=== PATIENT | male | born 1985 | race Caucasian/White ===

== ENCOUNTER 2019-11-18 16:19 | Emergency (ER) | payer OTHER, SELFPAY ==
--- NOTE | ~2019-11-18 | XR_ITS ---
EXAMINATION: XR chest 2V DATE: 11/18/2019 17:12 INDICATION: Left-sided chest pain TECHNIQUE: PA and lateral views of the chest are obtained. COMPARISON: 09/10/2018 FINDINGS: The lungs are free of acute opacities. There is no pleural effusion or pneumothorax. The ca rdiomediastinal silhouette is normal. The visualized bones and soft tissues are unremarkable. There i s a single lead pacemaker/defibrillator of the left chest wall with its lead ending in the right vent ricle. IMPRESSION: 1. No acute cardiopulmonary abnormality. Reviewed, dictated and finalized at location A.
--- NOTE | 2019-11-18 16:33 | ED.CHESTPAIN ---
HPI - Chest Pain General Chief Complaint: Extremity Injury, Upper Stated Complaint: pain in chest, Time Seen by Provider: 11/18/19 16:33 Source: patient Mode of arrival: ambulatory Limitations: no limitations History of Present Illness HPI narrative: A 34-year-old man with history of idiopathic cardiomyopathy comes in today complaining of left upper chest pain that occurred overnight and is now resolved. He states the pain was sharp but dull and lasted longer than 20 minutes. He had no lightheadedness common but he states he had some nausea, shortness breath. Who has had a mild cough from smoking but denies any fever, cold symptoms, sore throat or vomiting. On October 05 he had a pacemaker replaced. He has had some discomfort in his left upper arm which is exacerbated by movement since he went back to work 2 weeks ago. MD complaint: chest pain Pertinent past history: coronary artery disease Onset (ago): day(s) (12) Timing of current episode: episodic and now resolved Prior episodes: No Onset: during rest (in bed) Pain location: left chest Pain radiation: none Severity: moderate Quality: sharp and dull Context: recent surgery Associated symptoms: nausea, diaphoresis, dyspnea and cough Risk Factors Coronary artery disease risk factors: smoking history and hyperlipidemia Related Data Home Medications Medication Instructions Recorded Confirmed carvedilol 12.5 mg PO BID 11/18/19 11/18/19 fenofibrate 160 mg PO DAILY 11/18/19 11/18/19 lisinopril 10 mg PO DAILY 11/18/19 11/18/19 nitroglycerin 0.4 mg SUBLINGUAL PRN PRN 11/18/19 11/18/19 Allergies Allergy/AdvReac Type Severity Reaction Status Date / Time No Known Drug Allergies Allergy Unknown Unverified 12/25/13 21:45 Review of Systems Constitutional: Constitutional: Denies chills, Denies fatigue, Denies fever(s) and Denies weakness Eyes: Eyes: Denies change in vision and Denies photophobia ENT: Denies dysphagia, Denies nasal congestion and Denies sore throat Cardiovascular: Cardiovascular: Reports as per HPI, Reports chest pain and Reports radiating jaw, neck or arm pain Respiratory: Respiratory: Denies cough, Denies dyspnea and Denies wheezing Gastrointestinal: Gastrointestinal: Denies abdominal pain, Reports nausea and Denies vomiting Genitourinary: Genitourinary: Denies dysuria and Denies urinary frequency Musculoskeletal: Musculoskeletal: Reports as per HPI and Reports arthralgias Integumentary/Breasts: Skin/Breast: Denies pruritus, Denies erythema and Denies rash Neurologic: Denies vertigo, Denies dizziness and Denies syncope Psychiatric: Psychiatric: Denies anxiety and Denies depression Endocrine: Endocrine: Denies polydipsia and Denies polyuria Hematologic/Lymphatic: Hematologic/Lymphatic: Denies easy bleeding and Denies easy bruising Allergic/Immunologic: Allergic/Immunologic: Denies lip swelling and Denies wheezing PMFSH Past Medical History Medical History ADHD Hypertension Idiopathic cardiomyopathy Presence of combination internal cardiac defibrillator (ICD) and pacemaker Surgical History Surgical History Previous back surgery Social History Social History Smoking status: Current every day smoker Alcohol intake: never Substance use: never Living arrangements: with family Exam Const: General: healthy appearing and alert Orientation/consciousness: patient oriented x3 Other: Mild acute distress HENMT: Head: normal to inspection Ears: TM's normal bilaterally and EAC's normal General nose exam: Normal nares present Mouth: Yes Normal oral and palatal mucosa present and Yes moist mucous membranes Throat: posterior oropharynx normal Eyes: Conjunctivae: conjunctivae normal Pupils: Equal, round and reactive pupils present EOM: EOMs intact bilaterally Neck:
--- NOTE | 2019-11-18 16:38 | ECG_ITS ---
Measurements Intervals [place] Rate: 71 P: 4 WI: 169 QRS: -28 QRSD: 173 T: 32 QT: 426 QTc: 465 Interpretive Statements SINUS RHYTHM POSSIBLE LEFT ATRIAL ENLARGEMENT LEFT BUNDLE BRANCH BLOCK BASELINE ARTIFACT- I, II, III, AVR, V1 ABNORMAL ECG Electronically Signed On 11-19-2019 7:56:49 CDT by Maico Gupta D.O.
[2019-11-18 16:40] VITALS: BP 141/84; PULSE 79; RESP 14; TEMP 36.9; O2SAT 98
[2019-11-18 16:55] LABS: Basophils Absolute Auto 0.06 K/mm3 (0.00-0.10); Basophils Percent Auto 0.7 % (0.0-1.0); Eosinophils Percent Auto 2.4 % (1.0-6.0); Hemoglobin 16.8 g/dL (14.0-18.0); Immature Granulocyte Absolute 0.02 K/mm3 (0.00-0.00); Immature Granulocyte Percent A 0.2 % (0.0-0.0); Lymphocytes Absolute Auto 3.12 K/mm3 (1.10-4.50); Lymphocytes Percent Auto 37.9 % (18.0-42.0); Mean Corpuscular HGB Conc 35.7 g/dL (32.0-36.0); Mean Corpuscular Hemoglobin 30.6 pg (27.0-31.0); Mean Corpuscular Volume 85.6 fL (78.0-102.0); Mean Platelet Volume 11.2 fl (8.7-11.0); Monocytes Absolute Auto 0.61 K/mm3 (0.10-0.90); Monocytes Percent Auto 7.4 % (2.0-11.0); Neutrophils Absolute Auto 4.2 K/mm3 (1.7-7.2); Neutrophils Percent Auto 51.4 % (50.0-70.0); Platelet Count Result 204 K/mm3 (150-420); Red Blood Count 5.49 M/mm3 (4.70-6.10); Red Cell Distribution Width 11.7 % (11.6-14.4); White Blood Count 8.2 K/mm3 (4.8-10.8)
[2019-11-18 17:10] LABS: Partial Thromboplastin Time 24.3 SEC (22.3-31.6); Prothrombin Time 10.2 Seconds (9.64-11.0)
[2019-11-18 17:12] LABS: D Dimer 0.19 mg/L (0.19-0.50)
[2019-11-18 17:14] LABS: Alanine Aminotransferase 68 U/L (16-63); Alkaline Phosphatase 72 U/L (46-116); Aspartate Amino Transferase 30 U/L (15-37); Bilirubin,Total 0.4 mg/dL (0.00-1.00); Blood Urea Nitrogen 12 mg/dL (7-18); Calcium 8.6 mg/dL (8.5-10.1); Carbon Dioxide 25 mmol/L (21-32); Chloride 105 mmol/L (98-108); Estimated CRCL calculation 129 ml/min; Estimated Glomerular Filt Rate > 60; Glucose 87 mg/dL (70-99); Osmolality Calculated 290 mOsm/kg (285-295); Sodium 141 mmol/L (136-145); Total Protein 7.1 g/dL (6.4-8.2)
[2019-11-18 17:15] LABS: BNP 20.3 pg/mL (0-100); Troponin I < 0.02 ng/mL (0.00-0.056)
[2019-11-18 17:29] VITALS: BP 134/89; PULSE 79; RESP 14; O2SAT 97
== END 2019-11-18 17:40 | disposition home or self-care (01) ==
PROVIDERS: Emergency Provider Emergency Medicine; PCP Family Medicine
DX: R07.9 Chest pain, unspecified (principal); S43.402A Unspecified sprain of left shoulder joint, initial encounter
CPT/HCPCS: 36415; 71046; 80053; 83880; 84484; 85025; 85380; 85610; 85730; 93005; 99284

== ENCOUNTER 2020-05-07 10:31 | Outpatient (CLI) | payer OTHER, SELFPAY ==
--- NOTE | ~2020-05-07 | XR_ITS ---
XR elbow RT min 3V DATE: 05/07/2020 11:07 INDICATION: Right arm pain for one day. No injury. TECHNIQUE: 4 views COMPARISON: None FINDINGS: No fracture or dislocation or joint effusion. No periosteal reaction or bone destruction. J oint spaces are well preserved. IMPRESSION: Negative Reviewed, dictated and finalized at location A. IMPRESSION: Negative
--- NOTE | ~2020-05-07 | XR_ITS ---
XR shoulder RT min 2V DATE: 05/07/2020 11:08 INDICATION: Right shoulder pain for one day. No known injury. TECHNIQUE: 4 views COMPARISON: None FINDINGS: No fracture or dislocation, periosteal reaction or bone destruction or abnormal soft tissue calcification. Defibrillator device is incidentally noted. IMPRESSION: Negative right shoulder Reviewed, dictated and finalized at location A. IMPRESSION: Negative right shoulder
== END 2020-05-07 10:32 | disposition home or self-care (01) ==
PROVIDERS: PCP Family Medicine; Visit Provider Family Medicine
DX: M79.601 Pain in right arm (principal); M25.511 Pain in right shoulder
CPT/HCPCS: 73030; 73080

== ENCOUNTER 2020-05-31 14:27 | Outpatient (CLI) | payer OTHER, SELFPAY ==
--- NOTE | ~2020-05-31 | XR_ITS ---
XR shoulder LT min 2V DATE: 05/31/2020 14:55 INDICATION: Left shoulder pain, worse with lifting TECHNIQUE: 4 views COMPARISON: None FINDINGS: No fracture or dislocation, periosteal reaction or bone destruction. Normal alignment at th e acromioclavicular and glenohumeral joints. No abnormal soft tissue calcification. Left-sided pacemaker device. IMPRESSION: Negative left shoulder Reviewed, dictated and finalized at location A. IMPRESSION: Negative left shoulder
== END 2020-05-31 14:28 | disposition home or self-care (01) ==
LOC: CHSIMG 14:29
PROVIDERS: PCP Family Medicine; Visit Provider Family Medicine
DX: M25.512 Pain in left shoulder (principal)
CPT/HCPCS: 73030

== ENCOUNTER 2020-06-05 07:53 | Outpatient (RCR) | payer OTHER, SELFPAY ==
--- NOTE | 2020-06-05 08:55 | PTOPEVAL ---
Thank you for referring Daniel Prince to [facility].? The patient is scheduled to be seen for therapy? ____x/week for ___ weeks. Please review, sign, date and return this plan of care GARRETT. I agree with and certify that the following plan of care is medically necessary. Referring Physician Date Admitting Provider: Attending Provider: Jatinder Billingsley MD Referring Provider: *PT Outpatient Evaluation Start: 06/05/20 07:58 Freq: Status: Active Protocol: Document 06/05/20 07:58 [facility] (Rec: 06/05/20 08:54 [facility] [id number]) Therapy Assessment Status Assessment Status Assessment Status Evaluation Outpatient Past Medical History Cardiovascular History Hx Cardiomyopathy Yes Hx Pacemaker Yes: DEFIB Musculoskeletal History Hx Spinal Surgery Yes: DUE TO HERNIATED DISCS Evaluation Information Problem Diagnosis L shoulder pain Onset 06/04/20 Additional Evaluation Detail quick dash = 20% functionally declined Subjective Information patient reports he has been Query Text:As Reported By Patient/ having pain in the L shoulder Family for several months. he reports he has an IDC generator. he reports he had it replaced in october of this year, and since then has been having some abnormal mm pain since then. he reports the muscle feels like it rotates/moves. he report as of late the pain has been increased. he reports trying icy hot and ibuprofen for pain but they have not helped. he reports majority of his pain is in the biceps. he reports negative x-rays. he reports some numbness reported . he reports no other imaging. he reports increased pain with lifting above head and supinating his arm. Prior Level of Function Comments Additional Prior Level of Function prior to october, no issues with Comments the L shoulder/arm. Pain Assessment Timing of Pain Assessment Timing of Pain Assessment Assessment Pain Scale Pain Scale Used Numeric (1 - 10) Self Report Pain Assessment Left Arm(s) Reported Pain Level 2 Pain Frequency Chronic,Continuous Lowest Pain Intensity 2 Greatest Pain Intensity 9 Pain Scor
--- NOTE | 2020-07-02 11:01 | PCPTNOTE ---
patient cancelled appt today due to going to get tested for covid. ALEX
--- NOTE | 2020-07-11 08:05 | PCPTNOTE ---
Patient called and cancelled appt due to having a migraine. ALEX
== END 2020-07-18 14:06 | disposition home or self-care (01) ==
LOC: CHSPT 07:53
PROVIDERS: PCP Family Medicine; Visit Provider Family Medicine
DX: M25.512 Pain in left shoulder (principal)
CPT/HCPCS: 97110; 97161; 97530

== ENCOUNTER 2020-07-02 10:03 | Outpatient (CLI) | payer OTHER, SELFPAY ==
[2020-07-02 11:02] LABS: SARS-CoV-2 Ag Negative (Negative)
== END 2020-07-02 10:04 | disposition home or self-care (01) ==
LOC: CHSLAB 10:07
PROVIDERS: PCP Family Medicine; Visit Provider Family Medicine
DX: Z20.828 Contact with and (suspected) exposure to other viral communicable diseases (principal)
CPT/HCPCS: 87426

== ENCOUNTER 2020-08-20 16:55 | Outpatient (CLI) | payer OTHER, SELFPAY ==
[2020-08-20 17:40] LABS: SARS-CoV-2 Ag Negative (Negative)
[2020-08-22 17:28] LABS: SARS-CoV-2 RNA PCR Negative
== END 2020-08-20 16:56 | disposition home or self-care (01) ==
LOC: CHSLAB 16:58
PROVIDERS: PCP Family Medicine; Visit Provider Family Medicine
DX: J00 Acute nasopharyngitis [common cold] (principal); Z20.822 Contact with and (suspected) exposure to COVID-19
CPT/HCPCS: 87426; C9803; U0003; U0005

== ENCOUNTER 2020-11-22 14:12 | Emergency (ER) | payer OTHER, SELFPAY ==
--- NOTE | ~2020-11-22 | XR_ITS ---
EXAMINATION: XR chest 2V DATE: 11/22/2020 15:20 INDICATION: Midsternal chest pain TECHNIQUE: PA and lateral views of the chest were obtained. COMPARISON: Chest radiograph dated 11/18/19 FINDINGS: The lungs remain clear with no focal airspace opacities, pulmonary edema, pleural effusion or pneumot horax. The cardiomediastinal silhouette is normal. Single lead pacemaker/AICD seen with lead tip proj ecting over the right ventricle.. IMPRESSION: 1. No acute cardiopulmonary disease. Reviewed, dictated and finalized at location A.
--- NOTE | 2020-11-22 14:20 | ECG_ITS ---
Measurements Intervals [place] Rate: 67 P: 12 RI: 178 QRS: 60 QRSD: 179 T: 23 QT: 453 QTc: 479 Interpretive Statements SINUS RHYTHM LEFT BUNDLE BRANCH BLOCK ABNORMAL ECG Electronically Signed On 11-22-2020 15:22:38 CDT by Maico Gupta D.O.
[2020-11-22 14:33] VITALS: BP 122/81; PULSE 68; RESP 20; TEMP 36.4
[2020-11-22 14:41] LABS: Basophils Absolute Auto 0.07 K/mm3 (0.00-0.10); Basophils Percent Auto 0.8 % (0.0-1.0); Eosinophils Absolute Auto 0.27 K/mm3 (0.02-0.50); Eosinophils Percent Auto 3.1 % (1.0-6.0); Hematocrit 46.9 % (40.0-54.0); Hemoglobin 16.4 g/dL (14.0-18.0); Immature Granulocyte Absolute 0.02 K/mm3 (0.00-0.00); Immature Granulocyte Percent A 0.2 % (0.0-0.0); Lymphocytes Absolute Auto 3.24 K/mm3 (1.10-4.50); Lymphocytes Percent Auto 37.6 % (18.0-42.0); Mean Corpuscular Hemoglobin 30.2 pg (27.0-31.0); Mean Corpuscular Volume 86.4 fL (78.0-102.0); Mean Platelet Volume 11.6 fl (8.7-11.0); Monocytes Absolute Auto 0.46 K/mm3 (0.10-0.90); Monocytes Percent Auto 5.3 % (2.0-11.0); Neutrophils Absolute Auto 4.6 K/mm3 (1.7-7.2); Platelet Count Result 202 K/mm3 (150-420); Red Blood Count 5.43 M/mm3 (4.70-6.10); Red Cell Distribution Width 11.5 % (11.6-14.4); White Blood Count 8.6 K/mm3 (4.8-10.8)
[2020-11-22 14:55] LABS: D Dimer 0.19 mg/L (0.19-0.50); Partial Thromboplastin Time 23.9 SEC (23.90-30.70); Prothrombin Time 10.9 Seconds (9.50-12.10)
[2020-11-22 15:04] LABS: Alanine Aminotransferase 41 U/L (16-63); Albumin Level 3.8 g/dL (3.4-5.0); Alkaline Phosphatase 71 U/L (46-116); Anion Gap 8 mmol/L (8-16); Aspartate Amino Transferase 17 U/L (15-37); Bilirubin,Total 0.4 mg/dL (0.00-1.00); Blood Urea Nitrogen 9 mg/dL (7-18); Calcium 9.3 mg/dL (8.5-10.1); Carbon Dioxide 28 mmol/L (21-32); Chloride 102 mmol/L (98-108); Estimated CRCL calculation 111 ml/min; Estimated Glomerular Filt Rate > 60; Glucose 97 mg/dL (70-99); Lipase 376 U/L (73-393); NT Pro B Type Natriuretic Pept 171; Osmolality Calculated 284 mOsm/kg (285-295); Sodium 138 mmol/L (136-145); Total Protein 6.9 g/dL (6.4-8.2); Troponin I 13.7 ng/L (0.00-60.4)
--- NOTE | 2020-11-22 15:38 | ED.CHESTPAIN ---
HPI - Chest Pain General Chief Complaint: Chest Pain Stated Complaint: some type of pains in chest Source: patient Mode of arrival: ambulatory Limitations: no limitations History of Present Illness HPI narrative: this is a 35-year-old male with a history of idiopathic cardiomyopathy presents from his doctor's office after he was complaining of left-sided he left-sided chest pain with no radiation of his pain no diaphoresis no nausea vomiting no shortness of breath. The patient's primary care physician called and informed us that the patient has been having this left-sided chest pain off and on and patient works at [employer] and does some heavy lifting. Currently there is no cough or congestion no fever chills no abdominal pain no diarrhea constipation, there is currently no flank pain. MD complaint: chest pain Pertinent past history: other ( history of idiopathic cardiomyopathy) Onset (ago): week(s) Timing of current episode: episodic Onset: during rest Pain location: parasternal Pain radiation: none Severity: moderate Pain scale (0-10): 6 Quality: aching Exacerbating factors: nothing Related Data Home Medications Medication Instructions Recorded Confirmed carvedilol 12.5 mg PO BID 11/18/19 11/22/20 fenofibrate 160 mg PO DAILY 11/18/19 11/22/20 lisinopril 10 mg PO DAILY 11/18/19 11/22/20 nitroglycerin 0.4 mg SUBLINGUAL PRN PRN 11/18/19 11/22/20 Allergies Allergy/AdvReac Type Severity Reaction Status Date / Time No Known Drug Allergies Allergy Unknown Unknown Unverified 11/22/20 14:41 Review of Systems Review of Systems: All systems reviewed & are unremarkable except as noted in HPI and below PMFSH Past Medical History Medical History ADHD Hypertension Idiopathic cardiomyopathy Presence of combination internal cardiac defibrillator (ICD) and pacemaker Surgical History Surgical History Previous back surgery Social History Social History Smoking status: Current every day smoker Alcohol intake: never Substance use: never Gender identity (if verbalized by the patient): Male Exam Const: General: no acute distress and alert Orientation/consciousness: patient oriented x3 HENMT: Head: normal to inspection Eyes: Conjunctivae: conjunctivae normal Pupils: Equal, round and reactive pupils present Neck: Neck: normal visual inspection, no lymphadenopathy and no meningeal signs Chest: Chest palpation & inspection: normal inspection of the chest Other: Reproducible chest pain with palpation Resp: Effort & Inspection: normal respiratory effort Auscultation: clear to auscultation bilaterally Cardio: Rate: regular rate Rhythm: regular rhythm GI: Auscultation: normal bowel sounds Back/Spine/Pelvis: Back: no CVA tenderness Skin: General skin exam: normal color Rashes: no rashes Neuro: General: patient oriented x3, moves all extremities, no meningeal signs and no focal motor deficits Extrem: General: normal to inspection and no pedal edema Psych: Appearance: grossly normal Mental Status: mental status grossly normal Thought content: Yes Normal thought content present Course Course Emergency Course: patient received Toradol and his pain has improved, reviewed EKG and lab findings and advised that he has costochondritis and will prescribe some pain medication and for the patient to follow-up with his primary care physician. Vital Signs Vital signs: Vital Signs Temperature 36.4 C 11/22/20 14:33 Pulse Rate 68 11/22/20 14:33 Respiratory Rate 20 11/22/20 14:33 Blood Pressure 122/81 11/22/20 14:33 Temperature 36.4 C 11/22/20 14:33 Pulse Rate 68 11/22/20 14:33 Respiratory Rate 20 11/22/20 14:33 Blood Pressure 122/81 11/22/20 14:33 MDM - Chest Pain Lab Data Result diagrams: 11/22/20 14:36
[2020-11-22 15:47] VITALS: BP 125/80; PULSE 88; RESP 20; TEMP 36.7; O2SAT 98
== END 2020-11-22 15:57 | disposition home or self-care (01) ==
PROVIDERS: Emergency Provider Emergency Medicine; PCP Family Medicine
DX: M94.0 Chondrocostal junction syndrome [Tietze] (principal)
CPT/HCPCS: 36415; 71046; 80053; 83690; 83880; 84484; 85025; 85380; 85610; 85730; 93005; 99284

== ENCOUNTER 2021-07-08 11:07 | Outpatient (CLI) | payer OTHER, SELFPAY ==
--- NOTE | ~2021-07-08 | XR_ITS ---
EXAMINATION: XR shoulder LT min 2V INDICATION: Left shoulder pain TECHNIQUE: Four views of the left shoulder are submitted. COMPARISON: 05/31/2020 FINDINGS: Normal alignment. No fracture. Glenohumeral and acromioclavicular joint spaces are normal. Soft tissues are unremarkable. There is a partially imaged single lead pacemaker of the left chest wa ll. IMPRESSION: 1. No acute osseous abnormality. Reviewed, dictated and finalized at location A. RIALS INSPECTOR
--- NOTE | ~2021-07-08 | XR_ITS ---
EXAMINATION: XR toe 1st LT min 2V INDICATION: Left first toe pain TECHNIQUE: Four views of the left first toe are obtained. COMPARISON: None available FINDINGS: Bone alignment is normal. There is no fracture. There is mild osteoarthritis at the first m etatarsophalangeal joint. The soft tissues are unremarkable. IMPRESSION: 1. No acute osseous abnormality. Reviewed, dictated and finalized at location A. KENER OPERATOR
--- NOTE | ~2021-07-08 | XR_ITS ---
EXAMINATION: XR foot LT min 3V DATE: 07/08/2021 12:04 INDICATION: Left foot pain TECHNIQUE: Dorsoplantar, lateral, and 2 oblique views of the left foot were obtained. COMPARISON: None. FINDINGS: Bone alignment is normal. There is no fracture. Mild osteoarthritis is noted at the first m etatarsophalangeal joint. Posterior and plantar calcaneal enthesophytes are noted. IMPRESSION: 1. No acute osseous abnormality. Reviewed, dictated and finalized at location A. OGY TEACHER
== END 2021-07-08 11:08 | disposition home or self-care (01) ==
LOC: CHSIMG 11:10
PROVIDERS: PCP Family Medicine; Visit Provider Family Medicine
DX: M79.675 Pain in left toe(s) (principal); M25.512 Pain in left shoulder
CPT/HCPCS: 73030; 73630; 73660

== ENCOUNTER 2021-09-16 10:17 | Outpatient (CLI) | payer OTHER, SELFPAY ==
[2021-09-16 11:23] LABS: Cholesterol 181 mg/dL (0-200); HDL Direct 33 mg/dL (40-60); LDL Cholesterol Calculated 114 mg/dL (<130); Triglycerides 171 mg/dL (0-150)
== END 2021-09-16 10:18 | disposition home or self-care (01) ==
LOC: CHSLAB 10:25
PROVIDERS: PCP Family Medicine; Visit Provider Specialist
DX: E78.00 Pure hypercholesterolemia, unspecified (principal)
CPT/HCPCS: 36415; 80061

== ENCOUNTER 2022-08-06 08:35 | Emergency (ER) | payer OTHER, SELFPAY ==
--- NOTE | ~2022-08-06 | XR_ITS ---
EXAMINATION: XR chest 2V DATE: 08/06/2022 11:19 INDICATION: Nausea and vomiting. TECHNIQUE: Frontal and lateral views of the chest were obtained. COMPARISON: Chest 2 views 11/22/2020 FINDINGS: There is no pneumonia, pleural effusion, or pneumothorax. There is left ventricular enlarge ment of the heart. There is a left chest pacer/defibrillator with lead in right ventricle. IMPRESSION: 1. Left ventricular enlargement of the heart. Reviewed, dictated and finalized at location A. NIC SECTION TECHNICAL LEAD
--- NOTE | 2022-08-06 08:58 | ED.NAVMDI ---
HPI - Nausea/Vomiting/Diarrhea General Chief complaint: Nausea/Vomiting/Diarrhea Stated complaint: VOMITING Time Seen by Provider: 08/06/22 08:57 Source: patient Mode of arrival: ambulatory Limitations: no limitations History of Present Illness HPI Narrative: 36 year old male presents to the Emergency Department complaining of nausea and vomiting since 2 am. Began having diarrhea this morning. Denies blood in stool. Denies any known exposure. Has had vaccination. MD elicited complaint: nausea, vomiting and diarrhea Onset (ago): hour(s) (7) Associated nausea: Yes Associated abdominal pain: No Quality: cramping Exacerbating factors: none Relieving factors: none Associated symptoms: denies other symptoms Related Data Home Medications Medication Instructions Recorded Confirmed carvedilol 12.5 mg tablet 12.5 mg PO BID 11/18/19 11/22/20 fenofibrate 160 mg tablet 160 mg PO DAILY 11/18/19 11/22/20 lisinopril 10 mg tablet 10 mg PO DAILY 11/18/19 11/22/20 nitroglycerin 0.4 mg sublingual 0.4 mg sublingual PRN PRN Chest 11/18/19 11/22/20 tablet Pain Allergies Allergy/AdvReac Type Severity Reaction Status Date / Time No Known Drug Allergies Allergy Unknown Unknown Unverified 11/22/20 14:41 Review of Systems Review of Systems: All systems reviewed & are unremarkable except as noted in HPI and below Constitutional: Constitutional: Reports as per HPI, Reports no additional constitutional complaints, Denies chills and Denies fever(s) Eyes: Eyes: Reports as per HPI and Reports no additional eye complaints ENT: Reports system reviewed and no additional complaints, except as documented, Reports as per HPI and Denies dysphagia Cardiovascular: Cardiovascular: Reports as per HPI, Reports no additional cardiovascular complaints, Denies chest pain and Denies rapid heart rate Respiratory: Respiratory: Reports as per HPI, Reports no additional respiratory complaints, Denies chest congestion, Denies cough and Denies dyspnea Gastrointestinal: Gastrointestinal: Reports as per HPI, Reports bloating, Reports diarrhea, Reports nausea and Reports vomiting Genitourinary: Genitourinary: Reports no additional male genitourinary complaints, Reports as per HPI, Denies dysuria and Denies urinary frequency Musculoskeletal: Musculoskeletal: Reports no additional musculoskeletal complaints, Reports as per HPI, Denies back pain and Denies joint swelling Neurologic: Reports system reviewed and no additional complaints, except as documented, Reports as per HPI, Denies dizziness, Denies syncope, Denies numbness and Denies weakness Psychiatric: Psychiatric: Reports no additional psychiatric complaints Endocrine: Endocrine: Reports no additional endocrine complaints Hematologic/Lymphatic: Hematologic/Lymphatic: Reports no additional hematologic/lymphatic complaints Allergic/Immunologic: Allergic/Immunologic: Reports no additional allergic/immunologic complaints PMFSH Past Medical History Medical History ADHD Hypertension Idiopathic cardiomyopathy Presence of combination internal cardiac defibrillator (ICD) and pacemaker Surgical History Surgical History Previous back surgery Social History Social History Smoking status: Current every day smoker Alcohol intake: never Substance use: never Gender identity (if verbalized by the patient): Male Exam Const: General: alert Nutritional Appearance: well nourished Orientation/consciousness: patient oriented x3 Limitations: no limitations HENMT: Head: normal to inspection Ears: external ears normal Face/Nose/Sinus: Normal external nose present Face and sinus: normal facial exam Mouth: Yes Normal oral and palatal mucosa present Teeth and gingiva: dentition normal Throat: posterior oropharynx normal Eyes: Conjunctivae: conju
[2022-08-06] MEDS: SODIUM CHLORIDE 0.9% IV 1,000 ML 999 ML IV CONT ×2 (09:14→11:27)
[2022-08-06] MEDS: ONDANSETRON INJ 4 MG/2 ML VIAL IV PUSH (09:15)
[2022-08-06 09:34] LABS: Alanine Aminotransferase 56 U/L (16-63); Albumin Level 4.1 g/dL (3.4-5.0); Alkaline Phosphatase 74 U/L (46-116); Anion Gap 11 mmol/L (8-16); Aspartate Amino Transferase 20 U/L (15-37); Bilirubin,Total 0.7 mg/dL (0.00-1.00); Blood Urea Nitrogen 24 mg/dL (7-18); Calcium 8.9 mg/dL (8.5-10.1); Carbon Dioxide 23 mmol/L (21-32); Chloride 104 mmol/L (98-108); Estimated Glomerular Filt Rate > 60; Glucose 160 mg/dL (70-99); Osmolality Calculated 293 mOsm/kg (285-295); Potassium 3.8 mmol/L (3.5-5.1); Sodium 138 mmol/L (136-145); Total Protein 7.5 g/dL (6.4-8.2)
[2022-08-06 09:36] LABS: Eosinophils Percent Auto 0.6 % (1.0-6.0); Hematocrit 61.7 % (40.0-54.0); Hemoglobin 17.7 g/dL (14.0-18.0); Immature Granulocyte Percent A 0.5 % (0.0-0.0); Mean Corpuscular HGB Conc 34.2 g/dL (32.0-36.0); Mean Corpuscular Hemoglobin 29.6 pg (27.0-31.0); Mean Corpuscular Volume 86.6 fL (78.0-102.0); Mean Platelet Volume 11.7 fl (8.7-11.0); Monocytes Percent Auto 3.9 % (2.0-11.0); Neutrophils Percent Auto 90.6 % (50.0-70.0); Platelet Count Result 204 K/mm3 (150-420); Red Blood Count 5.97 M/mm3 (4.70-6.10); Red Cell Distribution Width 11.7 % (11.6-14.4); White Blood Count 16.1 K/mm3 (4.8-10.8)
[2022-08-06 09:37] LABS: Basophils Absolute Auto 0.06 K/mm3 (0.00-0.10); Basophils Percent Auto 0.4 % (0.0-1.0); Immature Granulocyte Absolute 0.08 K/mm3 (0.00-0.00); Lymphocytes Absolute Auto 0.65 K/mm3 (1.10-4.50); Monocytes Absolute Auto 0.63 K/mm3 (0.10-0.90); Neutrophils Absolute Auto 14.6 K/mm3 (1.7-7.2)
[2022-08-06 09:54] LABS: Influenza A QL RT-PCR Negative (Negative); Influenza B QL RT-PCR Negative (Negative); SARS-CoV-2 RNA PCR Negative (Negative)
[2022-08-06 09:55] LABS: RSV RNA, RT-PCR Negative (Negative)
[2022-08-06 10:08] VITALS: BP 135/92; PULSE 92; RESP 16; O2SAT 99
[2022-08-06 12:03] LABS: Add Urine Microscopic? YES; Appearance Urine Clear (Clear); Bilirubin Urine Negative (Negative); Blood Urine Negative (Negative); Color Urine Light Yellow (Yellow); Glucose Urine UA Trace (Negative); Ketones Urine Negative (Negative); Leukocyte Esterase Ur Negative LEU/UL (Negative); Nitrate Urine Negative (Negative); Protein Urine Negative (Negative); Urobilinogen Urine 0.2 mg/dL (0.2-1.0); pH Urine 6.5 (5.0-8.0)
[2022-08-06 12:08] LABS: Bacteria Urine None seen /hpf; RBC Urine 0-2 /hpf (0-2); Squamous Epithelial Cell Urine Rare /hpf (Few); WBC Urine 0-3 /hpf (0-3)
[2022-08-06 12:26] VITALS: BP 126/78; PULSE 95; RESP 20; TEMP 36.7; O2SAT 97
== END 2022-08-06 12:41 | disposition home or self-care (01) ==
PROVIDERS: Emergency Provider Emergency Medicine; PCP Family Medicine
DX: K52.9 Noninfective gastroenteritis and colitis, unspecified (principal); E86.0 Dehydration; I10 Essential (primary) hypertension; I42.9 Cardiomyopathy, unspecified; Z20.822 Contact with and (suspected) exposure to COVID-19
CPT/HCPCS: 36415; 71046; 80053; 81001; 85025; 87637; 96361; 96374; 99284; J2405; J7030

== ENCOUNTER 2022-12-25 17:01 | Emergency (ER) | payer OTHER, SELFPAY ==
[2022-12-25 17:03] VITALS: BP 149/93; PULSE 80; TEMP 36.4; O2SAT 96
--- NOTE | 2022-12-25 17:05 | ECG_ITS ---
Measurements Intervals [place] Rate: P: NM: QRS: QRSD: T: QT: QTc: Interpretive Statements PROBABLY SINUS RHYTHM (BASELINE ARTIFACT) FREQUENT VENTRICULAR PREMATURE COMPLEXES LEFT BUNDLE BRANCH BLOCK BASELINE ARTIFACT- I, II, III, AVR, AVL, AVF, V1-V6 ABNORMAL ECG NO PRIOR ECG FOR COMPARISON Electronically Signed On 12-26-2022 7:59:34 CDT by Maico Gupta D.O.
[2022-12-25 17:53] LABS: Troponin I 19.9 ng/L (0.00-60.4)
--- NOTE | 2022-12-25 18:08 | ED.CHESTPAIN ---
HPI - Chest Pain General Chief Complaint: Extremity Injury, Upper Stated Complaint: burning shoulder pain Time Seen by Provider: 12/25/22 17:03 Source: patient Mode of arrival: ambulatory Limitations: no limitations History of Present Illness HPI narrative: Patient presents with a burning sensation to his left clavicle and upper chest area with no diaphoresis it is reproducible has a defibrillator implanted there is no redness around that site no drainage currently not having any chest pain or chest discomfort no fever chills no shortness of breath. complaint: chest discomfort Onset (ago): day(s) Timing of current episode: episodic Related Data Home Medications Medication Instructions Recorded Confirmed carvedilol 12.5 mg tablet 12.5 mg PO BID 11/18/19 12/25/22 fenofibrate 160 mg tablet 160 mg PO DAILY 11/18/19 12/25/22 lisinopril 10 mg tablet 10 mg PO DAILY 11/18/19 12/25/22 nitroglycerin 0.4 mg sublingual 0.4 mg sublingual PRN PRN Chest 11/18/19 12/25/22 tablet Pain Allergies Allergy/AdvReac Type Severity Reaction Status Date / Time No Known Drug Allergies Allergy Unknown Unknown Verified 12/25/22 17:08 Review of Systems Review of Systems: All systems reviewed & are unremarkable except as noted in HPI and below PMFSH Past Medical History Medical History ADHD Hypertension Idiopathic cardiomyopathy Presence of combination internal cardiac defibrillator (ICD) and pacemaker Surgical History Surgical History Previous back surgery Social History Social History Smoking status: Current every day smoker Alcohol intake: never Substance use: never Living arrangements: with family Gender identity (if verbalized by the patient): Male Exam Const: General: healthy appearing and no acute distress Limitations: no limitations HENMT: Head: normal to inspection Eyes: Conjunctivae: conjunctivae normal Pupils: Equal, round and reactive pupils present EOM: EOMs intact bilaterally Chest: Chest palpation & inspection: normal inspection of the chest Resp: Effort & Inspection: normal respiratory effort GI: Auscultation: normal bowel sounds : General: Yes bladder normal to palpation Skin: General skin exam: normal color Rashes: no rashes Wounds: no wounds Neuro: General: patient oriented x3 Extrem: General: normal to inspection Psych: Mental Status: mental status grossly normal Affect: normal affect Course Course Emergency Course: Labs reviewed with patient EKG also reviewed and advised patient to follow-up with primary care physician. Vital Signs Vital signs: Vital Signs Temperature 36.4 C L 12/25/22 17:03 Pulse Rate 80 12/25/22 17:03 Blood Pressure 149/93 H 12/25/22 17:03 Pulse Oximetry 96 12/25/22 17:03 Oxygen Delivery Room Air 12/25/22 17:03 Temperature 36.4 C L 12/25/22 17:03 Pulse Rate 80 12/25/22 17:03 Blood Pressure 149/93 H 12/25/22 17:03 Pulse Oximetry 96 12/25/22 17:03 Oxygen Delivery Room Air 12/25/22 17:03 MDM - Chest Pain Lab Data Labs: Lab Results 12/25/22 Range/Units 17:30 Troponin I 19.9 (0.00-60.4) ng/L Critical Care Time Critical Care Time Critical Care Time: No Discharge Plan Discharge Clinical Impression: Atypical chest pain Patient Disposition: Home, Self-Care Condition: Stable Instructions: Antibiotic Form, Chest Pain (ED) Additional Instructions: advised patient follow-up with Primary/ [facility] ka[facility]apa ma[facility] for further evaluation and treatment. Prescriptions: No Action tramadol [Ultram] 50 mg tablet 50 mg PO Q6H PRN (Reason: pain) Qty: 20 0RF ondansetron 4 mg tablet,disintegrating 4 mg PO Q6H PRN (Reason: nausea and vomiting) Qty: 10 1RF carvedilol 12.5 mg tablet 12.5 mg PO BID lisinopri
[2022-12-25 18:17] VITALS: BP 134/71; PULSE 65; RESP 18; TEMP 36.7; O2SAT 99
== END 2022-12-25 18:20 | disposition home or self-care (01) ==
PROVIDERS: Emergency Provider Emergency Medicine; PCP Family Medicine
DX: R07.89 Other chest pain (principal); I10 Essential (primary) hypertension; I42.8 Other cardiomyopathies; Z95.810 Presence of automatic (implantable) cardiac defibrillator; F17.200 Nicotine dependence, unspecified, uncomplicated
CPT/HCPCS: 36415; 84484; 93005; 99284

== ENCOUNTER 2023-02-10 09:48 | Outpatient (CLI) | payer OTHER, SELFPAY ==
--- NOTE | ~2023-02-10 | XR_ITS ---
EXAMINATION:XR_[id number]_CR DATE: 02/10/2023 10:11 INDICATION: Neck pain TECHNIQUE: AP, lateral, lateral swimmers and odontoid views of the cervical spine are provided. COMPARISON: None FINDINGS: There is reversal of the normal cervical lordosis. Bone alignment is normal. The odontoid p rocess is intact. No fracture is identified. Vertebral body heights and disk spaces are normal. Preve rtebral soft tissues are normal. IMPRESSION: 1. No acute osseous abnormality. Reviewed, dictated and finalized at location L.
== END 2023-02-10 09:49 | disposition home or self-care (01) ==
LOC: CHSIMG 09:50
PROVIDERS: PCP Family Medicine; Visit Provider Nurse Practitioner Family
DX: M54.2 Cervicalgia (principal)
CPT/HCPCS: 72040

== ENCOUNTER 2023-06-09 11:29 | Outpatient (CLI) | payer OTHER, SELFPAY ==
--- NOTE | ~2023-06-09 | XR_ITS ---
Left foot Technique: AP, oblique, and lateral views were obtained. Clinical History: Pain Findings: No acute fracture or dislocation is seen. Osseous alignment is anatomic. Joint spaces are p reserved without erosive or degenerative change. Soft tissues are unremarkable. Impression: Unremarkable left foot radiographs. Reviewed, dictated and finalized at location . TECH Impression: Unremarkable left foot radiographs.
--- NOTE | ~2023-06-09 | XR_ITS ---
Right foot Technique: AP, oblique, and lateral views were obtained. Clinical History: Pain Findings: No acute fracture or dislocation is seen. Osseous alignment is anatomic. Joint spaces are p reserved without erosive or degenerative change. Soft tissues are unremarkable. Impression: Unremarkable right foot radiographs. Reviewed, dictated and finalized at location . 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
== END 2023-06-09 11:30 | disposition home or self-care (01) ==
LOC: CHSIMG 11:30
PROVIDERS: PCP Family Medicine; Visit Provider Family Medicine
DX: M79.673 Pain in unspecified foot (principal)
CPT/HCPCS: 73630

== ENCOUNTER 2023-06-15 13:48 | Outpatient (CLI) | payer OTHER, SELFPAY ==
--- NOTE | 2023-06-15 13:52 | ECHO_ITS ---
Patient Info Name: Daniel Prince Age: 37 years : 1985 Gender: Male Ht: 71 in Wt: 216 lbs BSA: 2.24 m2 HR: 70 bpm BP: 143 / 78 mmHg Heart Rhythm: Sinus Rhythm Technical Quality: Good Exam Date: 06/15/2023 3:04 PM Exam Location: Echo Lab Patient Status: Outpatient Admit Date: 06/15/2023 Staff Ordering Physician: Maico Gupta DO Event Specialist Food Demonstrator: Gallito Foster RDCS Attending Provider: Maico Gupta DO Referring Physician: Alonso FRANCIS; Exam Type: CA echo doppler color flow Study Info Indications - OTHER CARDIOMYOPATHIES Complete two-dimensional, color flow and Doppler transthoracic echocardiogram is performed. Summary 1. Complete two-dimensional, color flow and Doppler transthoracic echocardiogram is performed. 2. Left ventricular chamber dimension is severely enlarged. 3. Left ventricular systolic function is severely globally reduced, estimated at 20-25%. 4. The left ventricular diastolic function is grade I diastolic dysfunction. 5. E/e' 9 is minimally elevated. 6. Linear artifact in right ventricle suggestive of catheter(s), pacemaker lead(s), or ICD lead(s). 7. Left atrial chamber dimension is moderately enlarged. 8. Linear artifact in the right atrium suggestive of catheter(s), pacemaker lead(s), or ICD lead(s). 9. There is trace aortic valve regurgitation. 10. There is trace mitral valve regurgitation. 11. No pulmonary hypertension, estimated pulmonary arterial systolic pressure is 21 mmHg. 12. There is trace pulmonic regurgitation. Left Ventricle E/e' 9 is minimally elevated. Left ventricular chamber dimension is severely enlarged. Left ventricular systolic function is severely globally reduced, estimated at 20-25%. The left ventricular diastolic function is grade I diastolic dysfunction. Right Ventricle Linear artifact in right ventricle suggestive of catheter(s), pacemaker lead(s), or ICD lead(s). Right ventricular systolic function is normal and with normal TAPSE 2.8 cm. Right ventricular chamber dimension is normal. Left Atria Left atrial chamber dimension is moderately enlarged. Right Atria Linear artifact in the right atrium suggestive of catheter(s), pacemaker lead(s), or ICD lead(s). Right atrial chamber dimension is normal. Aortic Valve The aortic valve is trileaflet. There is no aortic valve stenosis. There is trace aortic valve regurgitation. Pulmonic Valve There is trace pulmonic regurgitation. Mitral Valve There is no mitral valve stenosis. There is trace mitral valve regurgitation. Tricuspid Valve There is no tricuspid valve regurgitation. No pulmonary hypertension, estimated pulmonary arterial systolic pressure is 21 mmHg. Pericardium/Pleural There is no pericardial effusion. Inferior Vena Cava Normal inferior vena cava with >50% collapse upon inspiration consistent with normal right atrial pressure, 5 mmHg. Aorta The aortic root size at the sinus of Valsalva is normal. Left Ventricular Outflow Tract Name Value Normal LVOT 2D LVOT Diameter 2.2 cm LVOT Doppler LVOT Peak Velocity 123 cm/s LVOT Peak Gradient 6 mmHg LVOT Mean Gradient 3 mmHg LVOT VTI
== END 2023-06-15 13:49 | disposition home or self-care (01) ==
LOC: CHSIMG 13:49
PROVIDERS: PCP Family Medicine; Visit Provider Internal Medicine Cardiovascular Disease
DX: I42.8 Other cardiomyopathies (principal)
CPT/HCPCS: 93306

== ENCOUNTER 2023-09-08 09:12 | Outpatient (RCR) | payer OTHER, SELFPAY ==
--- NOTE | 2023-09-08 10:12 | OPREHPOC ---
Outpatient Therapy Plan of Care This is a Multidisciplinary Plan of Care that may contain components documented by all disciplines (PT, OT, and ST.) PT Problem 1 PT Problem #1 Knowledge Deficit PT Goal 1 Goal 1. independent and compliant with HEP Target Visit 6 PT Problem 2 PT Problem #2 Pain PT Goal 1 Goal 1. decrease pain at worst to 2/10 Target Visit 12 PT Problem 3 PT Problem #3 Impaired Range of Motion PT Goal 1 Goal 1. improve bilateral ankle active DF to 10 degrees or better Target Visit 12 PT Problem 4 PT Problem #4 Impaired Strength PT Goal 1 Goal 1. 5/5 L ankle INV Target Visit 12 PT Problem 5 PT Problem #5 Impaired Functional Mobil PT Goal 1 Goal 1. LEFS to display less than 25% functional decline 2. patient to ambulate with normal gait mechanics on no pain 3. patient to return to working full days without more than 2/10 pain 4. mild or less tightness of the bilateral gastrocs Target Visit 12
--- NOTE | 2023-09-08 10:12 | PTOPEVAL1 ---
Assessment and note entered by JT File, PT Evaluation Information Assessment Status Evaluation Diagnosis L foot pain, plantar fasciitis Onset 09/07/23 Subjective Information patient reports his symptoms come and go. he reports he wakes up in the morning with no pain, but during the middle of his work shift he will have increased pain. he reports he works on his feet all day at [employer]. he reports the pain is on the bottom of the L foot in the heel. he reports he has tried some self massage, ice, and a mechanical foot massager. he reports he will at times also flex his foot wrong in the shower and get a pain. he reports the pain is never in the achilles tendon. he reports the pain is mostly on the bottom of the foot in the heel, but also at time some of the back of the foot. he reports he would like to return to pain free standing, walking, and activities. he is unsure of the length of symptoms. Reported Pain Level Pain Score 0: Self Report Additional Pain Score Comments plantar heel pain Assessment PT Clinical Summary mr. muñoz is a 38 yo man who presents to skilled PT services for evaluation and treatment of L foot pain. he presents with signs and symptoms consistent with L plantar fasciitis. he presents with gastroc and plantar fascia tightness , decreased ankle active DF, weakness of the L ankle, and pain. he would benefit from continued skilled PT to improve his objective/functional deficits and progress towards a return to pain free daily activities to improve his quality of life. Plan of Care Interventions Gait Training,Hot Pack/Cold Pack,Manual Therapy, Neuro Re-education,Patient/Caregiver Educati, Therapeutic Activities,Therapeutic Exercise, Ultrasound,Other Other Interventions dry needling PT Services Indicated Yes Treatment Frequency and 3x weekly for 9 visits Duration These treatments will address the objective and functional deficits as defined above. The patient will be advanced safely and appropriately in order for the patient to progress towards his/her prior level of function. Additional exercises will be introduced and as well as a comprehensive home exercise program upon discharge, if needed, ?to ensure carryover of functional gains achieved in the clinic. This treatment plan has been reviewed and agreement upon by the patient.
--- NOTE | 2023-09-16 07:02 | PCPTNOTE ---
Patient cancelled session today due to illness.
--- NOTE | 2023-09-18 12:57 | PCPTNOTE ---
Patient cancelled session today. Patient reports he is getting tested for covid.
--- NOTE | 2023-10-27 14:50 | OPREHPOC ---
Outpatient Therapy Plan of Care This is a Multidisciplinary Plan of Care that may contain components documented by all disciplines (PT, OT, and ST.) PT Problem 1 PT Problem #1 Knowledge Deficit PT Goal 1 Goal 1. independent and compliant with HEP Target Visit 6 Progress Met PT Problem 2 PT Problem #2 Pain PT Goal 1 Goal 1. decrease pain at worst to 2/10 Target Visit 15 Comment progressing PT Problem 3 PT Problem #3 Impaired Range of Motion PT Goal 1 Goal 1. improve bilateral ankle active DF to 10 degrees or better Target Visit 15 Comment progressing PT Problem 4 PT Problem #4 Impaired Strength PT Goal 1 Goal 1. 5/5 L ankle INV Target Visit 15 Comment progressing PT Problem 5 PT Problem #5 Impaired Functional Mobil PT Goal 1 Goal 1. LEFS to display less than 25% functional decline 2. patient to ambulate with normal gait mechanics on no pain 3. patient to return to working full days without more than 2/10 pain 4. mild or less tightness of the bilateral gastrocs Target Visit 15 Comment progressing
--- NOTE | 2023-10-27 14:50 | PTOPREEVAL ---
Assessment and note entered by Sahara James DPT Evaluation Information Assessment Status Re-evaluation Diagnosis L foot pain, plantar fasciitis Onset 09/07/23 Subjective Information patient reports that since start of PT his foot is overall better. he reports he is able to stand at work with minimal pain but pain is increased following the work day. he reports prior to a week away from PT his foot was more improved. he reports that standing in the shower and turning the L leg increases pain. he reports he is compliant with HEP. he would like to continue with PT. Reported Pain Level Pain Score 4: Self Report Assessment PT Clinical Summary Mr. Prince has been seen for 6 visits of skilled PT with progression towards goals. He demonstrates decrease in overall pain, improved gait and improved flexibility of the gastrocs. He reports ability to stand and walk at work with less pain but reports showering continues to be difficult as well as increased pain at the end of the day. He demonstrates improved LEFS scoring but still demonstrates 30% disability. He will benefit from continued skilled PT to address remaining impairments and return to PLOF. Plan of Care Interventions Gait Training,Hot Pack/Cold Pack,Manual Therapy, Neuro Re-education,Patient/Caregiver Educati, Therapeutic Activities,Therapeutic Exercise, Ultrasound,Other Other Interventions dry needling PT Services Indicated Yes Treatment Frequency and 3x weekly for 9 visits Duration These treatments will address the objective and functional deficits as defined above. The patient will be advanced safely and appropriately in order for the patient to progress towards his/her prior level of function. Additional exercises will be introduced and as well as a comprehensive home exercise program upon discharge, if needed, ?to ensure carryover of functional gains achieved in the clinic. This treatment plan has been reviewed and agreement upon by the patient.
--- NOTE | 2023-11-09 11:53 | PCPTNOTE ---
Patient cancelled session today due to illness.
--- NOTE | 2023-11-11 09:32 | PCPTNOTE ---
patient cancelled therapy today due to being sick.
--- NOTE | 2023-11-23 13:18 | PCPTNOTE ---
Patient cancelled session today due to illness.
--- NOTE | 2023-11-25 17:32 | PCPTNOTE ---
patient called and cancelled therapy today and rescheduled for next week.
--- NOTE | 2023-12-02 17:02 | OPREHPOC ---
Outpatient Therapy Plan of Care This is a Multidisciplinary Plan of Care that may contain components documented by all disciplines (PT, OT, and ST.) PT Problem 1 PT Problem #1 Knowledge Deficit PT Goal 1 Goal 1. independent and compliant with HEP Target Visit 6 Progress Met PT Problem 2 PT Problem #2 Pain PT Goal 1 Goal 1. decrease pain at worst to 2/10 Target Visit 15 Progress Not Met Comment . PT Problem 3 PT Problem #3 Impaired Range of Motion PT Goal 1 Goal 1. improve bilateral ankle active DF to 10 degrees or better Target Visit 15 Progress Met Comment . PT Problem 4 PT Problem #4 Impaired Strength PT Goal 1 Goal 1. 5/5 L ankle INV Target Visit 15 Progress Met Comment . PT Problem 5 PT Problem #5 Impaired Functional Mobil PT Goal 1 Goal 1. LEFS to display less than 25% functional decline. met 2. patient to ambulate with normal gait mechanics on no pain. not met 3. patient to return to working full days without more than 2/10 pain. not met 4. mild or less tightness of the bilateral gastrocs. met Target Visit 15 Progress Partially Met Comment .
--- NOTE | 2023-12-02 17:03 | PTOPREEVAL ---
Assessment and note entered by JT File, PT Evaluation Information Assessment Status Re-evaluation Diagnosis L foot pain, plantar fasciitis Onset 09/07/23 Subjective Information patient reports the L foot today is not a sharp pain, but a numbing/dull pain. he reports he feels better leaving therapy, but generally always has increased pain with work and increased walking. 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 he reports he is hoping to get referred to a specialist. he reports it is improved overall, but still bothers him and is limiting his function. Reported Pain Level Pain Score 2: Self Report Pain Score 2: Self Report Assessment PT Clinical Summary mr. muñoz presents to skilled PT for his 12th skilled therapy visit. he continues to have pain in the plantar fascia and medial calcaneal tubercle of the L foot. however, he has met goals for L ankle ROM, L ankle flexibility, and L ankle strength as of this date. he is compliant with his HEP as well. at this time, given patients continued symptoms, suggest holding therapy to follow up with MD and seek referral to a specialist. Plan of Care Interventions Gait Training,Hot Pack/Cold Pack,Manual Therapy, Neuro Re-education,Patient/Caregiver Educati, Therapeutic Activities,Therapeutic Exercise, Ultrasound,Other Other Interventions dry needling PT Services Indicated Yes Treatment Frequency and hold therapy at this time. patient to follow up Duration with MD/specialist These treatments will address the objective and functional deficits as defined above. The patient will be advanced safely and appropriately in order for the patient to progress towards his/her prior level of function. Additional exercises will be introduced and as well as a comprehensive home exercise program upon discharge, if needed, ?to ensure carryover of functional gains achieved in the clinic. This treatment plan has been reviewed and agreement upon by the patient.
--- NOTE | 2024-04-19 10:52 | PCPTNOTE ---
Pt was re-evaluated on 12/02/23 and 9 additional visits were requested. Authorization was not received so pt will be discharged. -Sharonda Fischer, PT
== END 2023-12-02 23:00 | disposition home or self-care (01) ==
LOC: CHSPT 09:12
PROVIDERS: PCP Family Medicine; Visit Provider Family Medicine
DX: M72.2 Plantar fascial fibromatosis (principal)
CPT/HCPCS: 97110; 97112; 97140; 97161

== ENCOUNTER 2023-09-18 13:57 | Outpatient (CLI) | payer OTHER, SELFPAY ==
[2023-09-18 14:45] LABS: SARS-CoV-2 RNA PCR Positive (Negative)
[2023-09-18 14:48] LABS: Influenza A QL RT-PCR Negative (Negative); Influenza B QL RT-PCR Negative (Negative); Strep Group A RT-PCR NOT DETECTED (Negative)
== END 2023-09-18 13:58 | disposition home or self-care (01) ==
LOC: CHSLAB 14:00
PROVIDERS: PCP Family Medicine; Visit Provider Family Medicine
DX: U07.1 COVID-19 (principal); J06.9 Acute upper respiratory infection, unspecified
CPT/HCPCS: 87636; 87651

== ENCOUNTER 2023-10-12 12:46 | Outpatient (CLI) | payer OTHER, SELFPAY ==
--- NOTE | 2023-10-12 12:51 | ECHO_ITS ---
Patient Info Name: Daniel Prince Age: 38 years : 1985 Gender: Male Ht: 70 in Wt: 210 lbs BSA: 2.19 m2 HR: 65 bpm BP: 128 / 82 mmHg Heart Rhythm: Sinus Rhythm Technical Quality: Good Exam Date: 10/12/2023 12:44 PM Exam Location: Echo Lab Patient Status: Outpatient Admit Date: 10/12/2023 Staff Ordering Physician: Maico Gupta DO Ceramist: Gallito Foster RDCS Attending Provider: Maico Gupta DO Referring Physician: Alonso FRANCIS; Exam Type: CA echo doppler color flow Study Info Indications - other cardiomyopathies Complete two-dimensional, color flow and Doppler transthoracic echocardiogram is performed. Summary 1. Complete two-dimensional, color flow and Doppler transthoracic echocardiogram is performed. 2. Left ventricular chamber dimension is severely enlarged. 3. Left ventricular systolic function is severely reduced, estimated at 25-30%. 4. The left ventricular diastolic function is grade I diastolic dysfunction. 5. E/e' 9 is minimally elevated. 6. Linear artifact in right ventricle suggestive of catheter(s), pacemaker lead(s), or ICD lead(s). 7. Left atrial chamber dimension is mildly enlarged. 8. Linear artifact in the right atrium suggestive of catheter(s), pacemaker lead(s), or ICD lead(s). 9. No pulmonary hypertension, estimated pulmonary arterial systolic pressure is 28 mmHg. 10. There is trace pulmonic regurgitation. 11. There is trivial pericardial effusion. Left Ventricle E/e' 9 is minimally elevated. Left ventricular chamber dimension is severely enlarged. Left ventricular systolic function is severely reduced, estimated at 25-30%. The left ventricular diastolic function is grade I diastolic dysfunction. Right Ventricle Linear artifact in right ventricle suggestive of catheter(s), pacemaker lead(s), or ICD lead(s). Right ventricular systolic function is normal and with normal TAPSE 2.9 cm. Right ventricular chamber dimension is normal. Left Atria Left atrial chamber dimension is mildly enlarged. Right Atria Linear artifact in the right atrium suggestive of catheter(s), pacemaker lead(s), or ICD lead(s). Right atrial chamber dimension is normal. Aortic Valve The aortic valve is trileaflet. There is no aortic valve stenosis. There is no aortic valve regurgitation. Pulmonic Valve There is trace pulmonic regurgitation. Mitral Valve There is no mitral valve stenosis. There is no mitral valve regurgitation. Tricuspid Valve There is no tricuspid valve regurgitation. No pulmonary hypertension, estimated pulmonary arterial systolic pressure is 28 mmHg. Pericardium/Pleural There is trivial pericardial effusion. Inferior Vena Cava Normal inferior vena cava with >50% collapse upon inspiration consistent with normal right atrial pressure, 5 mmHg. Aorta The aortic root size at the sinus of Valsalva is normal. Left Ventricular Outflow Tract Name Value Normal LVOT 2D LVOT Diameter 2.2 cm LVOT Doppler LVOT Peak Velocity 83 cm/s LVOT Peak Gradient 3 mmHg LVOT Mean Gradient 2 mmHg LVOT VTI 23 cm LVOT VTI/AV VTI Ratio
== END 2023-10-12 12:47 | disposition home or self-care (01) ==
LOC: CHSIMG 12:47
PROVIDERS: PCP Family Medicine; Visit Provider Internal Medicine Cardiovascular Disease
DX: I42.8 Other cardiomyopathies (principal)
CPT/HCPCS: 93306

== ENCOUNTER 2023-11-17 09:17 | Outpatient (CLI) | payer OTHER, SELFPAY ==
[2023-11-17 09:31] LABS: Basophils Absolute Auto 0.07 K/mm3 (0.00-0.10); Basophils Percent Auto 0.9 % (0.0-1.0); Eosinophils Absolute Auto 0.31 K/mm3 (0.02-0.50); Eosinophils Percent Auto 3.8 % (1.0-6.0); Hematocrit 48.8 % (40.0-54.0); Hemoglobin 16.4 g/dL (14.0-18.0); Immature Granulocyte Absolute 0.04 K/mm3 (0.00-0.00); Immature Granulocyte Percent A 0.5 % (0.0-0.0); Lymphocytes Absolute Auto 2.97 K/mm3 (1.10-4.50); Lymphocytes Percent Auto 36.3 % (18.0-42.0); Mean Corpuscular HGB Conc 33.6 g/dL (32-36); Mean Corpuscular Hemoglobin 29.8 pg (27.0-31.0); Mean Corpuscular Volume 88.7 fL (78.0-102.0); Mean Platelet Volume 10.3 fl (8.7-11.0); Monocytes Absolute Auto 0.51 K/mm3 (0.10-0.90); Monocytes Percent Auto 6.2 % (2.0-11.0); Neutrophils Absolute Auto 4.29 K/mm3 (1.70-7.20); Neutrophils Percent Auto 52.3 % (50.0-70.0); Platelet Count Result 216 K/mm3 (150-420); Red Cell Distribution Width 11.6 % (11.6-14.4); White Blood Count 8.2 K/mm3 (4.8-10.8)
[2023-11-17 09:44] LABS: Hemoglobin A1C 5.3 % (<5.7)
[2023-11-17 10:26] LABS: Anion Gap 9 mmol/L (4-12); Blood Urea Nitrogen 26 mg/dL (7-18); Calcium 8.3 mg/dL (8.5-10.1); Carbon Dioxide 26 mmol/L (21-32); Chloride 104 mmol/L (98-108); Estimated Glomerular Filt Rate > 60; Glucose 102 mg/dL (70-99); Osmolality Calculated 292 mOsm/kg (285-295); Potassium 4.3 mmol/L (3.5-5.1); Sodium 139 mmol/L (136-145)
== END 2023-11-17 09:18 | disposition home or self-care (01) ==
LOC: CHSLAB 09:19
PROVIDERS: PCP Family Medicine; Visit Provider Family Medicine
DX: R73.9 Hyperglycemia, unspecified (principal)
CPT/HCPCS: 36415; 80048; 83036; 85025

== ENCOUNTER 2023-12-07 13:30 | Outpatient (CLI) | payer OTHER, SELFPAY ==
--- NOTE | ~2023-12-07 | XR_ITS ---
Left foot Technique: AP, oblique, and lateral views were obtained. Clinical History: Plantar fascial fibromatosis COMPARISON: 06/09/2023 Findings: No acute fracture or dislocation is seen. Osseous alignment is anatomic. Joint spaces are p reserved without erosive or degenerative change. Soft tissues are unremarkable. Impression: Unremarkable left foot radiographs. Reviewed, dictated and finalized at location . Impression: Unremarkable left foot radiographs.
== END 2023-12-07 13:31 | disposition home or self-care (01) ==
LOC: CHSIMG 13:32
PROVIDERS: PCP Family Medicine; Visit Provider Family Medicine
DX: M72.2 Plantar fascial fibromatosis (principal)
CPT/HCPCS: 73630

== ENCOUNTER 2024-06-03 11:15 | Outpatient (CLI) | payer OTHER, SELFPAY ==
[2024-06-03 12:49] LABS: Cholesterol 198 mg/dL (0-200); HDL Direct 29 mg/dL (40-60); LDL Cholesterol Calculated 83 mg/dL (<130); Triglycerides 428 mg/dL (0-150)
[2024-06-03 12:54] LABS: LDL Cholesterol Direct 98 mg/dL (0-130)
== END 2024-06-03 11:16 | disposition home or self-care (01) ==
PROVIDERS: PCP Family Medicine; Visit Provider Internal Medicine Cardiovascular Disease
DX: E78.5 Hyperlipidemia, unspecified (principal)
CPT/HCPCS: 36415; 80061; 83721

== ENCOUNTER 2024-06-06 15:02 | Outpatient (CLI) | payer OTHER, SELFPAY | END 2024-06-06 15:03 | disposition home or self-care (01) | PROVIDERS: PCP Family Medicine; Visit Provider Family Medicine | DX: L02.91 Cutaneous abscess, unspecified (principal) | CPT/HCPCS: 87070; 87075; 87205 ==

== ENCOUNTER 2024-07-25 01:11 | Day surgery (SDC) | payer OTHER, SELFPAY ==
--- NOTE | 2024-07-18 11:08 | PC.NURSE ---
Report to the Outpatient Waiting Room, entrance under the green pavilion located off [facility], at time _6:30 AM on date _07/25/24 . Planned Procedure Time: _7:30 AM .? Time changes happen often and if your time is changed the preop area will call you the afternoon before. - You and your visitor will be asked to self-screen and do not enter if you have any COVID symptoms. Please call surgeon if you need to reschedule. - A mask is optional within the hospital at this time. LIGHT BREAKFAST MORNING OF SURGERY Take only the following medications with a SIP of water on the morning of surgery: __ALL ROUTE MORNING MEDICATIONS DO NOT STOP ANY OF YOUR OTHER PRESCRIPTION MEDICATIONS PRIOR TO SURGERY EXCEPT THE FOLLOWING Medications to discontinue per physician NONE Please no make-up, nail lao, hairspray, perfume, deodorant, or body powder the day of surgery.? No jewelry (including any body piercings) or valuables the day of surgery, leave them at home.? Please take a shower or bath the night before, or the morning of, surgery with an antibacterial soap.? Wear comfortable, loose fitting clothing.? Children are encouraged to wear pajamas. - Jewelry must be removed prior to entering the operating room.? Rings and piercings that are not removed may be cut off. - The hospital will not accept responsibility for valuables.? - Please leave all valuables, including medications, at home the day of surgery. LOCAL ANESTHESIA MAY DRIVE YOURSELF HOME Follow any additional instructions given to you from your surgeon. Telephone instructions given to ___PATIENT and asked if any additional questions and then verbalized understanding. Patient advised to call surgeon office or pre surgery nurse liaison [phone] if any additional questions.
[2024-07-18 11:30] VITALS: BMI 32.1
--- NOTE | 2024-07-25 12:08 | PM.IMHP ---
H&P: HPI History of Present Illness Date/Time: 07/25/24 12:08 Chief Complaint: Back cyst Narrative: Mr. Prince returns to the office for recheck of an infected upper back cyst. He has competed his antibiotics. Continues to clean the wound daily and covers with a band-aid. He still has scant drainage but pain and swelling has improved. Review of Systems Review of Systems: The remainder of the review of systems to include constitutional, HEENT, cardiovascular, respiratory, GI, , integumentary, musculoskeletal, endocrine, immunologic, hematologic, psychiatric, and neurologic are all negative except for which is mentioned above in the HPI. [facility] Past Medical History Medical History Presence of combination internal cardiac defibrillator (ICD) and pacemaker ADHD Hypertension Idiopathic cardiomyopathy Surgical History Surgical History Previous back surgery Family History Family History Mother Diabetes mellitus Cerebrovascular accident Father Diabetes mellitus Social History Social History Smoking packs per day: 0.5 Smoking cigarettes per day: 10.0 Years smoked: 22 Smoking pack-years: 11.00 Smoking status: Current every day smoker Tobacco type: cigarettes Alcohol intake: current Drinks per week: 1 Substance use: never Do You Feel Safe in your Home?: Yes Lack of Transportation: No Lack of Food: Never True Current Housing: I Have Housing Concerned About Future Housing: No Difficulty Paying Gas/Electric Bills: No Difficulty Paying for Meds: No Currently Unemployed: No Education: High School Diploma/GED Difficulty w/ Childcare or Family Care: No Living arrangements: with family Gender identity (if verbalized by the patient): Male Spiritual care concerns: No Meds Home Medications and Allergies Home Medications ?Medication ?Instructions ?Recorded ?Confirmed ?Type carvedilol 12.5 mg tablet 12.5 mg PO BID 11/18/19 07/18/24 History fenofibrate 160 mg tablet 160 mg PO DAILY 11/18/19 07/18/24 History nitroglycerin 0.4 mg sublingual 0.4 mg sublingual PRN PRN Chest 11/18/19 07/18/24 History tablet Pain sacubitril 24 mg-valsartan 26 mg See Rx Instructions .Route 11/24/23 07/18/24 Rx tablet (Entresto) .COMPLEX #60 tabs levocetirizine 5 mg tablet (Xyzal) 5 mg PO DAILY 07/18/24 07/18/24 History omeprazole magnesium 20 mg 20 mg PO DAILY 07/18/24 07/18/24 History tablet,delayed release (Prilosec OTC) dapagliflozin propanediol 10 mg See Rx Instructions .Route 07/25/24 Rx tablet (Farxiga) .COMPLEX #30 tabs Allergies Allergy/AdvReac Type Severity Reaction Status Date / Time No Known Drug Allergies Allergy Unknown Unknown Verified 07/18/24 11:11 Exam Const: General: comfortable and no acute distress HENMT: Ears: TM's normal bilaterally Face/Nose/Sinus: Normal nares present Mouth: Yes moist mucous membranes Eyes: General: appearance normal, both eyes and all related structures Sclera: sclerae normal Pupils: Equal, round and reactive pupils present EOM: EOMs intact bilaterally Neck: Neck: supple and no JVD Resp: Effort & Inspection: normal respiratory effort Auscultation: clear to auscultation bilaterally Cardio: Rate: regular rate Rhythm: regular rhythm GI: GI Palp: Yes Soft to palpation, No Firmness to palpation present (GI), No Tenderness to palpation present (GI), No Guarding due to palpation present (GI) and No Hernia present Skin: General skin exam: normal color Lesions: lesion noted Other: Upper back cyst, no redness, no drainage. Neuro: General: gait normal Speech: normal speech Motor exam (neuro): 5/5 motor strength present throughout Sensory Exam: normal sensation Extrem: General: normal to inspection Psych: Mental Status: mental status grossly normal Affect: normal affect Assessment and Plan Assessment and plan (1) Infected cyst of skin: Code(s): L72.9 - Follicular cyst of the skin and subcutaneous tissue, unspecified; L08.9 - Local infection of the skin and subcutaneous tissue, unspecified Status: Acute Assessment and Plan: Pt has ruptured cyst on back. Infection now resolved. Proceed with excision. Risks, benefits, indications, and expected outcomes were discussed in detail with the patient and/or family. They understand and I have answered all other questions. They wished to proceed with surgery as outlined above.
--- NOTE | 2024-07-25 12:11 | WPDHPUPDATE1 ---
History and Physical Update Update Date/Time: 07/25/24 12:11 History and Physical has been reviewed, including an updated exam of the patient. There are NO changes in the patient's condition. Risks, benefits, and alternatives have been discussed and questions answered. Patient agrees to proceed with procedure.
[2024-07-25 12:34] VITALS: BP 132/77; PULSE 76; RESP 14; TEMP 36.1; O2SAT 100
[2024-07-25 13:25] VITALS: BP 136/86; PULSE 74; O2SAT 97
[2024-07-25 13:35] VITALS: BP 131/84; PULSE 60; O2SAT 98
[2024-07-25] MEDS: LIDO 1%/EPINEPHRINE 1:100,000 50 ML VIAL 10 ML INFILTRATE (13:39)
[2024-07-25] MEDS: BUPivacaine HCL 0.5% PF 30 ML VIAL 10 ML INFILTRATE (13:39)
[2024-07-25 13:45] VITALS: BP 123/76; PULSE 61; O2SAT 96
--- NOTE | 2024-07-25 13:52 | P.OP_ITS ---
Procedure Note - Detailed Date of Procedure 07/25/24 Pre-op Diagnosis Rupture back cyst 2 cm Post-op Diagnosis Same Procedure Performed Excision of midback ruptured sebaceous cyst with 5cm intermediate layered wound closure. Surgeon Nehemiah Coley MD Anesthesia Local Indications Patient is a 38-year-old white male presented initially with infected mid back sebaceous cyst. It was incised and drained in the office. The infection has now resolved he presents now for excision the cyst wall remnants. Findings The patient is cyst wall remnant measured approximately 2x1.5x1cm. The resulting incision after excision required a 5cm intermediate layered wound clos ure. Description of Procedure After informed consent was obtained patient brought to the operating room was placed prone on operating table. The area the mid back region was then prepped and draped usual sterile fashion. A time-out was then performed correctly identifying the patient as well as procedure to be performed. Site marking was verified. He was not given any perioperative IV antibiotics as no IV was started. I started by anesthetizing the area around the cyst for local anesthetic effect utilizing 1% lidocaine mixed with 0.5% Marcaine 50 50 mixture with some epinephrine. Once adequate anesthesia had been assured I then made a transverse elliptical incision we down through the dermis of the skin encompassing the whole cyst wall. Dissection was then carried down through subcutaneous tissues with electrocautery in the whole ellipse of tissue containing the skin, cyst wall, and subcutaneous tissue was excised out and sent to pathology for examination. The cyst measured approximately 2x1.5x1cm. Hemostasis was then achieved in the incision utilizing electrocautery. The wound was then irrigated sterile saline solution. A intermediate layered wound closure utilizing layers of interrupted 2-0 Vicryl sutures and 3-0 Vicryl sutures in the subcutaneous tissues was then performed. Deep dermal sutures utilizing 3-0 Vicryl suture was used as well and then the skin was approximated utilizing a running subcuticular 4-0 Monocryl suture. The length of the intermediate layered wound closure was 5cm. Incision was then cleaned the skin glue was applied. The patient tolerated the procedure well no complications. All sponges, needles, and instrument counts were correct at the end procedure. EBL was _5__cc. The patient was awakened and taken to recovery in stable and satisfactory condition. Implants None Estimated Blood Loss 5 Drains No Packing No Pathology Yes (Ruptured cyst sent to pathology) Complications No immediate complications Condition Stable Disposition PACU [facility] Billing Surgery - Charge Forward: Surgery Billing
[2024-07-25 13:54] VITALS: BP 127/73; PULSE 72; O2SAT 98
[2024-07-25 14:02] VITALS: BP 130/70; PULSE 68; RESP 16; O2SAT 99
== END 2024-07-25 14:23 | disposition home or self-care (01) ==
PROVIDERS: PCP Family Medicine; Visit Provider Surgery
PROC: (CPT 11402; principal; 2024-07-25 13:15)
DX: L72.0 Epidermal cyst (principal); I10 Essential (primary) hypertension; I42.8 Other cardiomyopathies; F90.9 Attention-deficit hyperactivity disorder, unspecified type; Z95.810 Presence of automatic (implantable) cardiac defibrillator; F17.210 Nicotine dependence, cigarettes, uncomplicated; Z79.84 Long term (current) use of oral hypoglycemic drugs
CPT/HCPCS: 11402; 12032; 88305; A9270; J2004

== ENCOUNTER 2024-12-13 10:20 | Outpatient (CLI) | payer OTHER, SELFPAY ==
--- OUTSIDE RECORDS SUMMARY | 2024-12-13 10:38 | XMS_ITS | Data Portability ---
Author Organization [place] - [facility] OFFICE Address [address] [place] [address] Care Team Providers Care Supervisor [employer] Name Role Phone TY FITCH Primary Care Provider [phone] Assessment Encounter Date Assessment Date Assessment LastModified by Organization Details LastModified Time 09/10/2021 09/10/2021 Patient Examined by FAUSTINO Oliver, Also interviewed / examined by Supervising physician. Assessment / plan discussed and implemented Encounter scribed by FAUSTINO Oliver. Documentation reviewed and approved by supervising physician ervin Not available 09/10/2021 10:20:03 12/10/2021 12/10/2021 Patient Examined by FAUSTINO Oliver, Also interviewed / examined by Supervising physician. Assessment / plan discussed and implemented Encounter scribed by FAUSTINO Oliver. Documentation reviewed and approved by supervising physician alda Not available 12/07/2021 07:05:53 06/10/2022 06/10/2022 Patient Examined by FAUSTINO Oliver, Also interviewed / examined by Supervising physician. Assessment / plan discussed and implemented Encounter scribed by FAUSTINO Oliver. Documentation reviewed and approved by supervising physician alda Not available 06/06/2022 16:56:20 12/16/2022 12/16/2022 Patient Examined by FAUSTINO Oliver, Also interviewed / examined by Supervising physician. Assessment / plan discussed and implemented Encounter scribed by FAUSTINO Oliver. Documentation reviewed and approved by supervising physician alda Not available 12/05/2022 14:22:30 04/01/2023 04/01/2023 Patient Examined by FAUSTINO Oliver, Also Documentation reviewed and approved by supervising physician ervin Not available 04/01/2023 12:18:18 Plan of Treatment Reminders Order Date Submit Date Provider Last Modified By Organization Details Last Modified Time Details Appointments None recorded. Lab None recorded. Referral None recorded. Procedures None recorded. Surgeries None recorded. Imaging electrocard iogram 2021 022 [email or web address] Not available 16:05:34 electrocard iogram 2021 022 [email or web address] Not available 11:23:45 Medication Orders nitroglycer in 0.4 mg sublingual tablet 2022 023 [facility] [address] [place], [address], 3 12:21:51 Coreg 12.5 mg tablet 2022 023 [facility] [address] [place], [address], 3 12:21:50 fenofibrate 160 mg tablet 2022 023 [facility] [address] [place], [address], 3 12:21:55 lisinopril 10 mg tablet 2022 023 [facility] [address] [place], [address], 3 12:21:52 aspirin 325 mg tablet 2022 023 [facility] [address] [place], [address], 3 12:40:18 Coreg 12.5 mg tablet 2021 022 [facility] [address] [place], [address], 12:52:00 lisinopril 10 mg tablet 2021 [facility] [address] Copyright Agent, [place] Quick, [id number], 12:52:02 Coreg 12.5 mg tablet 2021 022 [facility] [address] Copyright Agent, [place] Quick, [id number], 22:53:02 Coreg 12.5 mg tablet 2021 [facility] [address] Copyright Agent, [place] Quick, [id number], 22:53:08 Nitrostat 0.4 mg sublingual tablet 2021 022 [facility] [address] Copyright Agent, [place] Quick, [id number], 22:52:58 fenofibrate 160 mg tablet 2021 022 [facility] [address] Copyright Agent, [place] Quick, [address], 22:53:12 lisinopril 10 mg tablet 2021 [facility] [address] Copyright Agent, [place] Quick, [address], 22:53:04 Coreg 12.5 mg tablet 2021 [facility] [address] Copyright Agent, [place] Quick, [address], 10:30:52 Coreg 12.5 mg tablet 2021 [facility] [address] Copyright Agent, [place] Quick, [id number], 10:30:48 Nitrostat 0.4 mg sublingual tablet 2021 [facility] [address] [place], [address], 10:30:44 fenofibrate 160 mg tablet 2021 [facility] [address] [place], [address], 10:30:46 lisinopril 10 mg tablet 2021 [facility] [address] [place], [address], 10:30:45 Patient TargetsNo targets recorded. Patient Instructions Encounter Date Encounter Id Patient Instructions Last Modified By Organization Details Last Modified Time 09/10/2021 [id number] Advised against smoking Exercise advised Low cholesterol diet advised Low sodium diet advised. [email or web address] Not available 09/10/2021 10:29:54 06/10/2022 [id number] Weight loss, 20 pounds Advised against smoking Exercise advised Low cholesterol diet advised Low sodium diet advised. man Not available 06/10/2022 12:51:36 04/01/2023 [id number] Low cholesterol diet advised Low sodium diet advised. eyassin Not available 04/01/2023 12:21:08 Reason for Referral None Reported. Results Created Date Observation Date Name Description Value Unit Range Abnormal Flag Note LastModifiedBy Organization Detail LastModifiedTime 08/28/19 22 03/12/2021 event monit or No observ ation record ed. Not Available 2021 14:11:09 09/06/19 22 09/17/2021 chantal goldstein am No observ ation record ed. Kiran Strickland MD [address], [place], [address], 09/17/2021 11:23:50 09/11/19 22 09/10/2021 chantal goldstein am No observ ation record ed. Not Available 2021 15:45:28 10/22/19 22 09/10/2021 pacem alyssa (PROC ) No observ ation record ed. Not Available 2021 11:47:53 10/23/19 22 02/10/2021 pacem alyssa (PROC ) No observ ation record ed. Not Available 2021 11:12:19 10/23/19 22 10/11/2021 exerc ise stres s echoc ardio gram No observ ation record ed. Not Available 2021 15:19:38 11/13/19 22 03/12/2021 pacem alyssa (PROC ) No observ ation record ed. [email or web address] Not Available 2021 15:07:36 11/14/19 22 04/13/2021 pacem alyssa (PROC ) No observ ation record ed. [email or web address] Not Available 2021 11:47:27 11/21/19 22 09/15/2021 pacem alyssa (PROC ) No observ ation record ed. [email or web address] Not Available 2021 16:11:28 11/22/19 22 07/15/2021 pacem alyssa (PROC ) No observ ation record ed. [email or web address] Not Available 2021 10:27:55 11/22/19 22 08/15/2021 pacem alyssa (PROC ) No observ ation record ed. [email or web address] Not Available 2021 10:30:13 11/26/19 22 06/14/2021 pacem alyssa (PROC ) No observ ation record ed. [email or web address] Not Available 2021 09:59:28 11/26/19 22 06/14/2021 pacem alyssa (PROC ) No observ ation record ed. [email or web address] Not Available 2021 11:20:06 12/08/19 22 12/11/2021 elect dayami goldstein am No observ ation record ed. Kiran Strickland MD [address], [place], [address], 12/11/2021 13:42:09 12/25/19 22 12/10/2021 pacem alyssa (PROC ) No observ ation record ed. Not Available 2021 12:09:52 01/22/20 22 11/03/2021 pacem alyssa (PROC ) No observ ation record ed. [email or web address] Not Available 2021 11:42:22 02/11/20 22 12/04/2021 pacem alyssa (PROC ) No observ ation record ed. [email or web address] Not Available 2021 09:51:10 03/26/20 22 01/04/2022 pacem alyssa (PROC ) No observ ation record ed. [email or web address] Not Available 2021 16:18:02 04/09/20 22 03/11/2022 pacem alyssa inter rogat ion (PROC ) No observ ation record ed. Not Available 2021 12:42:55 04/16/20 22 02/04/2022 pacem alyssa (PROC ) No observ ation record ed. [email or web address] Not Available 2021 09:52:30 05/23/20 22 03/07/2022 pacem alyssa (PROC ) No observ ation record ed. [email or web address] Not Available 2021 12:58:06 05/26/20 22 04/07/2022 pacem alyssa (PROC ) No observ ation record ed. [email or web address] Not Available 2021 09:58:50 07/04/20 22 06/10/2022 pacem alyssa (PROC ) No observ ation record ed. [email or web address] Not Available 2021 13:10:32 08/12/19 23 08/09/2022 pacem alyssa (PROC ) No observ ation record ed. [email or web address] Not Available 2022 14:23:58 08/22/19 23 05/08/2022 pacem alyssa (PROC ) No observ ation record ed. [email or web address] Not Available 2022 09:33:02 08/22/19 23 06/08/2022 pacem alyssa (PROC ) No observ ation record ed. [email or web address] Not Available 2022 09:33:35 09/02/19 23 07/09/2022 pacem alyssa (PROC ) No observ ation record ed. [email or web address] Not Available 2022 10:30:05 09/17/19 23 09/09/2022 pacem alyssa inter rogat ion (PROC ) No observ ation record ed. Not Available 2022 15:23:33 09/25/19 23 08/09/2022 pacem alyssa (PROC ) No observ ation record ed. [email or web address] Not Available 2022 14:02:16 10/16/19 23 09/09/2022 pacem alyssa (PROC ) No observ ation record ed. [email or web address] Not Available 2022 11:58:44 12/19/19 23 12/09/2022 pacem alyssa inter rogat ion (PROC ) No observ ation record ed. Not Available 2022 13:27:35 12/23/19 23 12/16/2022 elect dayami goldstein am No observ ation record ed. Not Available 2022 13:50:52 01/17/20 23 12/13/2022 pacem alyssa inter rogat ion (PROC ) No observ ation record ed. Not Available 2022 14:28:05 05/06/20 23 04/30/2023 pacem alyssa inter rogat ion (PROC ) No observ ation record ed. Not Available 2022 09:35:56 06/27/20 24 06/06/2024 pacem alyssa inter rogat ion (PROC ) No observ ation record ed. Not Available 2023 09:14:34 Result Notes None recorded. Problems Name Problem SNOMED Code Status Onset Date Resolution Date Notes Provider Name and Address Organization Details Recorded Time Danteshanique ruddy 33169548 Completed 201509/09/2017 Norma mtz [facility] 8 15:16:25 Congestiv e heart failure 39424594 Active 2015 Fernie mtz [facility] 6 13:58:12 Left bundle branch block 04684762 Active 2015 Fernie Cuello [facility], [place] - [facility] 6 13:59:41 Gastroeso phageal reflux disease 966691755 Active 2015 Fernie mtz, [place] - [facility] 6 14:03:15 Bronchiti s 96362671 Active 2016 Jovany Sibley [facility], [facility] 7 14:25:08 Atypical chest pain 613513241 Active 2017 Licea Meskatya [facility] 8 17:34:45 Dyslipide twyla 404001053 Active 2017: LDL 89 Ekta Karen [facility], [facility] 8 10:05:24 Nicotine dependenc e 96497850 Active 2017 Kiran Hanson i, MD [address] [place], [address] [place] [address] [facility] 8 15:43:27 Nonischem ic congestiv e cardiomyo jovany 536248694108 Active 2017 Ekta Jones [facility] 8 14:52:52 Essential hypertens ion 97512548 Active 2018 Anuja Crockettkatya [facility] 9 08:23:34 Automatic implantab le cardiac defibrill ator in situ 062752328 Active 2019 Anuja Valdivia [facility] 0 13:08:35 Hyperchol esterolem ia 89648766 Active 2019 Anuja Valdivia [facility] 0 13:41:23 Problem Notes None recorded. Procedures Surgical History Date Name Laterality Status Provider Name and Address Organization Details Recorded Time Back Surgery completed Anuja Valdivia [facility] 03/07/2016 05:01:30 Imaging Results Imaging Date Name Status LastModified by Organization Details LastModified Time 03/12/2021 event monitor completed Information not available 08/28/2021 14:11:09 09/17/2021 electrocardiogram completed Kiran Han MD [address], [place], [address], 09/17/2021 11:23:50 09/10/2021 electrocardiogram completed Informa tion not available 09/11/2021 15:45:28 09/10/2021 pacemaker (PROC) completed Informat ion not available 10/21/2021 11:47:53 02/10/2021 pacemaker (PROC) completed Informat ion not available 10/22/2021 11:12:19 10/11/2021 exercise stress echocardiogram completed Information not available 10/22/2021 15:19:38 03/12/2021 pacemaker (PROC) completed Informat ion not available 11/12/2021 15:07:36 04/13/2021 pacemaker (PROC) completed Informat ion not available 11/13/2021 11:47:27 09/15/2021 pacemaker (PROC) completed Informat ion not available 11/20/2021 16:11:28 07/15/2021 pacemaker (PROC) completed Informat ion not available 11/21/2021 10:27:55 08/15/2021 pacemaker (PROC) completed Informat ion not available 11/21/2021 10:30:13 06/14/2021 pacemaker (PROC) completed Informat ion not available 11/25/2021 09:59:28 06/14/2021 pacemaker (PROC) completed Informat ion not available 11/25/2021 11:20:06 12/11/2021 electrocardiogram completed Kiran Han MD [address], [place], [address], 12/11/2021 13:42:09 12/10/2021 pacemaker (PROC) completed Informat ion not available 12/24/2021 12:09:52 11/03/2021 pacemaker (PROC) completed Informat ion not available 01/21/2022 11:42:22 12/04/2021 pacemaker (PROC) completed Informat ion not available 02/10/2022 09:51:10 01/04/2022 pacemaker (PROC) completed Informat ion not available 03/26/2022 16:18:02 03/11/2022 pacemaker interrogation (PROC) completed Information not available 04/09/2022 12:42:55 02/04/2022 pacemaker (PROC) completed Informat ion not available 04/16/2022 09:52:30 03/07/2022 pacemaker (PROC) completed Informat ion not available 05/23/2022 12:58:06 04/07/2022 pacemaker (PROC) completed Informat ion not available 05/26/2022 09:58:50 06/10/2022 pacemaker (PROC) completed Informat ion not available 07/04/2022 13:10:32 08/09/2022 pacemaker (PROC) completed Informat ion not available 08/12/2022 14:23:58 05/08/2022 pacemaker (PROC) completed Informat ion not available 08/22/2022 09:33:02 06/08/2022 pacemaker (PROC) completed Informat ion not available 08/22/2022 09:33:35 07/09/2022 pacemaker (PROC) completed Informat ion not available 09/02/2022 10:30:05 09/09/2022 pacemaker interrogation (PROC) completed Information not available 09/17/2022 15:23:33 08/09/2022 pacemaker (PROC) completed Informat ion not available 09/25/2022 14:02:16 09/09/2022 pacemaker (PROC) completed Informat ion not available 10/15/2022 11:58:44 12/09/2022 pacemaker interrogation (PROC) completed Information not available 12/18/2022 13:27:35 12/16/2022 electrocardiogram completed Informa tion not available 12/22/2022 13:50:52 12/13/2022 pacemaker interrogation (PROC) completed Information not available 01/16/2023 14:28:05 04/30/2023 pacemaker interrogation (PROC) completed Information not available 05/06/2023 09:35:56 06/06/2024 pacemaker interrogation (PROC) completed Information not available 06/27/2024 09:14:34 Procedure Notes None recorded. Medical Equipment None Reported. Allergies No known drug allergies Medications Name Sig Start Date Stop Date Status Note LastModified by Organization Details LastModified Time neomycin- polymyxin -hydrocor t 3.5 mg/mL-10, 000 unit/mL-1 % ear solution 03/10 completed Not Available Not Available Not Available carvedilo l 12.5 mg tablet TAKE 1 TABLET BY MOUTH TWICE DAILY active Not Available Not Available No t Available azithromy spencer 250 mg tablet 09/04 completed pt. no longer takes 0 FH Not Available Not Available Not Available aspirin 325 mg tablet Take 1 tablet every day by oral route. 2022 active 08/11/22 added for episode of AF on [facility] report/O A/ek Not Available Not Available Not Available Coreg 6.25 mg tablet Take 1 tablet twice a day by oral route. 09/17 completed Not Available Not Available Not Available sumatript an 100 mg tablet Take 1 tablet every 2 hours by oral route as needed. 09/14 completed Not Available Not Available Not Available ondansetr on HCl 8 mg tablet 09/10 completed pt. no longer takes 03/05/2021 FH Not Available Not Available Not Available valproic acid 250 mg capsule Take 1 capsule twice a day by oral route. 09/14 completed Not Available Not Available Not Available tramadol 50 mg tablet 09/10 completed pt. no longer takes 03/05/2021 FH Not Available Not Available Not Available amoxicill in 875 mg tablet 03/10 completed Not Available Not Available Not Available promethaz ine 12.5 mg rectal supposito ry 09/09 completed Not Available Not Available Not Available lisinopri l 10 mg tablet TAKE 1 TABLET BY MOUTH ONCE DAILY active Not Available Not Available No t Available ibuprofen 200 mg tablet Take 1 tablet as needed by oral route. active Not Available Not Available No t Available nitroglyc sloan 0.4 mg sublingua l tablet DISSOLVE ONE TABLET UNDER THE TONGUE EVERY 5 MINUTES NEEDED FOR CHEST PAIN. DO NOT EXCEED A TOTAL OF 3 DOSES IN 15 MINUTES active Not Available Not Available No t Available omeprazol e 20 mg capsule,d elayed release Take 1 capsule as needed by oral route. active Not Available Not Available No t Available diclofena c sodium 50 mg tablet,de layed release active Not Available Not Available Not Available Ecotrin 325 mg tablet,en teric coated Take 1 tablet every day by oral route. 08/11 completed Not Available Not Available Not Available cefuroxim e axetil 500 mg tablet 09/14 completed Not Available Not Available Not Available methylpre dnisolone 4 mg tablets in a dose pack TAKE 6 TABLETS ON DAY 1 DIRECTED ON PACKAGE AND DECREASE BY 1 TAB EACH DAY FOR A TOTAL OF 6 DAYS active Not Available Not Available No t Available ondansetr on 4 mg disintegr ating tablet TAKE 1 TABLET BY MOUTH EVERY 6 HOURS NEEDED FOR NAUSEA AND VOMITING active Not Available Not Available No t Available fluticaso ne propionat e 50 mcg/actua tion nasal spray,radha pension [place] 2 sprays as needed by nasal route. active Not Available Not Available No t Available amoxicill in 875 mg-potass ium clavulana te 125 mg tablet 1 tab Q12, for 10 days, 09/04 completed pt not taking 09/04/20 Not Available Not Available Not Available fenofibra te 160 mg tablet TAKE 1 TABLET BY MOUTH ONCE DAILY active Not Available Not Available No t Available Coricidin HBP Cough and Cold prn 09/10 completed Not Available Not Available Not Available ProAir HFA 90 mcg/actua tion aerosol inhaler 03/11 completed Not Available Not Available Not Available Fluzone Quad (PF) 60 mcg (15 mcg x 4)/0.5 mL IM syringe 09/04 completed Not Available Not Available Not Available Vitals Date Recorded Body height Body mass index (BMI) Body weight Heart rate Oxygen saturation Oxygen saturation in Arterial blood by Pulse oximetry Systolic blood pressure Diastolic blood pressure Provider Name and Address Organization Details Last Updated DateTime 2 177.8 cm 31 kg/m2 42122.9 5 g 72 /min 97 % 97 % 120 mm[Hg] 90 mm[Hg] Nagi Mendes [place] - [facility] 2 10:02:20 Date Recorded Body height Body mass index (BMI) Body weight Heart rate Oxygen saturation Oxygen saturation in Arterial blood by Pulse oximetry Systolic blood pressure Diastolic blood pressure Provider Name and Address Organization Details Last Updated DateTime 2 177.8 cm 30.4 kg/m2 00440.5 8 g 68 /min 98 % 98 % 120 mm[Hg] 68 mm[Hg] Kiran Hanson i, MD [address] [place], [address], [facility] 2 12:30:01 Date Recorded Body height Body mass index (BMI) Body weight Heart rate Respiratory rate Oxygen saturation Oxygen saturation in Arterial blood by Pulse oximetry Systolic blood pressure Diastolic blood pressure Provider Name and Address Organization Details Last Updated DateTime 2 177.8 cm 31.9 kg/m2 416005. 51 g 88 /min 16 /min 98 % 98 % 118 mm[Hg] 76 mm[Hg] Kel Mejia [facility] 2 12:24:34 Date Recorded Body height Body mass index (BMI) Body weight Heart rate Respiratory rate Oxygen saturation Oxygen saturation in Arterial blood by Pulse oximetry Systolic blood pressure Diastolic blood pressure Provider Name and Address Organization Details Last Updated DateTime 3 177.8 cm 32.9 kg/m2 874014. 65 g 72 /min 16 /min 98 % 98 % 116 mm[Hg] 82 mm[Hg] Kel Mejia [facility] 3 10:46:55 Date Recorded Body height Body mass index (BMI) Body weight Heart rate Oxygen saturation Oxygen saturation in Arterial blood by Pulse oximetry Systolic blood pressure Diastolic blood pressure Provider Name and Address Organization Details Last Updated DateTime 3 177.8 cm 31.9 kg/m2 230039. 51 g 97 /min 99 % 99 % 132 mm[Hg] 97 mm[Hg] Leonela García [facility] 3 11:50:59 Social History Question Answer Notes LastModified by Organizat ion Details LastModified Time Tobacco Smoking Status Current Every Day Smoker Anuja mtz [facility] 03/07/2016 05:02:52 What Was The Date Of Your Most Recent Tobacco Screening? 09/13/2019 Information not available 10/19/2019 Sex: Unknown Functional Status Question Answer Note LastModified by Organizat ion Details LastModified Time Do you or have you ever used smokeless tobacco? Never used smokeless tobacco Information not available 03/05/2020 Do you or have you ever used e-cigarettes or vape? Never used electronic cigarettes Information not available 10/19/2019 Mental Status None recorded. Family History Relationship Description Onset Age of this Age Resolved Age Notes LastModified by Organization Details LastModified Time Mother Hypertensive disorder hmesto Not available 2015 05:03:11 Mother Hyperlipidem ia hmesto Not available 2015 05:03:22 Mother Malignant tumor of kidney at age 57. hmesto Not available 03/07/2016 05:04:17 Mother Diabetes mellitus hmesto Not available 2015 05:04:02 Notes:No known premature cor onary artery disease. Medical History Condition Response Congestive Heart Failure (CHF) Y Hyperlipidemia Y Arrhythmia Y Hypertension Y GERD/Reflux Y Past Encounters Encounter ID Performer Location Encounter Start Date Encounter Closed Date Diagnosis/Indication Diagnosis SNOMED-CT Code Diagnosis ICD10 Code Diagnosis Note [id number] MD Neftaly Guillaume e Office [address] [place] [address] 03/10/2016 12:48:39 03/12/2016 11:15:15 Electrocardiogram abnormal 489674358 R94.31 Congestive heart failure 79265907 I50.9 LVEF increased to 30-35% on recent echo. Sx's stable. S/p ICD. Increase Coreg to 12.5 mg bid. Continue Lisinopril . 2gm Na/d diet and weight loss 20 lbs. Hyperlipidemia 05132262 E78.5 Obtain FLP. Continue fenofibrat e. [id number] MD Neftaly Guillaume Office [address] [place] [id number] 09/17/2016 14:02:55 09/22/2016 11:30:15 Congestive heart failure 89118679 I50.9 Discussed patient s diagnosis of {{heart failure with reduced ejection fraction* heart failure with preserved ejection fraction}} {{ and underlying ischemic cardiomyop athy and underlying non-ischem ic cardiomyop athy}}, including pathophysi ology and prognosis. Discussed importance of controllin g blood pressure, exercising regularly, and minimizing alcohol, caffeine, and decongesta nts. Patient {{ is on a beta-block er is on carvedilol *}}{{ is not on a beta-block er due to hypotensio n is not on a beta-block er due to bradycardi a is not on a beta-block er due to COPD}}. Patient {{ is on an LUPIS-I* is on an ARB}}{{ is not on an LUPIS-I/ARB due to hypotensio n is not on an LUPIS-I/ARB due to renal insufficie ncy}}. {{ Patient is on a diuretic. Patient is on digoxin. P atient is on a diuretic and digoxin.}} Advised patient to seek medical attention for chest pain, shortness of breath, weight gain, swelling, change in exercise capacity, fatigue, palpitatio ns, dizziness, syncope, or any other new or concerning symptoms. Patient was advised to eat a low-sodium diet (2 grams sodium or less daily), to take medication as prescribed , and to record a daily weight, reporting any 4 pound change in weight from baseline. Increase Carvedilol to 12.5 BID.{{ Pat ient is s/p ICD for primary prevention of sudden cardiac .*}} [id number] MD Neftaly Ramirez Office [address] [address] 03/11/2017 14:11:32 03/12/2017 12:27:51 Congestive heart failure 34188197 I50.9 Discussed patient s diagnosis of {{heart failure with reduced ejection fraction* heart failure with preserved ejection fraction}} {{ and underlying ischemic cardiomyop athy and underlying non-ischem ic cardiomyop athy}}, including pathophysi ology and prognosis. Discussed importance of controllin g blood pressure, exercising regularly, and minimizing alcohol, caffeine, and decongesta nts. Patient {{ is on a beta-block er is on carvedilol *}}{{ is not on a beta-block er due to hypotensio n is not on a beta-block er due to bradycardi a is not on a beta-block er due to COPD}}. Patient {{ is on an LUPIS-I* is on an ARB}}{{ is not on an LUPIS-I/ARB due to hypotensio n is not on an LUPIS-I/ARB due to renal insufficie ncy}}. {{ Patient is on a diuretic. Patient is on digoxin. P atient is on a diuretic and digoxin.}} Advised patient to seek medical attention for chest pain, shortness of breath, weight gain, swelling, change in exercise capacity, fatigue, palpitatio ns, dizziness, syncope, or any other new or concerning symptoms. Patient was advised to eat a low-sodium diet (2 grams sodium or less daily), to take medication as prescribed , and to record a daily weight, reporting any 4 pound change in weight from baseline. Increase Carvedilol to 12.5 BID.{{ Pat ient is s/p ICD for primary prevention of sudden cardiac .*}} Hyperlipidemia [id number] E78.5 Obtain FLP. Continue [id number]|2024-12-13 10:38:00|2024-12-13 10:37:00|XMS_ITS|BKG DAEMON|External Medical Summaries|[id number]|" Patient Health Record Created on: December 13, 2024 MATT MANSFIELD : 1985 Sex: Male Author Organization [facility] Address [address] [place] [address] Care Team Providers Care Supervisor Car [employer] Yard Name Role Phone JP HERNANDEZ Unavailable [phone] Allergies No Known Allergies Reason For Referral No Information Medications Medication SIG (Take, Route, Fr equency, Duration) Notes Start Date End Date Status Entresto Active Farxiga Active Fenofibrate Active Coreg Active methylPREDNISolone 4 MG as directed Orally 024 Active Social History Tobacco Use: Social History Observation Description Date Details (start date - stop date) Current Smoker NA - NA Tobacco Use/Smoking Question Answer Notes Tobacco use: current smoker Vital Signs Height-cm 180.34 cm 03/29/2024 Weight-kg 101.15 kg 03/29/2024 Height 71 in 03/29/2024 Weight 223 lbs 03/29/2024 BMI 31.1 kg/m2 03/29/2024 Encounters Encounter Location Date Provider Diagnosis [facility] [address] [place] [address] 03/29/2024 JP HERNANDEZ Plantar fascial fibromatosis M72.2 Assessments Encounter Date Diagnosis (ICD Code) Assessment Notes Treatment Notes Treatment Clinical Notes Section Notes 03/29/2024 Plantar fascial fibromatosis (ICD-10 - M72.2) We discussed the diagnosis and causes of plantar fasciitis. We discussed conservative treatment options. We discussed surgical treatment options. We discussed plantar calcaneal exostosis formation. We discussed increased arch support, strappings, nonsteroidal antiinflammatory medications, oral steroids, injectable steroids, custom orthotics, and night splints. We discussed further diagnostic tests. Orthotic recommended to help maintain the foot in a better position. Stretching exercises of the Achilles tendon and plantar fascia and strengthening exercises for the muscles of the foot and ankle were recommended to help relieve the symptoms of plantar fasciitis. Rx medrol dose xochilt. Dispensed powerstep inserts. Pt to work on stretching, as his Achilles is really tight. Pt to continue icing. 03/29/2024 Other Plan Of Treatment No Information Insurance Providers Payer Name Payer Address Payer Phone Subscriber Number Group Number Insured Name Patient Relationship to Insured Coverage Start Date Coverage End Date [facility] [address] [place] [id number] MATT SPENCE Self - patient is the insured Medical (General) History Medical History History ICD Code cardiomyopathy plantar fasciitis heart disease "
--- OUTSIDE RECORDS SUMMARY | 2024-12-13 10:38 | XMS_ITS | Clinical Summary ---
Author Organization [facility] Address [address] [place] [address] Care Team Providers Care Anesthesiologist/Physician Name Role Phone Unavailable Primary Care Provider Unavailabl e Social History Tobacco Use Types Packs/Day Years Used Date Smoking Tobacco: Never Assessed Sex and Gender Information Value Date Recorded Sex Assigned at Not on file Legal Sex Male 8:25 PM CDT Gender Identity Not on file Sexual Orientation Not on file Plan of Treatment Health Maintenance Due Date Last Done Comments Annual Physical 1986 Hepatitis C 2001 DTaP, Tdap and Td Vaccines ( 1 - Tdap) 2002 Hepatitis B Vaccines (1 of 3 - 19+ 3-dose series) 2002 COVID-19 Vaccine (2023-2 5 season) 2024 HPV Vaccines Aged Out No longer eligi ble based on patient's age to complete this topic Meningococcal B Vaccine Aged Out No l onger eligible based on patient's age to complete this topic Meningococcal Vaccine Aged Out No livier lewis eligible based on patient's age to complete this topic Pneumococcal Vaccine: Pediat rics (0 to 5 Years) and At-Risk Patients (6 to 49 Years) Aged Out No longer eligible b ased on patient's age to complete this topic RSV Immunizations Under 20 Months Aged Out No longer eligible based on patient's age to complete this topic
--- OUTSIDE RECORDS SUMMARY | 2024-12-13 10:38 | XMS_ITS ---
Author Organization [facility] Address [address] [place] [address] Care Team Providers Care Implementation Services Analyst Name Role Phone PREETMELLOJP Unavailable [phone] Encounters Encounter Location Date Provider Diagnosis [facility] [address] [place] [address] 01/19/2024 JP HERNANDEZ Plan Of Treatment No Information Progress Notes * MATT MANSFIELD CDOB:[birth year] (39 yo M)Acc No.[id number]:01/19/2024 Progress Notes Patient: FREDDY MCELROYIP [place] Provider: Anand Hernandez DPM :1985 A ge:38 Y S ex:Male Date:01/19/2024 Address:[address] [place], [place] [id number] Subjective: * Chief Complaints: * * Medical History: Objective: * Vitals: Assessment: Plan: * Treatment: * Billing Information: * Visit Code: * Procedure Codes: * Electronic signature of DUSTIN HERNANDEZ DPM on 12/13/2024 at 10:38 AM CDT Sign off status: Pending * Provider: Anand Hernandez DPM Date: 01/19/2024 Generated for Cristopher flanagan/Tiffanie/Carlee on: 12/13/2024 10:38 AM CDT
--- OUTSIDE RECORDS SUMMARY | 2024-12-13 10:38 | XMS_ITS ---
Author Organization [facility] Address [address] [place] [address] Care Team Providers Care Life Skills Trainer Name Role Phone MARY JP Unavailable [phone] Allergies No Known Allergies REASON FOR VISIT Plantar Fasciitis Medications Medication SIG (Take, Route, Fr equency, Duration) Notes Start Date End Date Status Entresto Active Farxiga Active Fenofibrate Active Coreg Active methylPREDNISolone 4 MG as directed Orally 024 Active Social History Tobacco Use: Social History Observation Description Date Details (start date - stop date) Current Smoker NA - NA Tobacco Use/Smoking Question Answer Notes Tobacco use: current smoker Vital Signs Height 71 in 03/29/2024 Weight 223 lbs 03/29/2024 BMI 31.1 kg/m2 03/29/2024 Height-cm 180.34 cm 03/29/2024 Weight-kg 101.15 kg 03/29/2024 Encounters Encounter Location Date Provider Diagnosis [facility] [address] [place] [address] 03/29/2024 JP HERNANDEZ Plantar fascial fibromatosis M72.2 [...] continue icing. 03/29/2024 Other Plan Of Treatment Medication Medication Name Sig Start Date Stop Date Notes methylPREDNISolone 4 MG as directed Orally 03/29/2024 Treatment Notes Assessment Notes Plantar fascial fibromatosis We discussed the diagnosis and causes of [...] is really tight. Pt to continue icing. Next Appt Details Follow Up: prn, Reason: Progress Notes * IRAISSINGER MATT CDOB:[birth year] (38 yo M)Acc No.[id number]:03/29/2024 Progress Notes Patient: MATT MCELROY Provider: Anand Hernandez DPM :1985 A ge:38 Y S ex:Male Date:03/29/2024 Address:[address] [place], [place] [id number] Subjective: * Chief Complaints: * P lantar Fasciitis * HPI: P lantar fasciitis: Relates the pain has been present o elías a year ago, on the left foot / heel. S everity of the symptoms is m oderate. S ymptoms are present on the plantar medial calcaneal tubercle, medial band of the plantar fascia. R elates the the pain feels s harp, shooting. A ggravating factors include f irst step in the morning, post static dyskinesia. A lleviating factors include i cing, stretching. C urrent treatment(s) include i ce application, OTC Dr. Cole lindo. 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 Relates it has been hurting since he went back to work. Relates to icing and trying Dr Cole lindo. Denies N/V/F/C. * ROS: G eneral / Constitutional: Patient denies c hills, fatigue, fever, headache. E NT: Patient denies s cratchy throat, sneezing, sore throat. R espiratory: Patient denies c hest pain, cough, shortness of breath, wheezing. C ardiovascular: Patient denies c hest pain with exertion, heart murmur, palpitations, shortness of breath. G astrointestinal: Patient denies a bdominal pain, constipation, diarrhea, nausea, vomiting. H ematology: Patient denies e asy bleeding, easy bruising. S kin: Patient denies r braydon, masses. N eurologic: Patient denies t ingling / numbness, burning. * Medical History: * Surgical History: * Hospitalization/Major Diagno stic Procedure: * Social History: T obacco Use: T obacco Use/Smoking T obacco use: c urrent smoker. D rug/Alcohol: D o you smoke marijuana?: Denies. Do you drink alcohol?: Yes. * Medications: T akingEntresto Farxiga Fenofibrate Coreg Medication List reviewed and reconciled with the patientTaking Entresto Taking Farxiga Taking Fenofibrate Taking Coreg Medication List reviewed and reconciled with the patient * Allergies: N .K.D.A.no[Allergies Verified] Objective: * Vitals: H t: 71 in, Wt:223lbs, BMI:31.1Index, Wt-k.15 kg, Ht-cm: 180.34 cm, Body Surface Area: 2.25. * Examination: D ermatologic: Skin findings: w arm and dry, no open ulcerations or interdigital macerations, bilateral. Edema a bsent edema. V ascular: Dorsalis pedis pulse: p alpable, bilateral. Posterior tibial pulse: p alpable, bilateral. Capillary refill: l ess than 3 seconds. Temperature gradient: w arm. N eurologic: Gross sensation i ntact. Tinel's sign: n egative. M usculoskeletal: Gait: m ildly antalgic. Joint range of motion: a nkle, with decreased range of motion, bilateral can dorsiflex just to 90 degrees. Strength n ormal strength. Pain elicited with palpation of: p lantar fascia, plantar medial calcaneal tubercle. Pain elicited with range of motion: n o noted pain with range of motion. Assessment: * Assessment: 1. P lantar fascial fibromatosis - M72.2 (Primary) Plan: * Treatment: * Procedure Codes: * Follow Up: p rn * Billing Information: * Visit Code: 54403 Office Visit, New Pt., Level 3. * Procedure Codes: * Sign off status: Completed true * Provider: Anand Hernandez DPM Date: 0 03/29/2024 Generated for Cristopher flanagan/Tiffanie/Jonathanitting on: 0 12/13/2024 10:37 AM CDT History and Physical Notes * HPI (History of Present Illness) Category Sub-Category Detail Notes Category Not es Plantar fasciitis Relates the pain has been present over a year ago, on the left foot / heel Relates at his job, he walks on concrete floors and pushes large crates. Relates it has been hurting since he went back to work. Relates to icing and trying Dr Cole lindo. Denies N/V/F/C. Severity of the symptoms is moderate Symptoms are present on the plantar medi al calcaneal tubercle, medial band of the plantar fascia Current treatment(s) include ice applica tion, OTC Dr. Galvan inserts Relates the the pain feels sharp, shooti ng Aggravating factors include first step i n the morning, post static dyskinesia Alleviating factors include icing, stret srinivasa Examination Category Sub-Category Detail Notes Category Not es Dermatologic Skin findings: warm and dry, no open ulcerations or interdigital macerations, bilateral Edema absent edema Neurologic Tinel's sign: negative Gross sensation intact Musculoskeletal Gait: mildly antalgic Joint range of motion: ankle, with decre ased range of motion, bilateral can dorsiflex just to 90 degrees Pain elicited with palpation of: plantar fascia, plantar medial calcaneal tubercle Pain elicited with range of motion: no n oted pain with range of motion Strength normal strength Vascular Dorsalis pedis pulse: palpable, bilateral Capillary refill: less than 3 seconds Temperature gradient: warm Posterior tibial pulse: palpable, bilate ral
[2024-12-13 11:07] LABS: Alanine Aminotransferase 63 U/L (6-50); Albumin Level 4.5 g/dL (3.5-5.1); Alkaline Phosphatase 62 U/L (38-126); Anion Gap 6 mmol/L (4-12); Aspartate Amino Transferase 47 U/L (17-59); Blood Urea Nitrogen 21 mg/dL (9-20); Calcium 9.1 mg/dL (8.4-10.2); Carbon Dioxide 24 mmol/L (22-30); Chloride 109 mmol/L (98-107); Cholesterol 183 mg/dL (0-200); Estimated Glomerular Filt Rate > 60; Glucose 95 mg/dL (65-110); HDL Direct 24 mg/dL; LDL Cholesterol Calculated 94 mg/dL (<130); Osmolality Calculated 291 mOsm/kg (285-295); Potassium 4.3 mmol/L (3.4-5.0); Sodium 139 mmol/L (137-145); Total Protein 6.9 g/dL (6.3-8.2); Triglycerides 327 mg/dL (<150)
== END 2024-12-13 10:21 | disposition home or self-care (01) ==
LOC: CHSLAB 10:21
PROVIDERS: PCP Family Medicine; Visit Provider Internal Medicine Cardiovascular Disease
DX: E78.5 Hyperlipidemia, unspecified (principal)
CPT/HCPCS: 36415; 80053; 80061

== ENCOUNTER 2025-01-17 12:52 | Outpatient (CLI) | payer OTHER, SELFPAY ==
--- NOTE | 2025-01-17 12:56 | ECHO_ITS ---
Patient Info Name: Daniel Prince Age: 39 years : 1985 Gender: Male Ht: 70 in Wt: 222 lbs BSA: 2.26 m2 HR: 66 bpm BP: 123 / 94 mmHg Technical Quality: Fair Exam Date: 01/17/2025 1:00 PM Patient Status: O Admit Date: 01/17/2025 Exam Type: CA echo doppler color flow Complete two-dimensional, color flow and Doppler transthoracic echocardiogram is performed. Civil Engineering Project Manager: Chaya Roman Attending Provider: Maico Gupta DO Summary 1. Complete two-dimensional, color flow and Doppler transthoracic echocardiogram is performed. 2. Left ventricular chamber dimension is moderately enlarged. 3. Left ventricular systolic function is moderately globally reduced, estimated at 35-40. 4. Anteroseptum, septum and apex and severely hypokinetic. 5. The left ventricular diastolic function is normal. 6. E/e' 9 is minimally elevated. 7. Linear artifact in right ventricle suggestive of catheter(s), pacemaker lead(s), or ICD lead(s). 8. Left atrial chamber dimension is moderately enlarged. 9. Linear artifact in the right atrium suggestive of catheter(s), pacemaker lead(s), or ICD lead(s). 10. There is trace tricuspid valve regurgitation. 11. No pulmonary hypertension, estimated pulmonary arterial systolic pressure is 27 mmHg. Left Ventricle E/e' 9 is minimally elevated. Left ventricular chamber dimension is moderately enlarged. Left ventricular systolic function is moderately globally reduced, estimated at 35-40. The left ventricular diastolic function is normal. Anteroseptum, septum and apex and severely hypokinetic. Right Ventricle Right ventricular chamber dimension is normal. Right ventricular systolic function is normal and with normal TAPSE 2.4 cm. Linear artifact in right ventricle suggestive of catheter(s), pacemaker lead(s), or ICD lead(s). Left Atria Left atrial chamber dimension is moderately enlarged. Right Atria Right atrial chamber dimension is normal. Linear artifact in the right atrium suggestive of catheter(s), pacemaker lead(s), or ICD lead(s). Aortic Valve The aortic valve is trileaflet. There is no aortic valve stenosis. There is no aortic valve regurgitation. Pulmonic Valve There is no pulmonic regurgitation. Mitral Valve There is no mitral valve stenosis. There is no mitral valve regurgitation. Tricuspid Valve There is trace tricuspid valve regurgitation. No pulmonary hypertension, estimated pulmonary arterial systolic pressure is 27 mmHg. Pericardium/Pleural There is no pericardial effusion. Inferior Vena Cava Normal inferior vena cava with >50% collapse upon inspiration consistent with normal right atrial pressure, 5 mmHg. Aorta The aortic root size at the sinus of Valsalva is normal. Left Ventricular Outflow Tract Name Value Normal LVOT 2D LVOT Diameter 2.2 cm LVOT Doppler LVOT Peak Velocity 122 cm/s LVOT Peak Gradient 6 mmHg LVOT Mean Gradient 3 mmHg LVOT VTI 21 cm LVOT VTI/AV VTI Ratio 0.8 LVOT Stroke Volume 82 ml LVOT CO 4.8 l/min LVOT CI 2.1 l/min/m2 Pulmonic Valve Name Value Normal PV Doppler PV Peak Velocity 136 cm/s PV Peak Gradient 7 mmHg PV Regurgitation Doppler SC Peak End Diastolic Velocity 69 cm/s Mitral Valve Name Value Normal MV Diastolic Function MV E Peak Velocity 75 cm/s MV A Peak Velocity 65 cm/s MV E/A 1.1 MV Decel Time (PW) 274 ms MV Annular TDI MV E/e' (Septal) 11.8 MV E/e' (Lateral) 7.9 MV E/e' (Average) 9.8 Tricuspid Valve Name Value Normal TV Regurgitation Doppler TR Peak Velocity 236 cm/s TR Peak Gradient 22 mmHg Estimated PAP/RSVP RA Pressure 5 mmHg <=5 PA Systolic Pressure 27 mmHg <36 RV Systolic Pressure 27 mmHg <36 TV Annular TDI TV Lateral Mary s' Velocity 10.2 cm/s >=9.5 Aortic Valve Name Value Normal AV Doppler AV Peak Velocity 139 cm/s AV Peak Gradient 8 mmHg AV Mean Gradient 4 mmHg AV VTI 26 cm AV Area (Cont Eq VTI) 3.1 cm2 >=3.0 AV Area (Cont Eq Romulo) 3.4 cm2 AV DI (Romulo) 0.88 AV Regurgitation 2D LVOT Area 3.8 cm2 Ventricles Name Value Normal LV Dimensions 2D/MM IVS Diastolic Thickness (2D) 0.9 cm 0.6-1.0 LVID Diastole (2D) 6.0 cm 4.2-5.8 LVIW Diastolic Thickness (2D) 0.9 cm 0.6-1.0 LVID Systole (2D) 4.7 cm 2.5-4.0 LVOT Diameter 2.2 cm LV Mass (2D Cubed) 219.95 g 88.00-224.00 LV Mass Index (2D Cubed) 97 g/m2 49-115 Relative Wall Thickness (2D) 0.31 <=0.42 LV Fractional Shortening/Ejection Fraction 2D/MM LV Fractional Shortening (2D) 21 % 25-43 LV EF (2D Teichholz) 42 % LV Diastolic Volume (4C MOD) 219 ml LV EF (4C MOD) 25 % LV Diastolic Volume (2C MOD) 185 ml LV EF (2C MOD) 53 % LV Diastolic Volume (BP MOD) 203 ml 62-150 LV Diastolic Volume Index (BP MOD) 90 ml/m2 34-74 LV Systolic Volume (BP MOD) 120 ml 21-61 LV Systolic Volume Index (BP MOD) 53 ml/m2 11-31 LV EF (BP MOD) 41 % 52-72 LV Diastolic Length (4C) 10.6 cm LV Systolic Length (4C) 9.8 cm LV Stroke Volume (4C MOD) 56 ml Atria Name Value Normal LA Dimensions LA Volume (4C A-L) 46 ml LA Volume (BP A-L) 47 ml RA Dimensions RA Systolic Major [place] Length (4C) 4.4 cm 2.1-2.7 RA Area (4C) 12.2 cm2 <=18.0 Report Signatures
--- OUTSIDE RECORDS SUMMARY | 2025-01-17 13:20 | XMS_ITS ---
Author Organization [facility] Address [address] [place] [address] Care Team Providers Care Retail Route Supervisor Name Role Phone PREETMELLOJP Unavailable [phone] Encounters Encounter Location Date Provider Diagnosis [facility] [address] [place] [address] 01/19/2024 JP HERNANDEZ Plan Of Treatment No Information Progress Notes * MATT MANSFIELD CDOB:[birth year] (39 yo M)Acc No.[id number]:01/19/2024 Progress Notes Patient: FREDDY MCELROYIP [place] Provider: Anand Hernandez DPM :1985 A ge:38 Y S ex:Male Date:01/19/2024 Address:[address] [place], [place] [id number] Subjective: * Chief Complaints: * * Medical History: Objective: * Vitals: Assessment: Plan: * Treatment: * Billing Information: * Visit Code: * Procedure Codes: * Electronic signature of DUSTIN HERNANDEZ DPM on 01/17/2025 at 01:20 PM CDT Sign off status: Pending * Provider: Anand Hernandez DPM Date: 01/19/2024 Generated for Cristopher flanagan/Tiffanie/Carlee on: 01/17/2025 01:20 PM CDT
--- OUTSIDE RECORDS SUMMARY | 2025-01-17 13:20 | XMS_ITS | Clinical Summary ---
Author Organization [facility] Address [address] [place] [address] Care Team Providers Care Diamond Grader Name Role Phone Unavailable Primary Care Provider [...]
--- OUTSIDE RECORDS SUMMARY | 2025-01-17 13:20 | XMS_ITS | Patient Health Record ---
Author Organization [facility] Address [address] [place] [address] Care Team Providers Care Clay Dry Press Operator Name Role Phone JP HERNANDEZ Unavailable [phone] Allergies No Known Allergies Reason For Referral [...] 03/29/2024 Encounters Encounter Location Date Provider Diagnosis [facility] [address] [place] [address] 03/29/2024 JP HERNANDEZ Plantar fascial fibromatosis M72.2 [...] Insured Coverage Start Date Coverage End Date [facility] [address] [place] [id number] MATT SPENCE Self - patient is the insured Medical (General) History Medical History History ICD Code cardiomyopathy plantar fasciitis heart disease
== END 2025-01-17 12:53 | disposition home or self-care (01) ==
LOC: CHSIMG 12:52
PROVIDERS: PCP Family Medicine; Visit Provider Internal Medicine Cardiovascular Disease
DX: I42.8 Other cardiomyopathies (principal); I51.7 Cardiomegaly
CPT/HCPCS: 93306

== ENCOUNTER 2025-02-04 09:06 | Emergency (ER) | payer OTHER, SELFPAY ==
[2025-02-04] VITALS (35 sets, daily range): BP systolic 116–149; BP diastolic 75–97; PULSE 46–66; RESP 7–22; TEMP 36.7–36.8; O2SAT 94–100
--- NOTE | ~2025-02-04 | XR_ITS ---
CHEST RADIOGRAPH CLINICAL HISTORY: CHF . COMPARISON: 08/06/2022 TECHNIQUE: Single portable view of the chest. FINDINGS The left lateral mid lung is partially obscured due to pacemaker/AICD generator. A single wire projects over the right atrium and right ventricle. The remainder of the cardiomediastinal silhouette is otherwise unremarkable. The lungs are clear. IMPRESSION: No focal infiltrate or effusion. Reviewed, dictated and finalized at location A.
--- OUTSIDE RECORDS SUMMARY | 2025-02-04 09:08 | XMS_ITS | Patient Health Record ---
Author Organization [facility] Address [address] [place] [address] Care Team Providers Care Press Tool Maker Name Role Phone JP HERNANDEZ Unavailable [phone] Allergies No Known Allergies Reason For Referral [...] 03/29/2024 Encounters Encounter Location Date Provider Diagnosis [facility] [address] [place] [address] 03/29/2024 JP HERNANDEZ Plantar fascial fibromatosis M72.2 [...] Insured Coverage Start Date Coverage End Date [facility] [address] [place] [id number] MATT SPENCE Self - patient is the insured Medical (General) History Medical History History ICD Code cardiomyopathy plantar fasciitis heart disease
--- OUTSIDE RECORDS SUMMARY | 2025-02-04 09:08 | XMS_ITS | Data Portability ---
Author Organization [facility] OFFICE Address [address] [place] [address] Care Team Providers Care Flight Purser Name Role Phone LITTLE TY Primary Care Provider Assessment Encounter Date Assessment Date Assessment LastModified by Organization Details LastModified Time 09/10/2021 09/10/2021 Patient Examined by FAUSTINO Oliver, Also interviewed / examined by Supervising physician. Assessment / plan discussed and implemented Encounter scribed by FAUSTINO Oilver. Documentation reviewed and approved by supervising physician [...] Documentation reviewed and approved by supervising physician [email or web address] Not available 12/05/2022 14:22:30 04/01/2023 04/01/2023 Patient [...] in 0.4 mg sublingual tablet 2022 023 [facility] [address] [place], [address], 3 12:21:51 Coreg 12.5 mg tablet 2022 023 [facility] [address] [place], [address], 3 12:21:50 fenofibrate 160 mg tablet 2022 023 [facility] [address] [place], [address], 3 12:21:55 lisinopril 10 mg tablet 2022 023 [facility] [address] [place], [address], 3 12:21:52 aspirin 325 mg tablet 2022 023 [facility] [address] [place], [address], 3 12:40:18 Coreg 12.5 mg tablet 2021 022 [facility] [address] [place], [address], 12:52:00 lisinopril 10 mg tablet 2021 [facility] [address] [place], [address], 12:52:02 Coreg 12.5 mg tablet 2021 [facility] [address] [place], [address], 22:53:02 Coreg 12.5 mg tablet 2021 [facility] [address] [place], [address], 22:53:08 Nitrostat 0.4 mg sublingual tablet 2021 [facility] [address] [place], [address], 22:52:58 fenofibrate 160 mg tablet 2021 [facility] [address] [place], [address], 22:53:12 lisinopril 10 mg tablet 2021 [facility] [address] [place], [address], 22:53:04 Coreg 12.5 mg tablet 2021 [facility] [address] [place], [address], 10:30:52 Coreg 12.5 mg tablet 2021 [facility] [address] [place], [address], 10:30:48 Nitrostat 0.4 mg sublingual tablet 2021 [facility] [address] [place], [address], 10:30:44 fenofibrate 160 mg tablet 2021 [facility] [address] [place], [address], 10:30:46 lisinopril 10 mg tablet 2021 [facility] [address] [place], [address], 10:30:45 Patient TargetsNo targets recorded. Patient Instructions Encounter Date Encounter Id Patient Instructions Last Modified By Organization Details Last Modified Time 09/10/2021 [id number] Advised against smoking Exercise advised Low cholesterol diet advised Low sodium diet advised. [email or web address] Not available 09/10/2021 10:29:54 06/10/2022 [id number] Weight loss, 20 pounds Advised against smoking Exercise advised Low cholesterol diet advised Low sodium diet advised. [email or web address] Not available 06/10/2022 12:51:36 04/01/2023 [id number] Low cholesterol diet advised Low sodium diet [...] ation record ed. Kiran Strickland MD [address], [place], [address], 09/17/2021 11:23:50 09/11/19 22 09/10/2021 elect rocar diogr am No observ ation record ed. Not [...] ation record ed. Kiran Strickland MD [address], [place], [address], 12/11/2021 13:42:09 12/25/19 22 12/10/2021 pacem alyssa [...] Name and Address Organization Details Recorded Time Uday fox [id number] Completed 201509/09/2017 Norma mtz [place] [facility] 8 15:16:25 Congestiv e heart failure 52776888 Active 2015 Fernie mtz [place] [facility] 6 13:58:12 Left bundle branch block 93860892 Active 2015 Fernie Cuello [facility] 6 13:59:41 Gastroeso phageal reflux disease 467587112 Active 2015 Fernie Cuello [facility] 6 14:03:15 Bronchiti s 82779790 Active 2016 Jovany Sibley [facility] 7 14:25:08 Atypical chest pain 717408185 Active 2017 Anuja Crockettkatya [facility] 8 17:34:45 Dyslipide twyla 250764737 Active 2017: LDL 89 Ekta Lópezer [facility] 8 10:05:24 Nicotine dependenc e 06911812 Active 2017 Kiran Hanson i, MD [address] [place], [address] [place] [address] [facility] 8 15:43:27 Nonischem ic congestiv e cardiomyo jovany 180981730824 Active 2017 Ekta Carsonugher [facility] 8 14:52:52 Essential hypertens ion 47788629 Active 2018 Anuja Crockettkatya [facility] 9 08:23:34 Automatic implantab le cardiac defibrill ator in situ 789286418 Active 2019 Licea Bonkatya [facility] 0 13:08:35 Hyperchol esterolem ia 35675071 Active 2019 Licea [facility] 0 13:41:23 Problem Notes None recorded. Procedures Surgical History Date Name Laterality Status Provider Name and Address Organization Details Recorded Time Back Surgery completed Licea Meskatya [facility] 03/07/2016 05:01:30 Imaging Results None recorded. Procedure Notes None recorded. Medical Equipment None [...] e 50 mcg/actua tion nasal spray,radha pension Sidman 2 sprays as needed by nasal route. [...] in Arterial blood by Pulse oximetry Systolic And Diastolic Provider Name and Address Organization Details Last Updated DateTime 2 177.8 cm 31 kg/m2 15386.9 5 g 72 /min 97 % 97 % 120/90 mm[Hg] Nagi Mendes [facility] 2 10:02:20 Date Recorded Body height Body mass index (BMI) Body weight Heart rate Oxygen saturation Oxygen saturation in Arterial blood by Pulse oximetry Systolic And Diastolic Provider Name and Address Organization Details Last Updated DateTime 2 177.8 cm 30.4 kg/m2 82937.5 8 g 68 /min 98 % 98 % 120/68 mm[Hg] Kiran Hanson i, MD [address] [place], [address], [facility] 2 12:30:01 Date Recorded Body height Body mass index (BMI) Body weight Heart rate Respiratory rate Oxygen saturation Oxygen saturation in Arterial blood by Pulse oximetry Systolic And Diastolic Provider Name and Address Organization Details Last Updated DateTime 3 177.8 cm 32.9 kg/m2 417402. 65 g 72 /min 16 /min 98 % 98 % 116/82 mm[Hg] Kel Mejia [facility] 3 10:46:55 Date Recorded Body height Body mass index (BMI) Body weight Heart rate Oxygen saturation Oxygen saturation in Arterial blood by Pulse oximetry Systolic And Diastolic Provider Name and Address Organization Details Last Updated DateTime 3 177.8 cm 31.9 kg/m2 797171. 51 g 97 /min 99 % 99 % 132/97 mm[Hg] Leonela Ricky [facility] 3 11:50:59 Date Recorded Body height Body mass index (BMI) Body weight Heart rate Respiratory rate Oxygen saturation Oxygen saturation in Arterial blood by Pulse oximetry Systolic And Diastolic Provider Name and Address Organization Details Last Updated DateTime 2 177.8 cm 31.9 kg/m2 659637. 51 g 88 /min 16 /min 98 % 98 % 118/76 mm[Hg] Kel Mejia [facility] 2 12:24:34 Social History Question Answer Notes LastModified by [employer] Details LastModified Time Tobacco Smoking Status Current [facility] 05:02:52 What Was The Date Of [...] [id number] MD Neftaly Guillaume e Office [address] [place] [address] 03/10/2016 12:48:39 03/12/2016 11:15:15 Electrocardiogram abnormal 833806804 R94.31 Congestive heart failure 86706581 I50.9 LVEF increased to 30-35% on recent echo. Sx's stable. S/p ICD. Increase Coreg to 12.5 mg bid. Continue Lisinopril . 2gm Na/d diet and weight loss 20 lbs. Hyperlipidemia 05085655 E78.5 Obtain FLP. Continue fenofibrat e. [id number] MD Neftaly Guillaume e Office [address] [place] [address] 09/17/2016 14:02:55 09/22/2016 11:30:15 Congestive heart failure 35458678 I50.9 Discussed patient s diagnosis of heart failure with reduced ejection fraction , including pathophysi ology and prognosis. Discussed importance of controllin g blood pressure, exercising regularly, and minimizing alcohol, caffeine, and decongesta nts. Patient is on carvedilol . Patient is on an LUPIS-I. Advised patient to seek medical attention for [...] weight from baseline. Increase Carvedilol to 12.5 BID.Patien t is s/p ICD for primary prevention of sudden cardiac . [id number] MD Neftaly [place] Office [address] [place] [address] 03/11/2017 14:11:32 03/12/2017 12:27:51 Congestive heart failure 11296805 I50.9 Discussed patient s diagnosis of heart failure with reduced ejection fraction , including pathophysi ology and prognosis. Discussed importance of controllin g blood pressure, exercising regularly, and minimizing alcohol, caffeine, and decongesta nts. Patient is on carvedilol . Patient is on an LUPIS-I. Advised patient to seek medical attention for [...] weight from baseline. Increase Carvedilol to 12.5 BID.Patien t is s/p ICD for primary prevention of sudden cardiac . Hyperlipidemia 79849222 E78.5 Obtain FLP. Continue fenofibrat e. Atypical chest pain 1025 28507 R07.89 [id number] MD Neftaly [place] Office [address] [place] [address] 09/09/2017 14:43:37 09/09/2017 16:49:02 Congestive heart failure 68669523 I50.9 Discussed patient s diagnosis of heart failure with reduced ejection fraction , including pathophysi ology and prognosis. Discussed importance of controllin g blood pressure, exercising regularly, and minimizing alcohol, caffeine, and decongesta nts. Patient is on carvedilol . Patient is on an LUPIS-I. Advised patient to seek medical attention for [...] weight from baseline. Increase Carvedilol to 12.5 BID.Patien t is s/p ICD for primary prevention of sudden cardiac . Atypical chest pain 1025 92765 R07.89 REsolved Dyslipidemia 413697277 E 78.5 Continue fenofibrat e.08/31/17 : LDL 89 Essential hypertension 55726929 I10 Nicotine dependence 5629 4008 F17.200 cessation recommende dPt smokes 1/2 PPD [id number] Kiran Strickland MD [facility] Office [address] [place] [address] 03/10/2018 13:50:38 03/10/2018 14:26:53 Congestive heart failure 93372433 I50.9 With known nonischemi c cardiomyop athy s/p ICD.Appear s euvolemic. Continue Coreg and lisinopril . Atypical chest pain 1025 98284 R07.89 Resolved. Would like to have SL nitro on hand. Dyslipidemia 173608449 E 78.5 Needs to keep LDL less than 70, and HDL more than 40 08/31/17: LDL 89Continue fenofibrat e. Essential hypertension 93460127 I10 Well controlled on current regimen. Continue. Nicotine dependence 5629 4008 F17.200 Cessation recommende dPt smokes less than 1/2 PPD QD Nonischemi c congestive cardiomyopathy 2485861722 04 I42.0 s/p ICD.Needs compliance with home monitoring . [id number] Kiran Strickland MD [facility] [address] [place] [address] 09/14/2018 17:28:32 09/14/2018 22:44:15 Congestive heart failure 87280647 I50.9 With known nonischemi c cardiomyop athy s/p ICD.Contin ue Coreg and lisinopril . Nonischemi c congestive cardiomyopathy 5521145561 04 I42.0 s/p ICD.Needs compliance with home monitoring . Atypical chest pain 1025 80779 R07.89 Had episode last week after using nasal spray. Dyslipidemia 391163841 E 78.5 Needs to keep LDL less than 70, and HDL more than 40 08/31/17: LDL 89Continue fenofibrat e. Essential hypertension 17174940 I10 Well controlled on current regimen. Nicotine dependence 5629 4008 F17.200 Cessation recommende dPt smokes less than 1/2 PPD QD [id number] Kiran Strickland MD [facility] [address] [place] [address] 03/15/2019 10:40:33 03/16/2019 11:20:39 Congestive heart failure 94270651 I50.9 With known nonischemi c cardiomyop athy s/p ICD.Contin ue Coreg and lisinopril . Nonischemi c congestive cardiomyopathy 6309986214 04 I42.0 s/p ICD.encour aged compliance with home monitoring . Atypical chest pain 1025 71865 R07.89 Had episode last week after using nasal spray. Dyslipidemia 789924778 E 78.5 Needs to keep LDL less than 70, and HDL more than 40 08/31/17: LDL 89Continue fenofibrat e. Essential hypertension 66522950 I10 Well controlled on current regimen. Nicotine dependence 5629 4008 F17.200 Continue to encourage cessationP t smokes less than 1/2 PPD QD Automatic implantable cardiac defibrillator in situ 427947132 Z95.810 follow up was done today, it seems to be functionin g well, no new events.[employer]tran [place] getting close to end of life will continue to monitor [id number] Kiran Strickland MD [facility] [address] [place] [address] 06/14/2019 12:30:30 06/19/2019 22:02:25 Congestive heart failure 95096785 I50.9 With known nonischemi c cardiomyop athy s/p ICD. Euvolemic, asymptomat ic.Continu e Coreg and lisinopril .05/05/19 : echocardio graphic Studies : LV chamber is mildly dilated There is segmental wall motion abnormalit y LV relaxation impaired There is thinning and akinesis of the anterosept al wall There is dyskinesia of the apex There is normal right ventricula r size wall dimensions and systolic function .There is a lead wire seen in the RV The aortic valve is structural ly normal The aortic valve is mildly calcified There is no mitral regurgitat ion The estimated RV systolic pressure is normal Normal sinus Rhythm Pacemaker -unknown pace Nonischemi c congestive cardiomyopathy 2593121430 04 I42.0 s/p ICD. Checked today. 8 episodes of NSVT, most recent on 06/12/2019 , 6 beats @ 207 bpm, lasting 1 second. Otherwise seems to be functionin g well. Dyslipidemia 267429882 E 78.5 Needs to keep LDL less than 70, and HDL more than 40 08/31/17: LDL 89Continue fenofibrat e. Essential hypertension 95436873 I10 Well controlled on current regimen. Nicotine dependence 5629 4008 F17.200 Trying to quit now, using nicorette gum. Automatic implantable cardiac defibrillator in situ 856619392 Z95.810 follow up was done today, it seems to be functionin g well, no new events.Beltran [place] getting close to end of life will continue to monitor [id number] Kiran Strickland MD [facility] [address] [place] [address] 09/13/2019 13:01:47 09/14/2019 12:29:56 Nonischemic congestive cardiomyopathy 7083325563 04 I42.0 s/p ICD. Euvolemic, asymptomat ic. Continue Coreg and lisinopril . Needs Rx renewals today. 05/05/19 : echocardio graphic Studies : LV chamber is mildly dilated There is segmental wall motion abnormalit y LV relaxation impaired There is thinning and akinesis of the anterosept al wall There is dyskinesia of the apex There is normal right ventricula r size wall dimensions and systolic function .There is a lead wire seen in the RV The aortic valve is structural ly normal The aortic valve is mildly calcified There is no mitral regurgitat ion The estimated RV systolic pressure is normal Normal sinus Rhythm Pacemaker -unknown pace Dyslipidemia 235131924 E 78.5 Needs to keep LDL less than 70, and HDL more than 40 08/31/17: LDL 89Continue fenofibrat e. Essential hypertension 92130246 I10 Blood pressure is elevated today, but this is only one reading, will keep close follow up, and consider medication change if blood pressure is still elevated next visit. Nicotine dependence 5629 4008 F17.200 Trying to quit now, using nicorette lozenges. Automatic implantable cardiac defibrillator in situ 837889521 Z95.810 s/p ICD. Device check today. Had 8 episodes of NSVT over past 2 months. [employer] 07/01/2019 . Will set up to replace device. Atypical chest pain 1025 28438 R07.89 Occasional . Needs Rx renewal for SL NTG. [id number] Kiran Strickland MD [facility] [address] [place] [address] 10/21/2019 11:30:28 10/21/2019 11:56:01 Nonischemic congestive cardiomyopathy 7010179902 04 I42.0 s/p ICD. Euvolemic, asymptomat ic. Continue Coreg and lisinopril . Needs Rx renewals today. 05/05/19 : echocardio graphic Studies : LV chamber is mildly dilated There is segmental wall motion abnormalit y LV relaxation impaired There is thinning and akinesis of the anterosept al wall There is dyskinesia of the apex There is normal right ventricula r size wall dimensions and systolic function .There is a lead wire seen in the RV The aortic valve is structural ly normal The aortic valve is mildly calcified There is no mitral regurgitat ion The estimated RV systolic pressure is normal Normal sinus Rhythm Pacemaker -unknown pace Dyslipidemia 790571406 E 78.5 Needs to keep LDL less than 70, and HDL more than 40 08/31/17: LDL 89Continue fenofibrat e. Essential hypertension 28986265 I10 Blood pressure is elevated today, but this is only one reading, will keep close follow up, and consider medication change if blood pressure is still elevated next visit. Nicotine dependence 5629 4008 F17.200 Trying to quit now, using nicorette lozenges. Automatic implantable cardiac defibrillator in situ 314957971 Z95.810 s/p ICD, now device is OK Atypical chest pain 1025 83234 R07.89 Occasional . Needs Rx renewal for SL NTG. [id number] Kiran Strickland MD [facility] [address] [place] [address] 11/18/2019 13:22:18 11/18/2019 13:44:16 Nonischemic congestive cardiomyopathy 7835714283 04 I42.0 s/p ICD. Euvolemic, asymptomat ic. Continue Coreg and lisinopril . Needs Rx renewals today. 05/05/19 : echocardio graphic Studies : LV chamber is mildly dilated There is segmental wall motion abnormalit y LV relaxation impaired There is thinning and akinesis of the anterosept al wall There is dyskinesia of the apex There is normal right ventricula r size wall dimensions and systolic function .There is a lead wire seen in the RV The aortic valve is structural ly normal The aortic valve is mildly calcified There is no mitral regurgitat ion The estimated RV systolic pressure is normal Normal sinus Rhythm Pacemaker -unknown pace Dyslipidemia 684992721 E 78.5 Needs to keep LDL less than 70, and HDL more than 40 08/31/17: LDL 89Continue fenofibrat e. Essential hypertension 91078003 I10 Blood pressure is elevated today, but this is only one reading, will keep close follow up, and consider medication change if blood pressure is still elevated next visit. Automatic implantable cardiac defibrillator in situ 660084659 Z95.810 s/p ICD, with recent generator change. Now with pain but no erythema or discharge and wound intact per pt (phone visit). Pt to follow up with Dr Berman office. Nicotine dependence 5629 4008 F17.200 Trying to quit now, using nicorette lozenges. Atypical chest pain 1025 64764 R07.89 Occasional . Needs Rx renewal for SL NTG. [id number] Kiran Strickland MD [facility] [place] [address] 12/13/2019 11:39:32 12/13/2019 13:17:04 Automatic implantable cardiac defibrillator in situ 611481587 Z95.810 s/p ICD, with recent generator change. Now with pain but no erythema or discharge and wound intact, pain control and FU Nonischemi c congestive cardiomyopathy 8759262943 04 I42.0 s/p ICD. Euvolemic, asymptomat ic. Continue Coreg and lisinopril . Needs Rx renewals today. 05/05/19 : echocardio graphic Studies : LV chamber is mildly dilated There is segmental wall motion abnormalit y LV relaxation impaired There is thinning and akinesis of the anterosept al wall There is dyskinesia of the apex There is normal right ventricula r size wall dimensions and systolic function .There is a lead wire seen in the RV The aortic valve is structural ly normal The aortic valve is mildly calcified There is no mitral regurgitat ion The estimated RV systolic pressure is normal Normal sinus Rhythm Pacemaker -unknown pace Dyslipidemia 109922715 E 78.5 Needs to keep LDL less than 70, and HDL more than 40 08/31/17: LDL 89Continue fenofibrat e. Essential hypertension 74295101 I10 Blood pressure is elevated today, but this is only one reading, will keep close follow up, and consider medication change if blood pressure is still elevated next visit. Nicotine dependence 5629 4008 F17.200 Trying to quit now, using nicorette lozenges. Atypical chest pain 1025 00975 R07.89 Occasional . Needs Rx renewal for SL NTG. [id number] Kiran Strickland MD [facility] [place] [address] 03/06/2020 11:58:06 03/06/2020 12:42:07 Automatic implantable cardiac defibrillator in situ 334922728 Z95.810 03/06/2020No shocks. s/p ICD, with recent generator change. Now with pain but no erythema or discharge and wound intact, pain control and FU Nonischemi c congestive cardiomyopathy 1382131352 04 I42.0 03/06/2020 s/p ICD. Euvolemic, asymptomat ic. Continue Coreg and lisinopril .05/05/19 : echocardio graphic Studies : LV chamber is mildly dilated There is segmental wall motion abnormalit y LV relaxation impaired There is thinning and akinesis of the anterosept al wall There is dyskinesia of the apex There is normal right ventricula r size wall dimensions and systolic function .There is a lead wire seen in the RV The aortic valve is structural ly normal The aortic valve is mildly calcified There is no mitral regurgitat ion The estimated RV systolic pressure is normal Normal sinus Rhythm Pacemaker -unknown pace Dyslipidemia 830028458 E 78.5 03/06/2020 Will get fasting lipids for F/u Needs to keep LDL less than 70, and HDL more than 40 08/31/17: LDL 89Continue fenofibrat e. Essential hypertension 13082640 I10 03/06/2020BP high today. Second high BP in a row. Lifestyle changes encouraged . Blood pressure is elevated today, but this is only one reading, will keep close follow up, and consider medication change if blood pressure is still elevated next visit. Nicotine dependence 5629 4008 F17.200 Trying to quit now, using nicorette lozenges. Atypical chest pain 1025 24100 R07.89 03/06/2020Oc casional. Stable [id number] Kiran Strickland MD [facility] [place] [address] 09/04/2020 11:46:03 02/05/2021 12:07:35 Automatic implantable cardiac defibrillator in situ 187082443 Z95.810 Last check 06/12/2020 with no new events Nonischemi c congestive cardiomyopathy 2920306554 04 I42.0 s/p ICD ( 0) Seems to be well compensate d, appears euvolemic. Continue Coreg and lisinopril Will repeat echo Echo 05/05/2019 : LV chamber is mildly dilated. There is segmental wall motion abnormalit y. LV relaxation impaired. There is thinning and akinesis of the anterosept al wall. There is dyskinesia of the apex. There is normal right ventricula r size wall dimensions and systolic function. There is a lead wire seen in the RV. The aortic valve is structural ly normal. The aortic valve is mildly calcified. There is no mitral regurgitat ion. The estimated RV systolic pressure is normal. Dyslipidemia 800874639 E 78.5 Needs to keep LDL less than 70, and HDL more than 40. 08/31/2017 LDL 89Continue fenofibrat e, not on statin therapy.Wi ll get fasting lipids for follow-up Essential hypertension 69244314 I10 well controlled on current regimen Nicotine dependence 5629 4008 F17.200 Cessation highly advised Atypical chest pain 1025 83946 R07.89 Resolved [id number] Justino Dunlap MD [facility] [address] [place] [address] 03/05/2021 09:47:53 03/05/2021 13:16:22 Congestive heart failure 47509956 I50.9 With known nonischemi c cardiomyop athy s/p ICD. Euvolemic, with DOEContinu e Coreg and lisinopril . See BELOW Had ECHO done in 02/04/21 showed LV chamber is mildly dilated. LV wall thickness is normal. LVSF is moderately reduced. The estimated LVEF is 35-40% (abnormal) . E to A mitral inflow reversal is consistent with possible diastolic dysfunctio n. Irregular, Sinus Bradycardi a. Cardiac rhythm: ICD Treadmill Myoview Stress test, has high [place] Risk score. Has Known CAD, or CAD risk equivalent . To look for any ischemia. 05/05/19 : echocardio graphic Studies : LV chamber is mildly dilated There is segmental wall motion abnormalit y LV relaxation impaired There is thinning and akinesis of the anterosept al wall There is dyskinesia of the apex There is normal right ventricula r size wall dimensions and systolic function .There is a lead wire seen in the RV The aortic valve is structural ly normal The aortic valve is mildly calcified There is no mitral regurgitat ion The estimated RV systolic pressure is normal Normal sinus Rhythm Pacemaker -unknown pace Dyslipidemia [id number] E 78.5 Needs to keep LDL less than 70, and HDL more than 40. 08/31/2017 LDL 89Continue fenofibrat e, not on statin therapy.Wi ll get fasting lipids for follow-up has not gotten labs yet. Essential hypertension 15912921 I10 well controlled on current regimen no new changes Left bundl e branch block 34027635 I44.7 Nonischemi c congestive cardiomyopathy [id number] 04 I42.0 s/p ICD ( 0) Seems to be well compensate d, appears euvolemic. Continue Coreg and lisinopril Yes winded XIONG, Pacer showed ectopy, Consider 3rd lead BI Ventricula r pacing. Treadmill Myoview Stress test, has high [place] Risk score. Has Known CAD, or CAD risk equivalent . To look for any ischemia. Had ECHO done in 02/04/21 showed LV chamber is mildly dilated. LV wall thickness is normal. LVSF is moderately reduced. The estimated LVEF is 35-40% (abnormal) . E to A mitral inflow reversal is consistent with possible diastolic dysfunctio n. Irregular, Sinus Bradycardi a. Cardiac rhythm: ICD Echo 05/05/2019 : LV chamber is mildly dilated. There is segmental wall motion abnormalit y. LV relaxation impaired. There is thinning and akinesis of the anterosept al wall. There is dyskinesia of the apex. There is normal right ventricula r size wall dimensions and systolic function. There is a lead wire seen in the RV. The aortic valve is structural ly normal. The aortic valve is mildly calcified. There is no mitral regurgitat ion. The estimated RV systolic pressure is normal. 35-40% EKG: left bundle branch block [id number] I44.7 Consider biventricu lar pacing will perfom stress test see cardiomyop athy Treadmill Myoview Stress test, has high [place] Risk score. Has Known CAD, or CAD risk equivalent . To look for any ischemia. [id number] Kiran Strickland MD [facility] [address] [place] [address] 09/10/2021 09:42:58 09/10/2021 10:42:34 Congestive heart failure 90823518 I50.9 We will do stress ECho With known nonischemi c cardiomyop athy s/p ICD. Euvolemic, with DOEContinu e Coreg and lisinopril . See BELOW Had ECHO done in 02/04/21 showed LV chamber is mildly dilated. LV wall thickness is normal. LVSF is moderately reduced. The estimated LVEF is 35-40% (abnormal) . E to A mitral inflow reversal is consistent with possible diastolic dysfunctio n. Irregular, Sinus Bradycardi a. Cardiac rhythm: ICD Treadmill Myoview Stress test, has high [place] Risk score. Has Known CAD, or CAD risk equivalent . To look for any ischemia. 05/05/19 : echocardio graphic Studies : LV chamber is mildly dilated There is segmental wall motion abnormalit y LV relaxation impaired There is thinning and akinesis of the anterosept al wall There is dyskinesia of the apex There is normal right ventricula r size wall dimensions and systolic function .There is a lead wire seen in the RV The aortic valve is structural ly normal The aortic valve is mildly calcified There is no mitral regurgitat ion The estimated RV systolic pressure is normal Normal sinus Rhythm Pacemaker -unknown pace Dyslipidemia [id number] E 78.5 Needs to keep LDL less than 70, and HDL more than 40. 08/31/2017 LDL 89Continue fenofibrat e, not on statin therapy.Wi ll get fasting lipids for follow-up has not gotten labs yet. Essential hypertension 88282690 I10 well controlled on current regimen no new changes Left bundl e branch block [id number] I44.7 Nonischemi c congestive cardiomyopathy [id number] 04 I42.0 s/p ICD ( 0) Seems to be well compensate d, appears euvolemic. Continue Coreg and lisinopril Yes winded XIONG, Pacer showed ectopy, Consider 3rd lead BI Ventricula r pacing. Treadmill Myoview Stress test, has high [place] Risk score. Has Known CAD, or CAD risk equivalent . To look for any ischemia. Had ECHO done in 02/04/21 showed LV chamber is mildly dilated. LV wall thickness is normal. LVSF is moderately reduced. The estimated LVEF is 35-40% (abnormal) . E to A mitral inflow reversal is consistent with possible diastolic dysfunctio n. Irregular, Sinus Bradycardi a. Cardiac rhythm: ICD Echo 05/05/2019 : LV chamber is mildly dilated. There is segmental wall motion abnormalit y. LV relaxation impaired. There is thinning and akinesis of the anterosept al wall. There is dyskinesia of the apex. There is normal right ventricula r size wall dimensions and systolic function. There is a lead wire seen in the RV. The aortic valve is structural ly normal. The aortic valve is mildly calcified. There is no mitral regurgitat ion. The estimated RV systolic pressure is normal. 35-40% EKG: left bundle branch block [id number] I44.7 Consider biventricu lar pacing will perfom stress test see cardiomyop athy Treadmill Myoview Stress test, has high [place] Risk score. Has Known CAD, or CAD risk equivalent . To look for any ischemia. Atypical chest pain 1025 14269 R07.89 Resolved [id number] Kiran Strickland MD [facility] [address] [place] [address] 12/10/2021 11:42:16 12/10/2021 12:58:35 Congestive heart failure 32710476 I50.9 We will do stress ECho With known nonischemi c cardiomyop athy s/p ICD. Euvolemic, with DOEContinu e Coreg and lisinopril . See BELOW Had ECHO done in 02/04/21 showed LV chamber is mildly dilated. LV wall thickness is normal. LVSF is moderately reduced. The estimated LVEF is 35-40% (abnormal) . E to A mitral inflow reversal is consistent with possible diastolic dysfunctio n. Irregular, Sinus Bradycardi a. Cardiac rhythm: ICD Treadmill Myoview Stress test, has high [place] Risk score. Has Known CAD, or CAD risk equivalent . To look for any ischemia. 05/05/19 : echocardio graphic Studies : LV chamber is mildly dilated There is segmental wall motion abnormalit y LV relaxation impaired There is thinning and akinesis of the anterosept al wall There is dyskinesia of the apex There is normal right ventricula r size wall dimensions and systolic function .There is a lead wire seen in the RV The aortic valve is structural ly normal The aortic valve is mildly calcified There is no mitral regurgitat ion The estimated RV systolic pressure is normal Normal sinus Rhythm Pacemaker -unknown pace Dyslipidemia 553541826 E 78.5 Needs to keep LDL less than 70, and HDL more than 40. 08/31/2017 LDL 89Continue fenofibrat e, not on statin therapy.Wi ll get fasting lipids for follow-up has not gotten labs yet. Essential hypertension 75672034 I10 well controlled on current regimen no new changes Left bundl e branch block 74257287 I44.7 Nonischemi c congestive cardiomyopathy 8328677513 04 I42.0 s/p ICD ( 0) Seems to be well compensate d, appears euvolemic. Continue Coreg and lisinopril Yes winded XIONG, Pacer showed ectopy, Consider 3rd lead BI Ventricula r pacing. Treadmill Myoview Stress test, has high [place] Risk score. Has Known CAD, or CAD risk equivalent . To look for any ischemia. Had ECHO done in 02/04/21 showed LV chamber is mildly dilated. LV wall thickness is normal. LVSF is moderately reduced. The estimated LVEF is 35-40% (abnormal) . E to A mitral inflow reversal is consistent with possible diastolic dysfunctio n. Irregular, Sinus Bradycardi a. Cardiac rhythm: ICD Echo 05/05/2019 : LV chamber is mildly dilated. There is segmental wall motion abnormalit y. LV relaxation impaired. There is thinning and akinesis of the anterosept al wall. There is dyskinesia of the apex. There is normal right ventricula r size wall dimensions and systolic function. There is a lead wire seen in the RV. The aortic valve is structural ly normal. The aortic valve is mildly calcified. There is no mitral regurgitat ion. The estimated RV systolic pressure is normal. 35-40% EKG: left bundle branch block 413264965 I44.7 Consider biventricu lar pacing will perfom stress test see cardiomyop athy Treadmill Myoview Stress test, has high [place] Risk score. Has Known CAD, or CAD risk equivalent . To look for any ischemia. Atypical chest pain 1025 35864 R07.89 Resolved 71365 Kiran Strickland MD [facility] [address] [place] [address] 06/10/2022 10:44:30 06/10/2022 12:58:16 Congestive heart failure 18629914 I50.9 ( 2) Exercise Stress Echo.Negat ok stress echo. Mild exercise impairment and severe LV dyskinesis . With known nonischemi c cardiomyop athy s/p ICD. Euvolemic, with DOEContinu e Coreg and lisinopril . See BELOW Had ECHO done in 02/04/21 showed LV chamber is mildly dilated. LV wall thickness is normal. LVSF is moderately reduced. The estimated LVEF is 35-40% (abnormal) . E to A mitral inflow reversal is consistent with possible diastolic dysfunctio n. Irregular, Sinus Bradycardi a. Cardiac rhythm: ICD Treadmill Myoview Stress test, has high [place] Risk score. Has Known CAD, or CAD risk equivalent . To look for any ischemia. 05/05/19 : echocardio graphic Studies : LV chamber is mildly dilated There is segmental wall motion abnormalit y LV relaxation impaired There is thinning and akinesis of the anterosept al wall There is dyskinesia of the apex There is normal right ventricula r size wall dimensions and systolic function .There is a lead wire seen in the RV The aortic valve is structural ly normal The aortic valve is mildly calcified There is no mitral regurgitat ion The estimated RV systolic pressure is normal Normal sinus Rhythm Pacemaker -unknown pace Dyslipidemia 301113735 E 78.5 Needs to keep LDL less than 70, and HDL more than 40. 09/2021 LDL 116Continu e fenofibrat e, not on statin therapy.Wi ll get fasting lipids for follow-up has not gotten labs yet. Essential hypertension 93937063 I10 well controlled on current regimen no new changes Left bundl e branch block 15703171 I44.7 Nonischemi c congestive cardiomyopathy 6826638346 04 I42.0 s/p ICD ( 0)devise interrogat ed today no change ( he has one episode of NSVT last lasted for 1 sec) Seems to be well compensate d, appears euvolemic. Continue Coreg and lisinopril Yes winded XIONG, Pacer showed ectopy, Consider 3rd lead BI Ventricula r pacing. Treadmill Myoview Stress test, has high Kalt[place] Risk score. Has Known CAD, or CAD risk equivalent . To look for any ischemia. Had ECHO done in 02/04/21 showed LV chamber is mildly dilated. LV wall thickness is normal. LVSF is moderately reduced. The estimated LVEF is 35-40% (abnormal) . E to A mitral inflow reversal is consistent with possible diastolic dysfunctio n. Irregular, Sinus Bradycardi a. Cardiac rhythm: ICD Echo 05/05/2019 : LV chamber is mildly dilated. There is segmental wall motion abnormalit y. LV relaxation impaired. There is thinning and akinesis of the anterosept al wall. There is dyskinesia of the apex. There is normal right ventricula r size wall dimensions and systolic function. There is a lead wire seen in the RV. The aortic valve is structural ly normal. The aortic valve is mildly calcified. There is no mitral regurgitat ion. The estimated RV systolic pressure is normal. 35-40% EKG: left bundle branch block 812150055 I44.7 Consider biventricu lar pacing will perfom stress test see cardiomyop athy Treadmill Myoview Stress test, has high [place] Risk score. Has Known CAD, or CAD risk equivalent . To look for any ischemia. Atypical chest pain 1025 46725 R07.89 Resolved 47700 Kiran Strickland MD [facility] [place] [address] 12/16/2022 10:35:39 12/16/2022 11:29:29 Congestive heart failure 44229459 I50.9 ( 2) Exercise Stress Echo.Negat ok stress echo. Mild exercise impairment and severe LV dyskinesis . With known nonischemi c cardiomyop athy s/p ICD. Euvolemic, with DOEContinu e Coreg and lisinopril . See BELOW Had ECHO done in 02/04/21 showed LV chamber is mildly dilated. LV wall thickness is normal. LVSF is moderately reduced. The estimated LVEF is 35-40% (abnormal) . E to A mitral inflow reversal is consistent with possible diastolic dysfunctio n. Irregular, Sinus Bradycardi a. Cardiac rhythm: ICD Treadmill Myoview Stress test, has high K[place] Risk score. Has Known CAD, or CAD risk equivalent . To look for any ischemia. 05/05/19 : echocardio graphic Studies : LV chamber is mildly dilated There is segmental wall motion abnormalit y LV relaxation impaired There is thinning and akinesis of the anterosept al wall There is dyskinesia of the apex There is normal right ventricula r size wall dimensions and systolic function .There is a lead wire seen in the RV The aortic valve is structural ly normal The aortic valve is mildly calcified There is no mitral regurgitat ion The estimated RV systolic pressure is normal Normal sinus Rhythm Pacemaker -unknown pace Dyslipidemia 294686485 E 78.5 Needs to keep LDL less than 70, and HDL more than 40. 09/2021 LDL 116Continu e fenofibrat e, not on statin therapy.Wi ll get fasting lipids for follow-up has not gotten labs yet. Essential hypertension 14634069 I10 well controlled on current regimen no new changes Left bundl e branch block 30666857 I44.7 Nonischemi c congestive cardiomyopathy 7454450135 04 I42.0 s/p ICD ( 0)devise interrogat ed today no change ( he has few episode of NSVT) Seems to be well compensate d, appears euvolemic. Continue Coreg and lisinopril Yes winded XIONG, Pacer showed ectopy, Consider 3rd lead BI Ventricula r pacing. Treadmill Myoview Stress test, has high Kalt[place] Risk score. Has Known CAD, or CAD risk equivalent . To look for any ischemia. Had ECHO done in 02/04/21 showed LV chamber is mildly dilated. LV wall thickness is normal. LVSF is moderately reduced. The estimated LVEF is 35-40% (abnormal) . E to A mitral inflow reversal is consistent with possible diastolic dysfunctio n. Irregular, Sinus Bradycardi a. Cardiac rhythm: ICD Echo 05/05/2019 : LV chamber is mildly dilated. There is segmental wall motion abnormalit y. LV relaxation impaired. There is thinning and akinesis of the anterosept al wall. There is dyskinesia of the apex. There is normal right ventricula r size wall dimensions and systolic function. There is a lead wire seen in the RV. The aortic valve is structural ly normal. The aortic valve is mildly calcified. There is no mitral regurgitat ion. The estimated RV systolic pressure is normal. 35-40% EKG: left bundle branch block 275691427 I44.7 Consider biventricu lar pacing will perfom stress test see cardiomyop athy Treadmill Myoview Stress test, has high [place] Risk score. Has Known CAD, or CAD risk equivalent . To look for any ischemia. Atypical chest pain 1025 39014 R07.89 Resolved Paroxysmal atrial fibrillation 240053916 I48.0 few events of a fibhe is on full aspirincon tinue with coreg and consider changing to toprol Obstructiv e sleep apnea syndrome 84934541 G47.33 he need sleep study [id number] Kiran Strickland MD [facility] [address] [place] [address] 04/01/2023 11:38:31 04/01/2023 12:23:50 Congestive heart failure 83428882 I50.9 ( 2) Exercise Stress Echo.Negat ok stress echo. Mild exercise impairment and severe LV dyskinesis . With known nonischemi c cardiomyop athy s/p ICD. Euvolemic, with DOEContinu e Coreg and lisinopril . See BELOW Had ECHO done in 02/04/21 showed LV chamber is mildly dilated. LV wall thickness is normal. LVSF is moderately reduced. The estimated LVEF is 35-40% (abnormal) . E to A mitral inflow reversal is consistent with possible diastolic dysfunctio n. Irregular, Sinus Bradycardi a. Cardiac rhythm: ICD Treadmill Myoview Stress test, has high K[place] Risk score. Has Known CAD, or CAD risk equivalent . To look for any ischemia. 05/05/19 : echocardio graphic Studies : LV chamber is mildly dilated There is segmental wall motion abnormalit y LV relaxation impaired There is thinning and akinesis of the anterosept al wall There is dyskinesia of the apex There is normal right ventricula r size wall dimensions and systolic function .There is a lead wire seen in the RV The aortic valve is structural ly normal The aortic valve is mildly calcified There is no mitral regurgitat ion The estimated RV systolic pressure is normal Normal sinus Rhythm Pacemaker -unknown pace Dyslipidemia 888802187 E 78.5 Needs to keep LDL less than 70, and HDL more than 40. 09/2021 LDL 116Continu e fenofibrat e, not on statin therapy.Wi ll get fasting lipids for follow-up has not gotten labs yet. Essential hypertension 73278602 I10 well controlled on current regimen no new changes Left bundl e branch block 64466746 I44.7 Nonischemi c congestive cardiomyopathy 8323717351 04 I42.0 s/p ICD ( 0)devise interrogat ed today no change ( he has few episode of NSVT) Seems to be well compensate d, appears euvolemic. Continue Coreg and lisinopril Yes winded XIONG, Pacer showed ectopy, Consider 3rd lead BI Ventricula r pacing. Treadmill Myoview Stress test, has high [place] Risk score. Has Known CAD, or CAD risk equivalent . To look for any ischemia. Had ECHO done in 02/04/21 showed LV chamber is mildly dilated. LV wall thickness is normal. LVSF is moderately reduced. The estimated LVEF is 35-40% (abnormal) . E to A mitral inflow reversal is consistent with possible diastolic dysfunctio n. Irregular, Sinus Bradycardi a. Cardiac rhythm: ICD Echo 05/05/2019 : LV chamber is mildly dilated. There is segmental wall motion abnormalit y. LV relaxation impaired. There is thinning and akinesis of the anterosept al wall. There is dyskinesia of the apex. There is normal right ventricula r size wall dimensions and systolic function. There is a lead wire seen in the RV. The aortic valve is structural ly normal. The aortic valve is mildly calcified. There is no mitral regurgitat ion. The estimated RV systolic pressure is normal. 35-40% EKG: left bundle branch block 442189537 I44.7 On ICD Atypical chest pain 1025 02064 R07.89 Resolved Paroxysmal atrial fibrillation 920308930 I48.0 few events of a fibhe is on full aspirincon tinue with coreg Obstructiv e sleep apnea syndrome 45474762 G47.33 he need sleep study Chest pain 36840183 R07. 9 Health Concerns Section Related Observation LastModified by Organization Detai ls LastModified Time None Recorded Concern Status LastModified by Organization Details LastModified Time None Recorded Advance Directives Directive None Recorded Payers Insurance Date Sequence Insurance Name Policy Number Policy Ray Covered Member ID Ray Member ID Guarantor Name 02/16/2024 1 [facility] - DOS ON OR AFTER 21 (MEDICAID REPLACEMENT - HMO) Daniel Prince [id number] Daniel Prince 04/06/2021 1 [facility] - DOS PRIOR TO 2021 (MEDICAID REPLACEMENT - HMO) Daniel Gallagher [id number] Daniel Zambrano Niki Notes Date Note Type Note Provider Name and Address Organization Details Recorded Time 09/10/2021 text/html 09/10/21CC : Car diac follow up dyspnoea on exertion and [id number] ld white man with a past medical history of nonischemic cardiomyopathy s/p ICD, placed 10-06-2019 HF-rEF, hypertension, hyperlipidemia, current tobacco dependence presents for 6 month follow-up. He was last seen in the clinic on 03/05/21 , since then he is doing well except 8 days ago he had dizziness and chest tightness and palpitation for few seconds and never happened again. Otherwise he is very active and work 4 days a week. He denied any dyspnoea on exertion. He is a smoker for the last 20 years and he smok 2 packs a day. Last LDL was 89 done on 08/30/17 .Pt dose not takes any statins. He denies ER visits and hospitalizations since he was last seen. Today reports:occasional chest pain.Denies shortness of breath at rest. Has mild dyspnea on exertion.No orthopnea. No PNDs.Occasional heart palpitations.one occasion of dizziness. one syncope or near syncope.No ankle or leg edema.No major bleeding events.No reported side effects from medications. Taking medications as prescribed with no missed doses.Denies snoring, daytime somnolence and AM headache.*Last LDL was 89 done on 08/30/17 .Pt dose not takes any statins. Previously :He is well gets alot of cardio with work but has lack of energy. Heavy lifting no chest pain, no dizziness had some shoulder pain *Had ECHO done in 02/04/21 showed LV chamber is mildly dilated. LV wall thickness is normal. LVSF is moderately reduced. The estimated LVEF is 35-40% (abnormal). E to A mitral inflow reversal is consistent with possible diastolic dysfunction. Irregular, Sinus Bradycardia. Cardiac rhythm: ICD Last pacer interrogation 12-21 NSVT Previously -2018 30-35% LVEF Yes winded at work with exertion XIONG yes Uses 2 pillows to sleep no SOB with lying flat No PNDs. He is very active with his new job. He had mild dyspnea on exertion but states it is much improved. Down 9lbs. 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 He has an ICD with no shocks. Does report that in the last week he had 2 intense chest pains that he does not correlate with his ICD. Believes it is muscular. It goes away immediately with change in position. Reports mild tightness today. Results from this visit, or from the past:08/31/17: NA 141 ,K 4.5 ,CL 102 ,CO2 26 ,GLU 82 ,BUN 12 ,CR 0.87 ,TC 178 ,TG 292 ,HDL 31 ,LDL 89 ,03/24/16 SOD 140, K 4.4, CL 102, CO2 30, GL 99, BUN 12, CR 1.02 TC 196, HDL 31, TR 386, LDL 88, AST 21, ALT [id number] SOD 140, K 4.4, CL 102, CO2 30, GL 99, BUN 12, CR 1.02 TC 196, HDL 31, TR 386, LDL 88, AST 21, ALT ; Na 140 ,K 4.4 ,CL 102 ,CO2 30 ,GLU 99 ,BUN 12 ,CR 1.02 ,TC 195 ,TG 386 ,HDL 31 ,LDL 88 ,AST 21 ,ALT SOD 141, K 4.3, CL 104, Co2 23, GLU 83, BUN 15 ,CR 1.11, CK 115LIPIDS: 12/28/13 : TC 159. TG 445 . HDL 24. AST31 . ALT 47 .EKG, 09/14/18: Sinus Rhythm. ..P normal. QRS.. marked right axis deviation. very marked intraventricular conduction delay. ST-T...acute anteroseptal and high lateral ischemia. ST elevation in I aVL, V2, V3, V4. Reciprocal ST depression in II, III, aVF, V6. marked inferior ST-T changes, consider ischemia or LV overload. Large negative T in aVF, with neg T in II, III. Abnormal ECG. mwuEKG 03/10/18: poor R progression in chest leads; Possibly QTc > 440 msEK09/09/17 Abnormality of unclear origin. LBBBEK09/17/16 Sinus rhythm, LBBB. horizontal axis for age. left atrial enlargement. abbnormal.EK03/10/16 Sinus Rhythm. Intraventricular conduction defect and left axis. Possible anterior fascicular block confident ventricular hypertrophy. Poor R-wave progression-nondiagnos tic for this age. Abnormal.EK09/17/16:N SR, LBBBEK12/19/14 Undetermined rhythm. LBBB Abnormal ECG.SE: 01/04/14 Negative stress echo. Mild exercise impairment. Baseline severe LV dysfunction, but with good improvement with exercise.11/15/10 Successful single-lead ICD impanation, without complications. For parameters and DFT results, please see attached sheet in the chart.ECHO 05/05/19 :LV chamber is mildly dilated There is segmental wall motion abnormality LV relaxation impaired There is thinning and akinesis of the anteroseptal wall There is dyskinesis of the apex There is normal right ventricular size wall dimensions and systolic function .There is a lead wire seen in the RV The aortic valve is structurally normal The aortic valve is mildly calcified There is no mitral regurgitation The estimated RV systolic pressure is normal Normal sinus Rhythm Pacemaker -unknown paceECHO: 10/03/15 Sinus Rhythm. LV size, wall thickness are normal. The left ventricular size is normal. Overall left ventricular systolic function is moderate-severely impaired with, an EF between 30-35%. The diastolic filling pattern indicates impaired relaxation. The right ventricle is normal in size and function. The left atrium is mildly dilated. The right atrium is normal in size and function. The aortic valve is tri leaflet, and appears structurally normal. No aortic stenosis or regurgitation. Normal appearing mitral valve. There is trace mitral regurgitation. The tricuspid valve appears structurally normal. Trace tricuspid regurgitation.ECHO: ECHO:05/03/13 Compared to prior study, there is no significant change. There is trace mitral valve regurgitation. There is trace tricuspid valve regurgitation. Left ventricular systolic function is moderately reduced. EF =25-35%. Septal motion is consistent with conduction abnormality. [facility]LA[facility] - [facility] 03/26/2022 17:52:22 12/10/2021 text/html 12/10/21CC : Car [facility] follow [id number] white man with a past medical history of nonischemic cardiomyopathy s/p ICD, placed 10-06-2019 HF-rEF, hypertension, hyperlipidemia, current tobacco dependence presents for 3 month follow-up. He was last seen in the clinic on 09/10/21, since then he He denies ER visits and hospitalizations since he was last seen. Today reports: Denies chest pain. Denies shortness of breath at rest. Has mild dyspnea on exertion. No orthopnea. No PNDs. Denies heart palpitations. Denies dizziness. Denies syncope or near syncope. No ankle or leg edema. No major bleeding events. No reported side effects from medications. Taking medications as prescribed with no missed doses. Denies snoring, daytime somnolence and AM headache. *Last LDL was 114 done on 09/15/21.Pt dose not takes any statins. *Had negative stress test done on 10/11/20 with Mild exercise impairment and severe LV dyskinesis. Previously :He had dizziness and chest tightness and palpitation for few seconds and never happened again. Otherwise he is very active and work 4 days a week. He denied any dyspnoea on exertion. He is a smoker for the last 20 years and he smok 2 packs a day. Last LDL was 89 done on 08/30/17 .Pt dose not takes any statins. He is well gets alot of cardio with work but has lack of energy. Heavy lifting no chest pain, no dizziness had some shoulder pain *Had ECHO done in 02/04/21 showed LV chamber is mildly dilated. LV wall thickness is normal. LVSF is moderately reduced. The estimated LVEF is 35-40% (abnormal). E to A mitral inflow reversal is consistent with possible diastolic dysfunction. Irregular, Sinus Bradycardia. Cardiac rhythm: ICD Last pacer interrogation 12-21 NSVT Previously 30-35% LVEF Yes winded at work with exertion XIONG yes Uses 2 pillows to sleep no SOB with lying flat No PNDs. He is very active with his new job. He had mild dyspnea on exertion but states it is much improved. Down 9lbs. 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 He has an ICD with no shocks. Does report that in the last week he had 2 intense chest pains that he does not correlate with his ICD. Believes it is muscular. It goes away immediately with change in position. Reports mild tightness today. Results from this visit, or from the past:08/31/17: NA 141 ,K 4.5 ,CL 102 ,CO2 26 ,GLU 82 ,BUN 12 ,CR 0.87 ,TC 178 ,TG 292 ,HDL 31 ,LDL 89 ,03/24/16 SOD 140, K 4.4, CL 102, CO2 30, GL 99, BUN 12, CR 1.02 TC 196, HDL 31, TR 386, LDL 88, AST 21, ALT [id number] SOD 140, K 4.4, CL 102, CO2 30, GL 99, BUN 12, CR 1.02 TC 196, HDL 31, TR 386, LDL 88, AST 21, ALT ; Na 140 ,K 4.4 ,CL 102 ,CO2 30 ,GLU 99 ,BUN 12 ,CR 1.02 ,TC 195 ,TG 386 ,HDL 31 ,LDL 88 ,AST 21 ,ALT SOD 141, K 4.3, CL 104, Co2 23, GLU 83, BUN 15 ,CR 1.11, CK 115LIPIDS: 12/28/13 : TC 159. TG 445 . HDL 24. AST31 . ALT 47 .EKG, 09/14/18: Sinus Rhythm. ..P normal. QRS.. marked right axis deviation. very marked intraventricular conduction delay. ST-T...acute anteroseptal and high lateral ischemia. ST elevation in I aVL, V2, V3, V4. Reciprocal ST depression in II, III, aVF, V6. marked inferior ST-T changes, consider ischemia or LV overload. Large negative T in aVF, with neg T in II, III. Abnormal ECG. mwuEKG 03/10/18: poor R progression in chest leads; Possibly QTc > 440 msEK09/09/17 Abnormality of unclear origin. LBBBEK09/17/16 Sinus rhythm, LBBB. horizontal axis for age. left atrial enlargement. abbnormal.EK03/10/16 Sinus Rhythm. Intraventricular conduction defect and left axis. Possible anterior fascicular block confident ventricular hypertrophy. Poor R-wave progression-nondiagnos tic for this age. Abnormal.EK09/17/16:N SR, LBBBEK12/19/14 Undetermined rhythm. LBBB Abnormal ECG.SE: 01/04/14 Negative stress echo. Mild exercise impairment. Baseline severe LV dysfunction, but with good improvement with exercise.11/15/10 Successful single-lead ICD impanation, without complications. For parameters and DFT results, please see attached sheet in the chart.ECHO 05/05/19 :LV chamber is mildly dilated There is segmental wall motion abnormality LV relaxation impaired There is thinning and akinesis of the anteroseptal wall There is dyskinesis of the apex There is normal right ventricular size wall dimensions and systolic function .There is a lead wire seen in the RV The aortic valve is structurally normal The aortic valve is mildly calcified There is no mitral regurgitation The estimated RV systolic pressure is normal Normal sinus Rhythm Pacemaker -unknown paceECHO: 10/03/15 Sinus Rhythm. LV size, wall thickness are normal. The left ventricular size is normal. Overall left ventricular systolic function is moderate-severely impaired with, an EF between 30-35%. The diastolic filling pattern indicates impaired relaxation. The right ventricle is normal in size and function. The left atrium is mildly dilated. The right atrium is normal in size and function. The aortic valve is tri leaflet, and appears structurally normal. No aortic stenosis or regurgitation. Normal appearing mitral valve. There is trace mitral regurgitation. The tricuspid valve appears structurally normal. Trace tricuspid regurgitation.ECHO: ECHO:05/03/13 Compared to prior study, there is no significant change. There is trace mitral valve regurgitation. There is trace tricuspid valve regurgitation. Left ventricular systolic function is moderately reduced. EF =25-35%. Septal motion is consistent with conduction abnormality. Kiran Strickland MD [address] [place], [address], [facility] - [facility] 04/24/2022 22:52:51 06/10/2022 text/html 06/10/22CC : Car dia follow up chest pain and dyspnea on [id number] white man with a past medical history of nonischemic cardiomyopathy s/p ICD, placed 10-06-2019 HF-rEF, hypertension, hyperlipidemia, current tobacco dependence presents for 6 month follow-up. He was last seen in the clinic on 12/10/21, since then he is denied chest pain or dyspnea on exertion. He is still smoking and not exercising as he lost his job. His devise is interrogated today and not change made. Last LDL was 114 done on 09/15/21.Pt dose not takes any statins. He denies ER visits and hospitalizations since he was last seen. Today reports:Denies chest pain.Denies shortness of breath at rest. Has mild dyspnea on exertion.No orthopnea. No PNDs.Denies heart palpitations.Denies dizziness. Denies syncope or near syncope.No ankle or leg edema.No major bleeding events.No reported side effects from medications. Taking medications as prescribed with no missed doses.Denies snoring, daytime somnolence and AM headache.*Last LDL was 114 done on 09/15/21.Pt dose not takes any statins. Previously : *Had negative stress test done on 10/11/20 with Mild exercise impairment and severe LV dyskinesis. He had dizziness and chest tightness and palpitation for few seconds and never happened again. Otherwise he is very active and work 4 days a week. He denied any dyspnoea on exertion. He is a smoker for the last 20 years and he smok 2 packs a day. Last LDL was 89 done on 08/30/17 .Pt dose not takes any statins. He is well gets alot of cardio with work but has lack of energy. Heavy lifting no chest pain, no dizziness had some shoulder pain *Had ECHO done in 02/04/21 showed LV chamber is mildly dilated. LV wall thickness is normal. LVSF is moderately reduced. The estimated LVEF is 35-40% (abnormal). E to A mitral inflow reversal is consistent with possible diastolic dysfunction. Irregular, Sinus Bradycardia. Cardiac rhythm: ICD Last pacer interrogation 12-21 NSVT Previously 30-35% LVEF Yes winded at work with exertion XIONG yes Uses 2 pillows to sleep no SOB with lying flat No PNDs. He is very active with his new job. He had mild dyspnea on exertion but states it is much improved. Down 9lbs. 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 He has an ICD with no shocks. Does report that in the last week he had 2 intense chest pains that he does not correlate with his ICD. Believes it is muscular. It goes away immediately with change in position. Reports mild tightness today. Results from this visit, or from the past:08/31/17: NA 141 ,K 4.5 ,CL 102 ,CO2 26 ,GLU 82 ,BUN 12 ,CR 0.87 ,TC 178 ,TG 292 ,HDL 31 ,LDL 89 ,03/24/16 SOD 140, K 4.4, CL 102, CO2 30, GL 99, BUN 12, CR 1.02 TC 196, HDL 31, TR 386, LDL 88, AST 21, ALT [id number] SOD 140, K 4.4, CL 102, CO2 30, GL 99, BUN 12, CR 1.02 TC 196, HDL 31, TR 386, LDL 88, AST 21, ALT ; Na 140 ,K 4.4 ,CL 102 ,CO2 30 ,GLU 99 ,BUN 12 ,CR 1.02 ,TC 195 ,TG 386 ,HDL 31 ,LDL 88 ,AST 21 ,ALT SOD 141, K 4.3, CL 104, Co2 23, GLU 83, BUN 15 ,CR 1.11, CK 115LIPIDS: 12/28/13 : TC 159. TG 445 . HDL 24. AST31 . ALT 47 .EKG, 09/14/18: Sinus Rhythm. ..P normal. QRS.. marked right axis deviation. very marked intraventricular conduction delay. ST-T...acute anteroseptal and high lateral ischemia. ST elevation in I aVL, V2, V3, V4. Reciprocal ST depression in II, III, aVF, V6. marked inferior ST-T changes, consider ischemia or LV overload. Large negative T in aVF, with neg T in II, III. Abnormal ECG. mwuEKG 03/10/18: poor R progression in chest leads; Possibly QTc > 440 msEK09/09/17 Abnormality of unclear origin. LBBBEK09/17/16 Sinus rhythm, LBBB. horizontal axis for age. left atrial enlargement. abbnormal.EK03/10/16 Sinus Rhythm. Intraventricular conduction defect and left axis. Possible anterior fascicular block confident ventricular hypertrophy. Poor R-wave progression-nondiagnos tic for this age. Abnormal.EK09/17/16:N SR, LBBBEK12/19/14 Undetermined rhythm. LBBB Abnormal ECG.SE: 01/04/14 Negative stress echo. Mild exercise impairment. Baseline severe LV dysfunction, but with good improvement with exercise.11/15/10 Successful single-lead ICD impanation, without complications. For parameters and DFT results, please see attached sheet in the chart.ECHO 05/05/19 :LV chamber is mildly dilated There is segmental wall motion abnormality LV relaxation impaired There is thinning and akinesis of the anteroseptal wall There is dyskinesis of the apex There is normal right ventricular size wall dimensions and systolic function .There is a lead wire seen in the RV The aortic valve is structurally normal The aortic valve is mildly calcified There is no mitral regurgitation The estimated RV systolic pressure is normal Normal sinus Rhythm Pacemaker -unknown paceECHO: 10/03/15 Sinus Rhythm. LV size, wall thickness are normal. The left ventricular size is normal. Overall left ventricular systolic function is moderate-severely impaired with, an EF between 30-35%. The diastolic filling pattern indicates impaired relaxation. The right ventricle is normal in size and function. The left atrium is mildly dilated. The right atrium is normal in size and function. The aortic valve is tri leaflet, and appears structurally normal. No aortic stenosis or regurgitation. Normal appearing mitral valve. There is trace mitral regurgitation. The tricuspid valve appears structurally normal. Trace tricuspid regurgitation.ECHO: ECHO:05/03/13 Compared to prior study, there is no significant change. There is trace mitral valve regurgitation. There is trace tricuspid valve regurgitation. Left ventricular systolic function is moderately reduced. EF =25-35%. Septal motion is consistent with conduction abnormality. Kiran Strickland MD [address] [place], [address], [facility] - [facility] 06/10/2022 12:51:50 12/16/2022 text/html 12/16/22CC : Car dia follow up dyspnea on [id number] white man with a past medical history of nonischemic cardiomyopathy s/p ICD, placed 10-06-2019 HF-rEF, hypertension, hyperlipidemia, current tobacco dependence presents for follow-up. He was last seen in the clinic on 06/10/22, since then he is doing well. He denied chest pain or dyspnea on exertion. last ICD interrogation showed few events of NSVT and AF and he is taking full aspirin. *Last LDL was 114 done on 09/15/21.Pt dose not takes any statins. He is having difficulty sleeping and reporting tiredness during the day. *Last LDL was 114 done on 09/15/21.Pt dose not takes any statins. He denies ER visits and hospitalizations since he was last seen. Today reports:Denies chest pain.Denies shortness of breath at rest. Has mild dyspnea on exertion.No orthopnea. No PNDs.Denies heart palpitations.Denies dizziness. Denies syncope or near syncope.No ankle or leg edema.No major bleeding events.No reported side effects from medications. Taking medications as prescribed with no missed doses.Denies snoring, daytime somnolence and AM headache.*Last LDL was 114 done on 09/15/21.Pt dose not takes any statins. Previously:He is still smoking and not exercising as he lost his job.His devise is interrogated today and not change made. *Had negative stress test done on 10/11/20 with Mild exercise impairment and severe LV dyskinesias. He had dizziness and chest tightness and palpitation for few seconds and never happened again. Otherwise he is very active and work 4 days a week. He denied any dyspnoea on exertion. He is a smoker for the last 20 years and he smok 2 packs a day. Last LDL was 89 done on 08/30/17 .Pt dose not takes any statins. He is well gets alot of cardio with work but has lack of energy. Heavy lifting no chest pain, no dizziness had some shoulder pain *Had ECHO done in 02/04/21 showed LV chamber is mildly dilated. LV wall thickness is normal. LVSF is moderately reduced. The estimated LVEF is 35-40% (abnormal). E to A mitral inflow reversal is consistent with possible diastolic dysfunction. Irregular, Sinus Bradycardia. Cardiac rhythm: ICD Last pacer interrogation 12-21 NSVT Previously 30-35% LVEF Yes winded at work with exertion XIONG yes Uses 2 pillows to sleep no SOB with lying flat No PNDs. He is very active with his new job. He had mild dyspnea on exertion but states it is much improved. Down 9lbs. 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 He has an ICD with no shocks. Does report that in the last week he had 2 intense chest pains that he does not correlate with his ICD. Believes it is muscular. It goes away immediately with change in position. Reports mild tightness today. Results from this visit, or from the past:08/31/17: NA 141 ,K 4.5 ,CL 102 ,CO2 26 ,GLU 82 ,BUN 12 ,CR 0.87 ,TC 178 ,TG 292 ,HDL 31 ,LDL 89 ,03/24/16 SOD 140, K 4.4, CL 102, CO2 30, GL 99, BUN 12, CR 1.02 TC 196, HDL 31, TR 386, LDL 88, AST 21, ALT [id number] SOD 140, K 4.4, CL 102, CO2 30, GL 99, BUN 12, CR 1.02 TC 196, HDL 31, TR 386, LDL 88, AST 21, ALT ; Na 140 ,K 4.4 ,CL 102 ,CO2 30 ,GLU 99 ,BUN 12 ,CR 1.02 ,TC 195 ,TG 386 ,HDL 31 ,LDL 88 ,AST 21 ,ALT SOD 141, K 4.3, CL 104, Co2 23, GLU 83, BUN 15 ,CR 1.11, CK 115LIPIDS: 12/28/13 : TC 159. TG 445 . HDL 24. AST31 . ALT 47 .EKG, 09/14/18: Sinus Rhythm. ..P normal. QRS.. marked right axis deviation. very marked intraventricular conduction delay. ST-T...acute anteroseptal and high lateral ischemia. ST elevation in I aVL, V2, V3, V4. Reciprocal ST depression in II, III, aVF, V6. marked inferior ST-T changes, consider ischemia or LV overload. Large negative T in aVF, with neg T in II, III. Abnormal ECG. mwuEKG 03/10/18: poor R progression in chest leads; Possibly QTc > 440 msEK09/09/17 Abnormality of unclear origin. LBBBEK09/17/16 Sinus rhythm, LBBB. horizontal axis for age. left atrial enlargement. abbnormal.EK03/10/16 Sinus Rhythm. Intraventricular conduction defect and left axis. Possible anterior fascicular block confident ventricular hypertrophy. Poor R-wave progression-nondiagnos tic for this age. Abnormal.EK09/17/16:N SR, LBBBEK12/19/14 Undetermined rhythm. LBBB Abnormal ECG.SE: 01/04/14 Negative stress echo. Mild exercise impairment. Baseline severe LV dysfunction, but with good improvement with exercise.11/15/10 Successful single-lead ICD impanation, without complications. For parameters and DFT results, please see attached sheet in the chart.ECHO 05/05/19 :LV chamber is mildly dilated There is segmental wall motion abnormality LV relaxation impaired There is thinning and akinesis of the anteroseptal wall There is dyskinesis of the apex There is normal right ventricular size wall dimensions and systolic function .There is a lead wire seen in the RV The aortic valve is structurally normal The aortic valve is mildly calcified There is no mitral regurgitation The estimated RV systolic pressure is normal Normal sinus Rhythm Pacemaker -unknown paceECHO: 10/03/15 Sinus Rhythm. LV size, wall thickness are normal. The left ventricular size is normal. Overall left ventricular systolic function is moderate-severely impaired with, an EF between 30-35%. The diastolic filling pattern indicates impaired relaxation. The right ventricle is normal in size and function. The left atrium is mildly dilated. The right atrium is normal in size and function. The aortic valve is tri leaflet, and appears structurally normal. No aortic stenosis or regurgitation. Normal appearing mitral valve. There is trace mitral regurgitation. The tricuspid valve appears structurally normal. Trace tricuspid regurgitation.ECHO: ECHO:05/03/13 Compared to prior study, there is no significant change. There is trace mitral valve regurgitation. There is trace tricuspid valve regurgitation. Left ventricular systolic function is moderately reduced. EF =25-35%. Septal motion is consistent with conduction abnormality. Kiran Strickland MD [address] [place], [address], [facility] - [facility] 12/16/2022 11:25:25 04/01/2023 text/html 04/01/23CC : Car diac follow up dyspnea on -[id number] white man with a past medical history of nonischemic cardiomyopathy s/p ICD, placed 10-06-2019 HF-rEF, hypertension, paroxysmal a fib , hyperlipidemia, current tobacco dependence presents for 3 month follow-up. He was last seen in the clinic on 12/16/22, since then he is doing well. He denied chest pain or dyspnea on exertion.He denies ER visits and hospitalizations since he was last seen. Today reports:no ccDenies chest pain.Denies shortness of breath at rest. Has mild dyspnea on exertion.No orthopnea. No PNDs.Denies heart palpitations.Denies dizziness. Denies syncope or near syncope.No ankle or leg edema.No major bleeding events.No reported side effects from medications. Taking medications as prescribed with no missed doses.Denies snoring, daytime somnolence and AM headache.*Last LDL was 114 done on 09/15/21.Pt dose not takes any statins. Previously:last ICD interrogation showed few events of NSVT and AF and he is taking full aspirin.He is having difficulty sleeping and reporting tiredness during the day. He is still smoking and not exercising as he lost his job. His devise is interrogated today and not change made. *Had negative stress test done on 10/11/20 with Mild exercise impairment and severe LV dyskinesias. *Had ECHO done in 02/04/21 showed LV chamber is mildly dilated. LV wall thickness is normal. LVSF is moderately reduced. The estimated LVEF is 35-40% (abnormal). E to A mitral inflow reversal is consistent with possible diastolic dysfunction. Irregular, Sinus Bradycardia. Cardiac rhythm: ICD Last pacer interrogation 12-21 NSVT Previously -2018 30-35% LVEF Yes winded at work with exertion XIONG yes Uses 2 pillows to sleep no SOB with lying flat No PNDs. He is very active with his new job. He had mild dyspnea on exertion but states it is much improved. Down 9lbs. 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 He has an ICD with no shocks. Does report that in the last week he had 2 intense chest pains that he does not correlate with his ICD. Believes it is muscular. It goes away immediately with change in position. Reports mild tightness today. Results from this visit, or from the past:08/31/17: NA 141 ,K 4.5 ,CL 102 ,CO2 26 ,GLU 82 ,BUN 12 ,CR 0.87 ,TC 178 ,TG 292 ,HDL 31 ,LDL 89 ,03/24/16 SOD 140, K 4.4, CL 102, CO2 30, GL 99, BUN 12, CR 1.02 TC 196, HDL 31, TR 386, LDL 88, AST 21, ALT [id number] SOD 140, K 4.4, CL 102, CO2 30, GL 99, BUN 12, CR 1.02 TC 196, HDL 31, TR 386, LDL 88, AST 21, ALT ; Na 140 ,K 4.4 ,CL 102 ,CO2 30 ,GLU 99 ,BUN 12 ,CR 1.02 ,TC 195 ,TG 386 ,HDL 31 ,LDL 88 ,AST 21 ,ALT SOD 141, K 4.3, CL 104, Co2 23, GLU 83, BUN 15 ,CR 1.11, CK 115LIPIDS: 12/28/13 : TC 159. TG 445 . HDL 24. AST31 . ALT 47 .EKG, 09/14/18: Sinus Rhythm. ..P normal. QRS.. marked right axis deviation. very marked intraventricular conduction delay. ST-T...acute anteroseptal and high lateral ischemia. ST elevation in I aVL, V2, V3, V4. Reciprocal ST depression in II, III, aVF, V6. marked inferior ST-T changes, consider ischemia or LV overload. Large negative T in aVF, with neg T in II, III. Abnormal ECG. mwuEKG 03/10/18: poor R progression in chest leads; Possibly QTc > 440 msEK09/09/17 Abnormality of unclear origin. LBBBEK09/17/16 Sinus rhythm, LBBB. horizontal axis for age. left atrial enlargement. abbnormal.EK03/10/16 Sinus Rhythm. Intraventricular conduction defect and left axis. Possible anterior fascicular block confident ventricular hypertrophy. Poor R-wave progression-nondiagnos tic for this age. Abnormal.EK09/17/16:N SR, LBBBEK12/19/14 Undetermined rhythm. LBBB Abnormal ECG.SE: 01/04/14 Negative stress echo. Mild exercise impairment. Baseline severe LV dysfunction, but with good improvement with exercise.11/15/10 Successful single-lead ICD impanation, without complications. For parameters and DFT results, please see attached sheet in the chart.ECHO 05/05/19 :LV chamber is mildly dilated There is segmental wall motion abnormality LV relaxation impaired There is thinning and akinesis of the anteroseptal wall There is dyskinesis of the apex There is normal right ventricular size wall dimensions and systolic function .There is a lead wire seen in the RV The aortic valve is structurally normal The aortic valve is mildly calcified There is no mitral regurgitation The estimated RV systolic pressure is normal Normal sinus Rhythm Pacemaker -unknown paceECHO: 10/03/15 Sinus Rhythm. LV size, wall thickness are normal. The left ventricular size is normal. Overall left ventricular systolic function is moderate-severely impaired with, an EF between 30-35%. The diastolic filling pattern indicates impaired relaxation. The right ventricle is normal in size and function. The left atrium is mildly dilated. The right atrium is normal in size and function. The aortic valve is tri leaflet, and appears structurally normal. No aortic stenosis or regurgitation. Normal appearing mitral valve. There is trace mitral regurgitation. The tricuspid valve appears structurally normal. Trace tricuspid regurgitation.ECHO: ECHO:05/03/13 Compared to prior study, there is no significant change. There is trace mitral valve regurgitation. There is trace tricuspid valve regurgitation. Left ventricular systolic function is moderately reduced. EF =25-35%. Septal motion is consistent with conduction abnormality. JOSEY mtz, [place] - [facility] 04/01/2023 12:21:47
--- OUTSIDE RECORDS SUMMARY | 2025-02-04 09:08 | XMS_ITS | Clinical Summary ---
Author Organization [facility] Address [address] [place] [id number] Care Team Providers Care Help Desk Support Specialist Name Role Phone Unavailable Primary Care Provider [...]
--- OUTSIDE RECORDS SUMMARY | 2025-02-04 09:08 | XMS_ITS ---
Author Organization [facility] Address [address] [place] [address] Care Team Providers Care Buckle Sorter Name Role Phone PREETMELLOJP Unavailable [phone] Encounters Encounter Location Date Provider Diagnosis [facility] [address] [place] [address] 01/19/2024 JP HERNANDEZ Plan Of Treatment No Information Progress Notes * MATT MANSFIELD CDOB:[birth year] (39 yo M)Acc No.[id number]:01/19/2024 Progress Notes Patient: FREDDY MCELROYIP [place] Provider: Anand Hernandez DPM :1985 A ge:38 Y S ex:Male Date:01/19/2024 Address:[address] [place], [place] [id number] Subjective: * Chief Complaints: * * Medical History: Objective: * Vitals: Assessment: Plan: * Treatment: * Billing Information: * Visit Code: * Procedure Codes: * Electronic signature of DUSTIN HERNANDEZ DPM on 02/04/2025 at 09:08 AM CDT Sign off status: Pending * Provider: Anand Hernandez DPM Date: 01/19/2024 Generated for Cristopher flanagan/Tiffanie/Carlee on: 02/04/2025 09:08 AM CDT
--- NOTE | 2025-02-04 09:11 | ED.ARRPALP ---
HPI - Arrhythmia/Palpitations General Chief Complaint: Unspecified Stated Complaint: dfib alarming Time Seen by Provider: 02/04/25 09:10 Source: patient Mode of arrival: ambulatory Limitations: no limitations History of Present Illness HPI narrative: 39-year-old male with a history of smoking, ADHD, hypertension, dyslipidemia, nonischemic cardiomyopathy with an EF of 35% status post ICD presents to the ED after -- heard in alarm from his ICD over his left upper chest. patient was doing some light work when this happened. No chest pain. No lightheadedness or dizziness. No shortness of breath. -- Had an episode of lightheadedness/ dizziness while he was working in his yard 4 days ago Onset (ago): hour(s) ( 1 hour ago) Duration: now resolved Context: occurred during rest Associated symptoms: denies other symptoms Related Data Home Medications ?Medication ?Instructions ?Recorded ?Confirmed ?Last Taken ?Type levocetirizine 5 mg tablet (Xyzal) 5 mg PO DAILY 07/18/24 12/05/24 07/24/24 History omeprazole magnesium 20 mg 20 mg PO DAILY 07/18/24 12/05/24 07/25/24 History tablet,delayed release (Prilosec OTC) Allergies Allergy/AdvReac Type Severity Reaction Status Date / Time No Known Drug Allergies Allergy Unknown Unknown Verified 02/04/25 09:07 Review of Systems Review of Systems: All systems reviewed & are unremarkable except as noted in HPI and below PMFSH Past Medical History Medical History Presence of combination internal cardiac defibrillator (ICD) and pacemaker ADHD Hypertension Idiopathic cardiomyopathy Surgical History Surgical History H/O removal of cyst 07/25/24 Excision of midback ruptured sebaceous cyst with 5cm intermediate layered wound closure Dr. Coley Previous back surgery Family History Family History Mother Diabetes mellitus Cerebrovascular accident Father Diabetes mellitus Social History Social History Smoking packs per day: 0.5 Smoking cigarettes per day: 10.0 Years smoked: 22 Smoking pack-years: 11.00 Smoking status: Current every day smoker Tobacco type: cigarettes Alcohol intake: current Drinks per week: 1 Substance use: never Do You Feel Safe in your Home?: Yes Lack of Transportation: No Lack of Food: Never True Current Housing: I Have Housing Concerned About Future Housing: No Difficulty Paying Gas/Electric Bills: No Difficulty Paying for Meds: No Currently Unemployed: No Education: High School Diploma/GED Difficulty w/ Childcare or Family Care: No Living arrangements: with family Gender identity (if verbalized by the patient): Male Spiritual care concerns: No Exam Narrative: blood pressure 149/97. Oxygen saturation of 97% on room air with a respiratory rate of 18. Const: General: healthy appearing and no acute distress Nutritional Appearance: well nourished Orientation/consciousness: patient oriented x3 Limitations: no limitations HENMT: Head: normal to inspection Ears: external ears normal Face/Nose/Sinus: Normal external nose present Face and sinus: normal facial exam Mouth: Yes Normal oral and palatal mucosa present Throat: posterior oropharynx normal Eyes: Conjunctivae: conjunctivae normal Pupils: Equal, round and reactive pupils present EOM: EOMs intact bilaterally Direct Ophthalmoscopy: no photophobia Neck: Neck: normal visual inspection, no lymphadenopathy and no meningeal signs Chest: Chest palpation & inspection: normal inspection of the chest Resp: Effort & Inspection: normal respiratory effort Auscultation: clear to auscultation bilaterally Cardio: Rate: regular rate Rhythm: regular rhythm GI: GI Palp: Yes Soft to palpation Auscultation: normal bowel sounds Other: No tenderness/rigidity /rebound : General: Yes no CVA tenderness Back/Spine/Pelvis: Back: no CVA tenderness Skin: General skin exam: normal color Rashes: no rashes Wounds: no wounds Neuro: General: patient oriented x3, moves all extremities, no meningeal signs, no focal motor deficits and CN's II-XI intact bilaterally Cranial nerves: Yes Nystagmus not present Speech: normal speech Gait exam (Neuro): Normal gait present Extrem: General: normal to inspection and no clubbing, cyanosis or edema Psych: Mental Status: mental status grossly normal Affect: normal affect Attitude: cooperative Course Course Emergency Course: ICD shock-- patient's Medit[employer] ICD was interogated. He was noted to have a polymorphic VT on 31 of January which lasted 15 seconds. transfer patient to [facility] in [place]. Patient has been accepted by V[facility] Signs Vital signs: Vital Signs Pulse Oximetry 99 02/04/25 09:06 Oxygen Delivery Room Air 02/04/25 09:06 Temperature 36.7 C 02/04/25 09:07 Pulse Rate 64 02/04/25 14:16 Respiratory Rate 19 02/04/25 14:03 Blood Pressure 148/84 H 02/04/25 14:16 Pulse Oximetry 97 02/04/25 14:16 Oxygen Delivery Room Air 02/04/25 09:07 MDM - Arrhythmia/Palpitations MDM Narrative Medical decision making narrative: Polymorphic VT Differential Diagnosis Differential diagnosis: Likely palpitations, anxiety and supraventricular tachycardia Medical Records Attestation: I reviewed the patient's medical records. Lab Data Attestation: I reviewed the patient's lab results. 02/04/25 09:51 02/04/25 09:51 Labs: Lab Results 02/04/25 02/04/25 Range/Units 09:51 11:45 WBC 8.5 (4.8-10.8) K/mm3 RBC 5.37 (4.70-6.10) M/mm3 Hgb 16.4 (14.0-18.0) g/dL Hct 48.2 (40.0-54.0) % MCV 89.8 (78.0-102.0) fL MCH 30.5 (27.0-31.0) pg MCHC 34.0 (32-36) g/dL RDW 11.9 (11.6-14.4) % Plt Count 198 (150-420) K/mm3 MPV 11.4 H (8.7-11.0) fl Immature Gran % (Auto) 0.5 H (0.0-0.0) % Neut % (Auto) 44.1 L (50.0-70.0) % Lymph % (Auto) 42.6 H (18.0-42.0) % Crisp % (Auto) 6.6 (2.0-11.0) % Eos % (Auto) 5.4 (1.0-6.0) % Baso % (Auto) 0.8 (0.0-1.0) % Lymph # (Auto) 3.63 (1.10-4.50) K/mm3 Crisp # (Auto) 0.56 (0.10-0.90) K/mm3 Eos # (Auto) 0.46 (0.02-0.50) K/mm3 Baso # (Auto) 0.07 (0.00-0.10) K/mm3 Abs Immat Gran (auto) 0.04 H (0.00-0.00) K/mm3 Absolute Neuts (auto) 3.77 (1.70-7.20) K/mm3 Absolute Nucleated RBC 0.00 (0.00-0.00) K/mm3 Nucleated RBC % 0.0 (0-0.0) % APTT 26.5 (23.9-30.70) Sec Sodium 139 (137-145) mmol/L Potassium 4.1 (3.4-5.0) mmol/L Chloride 110 H (98-107) mmol/L Carbon Dioxide 25 (22-30) mmol/L Anion Gap 4 (4-12) mmol/L BUN 20 (9-20) mg/dL Creatinine 1.09 (0.7-1.3) mg/dL Estim Creat Clear Calc 95 ml/min Estimated GFR > 60 (59 - ) Glucose 96 (65-110) mg/dL Calculated Osmolality 290 (285-295) mOsm/kg Lactic Acid 1.1 (0.4-2.0) mmol/L Calcium 8.9 (8.4-10.2) mg/dL Magnesium 2.2 (1.6-2.3) mg/dL Total Bilirubin 0.5 (0.2-1.3) mg/dL AST 32 (17-59) U/L ALT 43 (6-50) U/L Alkaline Phosphatase 56 (38-126) U/L Total Creatine Kinase 106 (55-170) U/L Troponin I < 0.012 (0.000-0.034) ng/mL NT-Pro-B Natriuret Pep 93 (19.9-100) pg/mL Total Protein 6.8 (6.3-8.2) g/dL Albumin 4.2 (3.5-5.1) g/dL TSH 2.440 (0.465-4.680) uIU/mL Urine Opiates Screen Negative (Negative) Urine Methadone Screen Negative (Negative) Ur Barbiturates Screen Negative (Negative) Ur Phencyclidine Scrn Negative (Negative) Ur Amphetamine Screen Negative (Negative) U Benzodiazepines Scrn Negative (Negative) Urine Cocaine Screen Negative (Negative) U Cannabinoids Screen Negative (Negative) ECG Data EKG #1: ECG completion date: 02/04/25 ECG completion time: 09:44 Interpretation: sinus bradycardia with a heart rate of 55. Left axis deviation. Left bundle-branch block pattern. Discharge Plan Discharge Clinical Impression: Ventricular tachycardia, polymorphic Patient Disposition: Still a Patient Condition: Stable Patient Language: Greenlandic Prescriptions: No Action omeprazole magnesium [Prilosec OTC] 20 mg tablet,delayed release (DR/EC) 20 mg PO DAILY levocetirizine [Xyzal] 5 mg tablet 5 mg PO DAILY carvedilol 12.5 mg tablet 12.5 mg PO BID Qty: 60 5RF Farxiga 10 mg tablet See Rx Instructions .ROUTE .COMPLEX Qty: 30 5RF Dose Instruction: TAKE ONE TABLET BY MOUTH DAILY Rx Instructions: TAKE ONE TABLET BY MOUTH DAILY Entresto 24-26 mg tablet See Rx Instructions .ROUTE .COMPLEX Qty: 60 5RF Dose Instruction: TAKE ONE TABLET BY MOUTH TWICE A DAY Rx Instructions: TAKE ONE TABLET BY MOUTH TWICE A DAY fenofibrate 160 mg tablet 160 mg PO DAILY Qty: 30 5RF nitroglycerin 0.4 mg tablet, sublingual 0.4 mg sublingual PRN PRN (Reason: Chest Pain) Qty: 30 0RF Follow-up/Referrals: Jatinder Billingsley MD [Primary Care Provider] - Time of Disposition: 14:43
--- NOTE | 2025-02-04 09:15 | PC.NURSE ---
Interrogated Medtronic device per ERP request.
--- NOTE | 2025-02-04 09:29 | ECG_ITS ---
Test Date: 2025-02-04 09:44:17 Measurements Intervals [place] Rate: 55 P: 2 [place]: 182 QRS: -34 QRSD: 190 T: 75 QT: 459 QTc: 443 Interpretive Statements SINUS BRADYCARDIA LEFT AXIS DEVIATION [QRS AXIS < -30] LEFT BUNDLE BRANCH BLOCK [120+ ms QRS DURATION, 80+ ms Q/S IN V1/V2, 85+ ms R IN I/aVL/V5/V6] No previous ECG available for comparison Electronically Signed On 02-06-2025 22:35:35 CDT by Don Armenta M.D.
[2025-02-04 09:57] LABS: Hematocrit 48.2 % (40.0-54.0); Hemoglobin 16.4 g/dL (14.0-18.0); Immature Granulocyte Percent A 0.5 % (0.0-0.0); Lymphocytes Absolute Auto 3.63 K/mm3 (1.10-4.50); Mean Corpuscular HGB Conc 34.0 g/dL (32-36); Mean Corpuscular Hemoglobin 30.5 pg (27.0-31.0); Mean Corpuscular Volume 89.8 fL (78.0-102.0); Nucleated Red Blood Cells Absolute Auto 0.00 K/mm3 (0.00-0.00); Nucleated Red Blood Cells Perc 0.0 % (0-0.0); Platelet Count Result 198 K/mm3 (150-420); Red Blood Count 5.37 M/mm3 (4.70-6.10); White Blood Count 8.5 K/mm3 (4.8-10.8)
[2025-02-04 10:08] LABS: Alanine Aminotransferase 43 U/L (6-50); Albumin Level 4.2 g/dL (3.5-5.1); Alkaline Phosphatase 56 U/L (38-126); Anion Gap 4 mmol/L (4-12); Aspartate Amino Transferase 32 U/L (17-59); Bilirubin,Total 0.5 mg/dL (0.2-1.3); Blood Urea Nitrogen 20 mg/dL (9-20); Calcium 8.9 mg/dL (8.4-10.2); Carbon Dioxide 25 mmol/L (22-30); Chloride 110 mmol/L (98-107); Creatine Kinase 106 U/L (55-170); Estimated CRCL calculation 95 ml/min; Estimated Glomerular Filt Rate > 60; Glucose 96 mg/dL (65-110); Magnesium 2.2 mg/dL (1.6-2.3); Osmolality Calculated 290 mOsm/kg (285-295); Potassium 4.1 mmol/L (3.4-5.0); Sodium 139 mmol/L (137-145); Total Protein 6.8 g/dL (6.3-8.2)
[2025-02-04 10:11] LABS: Partial Thromboplastin Time 26.5 Sec (23.9-30.70)
[2025-02-04 10:20] LABS: NT Pro B Type Natriuretic Pept 93 pg/mL (19.9-100); Troponin I < 0.012 ng/mL (0.000-0.034)
--- OUTSIDE RECORDS SUMMARY | 2025-02-04 10:28 | XMS_ITS | Clinical Summary ---
Author Organization 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
[2025-02-04 10:39] LABS: Thyroid Stimulating Hormone 2.440 uIU/mL (0.465-4.680)
[2025-02-04 14:33] LABS: Cannabinoid Screen Urine Negative (Negative)
== END 2025-02-04 16:01 | disposition short-term general hospital (02) ==
PROVIDERS: Emergency Provider Internal Medicine Critical Care Medicine; PCP Family Medicine
DX: I47.20 Ventricular tachycardia, unspecified (principal); I10 Essential (primary) hypertension; E78.5 Hyperlipidemia, unspecified; F17.210 Nicotine dependence, cigarettes, uncomplicated
CPT/HCPCS: 36415; 71045; 80053; 80307; 82550; 83605; 83735; 83880; 84443; 84484; 85025; 85730; 93005; 99285

== ENCOUNTER 2025-04-29 02:28 | Emergency (ER) | payer OTHER, SELFPAY ==
[2025-04-29] VITALS (78 sets, daily range): BP systolic 101–132; BP diastolic 48–88; PULSE 49–120; RESP 1–24; TEMP 36.3–36.6; O2SAT 92–100
--- NOTE | ~2025-04-29 | XR_ITS ---
Examination: XR chest 1V portable Clinical History: STERNAL CHEST PRESSURE. Comparison: 02/04/2025 Technique: Portable AP Findings: Left ICD. Heart size normal. Lungs clear. No acute bony abnormality. IMPRESSION: 1. No acute cardiopulmonary findings given portable technique. Reviewed, dictated and finalized at location R.
--- NOTE | 2025-04-29 02:28 | ECG_ITS ---
Test Date: 2025-04-29 02:31:41 Measurements Intervals [place] Rate: 58 P: 21 [place]: 199 QRS: -29 QRSD: 184 T: 98 QT: 457 QTc: 452 Interpretive Statements SINUS BRADYCARDIA LEFT BUNDLE BRANCH BLOCK [120+ ms QRS DURATION, 80+ ms Q/S IN V1/V2, 85+ ms R IN I/aVL/V5/V6] Compared to ECG 02/04/2025 09:44:17 Left-axis deviation no longer present Electronically Signed On 05-01-2025 07:30:49 CDT by Don Armenta M.D.
--- NOTE | 2025-04-29 02:55 | ED_ITS ---
HPI - Chest Pain General Chief Complaint: Chest Pain Stated Complaint: chest pain Time Seen by Provider: 04/29/25 02:28 Source: patient Mode of arrival: ambulatory Limitations: no limitations History of Present Illness HPI narrative: Patient is a 39-year-old male with chest pressure over the last 3 days. No history of CAD. No stents. No MIs. Patient does have cardiomyopathy and has a pacemaker defibrillator. Patient use nitro at home and it helped relieve some of the pressure. Associated shortness of breath. MD complaint: chest pain, chest heaviness and chest discomfort Pertinent past history: coronary artery disease and prior ID Onset (ago): day(s) (Three) Timing of current episode: episodic, daily and still present Prior episodes: Yes Onset: during rest, during exertion and awoke with symptoms Pain location: left chest Pain radiation: left arm Severity: similar to previous episodes Pain scale (0-10): 5 Quality: tightness and heaviness Relieving factors: nitroglycerin Exacerbating factors: stress Context: other (Patient having chest pressure and heaviness over the past 3 days) Associated symptoms: dyspnea Treatment prior to arrival: nitroglycerin Risk Factors Coronary artery disease risk factors: smoking history (Stop smoking this year), hyperlipidemia, hypertension, family history of CAD before age 50 and cocaine use Thoracic aortic dissection risk factors: none Related Data Home Medications ?Medication ?Instructions ?Recorded ?Confirmed ?Last Taken ?Type levocetirizine 5 mg tablet (Xyzal) 5 mg PO DAILY 07/1812/05/24 07/24/24 History omeprazole magnesium 20 mg 20 mg PO DAILY 07/18/2412/2507/25/24 History tablet,delayed release (Prilosec OTC) Allergies Allergy/AdvReac Type Severity Reaction Status Date / Time No Known Drug Allergies Allergy Unknown Unknown Verified 04/29/25 02:38 Review of Systems 2 Review of Systems: All systems reviewed & are unremarkable except as noted in HPI and below Constitutional: Constitutional: Reports no additional constitutional complaints Eyes: Eyes: Reports no additional eye complaints ENT: Reports system reviewed and no additional complaints, except as documented Cardiovascular: Cardiovascular: Reports no additional cardiovascular complaints Respiratory: Respiratory: Reports no additional respiratory complaints Gastrointestinal: Gastrointestinal: Reports no additional gastrointestinal complaints Genitourinary: Genitourinary: Reports no additional male genitourinary complaints Musculoskeletal: Musculoskeletal: Reports no additional musculoskeletal complaints Integumentary/Breasts: Skin/Breast: Reports system reviewed and no additional complaints, except as docu Neurologic: Reports system reviewed and no additional complaints, except as documented Psychiatric: Psychiatric: Reports no additional psychiatric complaints Endocrine: Endocrine: Reports no additional endocrine complaints Hematologic/Lymphatic: Hematologic/Lymphatic: Reports no additional hematologic/lymphatic complaints Allergic/Immunologic: Allergic/Immunologic: Reports no additional allergic/immunologic complaints PMFSH Past Medical History Medical History Presence of combination internal cardiac defibrillator (ICD) and pacemaker ADHD Hypertension Idiopathic cardiomyopathy Surgical History Surgical History H/O removal of cyst 07/25/24 Excision of midback ruptured sebaceous cyst with 5cm intermediate layered wound closure Dr. Coley Previous back surgery Family History Family History Mother Diabetes mellitus Cerebrovascular accident Father Diabetes mellitus Social History Social History Smoking packs per day: 0.5 Smoking cigarettes per day: 10.0 Years smoked: 22 Smoking pack-years: 11.00 Smoking status: Current every day smoker Tobacco type: cigarettes Alcohol intake: current Drinks per week: 1 Substance use: never Do You Feel Safe in your Home?: Yes Lack of Transportation: No Lack of Food: Never True Current Housing: I Have Housing Concerned About Future Housing: No Difficulty Paying Gas/Electric Bills: No Difficulty Paying for Meds: No Currently Unemployed: No Education: High School Diploma/GED Difficulty w/ Childcare or Family Care: No Living arrangements: with family Gender identity (if verbalized by the patient): Male Spiritual care concerns: No Exam 2 Const: General: healthy appearing Nutritional Appearance: well nourished Orientation/consciousness: patient oriented x3 HENMT: Head: normal to inspection Ears: external ears normal F erich/Nose/Sinus: Normal external nose present Eyes: Conjunctivae: conjunctivae normal Pupils: Equal, round and reactive pupils present EOM: EOMs intact bilaterally Neck: Neck: normal visual inspection Chest: Chest palpation & inspection: normal inspection of the chest Resp: Effort & Inspection: normal respiratory effort and labored A uscultation: clear to auscultation bilaterally and crackles Cardio: Rate: regular rate and bradycardic Rhythm: regular rhythm Heart sounds: no murmurs GI: Inspection: non-distended GI Palp: Yes Soft to palpation, No Tenderness to palpation present (GI) and No Guarding due to palpation present (GI) A uscultation: normal bowel sounds : General: Yes bladder normal to palpation Back/Spine/Pelvis: Back: No CVA tenderness Skin: General skin exam: normal color Rashes: no rashes Wounds: no wounds Neuro: General: patient oriented x3, moves all extremities and no meningeal signs Extrem: General: normal to inspection and no clubbing, cyanosis or edema Psych: Mental Status: mental status grossly normal Affect: normal affect Attitude: cooperative Course Vital Signs Vital signs: Vital Signs Pulse Rate 62 04/29/25 02:30 Pulse Oximetry 97 04/29/25 02:30 Oxygen Delivery Room Air 04/29/25 02:30 Temperature 36.4 C L 04/29/25 04:01 Pulse Rate 62 04/29/25 04:01 Respiratory Rate 18 04/29/25 04:01 Blood Pressure 101/72 04/29/25 04:01 Pulse Oximetry 96 04/29/25 04:01 Oxygen Delivery Room Air 04/29/25 03:49 MDM - Chest Pain MDM Narrative Medical decision making narrative: Patient is a 39-year-old male with chest pressure and heaviness as well as chest pain that is more on left side. Cardiac workup with labs and EKG. Chest x-ray. Due to patient's chest pain and cardiomyopathy with his known the palmar branch block and having breakthrough PVCs that run 10-15 of them at a time I talked to the claim representative at [facility] and they will accept patient for transfer. He did his pacemaker at [facility]. His claim representative was on-call amado. Lab Data Attestation: I reviewed the patient's lab results. 04/29/25 03:28 04/29/25 03:28 Labs: Lab Results 04/29/25 Range/Units 03:28 WBC 10.2 (4.8-10.8) K/mm3 RBC 5.11 (4.70-6.10) M/mm3 Hgb 15.3 (14.0-18.0) g/dL Hct 46.1 (40.0-54.0) % MCV 90.2 (78.0-102.0) fL MCH 29.9 (27.0-31.0) pg MCHC 33.2 (32-36) g/dL RDW 12.0 (11.6-14.4) % Plt Count 251 (150-420) K/mm3 MPV 10.9 (8.7-11.0) fl Immature Gran % (Auto) 0.3 H (0.0-0.0) % Neut % (Auto) 45.7 L (50.0-70.0) % Lymph % (Auto) 42.8 H (18.0-42.0) % Marshall % (Auto) 6.3 (2.0-11.0) % Eos % (Auto) 4.1 (1.0-6.0) % Baso % (Auto) 0.8 (0.0-1.0) % Lymph # (Auto) 4.37 (1.10-4.50) K/mm3 Marshall # (Auto) 0.64 (0.10-0.90) K/mm3 Eos # (Auto) 0.42 (0.02-0.50) K/mm3 Baso # (Auto) 0.08 (0.00-0.10) K/mm3 Abs Immat Gran (auto) 0.03 H (0.00-0.00) K/mm3 Absolute Neuts (auto) 4.66 (1.70-7.20) K/mm3 Absolute Nucleated RBC 0.00 (0.00-0.00) K/mm3 Nucleated RBC % 0.0 (0-0.0) % PT 10.2 (9.50-12.1) Seconds INR 0.9 APTT 24.7 (23.9-30.70) Sec D-Dimer 0.19 (0.19-0.50) mg/L Sodium 140 (137-145) mmol/L Potassium 4.0 (3.4-5.0) mmol/L Chloride 105 (98-107) mmol/L Carbon Dioxide 23 (22-30) mmol/L Anion Gap 12 (4-12) mmol/L BUN 17 (9-20) mg/dL Creatinine 1.10 (0.7-1.3) mg/dL Estim Creat Clear Calc 100 ml/min Estimated GFR > 60 (59 - ) Glucose 139 H (65-110) mg/dL Calculated Osmolality 293 (285-295) mOsm/kg Calcium 9.5 (8.4-10.2) mg/dL Magnesium 2.4 H (1.6-2.3) mg/dL Total Bilirubin 0.5 (0.2-1.3) mg/dL AST 49 (17-59) U/L ALT 80 H (6-50) U/L Alkaline Phosphatase 52 (38-126) U/L Troponin I 0.013 (0.000-0.034) ng/mL NT-Pro-B Natriuret Pep 129 H (19.9-100) pg/mL Total Protein 8.1 (6.3-8.2) g/dL Albumin 4.6 (3.5-5.1) g/dL Imaging Data Attestation: I personally reviewed and interpreted this imaging study as follows: My impression: Chest x-ray is negative for acute process pending final read ECG Data EKG #1: Attestation: I personally reviewed and interpreted this ECG as follows: ECG completion date: 04/29/25 ECG completion time: 03:16 Interpretation: Patient having runs of V-tach at times with many up to 15 in a row EKG Interpretation: sinus rhythm, ventricular tachycardia (On tele monitor), PVCs, non-specific ST changes, normal QRS, LBBB, normal QT and left axis Pacemaker model: Pacemaker/AICD present Critical Care Time Critical Care Time Critical Care Time: No Discharge Plan Discharge Clinical Impression: Idiopathic cardiomyopathy, V tach Chest pain Qualifiers: Chest pain type: unspecified Qualified Code(s): R07.9 - Chest pain, unspecified Patient Disposition: Acute Care Hospital Condition: Stable Patient Language: Sami Prescriptions: No Action omeprazole magnesium [Prilosec OTC] 20 mg tablet,delayed release (DR/EC) 20 mg PO DAILY levocetirizine [Xyzal] 5 mg tablet 5 mg PO DAILY nitroglycerin 0.4 mg tablet, sublingual 0.4 mg sublingual PRN PRN (Reason: Chest Pain) Qty: 30 0RF metoprolol tartrate 100 mg tablet 100 mg PO BID Qty: 180 2RF aspirin 81 mg tablet 81 mg PO DAILY Qty: 90 2RF spironolactone 25 mg tablet 25 mg PO DAILY Qty: 90 2RF fenofibrate 160 mg tablet See Rx Instructions .ROUTE .COMPLEX Qty: 30 5RF Dose Instruction: TAKE ONE TABLET BY MOUTH DAILY Rx Instructions: TAKE ONE TABLET BY MOUTH DAILY Farxiga 10 mg tablet See Rx Instructions .ROUTE .COMPLEX Qty: 30 5RF Dose Instruction: TAKE ONE TABLET BY MOUTH DAILY Rx Instructions: TAKE ONE TABLET BY MOUTH DAILY Entresto 24-26 mg tablet See Rx Instructions .ROUTE .COMPLEX Qty: 60 5RF Dose Instruction: TAKE ONE TABLET BY MOUTH TWICE A DAY Rx Instructions: TAKE ONE TABLET BY MOUTH TWICE A DAY Follow-up/Referrals: Jatinder Billingsley MD [Primary Care Provider, Internal Medicine] Time of Disposition: 05:09
[2025-04-29 03:39] LABS: Hematocrit 46.1 % (40.0-54.0); Hemoglobin 15.3 g/dL (14.0-18.0); Immature Granulocyte Percent A 0.3 % (0.0-0.0); Lymphocytes Absolute Auto 4.37 K/mm3 (1.10-4.50); Mean Corpuscular HGB Conc 33.2 g/dL (32-36); Mean Corpuscular Hemoglobin 29.9 pg (27.0-31.0); Mean Corpuscular Volume 90.2 fL (78.0-102.0); Nucleated Red Blood Cells Absolute Auto 0.00 K/mm3 (0.00-0.00); Nucleated Red Blood Cells Perc 0.0 % (0-0.0); Platelet Count Result 251 K/mm3 (150-420); Red Blood Count 5.11 M/mm3 (4.70-6.10); White Blood Count 10.2 K/mm3 (4.8-10.8)
[2025-04-29 03:47] LABS: Alanine Aminotransferase 80 U/L (6-50); Albumin Level 4.6 g/dL (3.5-5.1); Alkaline Phosphatase 52 U/L (38-126); Anion Gap 12 mmol/L (4-12); Aspartate Amino Transferase 49 U/L (17-59); Bilirubin,Total 0.5 mg/dL (0.2-1.3); Blood Urea Nitrogen 17 mg/dL (9-20); Calcium 9.5 mg/dL (8.4-10.2); Carbon Dioxide 23 mmol/L (22-30); Chloride 105 mmol/L (98-107); Estimated CRCL calculation 100 ml/min; Estimated Glomerular Filt Rate > 60; Glucose 139 mg/dL (65-110); Magnesium 2.4 mg/dL (1.6-2.3); Osmolality Calculated 293 mOsm/kg (285-295); Potassium 4.0 mmol/L (3.4-5.0); Sodium 140 mmol/L (137-145); Total Protein 8.1 g/dL (6.3-8.2)
[2025-04-29 03:50] LABS: INR 0.9; Partial Thromboplastin Time 24.7 Sec (23.9-30.70); Prothrombin Time 10.2 Seconds (9.50-12.1)
--- NOTE | 2025-04-29 03:51 | PC.NURSE ---
Pt noted to have runs of multiple PVC's/ VTach, pt is asymptomatic w/ runs and will convert back to NSR. He denies any sxs. ERP noted pt having these runs. No further orders at this time, continuing to monitor. VSS.
[2025-04-29 03:56] LABS: NT Pro B Type Natriuretic Pept 129 pg/mL (19.9-100)
[2025-04-29 03:59] LABS: Troponin I 0.013 ng/mL (0.000-0.034)
--- NOTE | 2025-04-29 04:24 | PC.NURSE ---
POC discussed w/ pt and he states if unable to go to [facility] he would like to go to [facility] or [facility] because he had his ICD placed there. Pt informed will continue to give updates. VSS at this time.
--- NOTE | 2025-04-29 05:18 | PC.NURSE ---
Pt sitting in w/c for comfort, continuing to monitor, updated on POC for transfer and [facility] Fernando.
--- NOTE | 2025-04-29 06:08 | PC.NURSE ---
Pt resting comfortably, mom in room, VSS, continuing to monitor and wait for bed assignment at [place].
--- NOTE | 2025-04-29 06:46 | PC.NURSE ---
Call for status check on transfer and bed placement. Per Jonnie, waiting on d/c today for cardiology bed, pt is on waitlist. Continuing to monitor, pt sleeping VSS, no new noted runs of VTach when pt is asleep.
--- NOTE | 2025-04-29 06:54 | PC.NURSE ---
Updated pt on bed status at [place] and waitlist. Pt stated understanding.
--- NOTE | 2025-04-29 09:34 | PC.NURSE ---
0925 transfer line C called for update still waiting for a bed
[2025-04-29] MEDS: ASPIRIN 81 MG CHEWABLE TABLET PO (11:31)
[2025-04-29] MEDS: FENOFIBRATE 145 MG TABLET PO (11:31)
[2025-04-29] MEDS: PANTOPRAZOLE 40 MG TABLET PO (11:31)
[2025-04-29] MEDS: SACUBITRIL/VALSARTAN 24-26 MG TABLET 1 TAB BY MOUTH (11:31)
[2025-04-29] MEDS: SPIRONOLACTONE 25 MG TABLET PO (11:32)
[2025-04-29] MEDS: EMPAGLIFLOZIN 25 MG TABLET PO (11:32)
[2025-04-29] MEDS: METOPROLOL TARTRATE 25 MG TABLET PO (16:54)
== END 2025-04-29 19:36 | disposition short-term general hospital (02) ==
PROVIDERS: Emergency Medicine; Emergency Provider Emergency Medicine; PCP Family Medicine
DX: I42.8 Other cardiomyopathies (principal); I47.20 Ventricular tachycardia, unspecified; R07.9 Chest pain, unspecified; I25.2 Old myocardial infarction; I25.10 Atherosclerotic heart disease of native coronary artery without angina pectoris; I10 Essential (primary) hypertension; F17.210 Nicotine dependence, cigarettes, uncomplicated
CPT/HCPCS: 36415; 71045; 80053; 83735; 83880; 84484; 85025; 85380; 85610; 85730; 93005; 99285; A9270

== ENCOUNTER 2025-04-29 20:27 | Observation (INO) | payer OTHER, SELFPAY ==
--- OUTSIDE RECORDS SUMMARY | 2024-01-19 09:15 | XMS_ITS ---
Author Organization [facility] Address [address] [place] [address] Care Team Providers Care Screen Making Technician Name Role Phone PREETMELLOJP Unavailable [phone] Encounters Encounter Location Date Provider Diagnosis [facility] [address] [place] [address] 01/19/2024 JP HERNANDEZ Plan Of Treatment No Information Progress Notes * MATT MANSFIELD CDOB:[birth year] (39 yo M)Acc No.[id number]:01/19/2024 Progress Notes Patient: FREDDY MCELROYIP [place] Provider: Anand Hernandez DPM :1985 A ge:38 Y S ex:Male Date:01/19/2024 Address:[address] [place], [place] [id number] Subjective: * Chief Complaints: * * Medical History: Objective: * Vitals: Assessment: Plan: * Treatment: * Billing Information: * Visit Code: * Procedure Codes: * Electronic signature of DUSTIN HERNANDEZ DPM on 04/30/2025 at 05:05 AM CDT Sign off status: Pending * Provider: Anand Hernandez DPM Date: 01/19/2024 Generated for Cristopher flanagan/Tiffanie/Carlee on: 04/30/2025 05:05 AM CDT
[2025-04-29 20:36] VITALS: BMI 33.0
--- NOTE | 2025-04-29 20:36 | ADMGEN ---
This patient, Daniel Prince, was admitted to IMU Room 212-01. Patient/family oriented to hospital policies and general routines including ID bracelet, bed and alarms, visiting hours, pain management, procedures, bathroom and other care routines, personal items, smoking policy, room service/diet, and visiting hours. Information on how to activate the Rapid Response Team has been discussed. Patient/Family are encouraged to report perceived risks to care and to ask questions if they do not understand what they are told or what they should do.
--- NOTE | 2025-04-29 20:47 | P.HP_ITS ---
H&P: HPI History of Present Illness Date/Time: 04/29/25 20:47 Chief Complaint: chest pressure Narrative: 39-year-old male with past medical history of takotsubo cardiomyopathy pacemaker defibrillator presents the hospital with chest pressure. He states that he started feeling bad on . He states that he had a will left sided chest pain shortness with T thought was muscle pain. He said that he did dot help. He said that heating pad not help so he took a nitro not relieve the pain. Patient also states that he had a a regular soda and a Mountain Dew that day and felt shaky afterwards. On Thursday around 3:00 p.m. he had the chest pressure again and take nitro earlier in the day he had several [employer] coffee days. He states that lately he has been drinking more tea and coffee. Patient lisa pruett presented to the outside hospital. There they noticed that he had runs of 10-15 beats of V-tach. His defibrillator had not fired. However per the patient they did not interrogate his pacemaker. Patient spent the night in the emergency room and was still waiting for transfer to [place] which would be several days. Patient was accepted to [facility] as it would be better for him to be in patient here with Cardiology then to stay at the outside hospital with limited resources for several days. Will interrogate defibrillator but at this time it does not appear that of MS firing. CBC is within normal limits, sodium is 136, electrolytes within normal range, blood sugar 107, lipid panel elevated however it has improved since December. Patient's toxicology screen was negative. Review of Systems Review of Systems: 12 systems were reviewed and are negativ e except for as per HPI. [facility] Past Medical History Medical History Presence of combination internal cardiac defibrillator (ICD) and pacemaker ADHD Hypertension Idiopathic cardiomyopathy Surgical History Surgical History H/O removal of cyst 07/25/24 Excision of midback ruptured sebaceous cyst with 5cm intermediate layered wound closure Dr. Coley Previous back surgery Family History Family History Mother Diabetes mellitus Cerebrovascular accident Father Diabetes mellitus Social History Social History Smoking packs per day: 0.5 Smoking cigarettes per day: 10.0 Years smoked: 21 Smoking pack-years: 10.50 Smoking status: Former smoker Tobacco type: cigarettes Second hand tobacco smoke exposure: No Alcohol intake: current Drinks per week: 3 Substance use: former Substance use type: marijuana Last use: march 03 2025 Do You Feel Safe in your Home?: Yes Lack of Transportation: No Lack of Food: Never True Current Housing: I Have Housing Concerned About Future Housing: No Difficulty Paying Gas/Electric Bills: No Difficulty Paying for Meds: No Currently Unemployed: No Education: High School Diploma/GED Difficulty w/ Childcare or Family Care: No Living arrangements: with family Gender identity (if verbalized by the patient): Male Spiritual care concerns: No Meds Home Medications and Allergies Home Medications ?Medication ?Instructions ?Recorded ?Confirmed ?Type levocetirizine 5 mg tablet (Xyzal) 5 mg PO DAILY 07/1804/29/25 History omeprazole magnesium 20 mg 20 mg PO DAILY 07/18/24 History tablet,delayed release (Prilosec OTC) nitroglycerin 0.4 mg sublingual 0.4 mg sublingual PRN PRN Chest 08/22/24 04/29/25 Rx tablet Pain #30 tabs metoprolol tartrate 100 mg tablet 100 mg PO BID #180 t abs 02/21/25 04/29/25 Rx aspirin 81 mg tablet 81 mg PO DAILY #90 tabs 02/0104/29/25 Rx spironolactone 25 mg tablet 25 mg PO DAILY #90 tabs 04/29/25 Rx dapagliflozin propanediol 10 mg See Rx Instructions .R oute 04/18/25 04/29/25 Rx tablet (Farxiga) .COMPLEX #30 tabs fenofibrate 160 mg tablet See Rx Instructions .Route 0 04/18/25 04/29/25 Rx .COMPLEX #30 tabs sacubitril 24 mg-valsartan 26 mg See Rx Instructions . Route 04/18/25 04/29/25 Rx tablet (Entresto) .COMPLEX #60 tabs omega-3 fatty acids 1,000 mg PO BID 04/29/25 History Allergies Allergy/AdvReac Type Severity Reaction Status Date / Time No Known Drug Allergies Allergy Unknown Unknown Verified 04/29/25 20:37 Exam Narrative: General: well appearing, appears stated age. HEENT: normocephalic, atraumatic. Mucous membranes moist. EOMI, PERRLA, bilateral sclera anicteric, no conjunctival injection. Neck supple without JVD, lymphadenopathy, or bruit. Respiratory: clear to ascultation bilaterally. No rales/rhonic/wheezes. Cardiovascular: Regular rate and rhythm, normal S1-S2 upon ascultation. No murmurs, rubs, or clicks. PMI is nondisplaced, capillary refill less than 3 second. Abdomen: Obese Soft, round, no pulsatile masses, nondistended and nontender. No rebound, no guarding. No CVA tenderness, no hepatosplenomegaly. Bowel sounds present to all four quadrants. No high pitch or tinkling sounds, resonant to percussion. Extremities: No cyanosis, clubbing, or edema present. Pulses are palpable 2/2. Active ROM to all four extremities. Neuro: Alert and orientated x 4. PERRLA. Cranial nerves 2-12 intact without focal deficit. Skin: Warm, dry, and intact, without rash, erythema, or lesion. Psych: pleasant, cooperative, normal speech, normal affect, no hallucinations, no dysarthia Assessment and Plan Assessment and plan (1) PVT (paroxysmal ventricular tachycardia): Code(s): I47.20 - Ventricular tachycardia, unspecified Status: Acute Assessment and Plan: Frequent rounds of PVCs Cardiology consulted Telemetry monitoring Interrogate pacemaker Electrolytes within normal limits Limit caffeine (2) Idiopathic cardiomyopathy: Code(s): I42.8 - Other cardiomyopathies Status: Acute Assessment and Plan: Continue patient's metoprolol, Farxiga, aspirin, Entresto and spironolactone Interrogate ICD (3) Chest pain: Qualifiers: Chest pain type: unspecified Qualified Code(s): R07.9 - Chest pain, unspecified Code(s): R07.9 - Chest pain, unspecified Status: Acute Assessment and Plan: Nitro p.r.n. EKG since needed Q.6 hour troponin pending Aspirin Nitro as needed (4) Hypertension: Code(s): I10 - Essential (primary) hypertension Status: Acute Assessment and Plan: Entresto continued Quality VTE Prophylaxis VTE prophylaxis: mechanical ordered and pharmacologic ordered Hospitalist MIPS Advance Care Plan I have confirmed that the patient's Advanced Care Plan is present, code status is documented, or surrogate decision maker is listed in patient medical record.: Yes Medication Reconciliation I have utilized all available resources to obtain, update and review the patients current medications (includes all prescriptions, OTC, herbals, cannabis, and nutritional supplements).: Yes
[2025-04-29 21:04] VITALS: BP 105/79; PULSE 68; RESP 20; TEMP 36.7; O2SAT 98
[2025-04-29 21:33] LABS: Hematocrit 47.0 % (42.0-52.0); Hemoglobin 16.3 g/dL (14.0-18.0); Immature Granulocyte Percent A 0.4 % (0-0.5); Lymphocytes Absolute Auto 2.82 K/mm3 (0.9-3.2); Mean Corpuscular HGB Conc 34.7 g/dl (32-36); Mean Corpuscular Hemoglobin 30.4 pg (26-34); Mean Corpuscular Volume 87.5 fl (80-100); Nucleated Red Blood Cells Absolute Auto 0.000 K/mm3 (0.0-0.012); Nucleated Red Blood Cells Perc 0.0 % (0.0-0.2); Platelet Count Result 236 k/mm3 (150-375); Red Blood Count 5.37 M/mm3 (4.6-6.20); White Blood Count 10.0 K/mm3 (4.5-10.0)
[2025-04-29 21:44] LABS: Anion Gap 8 mmol/L (4-12); Blood Urea Nitrogen 17 mg/dL (9-20); Calcium 9.2 mg/dL (8.4-10.2); Carbon Dioxide 25 mmol/L (22-30); Chloride 103 mmol/L (98-107); Cholesterol 212 mg/dL (0-200); Estimated CRCL calculation 100 ml/min; Estimated Glomerular Filt Rate > 60; Glucose 101 mg/dL (65-110); HDL Direct 36 mg/dL; Potassium 4.2 mmol/L (3.4-5.0); Sodium 136 mmol/L (137-145); Triglycerides 284 mg/dL (<150)
[2025-04-29 21:52] VITALS: PULSE 65
[2025-04-29] MEDS: METOPROLOL TARTRATE 50 MG TAB 100 MG PO (21:52)
[2025-04-29] MEDS: SACUBITRIL/VALSARTAN 24-26 MG TABLET 1 TAB BY MOUTH (21:52)
[2025-04-29 22:00] VITALS: PULSE 73
[2025-04-29 23:39] VITALS: BP 115/70; PULSE 57; RESP 17; TEMP 36.7; O2SAT 99
[2025-04-30] VITALS (17 sets, daily range): BP systolic 107–127; BP diastolic 61–78; PULSE 55–82; RESP 14–18; TEMP 36.4–36.8; O2SAT 97–100
[2025-04-30 00:33] LABS: Troponin I < 0.012 ng/mL (0.000-0.034)
[2025-04-30 04:51] LABS: Hematocrit 45.5 % (42.0-52.0); Hemoglobin 15.5 g/dL (14.0-18.0); Immature Granulocyte Percent A 0.4 % (0-0.5); Lymphocytes Absolute Auto 3.51 K/mm3 (0.9-3.2); Mean Corpuscular HGB Conc 34.1 g/dl (32-36); Mean Corpuscular Hemoglobin 30.3 pg (26-34); Mean Corpuscular Volume 88.9 fl (80-100); Nucleated Red Blood Cells Absolute Auto 0.000 K/mm3 (0.0-0.012); Nucleated Red Blood Cells Perc 0.0 % (0.0-0.2); Platelet Count Result 222 k/mm3 (150-375); Red Blood Count 5.12 M/mm3 (4.6-6.20); White Blood Count 10.7 K/mm3 (4.5-10.0)
[2025-04-30 05:12] LABS: Anion Gap 10 mmol/L (4-12); Blood Urea Nitrogen 18 mg/dL (9-20); Calcium 8.9 mg/dL (8.4-10.2); Carbon Dioxide 25 mmol/L (22-30); Chloride 102 mmol/L (98-107); Estimated CRCL calculation 94 ml/min; Estimated Glomerular Filt Rate > 60; Glucose 88 mg/dL (65-110); Potassium 3.8 mmol/L (3.4-5.0); Sodium 137 mmol/L (137-145)
--- OUTSIDE RECORDS SUMMARY | 2025-04-30 07:46 | XMS_ITS | Encounter Summary ---
Author Organization [facility] Address [address] [place] [address] Phone Care Team Providers Care Sheet Metal Mechanic Name Role Phone Jatinder Billingsley MD Primary Care Provide r Encounter Details Date Type Department Care Team (Late st Contact Info) Description 04/21/2025 Results Follow-Up [facility] Cardiology [address] [facility] Advanced Medicine 8th [place] [address] [place] [id number] Stephon Fernando MD [address] [facility] [address] [place] [address] ECG 12 lead Social History Tobacco Use Types Packs/Day Years Used Date Smoking Tobacco: Never Smokeless Tobacco: Never Sex and Gender Information Value Date Recorded Sex Assigned at Not on file Legal Sex Male 7:56 PM ENERGY TRADING ANALYST Gender Identity Not on file Sexual Orientation Not on file documented as of this encounter Plan of Treatment Upcoming Encounters Date Type Department Care Team (Latest Contact Info) Description 08/07/2025 8:30 AM ENERGY TRADING ANALYST Hospital Encounter [facility] Electrophysiology Lab 1 [place] [id number] Stephon Fernando MD [address] [facility] [address] [place] [address] Left heart failure (HCC); NICM (nonischemic cardiomyopathy) (HCC) 08/07/2025 8:30 AM ENERGY TRADING ANALYST - 08/07/2025 2:00 PM ENERGY TRADING ANALYST Surgery [facility] Electrophysiology Lab 1 [facility] [place] [address] Stephon Fernando MD [address] [facility] [address] [place] [address] REMOVE/REPLACE IMPLANTABLE CARDIOVERTER-DEFIB RILLATOR (ICD) WITH MULTI LEAD SYSTEM 110[address] documented as of this encounter Goals Goal Patient Goal Type Associated Problems Recent Progress Patient-Stated? Author Autogenerat ed Goal Care Plan Autogenerated Problem No Brittany Martinez documented as of this encounter Visit Diagnoses Not on filedocumented in this encounter Additional Health Concerns Active Problems Noted Date Diagnosed Date Autogenerated Problem 04/20/2025 documented as of this encounter Care Teams Sheet Metal Mechanic Relationship Specialty Start Date End Date Jatinder Billingsley MD [address] [place] [address] PCP - General 09/30/19 documented as of this encounter
--- OUTSIDE RECORDS SUMMARY | 2025-04-30 07:46 | XMS_ITS | Encounter Summary ---
Author Organization [facility] Address [address] [place] [address] Care Team Providers Care Claim Technician Name Role Phone None, Provider Primary Care Provider Michelle leonard Encounter Details Date Type Department Care Team (Late st Contact Info) Description 02/09/2025 Hospital Follow-up Call [facility] Cardiovascular Care Unit [address] [place] [address] Letha Michel, RN Social History Tobacco Use Types Packs/Day Years Used Date Smoking Tobacco: Every Day Cigarettes 0.5 22.7 Started: 2002 Smokeless Tobacco: Never Alcohol Use Standard Drinks/Week Comments Yes 0 (1 standard drink = 0.6 oz pur e alcohol) 1 beer every 2-3 months [facility] Utilities Answer Date Recorded In the past 12 months has e electric, gas, oil, or water [employer] threatened to shut off services in your home? No 02/04/2025 Humiliation, Afraid, Rape, and Kick questionnair e Answer Date Recorded Within the last year, have y ou been afraid of your partner or ex-partner? No 02/04/2025 Within the last year, have y ou been humiliated or emotionally abused in other ways by your partner or ex-partner? No Within the last year, have y ou been kicked, hit, slapped, or otherwise physically hurt by your partner or ex-partner? No 02/04/2025 Within the last year, have y ou been raped or forced to have any kind of sexual activity by your partner or ex-partner? No 02/04/2025 Overall Financial Resource Strain (CARDIA) Answe r Date Recorded How hard is it for you to pa y for the very basics like food, housing, medical care, and heating? Not hard at all 02/04/2025 Hunger Vital Sign Answer Date Recorded Within the past 12 months, y ou worried that your food would run out before you got the money to buy more. Never true 02/05/20 25 Within the past 12 months, t he food you bought just didn't last and you didn't have money to get more. Never true 02/04/2025 PRAPARE - Transportation Answer Date Re corded In the past 12 months, has l ack of transportation kept you from medical appointments or from getting medications? No 12/2024 In the past 12 months, has l ack of transportation kept you from meetings, work, or from getting things needed for daily living? No 02/04/2025 Housing Stability Vital Sign Answer Meet e Recorded In the last 12 months, was t here a time when you were not able to pay the mortgage or rent on time? No 02/04/2025 In the past 12 months, how m any times have you moved where you were living? 0 02/04/2025 At any time in the past 12 m [facility], were you homeless or living in a [place] facility (including now)? No 02/04/2025 Sex and Gender Information Value Date Recorded Sex Assigned at Male 02/04/2025 6:29 PM CDT Legal Sex Male 8:25 PM CDT Gender Identity Not on file Sexual Orientation Not on file documented as of this encounter Functional Status * Are you deaf or do you have serious difficulty hearing Answer Date of Assessment Author Status No 02/04/2025 5:46 PM CDT Fatmata Pantoja R N Active * Are you blind or do you have serious difficulty seeing, even when wearing glasses? Answer Date of Assessment Author Status No 02/04/2025 5:46 PM CDT Fatmata Pantoja R N Active * Do you have serious difficulty walking or climbing stairs? Answer Date of Assessment Author Status No 02/04/2025 5:46 PM CDT Fatmata Pantoja R N Active * Do you have difficulty dressing or bathing? Answer Date of Assessment Author Status No 02/04/2025 5:46 PM CDT Fatmata Pantoja R N Active * Because of a physical, mental, or emotional condition, do you have difficulty doing errands alone such as visiting a doctor's office or shopping? Answer Date of Assessment Author Status No 02/04/2025 5:46 PM CDT Fatmata Pantoja R N Active documented as of this encounter Mental Status * Because of a physical, mental, or emotional condition, do you have serious difficulty concentrating, remembering, or making decisions? Answer Entry Date Author Status No 02/04/2025 5:46 PM CDT Fatmata Pantoja R N Active documented in this encounter Plan of Treatment Not on file documented as of this encounter Visit Diagnoses Not on filedocumented in this encounter Care Teams Claim Technician Relationship Specialty Start Date End Date None, Provider, PCP - General UNKNOWN PHYSICIAN SPECIALTY 02/04/25 documented as of this encounter
--- OUTSIDE RECORDS SUMMARY | 2025-04-30 07:46 | XMS_ITS | Encounter Summary ---
Author Organization [facility] Address [address] [place] [address] Phone Care Team Providers Care Tile And Marble Installer Name Role Phone Jatinder Billingsley MD Primary Care Provide r Encounter Details Date Type Department Care Team (Late st Contact Info) Description 04/19/2025 Telephone [facility] Medicine Cardiology [address] [facility] Advanced Medicine 8th [place] [address] [place] [address] Stephon Fernando MD [address] [facility] [address] [place], [place] [id number] Social History Tobacco Use Types Packs/Day Years Used Date Smoking Tobacco: Never Smokeless Tobacco: Never Sex and Gender Information Value Date Recorded Sex Assigned at Not on file Legal Sex Male 7:56 PM BLOCK GREASER Gender Identity Not on file Sexual Orientation Not on file documented as of this encounter Miscellaneous Notes * Telephone Encounter - Norma Thapa RN - 04/19/2025 9:41 AM CDT LMOR for Bess that pt requested to be followed by our office and I asked that she release his device from [employer] to us. * Telephone Encounter - Marita Alvarado - 04/19/2025 9:34 AM CDT Kassie Kellogg with Dr. Gupta's office called to transfer device care/checks to their office. She can be reached at [phone] opt 2. documented in this encounter Plan of Treatment Upcoming Encounters Date Type Department Care Team (Latest Contact Info) Description 08/07/2025 8:30 AM BLOCK GREASER Hospital Encounter [facility] Electrophysiology Lab 1 [place] [address] Stephon Fernando MD [address] [facility] [address] [place] [address] Left heart failure (HCC); NICM (nonischemic cardiomyopathy) (HCC) 08/07/2025 8:30 AM BLOCK GREASER - 08/07/2025 2:00 PM BLOCK GREASER Surgery [facility] Electrophysiology Lab 1 [place] [address] Stephon Fernando MD [address] [facility] [address] [place] [address] REMOVE/REPLACE IMPLANTABLE CARDIOVERTER-DEFIB RILLATOR (ICD) WITH MULTI LEAD SYSTEM [address] documented as of this encounter Visit Diagnoses Not on filedocumented in this encounter Care Teams Tile And Marble Installer Relationship Specialty Start Date End Date Jatinder Billingsley MD [address] [place] [address] PCP - General 09/30/19 documented as of this encounter
--- OUTSIDE RECORDS SUMMARY | 2025-04-30 07:46 | XMS_ITS | Clinical Summary ---
Author Organization [facility] Address [address] [place] [address] Care Team Providers Care Caramel Cutter Hand Name Role Phone Jatinder Billingsley MD Primary Care Provide r Allergies No known active allergies Medications Entresto 24-26 mg tablet Take 1 tablet by mouth 2 (two) times a day 12/20/2024 Active Farxiga 10 mg tablet Take 1 tablet (10 mg total) by mouth daily 12/20/2024 Active fenofibrate (TRIGLIDE) 160 mg tablet Take 1 tablet (160 mg total) by mouth nightly 08/22/2024 Active spironolactone (ALDACTONE) 25 mg tablet Take 1 tablet (25 mg total) by mouth daily 02/08/2025 5 Active metoprolol (LOPRESSOR) 100 mg tablet 03/07/2025 Active aspirin 81 mg enteric coated tablet Take 1 tablet (81 mg total) by mouth daily 02/08/2025 5 Active levocetirizine (XYZAL) 5 mg tablet Take 1 tablet (5 mg total) by mouth daily 07/18/2024 Active Active Problems Problem Noted Date Diagnosed Date Left heart failure 04/20/2025 NICM (nonischemic cardiomyopathy) 04/20/2025 Encounters Date Type Department Care Team Description 04/25/2025 Orders Only [facility] Medicine Cardiology [address] [facility] Advanced Medicine 8th [place] [address] [place] [address] Stephon Fernando MD NICM (nonischemic cardiomyopathy) (HCC) (Primary Dx) 04/21/2025 Results Follow-Up [facility] Cardiology [address] [place] [address] 8th [place] [address] [place] [address] Stephon Fernando MD ECG 12 lead 04/20/2025 Telephone [facility] Cardiology [address] [place] [address] [place] [address] [place] [address] Stephon Fernando MD 04/19/2025 Telephone [facility] Cardiology [address] [place] [address] [place] [address] [place] [address] Stephon Fernando MD 04/18/2025 10:34 AM CDT - 04/18/2025 11:59 PM CDT Hospital Encounter [facility] [address] [place] [address] Left heart failure (HCC) Discharge Disposition: Discharge to home or self care 04/18/2025 9:15 AM CDT Office Visit [facility] Cardiology [address] [place] [address] [place] [address] [place] [address] Stephon Fernando MD Atrial fibrillation, unspecified type (HCC) (Primary Dx); Left heart failure (HCC) 04/18/2025 8:45 AM CDT Ancillary Procedure [facility] Cardiology [address] [place] [address] [place] [address] [place] [address] NICM (nonischemic cardiomyopathy) (HCC) (Primary Dx); Pacemaker; Fitting and adjustment of automatic implantable cardioverter-defibr illator 02/08/2025 Orders Only [facility] Cardiology [address] [place] [address] [place] [address] [place] [address] Mandeep Hunter MD PhD Pacemaker (Primary Dx) 02/08/2025 Telephone [facility] Cardiology [address] [place] [address] [place] [address] [place] [address] Fatmata Ornelas from Last 3 Months Social History Tobacco Use Types Packs/Day Years Used Date Smoking Tobacco: Never Smokeless Tobacco: Never Tobacco Cessation:Counseling Given: Not Answered Sex and Gender Information Value Date Recorded Sex Assigned at Not on file Legal Sex Male 7:56 PM MAILER APPRENTICE Gender Identity Not on file Sexual Orientation Not on file Obstetrics History Last Filed Vital Signs Vital Sign Reading Time Taken Comments Blood Pressure 125/82 04/18/2025 8:54 AM CDT Pulse 65 04/18/2025 8:54 AM CDT Temperature 36.7 C (98 F) 10/03/2019 8:57 AM MAILER APPRENTICE Respiratory Rate - - Oxygen Saturation 96% 04/18/2025 8:54 AM CDT Inhaled Oxygen Concentration - - Weight 109.8 kg (242 lb) 04/18/2025 8:54 AM CDT Height 177.8 cm (5' 10) 04/18/2025 8:54 AM CDT Body Mass Index 34.72 04/18/2025 8:54 AM CDT Plan of Treatment Upcoming Encounters Date Type Department Care Team (Latest Contact Info) Description 08/07/2025 8:30 AM MAILER APPRENTICE Hospital Encounter [facility] Electrophysiology Lab 1 [place] [address] Stephon Fernando MD [address] [address] Left heart failure (HCC); NICM (nonischemic cardiomyopathy) (HCC) 08/07/2025 8:30 AM MAILER APPRENTICE - 08/07/2025 2:00 PM MAILER APPRENTICE Surgery [facility] Electrophysiology Lab 1 [place] [address] Stephon Fernadno MD [address] [address] REMOVE/REPLACE IMPLANTABLE CARDIOVERTER-DEFIB RILLATOR (ICD) WITH MULTI LEAD SYSTEM [address] Health Maintenance Due Date Last Done Comments Depression Screening 1983 Hepatitis C Screening 1983 DTaP/Tdap/Td Vaccine (1 - Tdap) 1994 Varicella Vaccines (1 of 2 - 13+ 2-dose series) 1996 Hepatitis B Screening 2001 Regular Well Visit/Exam 18-64 2001 HPV Vaccines (1 - 3-dose SCDM series) 2010 Influenza Vaccine (#1) 2025 , 05/26/2023, 05/31/2022 Covid-19 Vaccine Completed 09/11/2024, , 07/17/2022, Additional history exists Pneumococcal vaccine <65 Aged Out No longer eligible based on patient's age to complete this topic Goals Goal Patient Goal Type Associated Problems Recent Progress Patient-Stated? Author Autogenerat ed Goal Care Plan Autogenerated Problem No Brittany Martinez Procedures Procedure Name Priority Date/Time Associated Diagnosis Comments XR CHEST PA LATERAL 2 VIEWS Schedule Routine, Read Routine (OP Routine) 04/18/2025 10:38 AM CDT Left heart failure (HCC) ECG 12-LEAD Routine 04/18/2025 8:57 AM CDT Atrial fibrillation, unspecified type (HCC) from Last 3 Months Results * XR Chest PA Lateral 2 Views (04/18/2025 10:38 AM CDT) Anatomical Region Laterality Modality Body, Chest N/A Computed Radiogr aphy 04/18/2025 10:4 6 AM CDT Impressions 04/18/2025 10:46 AM CDT No prior radiograph is available for comparison. The heart size is moderately enlarged. Pacemaker defibrillator ends overlying the right ventricle. No pulmonary edema or pneumonia. No pneumothorax or pleural effusion. Electronically signed by: Otis Munguia M.D. Narrative 04/18/2025 10:46 AM CDT EXAMINATION: 2 view chest radiograph Procedure Note Otis Munguia MD - 04/18/2025 EXAMINATION: 2 view chest radiograph IMPRESSION: No prior radiograph is available for comparison. The heart size is moderately enlarged. Pacemaker defibrillator ends overlying the right ventricle. No pulmonary edema or pneumonia. No pneumothorax or pleural effusion. Electronically signed by: Otis Munguia M.D. Stephon Fernando MD IMG XR PROCEDURE S Final Result * ECG 12 lead (04/18/2025 8:57 AM CDT) Stephon Fernando MD ECG ORDERABLES Edited Result - Final from Last 3 Months Additional Health Concerns Active Problems Noted Date Diagnosed Date Autogenerated Problem 04/20/2025 Insurance [facility] Care Teams Caramel Cutter Hand Relationship Specialty Start Date End Date Jatinder Billingsley MD [address] [place] [address] PCP - General 09/30/19
--- OUTSIDE RECORDS SUMMARY | 2025-04-30 07:46 | XMS_ITS | Clinical Summary ---
Author Organization [facility] Address [address] [place] [address] Care Team Providers Care Video Specialist Name Role Phone None, Provider MD Primary Care Provider Unavaila ble Allergies No known active allergies Medications FARXIGA 10 MG tablet Take 1 tablet (10 mg total) by mouth daily. 12/20/2024 Active omeprazole EC (PRILOSEC OTC) 20 MG tablet Take 1 tablet (20 mg total) by mouth daily. Active fenofibrate 160 MG tablet Take 1 tablet (160 mg total) by mouth nightly. Active nitroglycerin (NITROSTAT) 0.[address] 1 tablet (0.4 mg total) under the tongue every 5 (five) minutes as needed. FOR CHEST PAIN DO NOT EXCEED A TOTAL OF 3 DOSES IN 15 MINUTES Active ENTRESTO 24-26 MG tablet Take 1 tablet by mouth 2 (two) times daily. 12/20/2024 Active acetaminophen (TYLENOL) 325 MG tablet Take 2 tablets (650 mg total) by mouth every 6 (six) hours as needed for Pain. Active fish oil (OMEGA-3 FATTY ACID) 1000 MG Cap capsule Take 1 capsule (1,000 mg total) by mouth 2 (two) times daily. Active levocetirizine (XYZAL) 5 MG tablet Take 1 tablet (5 mg total) by mouth daily. Active levocetirizine (XYZAL) 5 MG tablet Take 0.5 tablets (2.5 mg total) by mouth nightly at bedtime. Active aspirin EC (ECOTRIN) 81 MG tablet Take 1 tablet (81 mg total) by mouth daily. 90 tablet 02/08/2025 Active metoprolol succinate ER (TOPROL-XL) 25 MG 24 hr tablet Take 3 tablets (75 mg total) by mouth 2 (two) times daily. 540 tablet 02/07/2025 Active spironolactone (ALDACTONE) 25 MG tablet Take 1 tablet (25 mg total) by mouth daily. 90 tablet 02/08/2025 Active Active Problems Problem Noted Date Diagnosed Date ICD (implantable cardioverter-defibrillator) dis charge 02/04/2025 Cardiomyopathy ([facility]) Encounters Date Type Department Care Team Description 02/09/2025 Telephone [facility] n THREE [address] [address] Lizbeth Fink Garrett Appointment Request (Self ref) 02/09/2025 Hospital Follow-up Call [facility] Cardiovascular Care [facility] [address] [place] [address] Letha Michel RN 02/07/2025 Telephone [facility] [address] [place] [address] Victorino Agrawal MD Echo; Appointment Request; Question 02/04/2025 5:10 PM CDT - 02/07/2025 1:32 PM CDT Hospital Encounter [facility] Cardiovascular Care [facility] [address] [place] [address] Anibal Morgan MD Mahmoud, Anas, MD Rajendran, Nagesan, MD Discharge Disposition: Home or Self Care (Routine Discharge) 02/04/2025 Travel 02/04/2025 Telephone [employer] [address] [place] [address] Victorino Agrawal MD Heart Problem from Last 3 Months Family History Medical History Relation Comments COPD Father Diabetes Father Cancer Mother Diabetes Mother Stroke Mother Relation Status Comments Father Mother Alive Sister Alive Social History Tobacco Use Types Packs/Day Years Used Date Smoking Tobacco: Every Day Cigarettes 0.5 22.7 Started: 2002 Smokeless Tobacco: Never Tobacco Cessation:Ready to Q uit: Not Asked; Counseling Given: Not Answered Alcohol Use Standard Drinks/Week Comments Yes 0 (1 standard drink = 0.6 oz pur e alcohol) 1 beer every 2-3 months [facility] Utilities Answer Date Recorded In the past 12 months has e [employer], gas, oil, or water [employer] threatened to shut off services in your [...] any time in the past 12 m [facility], were you homeless or living in a intermediate (including now)? No 02/04/2025 Sex and Gender Information Value Date Recorded Sex Assigned at Male 02/04/2025 6:29 PM CDT Legal Sex Male 8:25 PM CDT Gender Identity Not on file Sexual Orientation Not on file Last Filed Vital Signs Vital Sign Reading Time Taken Comments Blood Pressure 110/70 02/07/2025 11:10 AM CDT Pulse 69 02/07/2025 11:10 AM CDT Temperature 36.7 C (98 F) 02/07/2025 7:43 AM CDT Respiratory Rate 19 02/07/2025 7:43 AM CDT Oxygen Saturation 98% 02/07/2025 11:10 AM CDT Inhaled Oxygen Concentration - - Weight 97.7 kg (215 lb 6.2 oz) 02/07/2025 5:00 A M CDT Height 180.3 cm (5' 11) 02/04/2025 5:28 PM CDT Body Mass Index 30.04 02/04/2025 5:28 PM CDT Plan of Treatment Health Maintenance Due Date Last Done Comments Annual Physical 1986 Hepatitis C 2001 DTaP, Tdap and Td Vaccines (1 - Tdap) 2002 Hepatitis B Vaccines (1 of 3 - 19+ 3-dose series) 2002 Pneumococcal Vaccine: Pediatrics (0 to 5 Years) and At-Risk Patients (6 to 49 Years) (1 of 2 - PCV) 2002 HPV Vaccines (1 - 3-dose SCDM series) 2010 PHQ-2 (Physician [place]) 08/03/2024 COVID-19 Vaccine Completed 09/11/2024, , 07/17/2022, Additional history exists Meningococcal B Vaccine Aged Out No l onger eligible based on patient's age to complete this topic Meningococcal Vaccine Aged Out No livier lewis eligible based on patient's age to complete this topic RSV Immunizations Under 20 Months Aged Out No longer eligible based on patient's age to complete this topic Procedures Procedure Name Priority Date/Time Associated Diagnosis Comments POCT GLUCOSE - DOCKED DEVICE Routine 02/07/2025 5:51 AM CDT POCT GLUCOSE - DOCKED DEVICE Routine 02/06/2025 8:45 PM CDT POCT GLUCOSE - DOCKED DEVICE Routine 02/06/2025 6:49 PM CDT POCT GLUCOSE - DOCKED DEVICE Routine 02/06/2025 5:12 PM CDT POCT GLUCOSE - DOCKED DEVICE Routine 02/06/2025 4:54 PM CDT POCT GLUCOSE - DOCKED DEVICE Routine 02/06/2025 11:25 AM CDT PRO-BRAIN NATRIURETIC PEPTIDE Routine 02/06/2025 10:21 AM CDT MAGNESIUM Routine 02/06/2025 10:21 AM CDT CBC W/DIFF AUTOMATED Routine 02/06/2025 10:21 AM CDT BASIC METABOLIC PANEL Routine 02/06/2025 10:21 AM CDT POCT GLUCOSE - DOCKED DEVICE Routine 02/06/2025 6:37 AM CDT POCT GLUCOSE - DOCKED DEVICE Routine 02/05/2025 9:02 PM CDT POCT GLUCOSE - DOCKED DEVICE Routine 02/05/2025 5:22 PM CDT USE ECHOCARDIOGRAM W CON Today 02/05/2025 2:45 PM CDT POCT GLUCOSE - DOCKED DEVICE Routine 02/05/2025 6:09 AM CDT PROTHROMBIN TIME, VENOUS Routine 02/05/2025 5:59 AM CDT MAGNESIUM Routine 02/05/2025 5:59 AM CDT COMPREHENSIVE METABOLIC PANEL Routine 02/05/2025 5:59 AM CDT CBC W/DIFF AUTOMATED Routine 02/05/2025 5:59 AM CDT ECG 12-LEAD STAT 02/04/2025 9:59 PM CDT DRUG SCREEN RAPID Nurse Collected Priority 02/04/2025 9:00 PM CDT POCT GLUCOSE - DOCKED DEVICE Routine 02/04/2025 8:38 PM CDT PHOSPHORUS, INORGANIC PHOSPHATE STAT 02/04/2025 6:53 PM CDT MAGNESIUM STAT 02/04/2025 6:53 PM CDT COMPREHENSIVE METABOLIC PANEL STAT 02/04/2025 6:53 PM CDT THYROXINE, FREE (FT4) Routine 02/04/2025 6:53 PM CDT TSH W/REFLEX Routine 02/04/2025 6:53 PM CDT POCT GLUCOSE - DOCKED DEVICE Routine 02/04/2025 6:25 PM CDT from Last 3 Months Results * POCT glucose (02/07/2025 5:51 AM CDT) Only the most recent of12 resultswithin the time period is included. Pathologist [facility] GLUCOSE POC 83 70 - 109 02/07/2025 5:52 AM CDT [facility] 02/07/2025 5:51 AM CDT us Misael Morgan MD POCT ORDERABLES - DEVICE Fi nal Result [facility] [address] [place] [address], [id number] * PRO-BRAIN NATRIURETIC PEPTIDE (PRO BNP) (02/06/2025 10:21 AM CDT) PRO-B TYPE NATRIURETIC PEPTIDE 88 <125 PG/ML 02/06/2025 2:50 PM CDT [facility] Comment: AGE INDEPENDENT: <300 PG/ML HAS A 99% NEGATIVE PREDICTIVE VALUE FOR EXCLUDING ACUTE CHF <50 YEARS: >450 PG/ML IS CONSISTENT WITH ACUTE CHF 50-75 YEARS: >900 PG/ML IS CONSISTENT WITH ACUTE CHF >75 YEARS: >1800 PG/ML IS CONSISTENT WITH ACUTE CHF IN PATIENTS WITH RENAL INSUFFICIENCY (GFR <60), >1200 PG/ML YIELDS A DIAGNOSTIC SENSITIVITY AND SPECIFICITY OF 89% AND 72% FOR ACUTE CHF. 02/06/2025 10:2 1 AM CDT us Misael Morgan MD LABORATORY Final Resul t [facility] [address] [place] [phone], [id number] * (ABNORMAL) BASIC METABOLIC PANEL (02/06/2025 10:21 AM CDT) Pathologist [facility] SODIUM S/P/B 135(L) 136 - 145 MMOL/L 02/06/2025 11:10 AM CDT [facility] POTASSIUM S/P/B 3.9 3.5 - 5.1 MMOL/L 02/06/2025 11:10 AM CDT [facility] CHLORIDE S/P/B 104 97 - 115 MMOL/L 02/06/2025 11:10 AM CDT [facility] CO2 26.5 21.0 - 32.0 MMOL/L 02/06/2025 11:10 AM CDT [facility] GLUCOSE 190(H) 74 - 106 MG/DL 02/06/2025 11:10 AM CDT [facility] BUN 23(H) 7 - 18 MG/DL 02/06/2025 11:10 AM CDT [facility] CREATININE S/P/B 1.17 0.70 - 1.30 MG/DL 02/06/2025 11:10 AM CDT [facility] CALCIUM S/P/B 9.5 8.5 - 10.1 MG/DL 02/06/2025 11:10 AM CDT [facility] ANION GAP 4.5 2.0 - 10.0 MMOL/L 02/06/2025 11:10 AM CDT [facility] OSMOLALITY (CALC) 289 MOSM/KG 025 11:10 AM CDT [facility] Comment:REFERENCE RANGE NOT ESTABLISHED GFR ESTIMATE 80(L) >90 ML/MIN/1. 73 M2 02/06/2025 11:10 AM CDT [facility] GFR NOTES GFR REFERENCE S: 02/06/2025 11:10 AM CDT [facility] Comment: THE ESTIMATED GFR IS CALCULATED USING THE 2020 CKD-EPI EQUATION. THE FOLLOWING CATEGORIES FOR GRADING RENAL FUNCTION ARE RECOMMENDED BY THE INTERNATIONAL SOCIETY OF NEPHROLOGY (KDIGO 2012 CLINICAL PRACTICE GUIDELINE). G1,NORMAL OR HIGH: >89 ml/min/1.73 m2 G2,MILDLY DECREASED: 60-89 ml/min/1.73 m2 G3A,MILDLY TO MODERATELY DECREASED: 45-59 ml/min/1.73 m2 G3B,MODERATELY TO SEVERELY DECREASED: 30-44 ml/min/1.73 m2 G4,SEVERELY DECREASED: 15-29 ml/min/1.73 m2 G5,KIDNEY FAILURE: <15 ml/min/1.73 m2 02/06/2025 10:2 1 AM CDT us Misael Morgan MD LABORATORY Final Resul t [facility] [address] [place] [address], [id number] * (ABNORMAL) CBC W/DIFF AUTOMATED (02/06/2025 10:21 AM CDT) Only the most recent of2 resultswithin the time period is included. WBC 10.75 4.00 - 10.80 x10'3/uL 02/06/2025 10:38 AM CDT [facility] RBC 5.42 4.50 - 6.10 x10'6/uL 02/06/2025 10:38 AM CDT [facility] HGB 16.8 13.0 - 18.0 G/DL 02/06/2025 10:38 AM CDT [facility] HCT 48.3 37.0 - 52.0 % 02/06/2025 10:38 AM CDT [facility] MCV 89.1 78.0 - 100.0 FL 02/06/2025 10:38 AM CDT [facility] MCH 31.0 27.0 - 31.0 PG 02/06/2025 10:38 AM CDT [facility] MCHC 34.8 33.0 - 36.0 G/DL 02/06/2025 10:38 AM CDT [facility] RDW 11.9 11.5 - 14.5 % 02/06/2025 10:38 AM CDT [facility] PLT 203 150 - 350 x10'3/uL 02/06/2025 10:38 AM CDT [facility] MPV 11.5(H) 7.4 - 10.4 FL 02/06/2025 10:38 AM CDT [facility] DIFFERENTIAL TYPE AUTOMATED DIFFERENTIAL 02/06/2025 10:38 AM CDT [facility] SEG NEUTROPHILS 70.0 % 10:38 AM CDT [facility] LYMPHOCYTES 23.5 % 02/06/2025 10:38 AM CDT [facility] MONOCYTES 3.3 % 02/06/2025 10:38 AM CDT [facility] EOSINOPHILS 2.3 % 02/06/2025 10:38 AM CDT [facility] BASOPHILS 0.5 % 02/06/2025 10:38 AM CDT [facility] IMMATURE GRANS % 0.4 % 02/07/20 10:38 AM CDT [facility] ABS. NEUTROPHILS 7.53 1.60 - 8.30 x10'3/uL 02/06/2025 10:38 AM CDT [facility] ABS. LYMPHOCYTES 2.53 0.80 - 4.70 x10'3/uL 02/06/2025 10:38 AM CDT [facility] ABS. MONOCYTES 0.35 0.00 - 1.50 x10'3/uL 02/06/2025 10:38 AM CDT [facility] ABS. EOSINOPHILS 0.25 0.00 - 0.40 x10'3/uL 02/06/2025 10:38 AM CDT [facility] ABS. BASOPHILS 0.05 0.00 - 0.20 x10'3/uL 02/06/2025 10:38 AM CDT [facility] ABS. IMMATURE GRANULOCYTES 0.04(H) 0.00 - 0.03 x10'3/uL 02/06/2025 10:38 AM CDT [facility] ABS. NUCLEATED RBC'S 0.00 0.00 - 0.01 x10'3/uL 02/06/2025 10:38 AM CDT [facility] NRBC % 0.0 % 02/06/2025 10:38 AM CDT [facility] 02/06/2025 10:2 1 AM CDT us Misael Morgan MD LABORATORY Final Resul t [facility] [address] [place] [id number], [id number] * MAGNESIUM (02/06/2025 10:21 AM CDT) Only the most recent of3 resultswithin the time period is included. MAGNESIUM 2.3 1.6 - 2.6 MG/DL 02/06/2025 11:10 AM CDT [facility] 02/06/2025 10:2 1 AM CDT Misael Morgan MD LABORATORY Final Resul t [facility] [address] [place] [address], [id number] * USE ECHOCARDIOGRAM W CON (02/05/2025 2:45 PM CDT) Anatomical Region Laterality Modality NA Echocardiogram 02/05/2025 1:45 PM CDT Narrative 02/06/2025 11:16 AM CDT Echocardiography Report Pat.Name: MATT MANSFIELD Pat.ID: [id number] .Date: 02/05/2025 Breezy.MD: [id number] MASSIEL JEAN EWDPROV EWDPROV Exam Time: 1:45:00 PM Study Type:ECHO W/CONTRAST COMPLETE Height: 71 in Weight: 218 lb BSA: 2.19 m2 Age: 1 1985,39Y Sex: M BP: 106/56 HR: 56 bpm Sonogrphr: Faustina Vela [facility] Pat. Stat.:Inpatient Room: 622 CPT - 4: C8929 Reason for Study:ICD, V-tach Procedures: 2D, M-mode, Doppler, Color Flow, Definity was used to enhance endocardial definition. Portable, The study quality is technically adequate. ++++++++++++++++++++++++++++++++++++ SUMMARY: ++++++++++++++++++++++++++++++++++++ The left ventricular size is mildly enlarged. The left ventricular systolic function is severely depressed. Estimated left ventricular ejection fraction is 20%. Mild concentric left ventricular hypertrophy. Left ventricular relaxation is impaired. The right ventricular size is mildly enlarged. Right ventricular systolic function is severely depressed. Unable to reliably quantitate pulmonary systolic pressure. ++++++++++++++++++++++++++++++++++++ FINDINGS: ++++++++++++++++++++++++++++++++++++ LV: The left ventricular size is mildly enlarged. The left ventricular systolic function is severely depressed. Estimated left ventricular ejection fraction is 20%. Mild concentric left ventricular hypertrophy. The septal E/e' is indeterminate at 8-15. The lateral E/e' is indeterminate at 9-11. The average E/e' is indeterminate at 9-12 and EF is > or equal to 50. Left ventricular relaxation is impaired. WM: Severe global hypokinesis is noted. RV: The right ventricular size is mildly enlarged. Right ventricular systolic function is severely depressed. A pacemaker wire is visualized in the right ventricle. TAPSE = 24mm (<16 mm indicates systolic RV dysfunction). IVS: Mild septal hypertrophy. LA: The left atrial volume is normal ( less than 34 ml/M2). RA: A pacemaker wire is visualized in the right atrium. RAFAT: No evidence of pericardial effusion. AO: The aortic root measures 2.9 cm. The proximal ascending aorta measures 2.8cm. PA: Unable to reliably quantitate pulmonary systolic pressure. PVn: Pulmonary vein velocity is consistent with normal left atrial pressures. SVn: Inferior vena cava is not assessable. AV: Structurally normal aortic valve. The aortic valve is trileaflet. No evidence of aortic valve stenosis. No evidence of aortic valve regurgitation. MV: No evidence of mitral regurgitation. No evidence of mitral stenosis. PV: Structurally normal pulmonic valve. TV: Structurally normal tricuspid valve. No evidence of tricuspid regurgitation. ++++++++++++++++++++++++++++++++++++ MEASUREMENTS: ++++++++++++++++++++++++++++++++++++ DOPPLER LVOT LVOTpkPG 5 mmHg LVOTmnPG 2 mmHg LVOTpkVel 112 cm/s (70-110)* LVOT SV 112 ml LVOT TVI 25.2 cm LVOT CO 91.7 ml/s AV Forward Flow AV TVI 30.2 cm AV pkPG 8 mmHg AV pkVel 137 cm/s (100-170) Area (TVI) 3.71 cm2 (3-5) AV mnVel 83.8 cm/s Area (Romulo) 3.64 cm2 (3-5) AV mnPG 4 mmHg MV Forward Flow MV DeTm 203 msec MV E/A 1 MV mnPG 1 mmHg MV pkE 79.3 cm/s (60-130) MV pkPG 3 mmHg MV pkA 81.4 cm/s PV Forward Flow PV TVI 28.2 cm PV mnVel 77.4 cm/s PV pkVel 117 cm/s (60-90)* PV mnPG 3 mmHg PV pkPG 5 mmHg TV Forward Flow TV E/A 1.7 TV pkA 39.8 cm/s TV pkE 68.6 cm/s Lat E' Lat e 8.49 cm/s Lat E/E' Lat E/e 9.3 Med E' Med e 6.53 cm/s Med E/E' Med E/e 12.1 Aortic Valve Aortic Valve Ar 1.69 Aortic Valve Ve 0.82 AV DI Value 0.8 FABIANA (VTI) Index Value 1.7 LV Mass 2D Value 306 g LV Mass [id number] Value 140 g/m2 Right Ventricle Right Ventricle 11.9 cm/s 2D Left Ventricle LVIDd 5.81 cm (3.6-5.2)* LV EF(Bi-Plane) 21.7 % (63-77)* LVIDs 4.73 cm (2.3-3.9)* LVPW LVPWd 1.25 cm Ventricular Septum IVSd 1.2 cm Aorta Ao Rtd 2.87 cm (zsc -0.4) Ao Asc 2.78 cm (zsc 0.5) LVOT LVOT 2.38 cm Ratios IVS LA Biplane LAVol I BP 31.4 ml/m2 Right Atrium Major Homer 4.75 cm Minor Homer 3.92 cm Right Ventricle Right Ventricle 3.8 cm Right Ventricle 2.74 cm Major Homer 8.63 cm MMODE Left Atrium LAID 3.9 cm (1.9-4) Ratios LA/Ao 1.15 (0.87-1.1)* Aorta Ao Rt 3.4 cm (2-3.7) TA Tricuspid Annul 2.44 cm <Electronic Signature> 02/06/2025 11:16 AM Jose Ramon Peters M.D. Procedure Note Jose Ramon Peters MD - 02/06/2025 Echocardiography Report Pat.Name: MATT MANSFIELD Pat.ID: [id number] .Date: 02/05/2025 Refer.: [id number] MASSIEL JEAN EWDPROV EWDPROV Exam Time: 1:45:00 PM Study Type:ECHO W/CONTRAST COMPLETE Height: 71 in Weight: 218 lb BSA: 2.19 m2 Age: 1 1985,39Y Sex: M BP: 106/56 HR: 56 bpm Sonogrphr: Faustina Vela [facility] Pat. Stat.:Inpatient Room: 622 CPT - 4: C8929 Reason for Study:ICD, V-tach Procedures: 2D, M-mode, Doppler, Color Flow, Definity was used to enhance endocardial definition. Portable, The study quality is technically adequate. ++++++++++++++++++++++++++++++++++++ SUMMARY: ++++++++++++++++++++++++++++++++++++ The left ventricular size is mildly enlarged. The left ventricular systolic function is severely depressed. Estimated left ventricular ejection fraction is 20%. Mild concentric left ventricular hypertrophy. Left ventricular relaxation is impaired. The right ventricular size is mildly enlarged. Right ventricular systolic function is severely depressed. Unable to reliably quantitate pulmonary systolic pressure. ++++++++++++++++++++++++++++++++++++ FINDINGS: ++++++++++++++++++++++++++++++++++++ LV: The left ventricular size is mildly enlarged. The left ventricular systolic function is severely depressed. Estimated left ventricular ejection fraction is 20%. Mild concentric left ventricular hypertrophy. The septal E/e' is indeterminate at 8-15. The lateral E/e' is indeterminate at 9-11. The average E/e' is indeterminate at 9-12 and EF is > or equal to 50. Left ventricular relaxation is impaired. WM: Severe global hypokinesis is noted. RV: The right ventricular size is mildly enlarged. Right ventricular systolic function is severely depressed. A pacemaker wire is visualized in the right ventricle. TAPSE = 24mm (<16 mm indicates systolic RV dysfunction). IVS: Mild septal hypertrophy. LA: The left atrial volume is normal ( less than 34 ml/M2). RA: A pacemaker wire is visualized in the right atrium. RAFAT: No evidence of pericardial effusion. AO: The aortic root measures 2.9 cm. The proximal ascending aorta measures 2.8cm. PA: Unable to reliably quantitate pulmonary systolic pressure. PVn: Pulmonary vein velocity is consistent with normal left atrial pressures. SVn: Inferior vena cava is not assessable. AV: Structurally normal aortic valve. The aortic valve is trileaflet. No evidence of aortic valve stenosis. No evidence of aortic valve regurgitation. MV: No evidence of mitral regurgitation. No evidence of mitral stenosis. PV: Structurally normal pulmonic valve. TV: Structurally normal tricuspid valve. No evidence of tricuspid regurgitation. ++++++++++++++++++++++++++++++++++++ MEASUREMENTS: ++++++++++++++++++++++++++++++++++++ DOPPLER LVOT LVOTpkPG 5 mmHg LVOTmnPG 2 mmHg LVOTpkVel 112 cm/s (70-110)* LVOT SV 112 ml LVOT TVI 25.2 cm LVOT CO 91.7 ml/s AV Forward Flow AV TVI 30.2 cm AV pkPG 8 mmHg AV pkVel 137 cm/s (100-170) Area (TVI) 3.71 cm2 (3-5) AV mnVel 83.8 cm/s Area (Romulo) 3.64 cm2 (3-5) AV mnPG 4 mmHg MV Forward Flow MV DeTm 203 msec MV E/A 1 MV mnPG 1 mmHg MV pkE 79.3 cm/s (60-130) MV pkPG 3 mmHg MV pkA 81.4 cm/s PV Forward Flow PV TVI 28.2 cm PV mnVel 77.4 cm/s PV pkVel 117 cm/s (60-90)* PV mnPG 3 mmHg PV pkPG 5 mmHg TV Forward Flow TV E/A 1.7 TV pkA 39.8 cm/s TV pkE 68.6 cm/s Lat E' Lat e 8.49 cm/s Lat E/E' Lat E/e 9.3 Med E' Med e 6.53 cm/s Med E/E' Med E/e 12.1 Aortic Valve Aortic Valve Ar 1.69 Aortic Valve Ve 0.82 AV DI Value 0.8 FABIANA (VTI) Index Value 1.7 LV Mass 2D Value 306 g LV Mass [id number] Value 140 g/m2 Right Ventricle Right Ventricle 11.9 cm/s 2D Left Ventricle LVIDd 5.81 cm (3.6-5.2)* LV EF(Bi-Plane) 21.7 % (63-77)* LVIDs 4.73 cm (2.3-3.9)* LVPW LVPWd 1.25 cm Ventricular Septum IVSd 1.2 cm Aorta Ao Rtd 2.87 cm (zsc -0.4) Ao Asc 2.78 cm (zsc 0.5) LVOT LVOT 2.38 cm Ratios IVS LA Biplane LAVol I BP 31.4 ml/m2 Right Atrium Major Homer 4.75 cm Minor Homer 3.92 cm Right Ventricle Right Ventricle 3.8 cm Right Ventricle 2.74 cm Major Homer 8.63 cm MMODE Left Atrium LAID 3.9 cm (1.9-4) Ratios LA/Ao 1.15 (0.87-1.1)* Aorta Ao Rt 3.4 cm (2-3.7) TA Tricuspid Annul 2.44 cm <Electronic Signature> 02/06/2025 11:16 AM Jose Ramon Peters M.D. us Jose Galvan MD ECHO Final Result * PROTHROMBIN TIME, VENOUS (02/05/2025 5:59 AM CDT) PROTIME 10.9 9.4 - 12.5 SEC 02/05/2025 6:36 AM CDT [facility] INR 0.9 0.8 - 1.1 02/05/2025 6:36 AM CDT [facility] 02/05/2025 5:59 AM CDT us Jose Galvan MD LABORATORY Final Result [facility] [address] [place] [address], [place] [phone] [id number] * (ABNORMAL) COMPREHENSIVE METABOLIC PANEL (02/05/2025 5:59 AM CDT) Only the most recent of2 resultswithin the time period is included. SODIUM S/P/B 139 136 - 145 MMOL/L 02/05/2025 6:42 AM CDT [facility] POTASSIUM S/P/B 3.9 3.5 - 5.1 MMOL/L 02/05/2025 6:42 AM CDT [facility] CHLORIDE S/P/B 106 97 - 115 MMOL/L 02/05/2025 6:42 AM CDT [facility] CO2 28.7 21.0 - 32.0 MMOL/L 02/05/2025 6:42 AM CDT [facility] GLUCOSE 95 74 - 106 MG/DL 02/05/2025 6:42 AM CDT [facility] BUN 21(H) 7 - 18 MG/DL 02/05/2025 6:42 AM CDT [facility] CREATININE S/P/B 1.10 0.70 - 1.30 MG/DL 02/05/2025 6:42 AM CDT [facility] CALCIUM S/P/B 9.1 8.5 - 10.1 MG/DL 02/05/2025 6:42 AM CDT [facility] BILIRUBIN TOTAL S/P/B 0.7 0.2 - 1.0 MG/DL 02/05/2025 6:42 AM CDT [facility] ALKALINE PHOSPHATASE S/P/B 59 45 - 115 U/L 02/05/2025 6:42 AM CDT [facility] AST 17 15 - 37 U/L 02/05/2025 6:42 AM CDT [facility] ALT 45 16 - 61 U/L 02/05/2025 6:42 AM CDT [facility] TOTAL PROTEIN S/P/B 6.5 6.4 - 8.2 G/DL 02/05/2025 6:42 AM CDT [facility] ALBUMIN S/P/B 3.7 3.4 - 5.0 G/DL 02/05/2025 6:42 AM CDT [facility] ANION GAP 4.3 2.0 - 10.0 MMOL/L 02/05/2025 6:42 AM CDT [facility] OSMOLALITY (CALC) 291 MOSM/KG 025 6:42 AM T [facility] Comment:REFERENCE RANGE NOT ESTABLISHED GFR ESTIMATE 86(L) >90 ML/MIN/1. 73 M2 02/05/2025 6:42 AM CDT [facility] GFR NOTES GFR REFERENCE S: 02/05/2025 6:42 AM CDT [facility] Comment: THE ESTIMATED GFR IS CALCULATED USING THE 2020 CKD-EPI EQUATION. THE FOLLOWING CATEGORIES FOR GRADING RENAL FUNCTION ARE RECOMMENDED BY THE [employer] OF NEPHROLOG[employer] (KDIGO 2012 CLINICAL PRACTICE GUIDELINE). G1,NORMAL OR HIGH: >89 ml/min/1.73 m2 G2,MILDLY DECREASED: 60-89 ml/min/1.73 m2 G3A,MILDLY TO MODERATELY DECREASED: 45-59 ml/min/1.73 m2 G3B,MODERATELY TO SEVERELY DECREASED: 30-44 ml/min/1.73 m2 G4,SEVERELY DECREASED: 15-29 ml/min/1.73 m2 G5,KIDNEY FAILURE: <15 ml/min/1.73 m2 02/05/2025 5:59 AM CDT us Jose Galvan MD LABORATORY Final Result [facility] [address] [place] [address], [place] [phone] [id number] * ECG 12 lead (02/04/2025 9:59 PM CDT) 02/04/2025 9:59 PM CDT Narrative [facility] - 02/05/2025 12:54 PM CDT [place] [address] [place] [address] Test Date: 2025-02-04 Pat Name: MATT MANSFIELD Department: 1 Room: [facility] [facility] Gender: 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1985 Requested By: VICTORINO AGRAWAL Order Number: [id number] Reading MELISSA Cho Measurements Intervals Homer Rate: 63 P: 14 DE: 186 QRS: -39 QRSD: 182 T: 99 QT: 442 QTc: 453 Interpretive Statements SINUS RHYTHM LEFT AXIS DEVIATION [QRS AXIS < -30] LEFT BUNDLE BRANCH BLOCK [120+ ms QRS DURATION, 80+ ms Q/S IN V1/V2, 85+ ms R IN I/aVL/V5/V6] Procedure Note Derrek Cho MD - 02/05/[address] [address] Test Date: 2025-02-04 Pat Name: MATT MANSFIELD Department: 1 Room: [facility] Gender: 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1985 Requested By: VICTORINO AGRAWAL Order Number: [id number] Reading MELISSA Cho Measurements Intervals Homer Rate: 63 P: 14 DE: 186 QRS: -39 QRSD: 182 T: 99 QT: 442 QTc: 453 Interpretive Statements SINUS RHYTHM LEFT AXIS DEVIATION [QRS AXIS < -30] LEFT BUNDLE BRANCH BLOCK [120+ ms QRS DURATION, 80+ ms Q/S IN V1/V2, 85+ms R IN I/aVL/V5/V6] us Victorino Agrawal MD ECG ORDERABLES Final Resul t [facility] * URINE DRUG SCREEN (TOXICOLOGY) (02/04/2025 9:00 PM CDT) PHENCYCLIDINE PCP (U) NEGATIVE NEGATIVE 02/04/2025 9:44 PM CDT [facility] BENZODIAZEPINES SCREEN (U) NEGATIVE NEGATIVE 02/04/2025 9:44 PM CDT [facility] COCAINE METABOLITES (U) NEGATIVE NEGATIVE 02/04/2025 9:44 PM CDT [facility] AMPHETAMINE (U) NEGATIVE NEGATIVE 9:44 PM CDT [facility] CANNABINOIDS SCREEN (U) NEGATIVE NEGATIVE 02/04/2025 9:44 PM CDT [facility] OPIATE SCREEN (U) NEGATIVE NEGATIVE 025 9:44 PM CDT [facility] BARBITURATES SCREEN (U) NEGATIVE NEGATIVE 02/04/2025 9:44 PM CDT [facility] URINE TOX COMMENT Unconfirmed screening results are to be used only for medical purposes. 02/04/2025 9:05 PM CDT [facility] CUTOFF CONCENTRATION (U) Cut-off Concentration for a positive result 02/04/2025 9:05 PM CDT [facility] Comment: Phencyclidine 25 ng/mL Benzodiazepines 200 ng/mL Cocaine 300 ng/mL Amphetamine 1000 ng/mL Cannabinoids 50 ng/mL Opiates 300 ng/mL Barbiturates 200 ng/mL URINE SPECIMEN / Unknown 02/04/2025 9:00 PM CDT us Jose Galvan MD URINE ORDERABLES Final Result [facility] [address] [place] [address], [id number] * TSH W/REFLEX (02/04/2025 6:53 PM CDT) TSH 1.040 0.358 - 3.740 uIU/ML 02/04/2025 7:36 PM CDT [facility] Comment: ASSAY PERFORMED BY CHEMILUMINESCENCE METHODOLOGY USING [employer] [facility]. PATIENT RESULTS DETERMINED BY ASSAYS USING DIFFERENT MANUFACTURERS FOR METHODS MAY NOT BE COMPARABLE. 02/04/2025 6:53 PM CDT Jose Galvan MD LABORATORY Final Result Performing Organization Address City/[facility]/ZIP Co de Phone Number [facility] [address] [place] [address], [id number] * THYROXINE, FREE (FT4) (02/04/2025 6:53 PM CDT) FREE T4 1.14 0.76 - 1.46 NG/DL 02/04/2025 7:36 PM CDT [facility] 02/04/2025 6:53 PM CDT Jose Galvan MD LABORATORY Final Result Performing Organization Address [facility] Co de Phone Number [facility] [address] [place] [address], [place] [phone] [id number] * PHOSPHORUS, INORGANIC PHOSPHATE (02/04/2025 6:53 PM CDT) PHOSPHORUS 3.3 2.5 - 4.9 MG/DL 02/04/2025 7:36 PM CDT [facility] 02/04/2025 6:53 PM CDT Jose Galvan MD LABORATORY Final Result Performing Organization Address City/[facility] Co de Phone Number [facility] [address] [place] [address], [id number] from Last 3 Months [facility] * Full Code (Latest Code Status on File) Date Activated Date Inactivated Comments 02/04/2025 6:19 PM 02/07/2025 3:37 PM Care Teams Video Specialist Relationship Specialty Start Date End Date None, Provider, MD PCP - General UNKNOWN PHYSICIAN SPECIALTY 02/04/25
--- OUTSIDE RECORDS SUMMARY | 2025-04-30 07:46 | XMS_ITS | Data Portability ---
Author Organization [facility] OFFICE Address [address] [place] [address] Care Team Providers Care Abstract Checker Name Role Phone LITTLE TY Primary Care [...] in 0.4 mg sublingual tablet 2022 023 [facility] [address] [place], [address], 3 12:21:51 Coreg 12.5 mg tablet 2022 023 [facility] [address] [place], [address], 3 12:21:50 fenofibrate 160 mg tablet 2022 023 [facility] [address] [place], [address], 3 12:21:55 lisinopril 10 mg tablet 2022 023 [facility] [address] [place], [address], 3 12:21:52 aspirin 325 mg tablet 2022 023 [facility] [address] [place], [address], 3 12:40:18 Coreg 12.5 mg tablet 2021 022 [facility] [address] [place], [address], 12:52:00 lisinopril 10 mg tablet 2021 [facility] [address] [facility] [place], [address], 12:52:02 Coreg 12.5 mg tablet 2021 [facility] [address] [facility] [place], [address], 22:53:02 Coreg 12.5 mg tablet 2021 [facility] [address] [facility] [place], [address], 22:53:08 Nitrostat 0.4 mg sublingual tablet 2021 [facility] [address] [facility] [place], [address], 22:52:58 fenofibrate 160 mg tablet 2021 [facility] [address] [facility] [place], [address], 22:53:12 lisinopril 10 mg tablet 2021 [facility] [address] [facility], [address], 22:53:04 Coreg 12.5 mg tablet 2021 [facility] [address] [facility], [address], 10:30:52 Coreg 12.5 mg tablet 2021 [facility] [address] [facility], [address], 10:30:48 Nitrostat 0.4 mg sublingual tablet 2021 [facility] [address] [place], [address], 10:30:44 fenofibrate 160 mg tablet 2021 [facility] [address] [place], [address], 10:30:46 lisinopril 10 mg tablet 2021 [facility] [address] [place], [address], 10:30:45 Patient TargetsNo targets recorded. Patient Instructions Encounter Date Encounter Id Patient Instructions Last Modified By Organization Details Last Modified Time 09/10/2021 [id number] Advised against smoking Exercise advised Low cholesterol diet advised Low sodium diet advised. [email or web address] Not available 09/10/2021 10:29:54 06/10/2022 [id number] Weight loss, 20 pounds Advised against smoking Exercise advised Low cholesterol diet advised Low sodium diet advised. marlenai Not available 06/10/2022 12:51:36 04/01/2023 [id number] Low cholesterol diet advised Low sodium diet [...] ation record ed. Kiran Strickland MD [address], [place], [address], 09/17/2021 11:23:50 09/11/19 22 09/10/2021 elect rocar [...] ation record ed. Kiran Strickland MD [address], [place], [address], 12/11/2021 13:42:09 12/25/19 22 12/10/2021 pacem alyssa [...] Address Organization Details Recorded Time Uday fox [id number] Completed 201509/09/2017 [place]a mtz [place] [facility] 8 15:16:25 Congestiv e heart failure 79473352 Active 2015 Fernie mtz [place] [facility] 6 13:58:12 Left bundle branch block 78606060 Active 2015 Fernie Cuello [facility] 6 13:59:41 Gastroeso phageal reflux disease 696306433 Active 2015 Fernie Cuello [facility] 6 14:03:15 Bronchiti s 25590688 Active 2016 Jovany Sibley [facility] 7 14:25:08 Atypical chest pain 298346252 Active 2017 Anuja Crockettkatya [facility] 8 17:34:45 Dyslipide twyla 899229630 Active 2017: LDL 89 Ekta Lópezer [facility] 8 10:05:24 Nicotine dependenc e 46906334 Active 2017 Kiran Hanson i, MD [address] [place], [address] [place] [address] [facility] 8 15:43:27 Nonischem ic congestiv e cardiomyo jovany 597152826194 Active 2017 Ekta Carsonugher [facility] 8 14:52:52 Essential hypertens ion 16169212 Active 2018 Anuja Crockettkatya [facility] 9 08:23:34 Automatic implantab le cardiac defibrill ator in situ 736215520 Active 2019 Licea Bonkatya [facility] 0 13:08:35 Hyperchol esterolem ia 05876573 Active 2019 Licea [facility] 0 13:41:23 Problem Notes None recorded. Procedures Surgical History Date Name Laterality Status Provider Name and Address Organization Details Recorded Time Back Surgery completed Licea Meskatya [facility] 03/07/2016 [...] e 50 mcg/actua tion nasal spray,[facility] [place] 2 sprays as needed by nasal route. [...] Updated DateTime 2 177.8 cm 31 kg/m2 55398.9 5 g 72 /min 97 % 97 % 120/90 mm[Hg] Nagi Mendes [facility] 2 10:02:20 Date Recorded Body height Body mass index (BMI) Body weight Heart rate Oxygen saturation Oxygen saturation in Arterial blood by Pulse oximetry Systolic And Diastolic Provider Name and Address Organization Details Last Updated DateTime 2 177.8 cm 30.4 kg/m2 08012.5 8 g 68 /min 98 % 98 % 120/68 mm[Hg] Kiran Hanson i, MD [address] [place], [address], [facility] 2 12:30:01 Date Recorded Body height Body mass index (BMI) Body weight Heart rate Respiratory rate Oxygen saturation Oxygen saturation in Arterial blood by Pulse oximetry Systolic And Diastolic Provider Name and Address Organization Details Last Updated DateTime 3 177.8 cm 32.9 kg/m2 281997. 65 g 72 /min 16 /min 98 % 98 % 116/82 mm[Hg] Kel Mejia [facility] 3 10:46:55 Date Recorded Body height Body mass index (BMI) Body weight Heart rate Oxygen saturation Oxygen saturation in Arterial blood by Pulse oximetry Systolic And Diastolic Provider Name and Address Organization Details Last Updated DateTime 3 177.8 cm 31.9 kg/m2 256946. 51 g 97 /min 99 % 99 % 132/97 mm[Hg] Leonela Ricky [facility] 3 11:50:59 Date Recorded Body height Body mass index (BMI) Body weight Heart rate Respiratory rate Oxygen saturation Oxygen saturation in Arterial blood by Pulse oximetry Systolic And Diastolic Provider Name and Address Organization Details Last Updated DateTime 2 177.8 cm 31.9 kg/m2 431284. 51 g 88 /min 16 /min 98 % 98 % 118/76 mm[Hg] Kel Mejia [facility] 2 12:24:34 Social History Question Answer Notes LastModified by Sift Details LastModified Time Tobacco Smoking Status Current [facility] 05:02:52 What Was The Date [...] onary artery disease. Medical History Condition Response Arrhythmia Y GERD/Reflux Y Congestive Heart Failure (CHF) Y Hyperlipidemia Y Hypertension Y Past Encounters Encounter ID Performer Location Encounter Start Date Encounter Closed Date Diagnosis/Indication Diagnosis SNOMED-CT Code Diagnosis ICD10 Code Diagnosis IMO Codes Diagnosis Note [id number] MD Neftaly Guillaume Office [address] [place] [address] 03/10/2016 12:48:39 03/12/2016 11:15:15 Electrocardiogram abnormal 165557659 R94.31 Congestive heart failure 65553888 I50.9 LVEF increased to 30-35% on recent echo. Sx's stable. S/p ICD. Increase Coreg to 12.5 mg bid. Continue Lisinopril . 2gm Na/d diet and weight loss 20 lbs. Hyperlipidemia 77572793 E78.5 Obtain FLP. Continue fenofibrat e. [id number] MD Neftaly Guillaume Office [address] [place] [address] 09/17/2016 14:02:55 09/22/2016 11:30:15 Congestive heart failure 23977151 I50.9 Discussed patient s diagnosis of heart [...] for primary prevention of sudden cardiac . [id number] MD Neftaly Ramirez Office [address] [place] [address] 03/11/2017 14:11:32 03/12/2017 12:27:51 Congestive heart failure 78428090 I50.9 Discussed patient s diagnosis of heart [...] primary prevention of sudden cardiac . Hyperlipidemia 69894804 E78.5 Obtain FLP. Continue fenofibrat e. Atypical chest pain 1025 65672 R07.89 [id number] MD Neftaly Ramirez Office [address] [place] [address] 09/09/2017 14:43:37 09/09/2017 16:49:02 Congestive heart failure 62204801 I50.9 Discussed patient s diagnosis of heart [...] sudden cardiac . Atypical chest pain 1025 50196 R07.89 REsolved Dyslipidemia 193587296 E 78.5 Continue fenofibrat e.08/31/17 : LDL 89 Essential hypertension 36539691 I10 Nicotine dependence 5629 4008 F17.200 cessation recommende dPt smokes 1/2 PPD [id number] Kiran Strickland MD [facility] Office [address] [place] [address] 03/10/2018 13:50:38 03/10/2018 14:26:53 Congestive heart failure 74851253 I50.9 With known nonischemi c cardiomyop athy s/p ICD.Appear s euvolemic. Continue Coreg and lisinopril . Atypical chest pain 1025 07442 R07.89 Resolved. Would like to have SL nitro on hand. Dyslipidemia 639376138 E 78.5 Needs to keep LDL less than 70, and HDL more than 40 08/31/17: LDL 89Continue fenofibrat e. Essential hypertension 69338135 I10 Well controlled on current regimen. Continue. Nicotine dependence 5629 4008 F17.200 Cessation recommende dPt smokes less than 1/2 PPD QD Nonischemi c congestive cardiomyopathy 3852877138 04 I42.0 s/p ICD.Needs compliance with home monitoring . [id number] Kiran Strickland MD [place] OFFICE [address] [place] [address] 09/14/2018 17:28:32 09/14/2018 22:44:15 Congestive heart failure 04871868 I50.9 With known nonischemi c cardiomyop athy s/p ICD.Contin ue Coreg and lisinopril . Nonischemi c congestive cardiomyopathy 8839823617 04 I42.0 s/p ICD.Needs compliance with home monitoring . Atypical chest pain 1025 33067 R07.89 Had episode last week after using nasal spray. Dyslipidemia 792693709 E 78.5 Needs to keep LDL less than 70, and HDL more than 40 08/31/17: LDL 89Continue fenofibrat e. Essential hypertension 27431110 I10 Well controlled on current regimen. Nicotine dependence 5629 4008 F17.200 Cessation recommende dPt smokes less than 1/2 PPD QD [id number] Kiran Strickland MD [place] OFFICE [address] [place] [address] 03/15/2019 10:40:33 03/16/2019 11:20:39 Congestive heart failure 22800006 I50.9 With known nonischemi c cardiomyop athy s/p ICD.Contin ue Coreg and lisinopril . Nonischemi c congestive cardiomyopathy 8273643378 04 I42.0 s/p ICD.encour aged compliance with home monitoring . Atypical chest pain 1025 54358 R07.89 Had episode last week after using nasal spray. Dyslipidemia 436858446 E 78.5 Needs to keep LDL less than 70, and HDL more than 40 08/31/17: LDL 89Continue fenofibrat e. Essential hypertension 32702806 I10 Well controlled on current regimen. Nicotine dependence 5629 4008 F17.200 Continue to encourage cessationP t smokes less than 1/2 PPD QD Automatic implantable cardiac defibrillator in situ 216127815 Z95.810 follow up was done today, it seems to be functionin g well, no new events.[employer]tran [place] getting close to end of life will continue to monitor [id number] Kiran Strickland MD [place] OFFICE [address] [place] [address] 06/14/2019 12:30:30 06/19/2019 22:02:25 Congestive heart failure 35750069 I50.9 With known nonischemi c cardiomyop athy [...] Pacemaker -unknown pace Nonischemi c congestive cardiomyopathy 2594762550 04 I42.0 s/p ICD. Checked today. 8 episodes of NSVT, most recent on 06/12/2019 , 6 beats @ 207 bpm, lasting 1 second. Otherwise seems to be functionin g well. Dyslipidemia 121814837 E 78.5 Needs to keep LDL less than 70, and HDL more than 40 08/31/17: LDL 89Continue fenofibrat e. Essential hypertension 27455055 I10 Well controlled on current regimen. Nicotine dependence 5629 4008 F17.200 Trying to quit now, using nicorette gum. Automatic implantable cardiac defibrillator in situ 951269855 Z95.810 follow up was done today, it seems to be functionin g well, no new events.Beltran [place] getting close to end of life will continue to monitor [id number] Kiran Strickland MD [place] OFFICE [address] [place] [address] 09/13/2019 13:01:47 09/14/2019 12:29:56 Nonischemic congestive cardiomyopathy 1225719953 04 I42.0 s/p ICD. Euvolemic, asymptomat ic. [...] Normal sinus Rhythm Pacemaker -unknown pace Dyslipidemia 480768271 E 78.5 Needs to keep LDL less than 70, and HDL more than 40 08/31/17: LDL 89Continue fenofibrat e. Essential hypertension 80278862 I10 Blood pressure is elevated today, but this is only one reading, will keep close follow up, and consider medication change if blood pressure is still elevated next visit. Nicotine dependence 5629 4008 F17.200 Trying to quit now, using nicorette lozenges. Automatic implantable cardiac defibrillator in situ 112846866 Z95.810 s/p ICD. Device check today. Had 8 episodes of NSVT over past 2 months. [employer] 07/01/2019 . Will set up to replace device. Atypical chest pain 1025 10655 R07.89 Occasional . Needs Rx renewal for SL NTG. [id number] Kiran Strickland MD [place] OFFICE [address] [place] [address] 10/21/2019 11:30:28 10/21/2019 11:56:01 Nonischemic congestive cardiomyopathy 0882845560 04 I42.0 s/p ICD. Euvolemic, asymptomat ic. [...] Normal sinus Rhythm Pacemaker -unknown pace Dyslipidemia 457972688 E 78.5 Needs to keep LDL less than 70, and HDL more than 40 08/31/17: LDL 89Continue fenofibrat e. Essential hypertension 03300835 I10 Blood pressure is elevated today, but this is only one reading, will keep close follow up, and consider medication change if blood pressure is still elevated next visit. Nicotine dependence 5629 4008 F17.200 Trying to quit now, using nicorette lozenges. Automatic implantable cardiac defibrillator in situ 585127957 Z95.810 s/p ICD, now device is OK Atypical chest pain 1025 44244 R07.89 Occasional . Needs Rx renewal for SL NTG. [id number] Kiran Strickland MD [place] OFFICE [address] [place] [address] 11/18/2019 13:22:18 11/18/2019 13:44:16 Nonischemic congestive cardiomyopathy 2482067023 04 I42.0 s/p ICD. Euvolemic, asymptomat ic. [...] Normal sinus Rhythm Pacemaker -unknown pace Dyslipidemia 962158816 E 78.5 Needs to keep LDL less than 70, and HDL more than 40 08/31/17: LDL 89Continue fenofibrat e. Essential hypertension 31791091 I10 Blood pressure is elevated today, but this is only one reading, will keep close follow up, and consider medication change if blood pressure is still elevated next visit. Automatic implantable cardiac defibrillator in situ 256619635 Z95.810 s/p ICD, with recent generator change. Now with pain but no erythema or discharge and wound intact per pt (phone visit). Pt to follow up with Dr Berman office. Nicotine dependence 5629 4008 F17.200 Trying to quit now, using nicorette lozenges. Atypical chest pain 1025 89329 R07.89 Occasional . Needs Rx renewal for SL NTG. [id number] Kiran Strickland MD [place] OFF[facility] [place] [address] 12/13/2019 11:39:32 12/13/2019 13:17:04 Automatic implantable cardiac defibrillator in situ 545759223 Z95.810 s/p ICD, with recent generator change. Now with pain but no erythema or discharge and wound intact, pain control and FU Nonischemi c congestive cardiomyopathy 1773268972 04 I42.0 s/p ICD. Euvolemic, asymptomat ic. [...] Normal sinus Rhythm Pacemaker -unknown pace Dyslipidemia 164067726 E 78.5 Needs to keep LDL less than 70, and HDL more than 40 08/31/17: LDL 89Continue fenofibrat e. Essential hypertension 64074502 I10 Blood pressure is elevated today, but this is only one reading, will keep close follow up, and consider medication change if blood pressure is still elevated next visit. Nicotine dependence 5629 4008 F17.200 Trying to quit now, using nicorette lozenges. Atypical chest pain 1025 44560 R07.89 Occasional . Needs Rx renewal for SL NTG. [id number] Kiran Strickland MD [place] OFFICE [address] [place] [address] 03/06/2020 11:58:06 03/06/2020 12:42:07 Automatic implantable cardiac defibrillator in situ 556310800 Z95.810 03/06/2020No shocks. s/p ICD, with recent generator change. Now with pain but no erythema or discharge and wound intact, pain control and FU Nonischemi c congestive cardiomyopathy 3932446591 04 I42.0 03/06/2020 s/p ICD. Euvolemic, asymptomat [...] Normal sinus Rhythm Pacemaker -unknown pace Dyslipidemia 516030990 E 78.5 03/06/2020 Will get fasting lipids for F/u Needs to keep LDL less than 70, and HDL more than 40 08/31/17: LDL 89Continue fenofibrat e. Essential hypertension 14192918 I10 03/06/2020BP high today. Second high BP in a row. Lifestyle changes encouraged . Blood pressure is elevated today, but this is only one reading, will keep close follow up, and consider medication change if blood pressure is still elevated next visit. Nicotine dependence 5629 4008 F17.200 Trying to quit now, using nicorette lozenges. Atypical chest pain 1025 49143 R07.89 03/06/2020Oc casional. Stable [id number] Kiran Strickland MD [place] [facility] [address] [place] [address] 09/04/2020 11:46:03 02/05/2021 12:07:35 Automatic implantable cardiac defibrillator in situ 953985334 Z95.810 Last check 06/12/2020 with no new events Nonischemi c congestive cardiomyopathy 4807836226 04 I42.0 s/p ICD ( 0) Seems [...] estimated RV systolic pressure is normal. Dyslipidemia 303398681 E 78.5 Needs to keep LDL less than 70, and HDL more than 40. 08/31/2017 LDL 89Continue fenofibrat e, not on statin therapy.Wi ll get fasting lipids for follow-up Essential hypertension 97691876 I10 well controlled on current regimen Nicotine dependence 5629 4008 F17.200 Cessation highly advised Atypical chest pain 1025 41452 R07.89 Resolved [id number] Justino Dunlap MD [place] OFF[facility] [address] [place] [address] 03/05/2021 09:47:53 03/05/2021 13:16:22 Congestive heart failure 54735385 I50.9 With known nonischemi c cardiomyop athy [...] ICD Treadmill Myoview Stress test, has high Labelle Risk score. Has Known CAD, or CAD [...] Normal sinus Rhythm Pacemaker -unknown pace Dyslipidemia 440537191 E 78.5 Needs to keep LDL less than 70, and HDL more than 40. 08/31/2017 LDL 89Continue fenofibrat e, not on statin therapy.Wi ll get fasting lipids for follow-up has not gotten labs yet. Essential hypertension 11725297 I10 well controlled on current regimen no new changes Left bundl e branch block 17114924 I44.7 Nonischemi c congestive cardiomyopathy 7611662969 04 I42.0 s/p ICD ( 0) Seems to be well compensate d, appears euvolemic. Continue Coreg and lisinopril Yes winded XIONG, Pacer showed ectopy, Consider 3rd lead BI Ventricula r pacing. Treadmill Myoview Stress test, has high Labelle Risk score. Has Known CAD, or CAD [...] normal. 35-40% EKG: left bundle branch block 353281120 I44.7 Consider biventricu lar pacing will perfom stress test see cardiomyop athy Treadmill Myoview Stress test, has high Labelle Risk score. Has Known CAD, or CAD risk equivalent . To look for any ischemia. [id number] Kiran Strickland MD [place] [facility] [address] [place] [address] 09/10/2021 09:42:58 09/10/2021 10:42:34 Congestive heart failure 65542438 I50.9 We will do stress ECho With [...] ICD Treadmill Myoview Stress test, has high Labelle Risk score. Has Known CAD, or CAD [...] Normal sinus Rhythm Pacemaker -unknown pace Dyslipidemia 227589932 E 78.5 Needs to keep LDL less than 70, and HDL more than 40. 08/31/2017 LDL 89Continue fenofibrat e, not on statin therapy.Wi ll get fasting lipids for follow-up has not gotten labs yet. Essential hypertension 85991474 I10 well controlled on current regimen no new changes Left bundl e branch block 97968569 I44.7 Nonischemi c congestive cardiomyopathy 8346366003 04 I42.0 s/p ICD ( 0) Seems to be well compensate d, appears euvolemic. Continue Coreg and lisinopril Yes winded XIONG, Pacer showed ectopy, Consider 3rd lead BI Ventricula r pacing. Treadmill Myoview Stress test, has high Labelle Risk score. Has Known CAD, or CAD [...] normal. 35-40% EKG: left bundle branch block 250481949 I44.7 Consider biventricu lar pacing will perfom stress test see cardiomyop athy Treadmill Myoview Stress test, has high Labelle Risk score. Has Known CAD, or CAD risk equivalent . To look for any ischemia. Atypical chest pain 1025 27041 R07.89 Resolved [id number] Kiran Strickland MD [place] OFF[facility] [place] [address] 12/10/2021 11:42:16 12/10/2021 12:58:35 Congestive heart failure 64141735 I50.9 We will do stress ECho With [...] ICD Treadmill Myoview Stress test, has high Labelle Risk score. Has Known CAD, or CAD [...] Normal sinus Rhythm Pacemaker -unknown pace Dyslipidemia 519281971 E 78.5 Needs to keep LDL less than 70, and HDL more than 40. 08/31/2017 LDL 89Continue fenofibrat e, not on statin therapy.Wi ll get fasting lipids for follow-up has not gotten labs yet. Essential hypertension 13044643 I10 well controlled on current regimen no new changes Left bundl e branch block 45849706 I44.7 Nonischemi c congestive cardiomyopathy 4778676165 04 I42.0 s/p ICD ( 0) Seems to be well compensate d, appears euvolemic. Continue Coreg and lisinopril Yes winded XIONG, Pacer showed ectopy, Consider 3rd lead BI Ventricula r pacing. Treadmill Myoview Stress test, has high Labelle Risk score. Has Known CAD, or CAD [...] normal. 35-40% EKG: left bundle branch block 263156956 I44.7 Consider biventricu lar pacing will perfom stress test see cardiomyop athy Treadmill Myoview Stress test, has high Labelle Risk score. Has Known CAD, or CAD risk equivalent . To look for any ischemia. Atypical chest pain 1025 28178 R07.89 Resolved [id number] Kiran Strickland MD [place] [facility] [address] [place] [address] 06/10/2022 10:44:30 06/10/2022 12:58:16 Congestive heart failure 49011104 I50.9 ( 2) Exercise Stress Echo.Negat ok [...] ICD Treadmill Myoview Stress test, has high Labelle Risk score. Has Known CAD, or CAD [...] Normal sinus Rhythm Pacemaker -unknown pace Dyslipidemia 583238465 E 78.5 Needs to keep LDL less than 70, and HDL more than 40. 09/2021 LDL 116Continu e fenofibrat e, not on statin therapy.Wi ll get fasting lipids for follow-up has not gotten labs yet. Essential hypertension 46202080 I10 well controlled on current regimen no new changes Left bundl e branch block 79641352 I44.7 Nonischemi c congestive cardiomyopathy 0475051631 04 I42.0 s/p ICD ( 0)devise interrogat ed today no change ( he has one episode of NSVT last lasted for 1 sec) Seems to be well compensate d, appears euvolemic. Continue Coreg and lisinopril Yes winded XIONG, Pacer showed ectopy, Consider 3rd lead BI Ventricula r pacing. Treadmill Myoview Stress test, has high Labelle Risk score. Has Known CAD, or CAD [...] normal. 35-40% EKG: left bundle branch block 628067854 I44.7 Consider biventricu lar pacing will perfom stress test see cardiomyop athy Treadmill Myoview Stress test, has high Labelle Risk score. Has Known CAD, or CAD risk equivalent . To look for any ischemia. Atypical chest pain 1025 86841 R07.89 Resolved [id number] Kiran Strickland MD [place] OFF[facility] [place] [address] 12/16/2022 10:35:39 12/16/2022 11:29:29 Congestive heart failure 33185495 I50.9 ( 2) Exercise Stress Echo.Negat ok [...] ICD Treadmill Myoview Stress test, has high Labelle Risk score. Has Known CAD, or CAD [...] Normal sinus Rhythm Pacemaker -unknown pace Dyslipidemia 504077660 E 78.5 Needs to keep LDL less than 70, and HDL more than 40. 09/2021 LDL 116Continu e fenofibrat e, not on statin therapy.Wi ll get fasting lipids for follow-up has not gotten labs yet. Essential hypertension 10665696 I10 well controlled on current regimen no new changes Left bundl e branch block 49954194 I44.7 Nonischemi c congestive cardiomyopathy 3003890228 04 I42.0 s/p ICD ( 0)devise interrogat ed today no change ( he has few episode of NSVT) Seems to be well compensate d, appears euvolemic. Continue Coreg and lisinopril Yes winded XIONG, Pacer showed ectopy, Consider 3rd lead BI Ventricula r pacing. Treadmill Myoview Stress test, has high Labelle Risk score. Has Known CAD, or CAD [...] normal. 35-40% EKG: left bundle branch block [id number] I44.7 Consider biventricu lar pacing will perfom stress test see cardiomyop athy Treadmill Myoview Stress test, has high Labelle Risk score. Has Known CAD, or CAD risk equivalent . To look for any ischemia. Atypical chest pain 1025 16396 R07.89 Resolved Paroxysmal atrial fibrillation [id number] I48.0 few events of a fibhe is on full aspirincon tinue with coreg and consider changing to toprol Obstructiv e sleep apnea syndrome [id number] G47.33 he need sleep study [id number] Kiran Strickland MD [place] [facility] [address] [place] [address] 04/01/2023 11:38:31 04/01/2023 12:23:50 Congestive heart failure [id number] I50.9 ( 2) Exercise Stress Echo.Negat ok [...] ICD Treadmill Myoview Stress test, has high Labelle Risk score. Has Known CAD, or CAD [...] Normal sinus Rhythm Pacemaker -unknown pace Dyslipidemia [id number] E 78.5 Needs to keep LDL less than 70, and HDL more than 40. 09/2021 LDL 116Continu e fenofibrat e, not on statin therapy.Wi ll get fasting lipids for follow-up has not gotten labs yet. Essential hypertension 50915173 I10 well controlled on current regimen no new changes Left bundl e branch block [id number] I44.7 Nonischemi c congestive cardiomyopathy [id number] 04 I42.0 s/p ICD ( 0)devise interrogat ed today no change ( he has few episode of NSVT) Seems to be well compensate d, appears euvolemic. Continue Coreg and lisinopril Yes winded XIONG, Pacer showed ectopy, Consider 3rd lead BI Ventricula r pacing. Treadmill Myoview Stress test, has high Labelle Risk score. Has Known CAD, or CAD [...] normal. 35-40% EKG: left bundle branch block [id number] I44.7 On ICD Atypical chest pain 1025 49348 R07.89 Resolved Paroxysmal atrial fibrillation 830665776 I48.0 few events of a fibhe is on full aspirincon tinue with coreg Obstructiv e sleep apnea syndrome 31833488 G47.33 he need sleep study Chest pain 21030356 R07. 9 Health Concerns Section Related Observation LastModified by Organization Detai ls LastModified Time None Recorded Concern Status LastModified by Organization Details LastModified Time None Recorded Advance Directives Directive None Recorded Payers Insurance Date Sequence Insurance Name Policy Number Policy Ray Covered Member ID Ray Member ID Guarantor Name 02/16/2024 1 [facility] - DOS ON OR AFTER 21 (MEDICAID REPLACEMENT - HMO) Daniel Prince [id number] Daniel Prince 04/06/2021 1 [facility] - DOS PRIOR TO 2021 (MEDICAID REPLACEMENT - HMO) Daniel Prince [id number] Daniel Prince Notes Date Note Type Note Provider Name and Address Organization Details Recorded Time 09/10/2021 text/html 09/10/21CC : Cardiac follow up dyspnoea on exertion and [id number]-yhiol-b ld white man with a past medical [...] 9lbs. He continues to [facility] generator battery [...] TR 386, LDL 88, AST 21, ALT 6230-30-2678 SOD 140, K 4.4, CL 102, CO2 [...] > 440 msEK09/09/17 Abnormality of unclear origin. LBBBEK/15/17 Sinus rhythm, LBBB. horizontal axis for age. [...] Septal motion is consistent with conduction abnormality. Edith mtz [place] - [facility] 03/26/2022 17:52:22 12/10/2021 text/html 12/10/21CC : Cardiac follow ve19-fwpgq-eyj white man with a past medical history [...] 9lbs. He continues to smokeHe [facility] AICD generator battery [...] TR 386, LDL 88, AST 21, ALT 7543-46-9828 SOD 140, K 4.4, CL 102, CO2 [...] conduction abnormality. Kiran Strickland MD [address] [place], [address], [facility] - [facility] 04/24/2022 22:52:51 06/10/2022 text/html 06/10/22CC : Cardiac follow up chest pain and dyspnea on pitdjybi94-ipvbz-edm white man with a past medical history [...] 9lbs. He continues to smokeHe [facility] AICD generator battery [...] TR 386, LDL 88, AST 21, ALT 6537-56-3079 SOD 140, K 4.4, CL 102, CO2 [...] consistent with conduction abnormality. Kiran Strickland MD [address] [place], [address], [facility] - [facility] 06/10/2022 12:51:50 12/16/2022 text/html 12/16/22CC : Cardiac follow up dyspnea on -dmwuo-lcr white man with a past medical history [...] 9lbs. He continues to smokeHe [facility] AICD generator battery [...] TR 386, LDL 88, AST 21, ALT 0406-93-6542 SOD 140, K 4.4, CL 102, CO2 [...] conduction abnormality. Kiran Strickland MD [address] [place], [address], [facility] - [facility] 12/16/2022 11:25:25 04/01/2023 text/html 04/01/23CC : Cardiac follow up dyspnea on xfdlofxv43-xzrly-kuo white man with a past medical history [...] 9lbs. He continues to smokeHe [facility] AICD generator battery [...] TR 386, LDL 88, AST 21, ALT 2941-15-5599 SOD 140, K 4.4, CL 102, CO2 [...] motion is consistent with conduction abnormality. JOSEY mtz [place] - [facility] 04/01/2023 12:21:47
--- OUTSIDE RECORDS SUMMARY | 2025-04-30 07:46 | XMS_ITS | Patient Health Record ---
Author Organization [facility] Address [address] [place] [address] Support Name Relationship Address Phone MATT MANSFIELD Guarantor Unknown Allergies No Known Allergies Reason For Referral [...] Question Answer Notes Tobacco use: current smoker Plan Of Treatment No Information Insurance Providers Payer Name Payer Address Payer Phone Subscriber Number Group Number Insured Name Patient Relationship to Insured Coverage Start Date Coverage End Date [facility] [address] [place] [address] [id number] MATT SPENCE Self - patient is the insured Medical (General) History Medical History History ICD Code cardiomyopathy plantar fasciitis heart disease
--- NOTE | 2025-04-30 08:00 | ECG_ITS ---
Test Date: 2025-04-30 07:45:17 Measurements Intervals [place] Rate: 67 P: -1 MS: 149 QRS: -30 QRSD: 192 T: 91 QT: 463 QTc: 490 Interpretive Statements SINUS RHYTHM BORDERLINE LEFT AXIS DEVIATION [QRS AXIS < -20] INTRAVENTRICULAR CONDUCTION DELAY [130+ ms QRS DURATION] Electronically Signed On 04-30-2025 10:19:07 CDT by Don Armenta M.D.
--- NOTE | 2025-04-30 08:10 | PM.CNCAR ---
Assessment and Plan Assessment and plan (1) Chest pain: Qualifiers: Chest pain type: unspecified Qualified Code(s): R07.9 - Chest pain, unspecified Code(s): R07.9 - Chest pain, unspecified Status: Inactive Assessment and Plan: He has been r/o for [place] by serial troponin. Discuss risks/benefits/alternative to LHC and he is agreeable to it. Consult HCG for it. (2) Idiopathic cardiomyopathy: Code(s): I42.8 - Other cardiomyopathies Status: Acute Assessment and Plan: Euvolemic. Last Echo in [place], [place] EF 20% per patient. Obtain echo. (3) Presence of combination internal cardiac defibrillator (ICD) and pacemaker: Code(s): Z95.810 - Presence of automatic (implantable) cardiac defibrillator Status: Acute Assessment and Plan: With LBBB and low EF he is a candidate for upgrade of ICD to BiV-ICD. (4) Tobacco abuse: Code(s): Z72.0 - Tobacco use Status: Acute Assessment and Plan: Counseled regarding smoking cessation. (5) Dyslipidemia: Code(s): E78.5 - Hyperlipidemia, unspecified Status: Acute Assessment and Plan: On Fenofibrate. (6) PVT (paroxysmal ventricular tachycardia): Code(s): I47.20 - Ventricular tachycardia, unspecified Status: Acute Assessment and Plan: Not seen on our telemetry or on ICD interrogation today. Will hold off on Amiodarone unless he is having them here. History of Present Illness History of Present Illness Consult date/time: 04/30/25 08:10 Reason For Visit: Non sustain VT Narrative: 39 yr old man who is my regular cardiology patient and a patient of Dr. Billingsley presents to [facility] for chest pain. He has a history of [employer] ICD for NICM, hypertension, dyslipidemia, smoking, ADHD, covid infection on 09/18/23. Reports he had chest pressure since and Thursday intermittently at rest and reason why he went to [facility]. There it was noted he had intermittent NSVT 10-15 beats long which was not noted on ICD interrogation today. His last episode was VF on 01/31/25 which was treated with a shock successfully. He can walk 1 mile without any problems. He smokes <1/2 ppd. Denies orthopnea, PND, edema, palpitations. Previously, he reports he heard an alarm from ICD and went to ER and interrogated showed on 01/31/25 15 seconds of PMVT and had shocked and transferred to [facility] in [place]. He recalls working in his yard and lying down but not recall actually passing out. There an echo showed EF 20% and mock up assembler wanted him to get nuclear stress test. Cardiovascular Procedures Room Service Runner:: 2009 [facility]: [facility] with normal coronaries per patient. Echo/MUGA:: 01/17/25 Echo: EF 35-40%, mod LVE, anteroseptum/septum/apex are severely hypokinetic, mod LAE, trace TR. 10/12/23 Echo: EF 25-30%, severe LVE, grade I diastolic dysfunction (E/e' 9), mild LAE, trace PI, trace pericardial effusion. 06/15/23 Echo: EF 20-25%, severe LVE, grade I diastolic dysfunction (E/e' 9), mod LAE, trace AI/MR/PI. 10/03/[address] Strickland office note: EF 30-35%, grade I diastolic dysfunction, mild LAE, trace MR/TR. Electrophysiology:: 12/25/22 EKG: Probably sinus rhythm (baseline artifact), frequent PVC's, LBBB. 11/18/19 EKG: Sinus rhythm, LBBB. 11/15/10 ICD implant, then a second ICD 2019. Review of Systems Review of Systems: All systems reviewed & are unremarkable except as noted in HPI and below Constitutional: Constitutional: Reports as per HPI, Denies chills, Reports fatigue and Denies fever(s) Cardiovascular: Cardiovascular: Reports as per HPI, Reports chest pain and Denies irregular heart rhythm Respiratory: Respiratory: Reports as per HPI and Reports dyspnea on exertion Gastrointestinal: Gastrointestinal: Reports as per HPI and Denies abdominal pain Genitourinary: Genitourinary: Reports as per HPI Musculoskeletal: Musculoskeletal: Reports as per HPI Neurologic: Reports as per HPI, Denies dizziness and Denies syncope [facility] Past Medical History Medical History Presence of combination internal cardiac defibrillator (ICD) and pacemaker ADHD Hypertension Idiopathic cardiomyopathy Surgical History Surgical History H/O removal of cyst 07/25/24 Excision of midback ruptured sebaceous cyst with 5cm intermediate layered wound closure Dr. Coley Previous back surgery Family History Family History Mother Diabetes mellitus Cerebrovascular accident Father Diabetes mellitus Social History Social History Smoking packs per day: 0.5 Smoking cigarettes per day: 10.0 Years smoked: 21 Smoking pack-years: 10.50 Smoking status: Former smoker Tobacco type: cigarettes Second hand tobacco smoke exposure: No Alcohol intake: current Drinks per week: 3 Substance use: former Substance use type: marijuana Last use: march 03 2025 Do You Feel Safe in your Home?: Yes Lack of Transportation: No Lack of Food: Never True Current Housing: I Have Housing Concerned About Future Housing: No Difficulty Paying Gas/Electric Bills: No Difficulty Paying for Meds: No Currently Unemployed: No Education: High School Diploma/GED Difficulty w/ Childcare or Family Care: No Living arrangements: with family Gender identity (if verbalized by the patient): Male Spiritual care concerns: No Meds Home Medications and Allergies Home Medications ?Medication ?Instructions ?Recorded ?Confirmed ?Type levocetirizine 5 mg tablet (Xyzal) 5 mg PO DAILY 07/18/24 04/29/25 History omeprazole magnesium 20 mg 20 mg PO DAILY 07/18/24 04/29/25 History tablet,delayed release (Prilosec OTC) nitroglycerin 0.4 mg sublingual 0.4 mg sublingual PRN PRN Chest 08/22/24 04/29/25 Rx tablet Pain #30 tabs metoprolol tartrate 100 mg tablet 100 mg PO BID #180 tabs 02/21/25 04/29/25 Rx aspirin 81 mg tablet 81 mg PO DAILY #90 tabs 02/28/25 04/29/25 Rx spironolactone 25 mg tablet 25 mg PO DAILY #90 tabs 02/28/25 04/29/25 Rx dapagliflozin propanediol 10 mg See Rx Instructions .Route 04/18/25 04/29/25 Rx tablet (Farxiga) .COMPLEX #30 tabs fenofibrate 160 mg tablet See Rx Instructions .Route 04/18/25 04/29/25 Rx .COMPLEX #30 tabs sacubitril 24 mg-valsartan 26 mg See Rx Instructions .Route 04/18/25 04/29/25 Rx tablet (Entresto) .COMPLEX #60 tabs omega-3 fatty acids 1,000 mg PO BID 04/29/25 04/29/25 History Allergies Allergy/AdvReac Type Severity Reaction Status Date / Time No Known Drug Allergies Allergy Unknown Unknown Verified 04/29/25 20:37 Vital Signs Vital Signs - 24 hr 04/29/25 20:36 04/29/25 21:04 04/29/25 21:52 Temperature 98.1 F Pulse Rate 68 65 Respiratory Rate 20 Blood Pressure 105/79 Pulse Oximetry 98 Oxygen Delivery Room Air 04/29/25 22:00 04/29/25 23:39 04/30/25 00:00 Temperature 98.0 F Pulse Rate 73 57 L Respiratory Rate 17 Blood Pressure 115/70 Pulse Oximetry 99 Oxygen Delivery Room Air 04/30/25 00:00 04/30/25 02:00 04/30/25 03:45 Temperature 97.8 F Pulse Rate 56 L 77 63 Respiratory Rate 17 Blood Pressure 107/61 Pulse Oximetry 98 Oxygen Delivery 04/30/25 04:00 04/30/25 04:00 04/30/25 06:00 Temperature Pulse Rate 69 61 Respiratory Rate Blood Pressure Pulse Oximetry Oxygen Delivery Room Air 04/30/25 08:00 Temperature 97.9 F Pulse Rate 68 Respiratory Rate 18 Blood Pressure 127/78 Pulse Oximetry 100 Oxygen Delivery Exam Const: General: cooperative, healthy appearing and comfortable Resp: Auscultation: clear to auscultation bilaterally, no crackles, no rales, no rhonchi and no wheezes Cardio: Rate: regular rate Rhythm: regular rhythm Heart sounds: no murmurs Peripheral pulses: dorsalis pedis present GI: GI Palp: No abdominal tenderness and Yes Soft to palpation Neuro: General: oriented to person, oriented to place and oriented to time Extrem: Right lower extremity: no edema Left lower extremity: no edema Results Labs and Meds 04/30/25 03:58 04/30/25 03:58 Lab results: Cardiac Enzymes 04/29/25 Range/Units 23:54 Troponin I < 0.012 (0.000-0.034) ng/mL Lipids 04/29/25 04/29/25 Range/Units 21:22 21:25 Triglycerides 284 H Cancelled (<150) mg/dL Cholesterol 212 H Cancelled (0-200) mg/dL CBC 04/29/25 04/30/25 Range/Units 21:22 03:58 WBC 10.0 10.7 H (4.5-10.0) K/mm3 RBC 5.37 5.12 (4.6-6.20) M/mm3 Hgb 16.3 15.5 (14.0-18.0) g/dL Hct 47.0 45.5 (42.0-52.0) % Plt Count 236 222 (150-375) k/mm3 Lymph # (Auto) 2.82 3.51 H (0.9-3.2) K/mm3 Cache # (Auto) 0.6 0.7 H (0.1-0.6) K/mm3 Eos # (Auto) 0.1 0.2 (0-0.3) K/mm3 Baso # (Auto) 0.1 0.1 (0.0-0.1) K/mm3 Comprehensive Metabolic Panel 04/29/25 04/29/25 04/30/25 Range/Units 21:22 23:54 03:58 Sodium 136 L Cancelled 137 (137-145) mmol/L Potassium 4.2 Cancelled 3.8 (3.4-5.0) mmol/L Chloride 103 Cancelled 102 (98-107) mmol/L Carbon Dioxide 25 Cancelled 25 (22-30) mmol/L BUN 17 Cancelled 18 (9-20) mg/dL Creatinine 1.07 Cancelled 1.13 (0.7-1.3) mg/dL Glucose 101 Cancelled 88 (65-110) mg/dL Calcium 9.2 Cancelled 8.9 (8.4-10.2) mg/dL Intake and Output 04/29/25 04/30/25 04/30/25 23:59 07:59 15:59 Intake Total 400 Output Total 5 Balance 395 Intake: Oral 400 Output: Urine 5 Stool 0 Other: Number of Bowel Movements Today 1 Patient Weight 04/30/25 23:59 Weight 105.2 kg
[2025-04-30] MEDS: ENOXAPARIN 40 MG/0.4 ML SYRINGE SUB-Q (09:09)
[2025-04-30] MEDS: SPIRONOLACTONE 25 MG TABLET PO (09:09)
[2025-04-30] MEDS: FENOFIBRATE 145 MG TABLET PO (09:09)
[2025-04-30] MEDS: EMPAGLIFLOZIN 10 MG TABLET PO (09:09)
[2025-04-30] MEDS: ASPIRIN 81 MG CHEWABLE TABLET PO (09:09)
[2025-04-30] MEDS: SACUBITRIL/VALSARTAN 24-26 MG TABLET 1 TAB BY MOUTH ×2 (09:09→21:30)
[2025-04-30] MEDS: METOPROLOL TARTRATE 50 MG TAB 100 MG PO ×2 (09:09→21:29)
[2025-04-30] MEDS: PANTOPRAZOLE 40 MG TABLET PO (09:10)
--- NOTE | 2025-04-30 18:20 | PM.IMPN ---
Progress Note: A&P Assessment and Plan (1) NICM (nonischemic cardiomyopathy): Code(s): I42.8 - Other cardiomyopathies Status: Acute (2) Hypertension: Code(s): I10 - Essential (primary) hypertension Status: Acute (3) Chest pain: Qualifiers: Chest pain type: unspecified Qualified Code(s): R07.9 - Chest pain, unspecified Code(s): R07.9 - Chest pain, unspecified Status: Inactive Plan Cardiology recommended evaluation with [facility] cardiology for heart catheterization. NPO midnight. Continue telemetry. Full code. Hold Lovenox in the morning. Time Spent With Patient Time with patient: 15 - 25 minutes Subjective Date/time seen: 04/30/25 18:20 Interval history: No acute overnight events. Patient denies chest pain, fever, shortness of breath. He is amenable to L HC. Exam Const: General: comfortable and no acute distress Other: A&O x3 HENMT: Mouth: Yes moist mucous membranes Eyes: Pupils: Equal, round and reactive pupils present Neck: Neck: supple Resp: Effort & Inspection: normal respiratory effort Auscultation: clear to auscultation bilaterally Cardio: Rate: regular rate Rhythm: regular rhythm GI: GI Palp: Yes Soft to palpation Neuro: Motor exam (neuro): 5/5 motor strength present throughout Extrem: General: no edema Objective Data Vital Signs Vital Signs: Vital Signs - 24 hr 04/29/25 20:36 04/29/25 21:04 04/29/25 21:52 Temperature 98.1 F Pulse Rate 68 65 Respiratory Rate 20 Blood Pressure 105/79 Pulse Oximetry 98 Oxygen Delivery Room Air 04/29/25 22:00 04/29/25 23:39 04/30/25 00:00 Temperature 98.0 F Pulse Rate 73 57 L Respiratory Rate 17 Blood Pressure 115/70 Pulse Oximetry 99 Oxygen Delivery Room Air 04/30/25 00:00 04/30/25 02:00 04/30/25 03:45 Temperature 97.8 F Pulse Rate 56 L 77 63 Respiratory Rate 17 Blood Pressure 107/61 Pulse Oximetry 98 Oxygen Delivery 04/30/25 04:00 04/30/25 04:00 04/30/25 06:00 Temperature Pulse Rate 69 61 Respiratory Rate Blood Pressure Pulse Oximetry Oxygen Delivery Room Air 04/30/25 08:00 04/30/25 08:00 04/30/25 08:00 Temperature 97.9 F Pulse Rate 68 79 Respiratory Rate 18 Blood Pressure 127/78 Pulse Oximetry 100 Oxygen Delivery Room Air 04/30/25 10:00 04/30/25 11:51 04/30/25 12:00 Temperature 97.6 F Pulse Rate 82 55 L 63 Respiratory Rate 14 Blood Pressure 116/62 Pulse Oximetry 100 Oxygen Delivery 04/30/25 12:00 04/30/25 14:00 04/30/25 15:59 Temperature 97.8 F Pulse Rate 57 L 59 L Respiratory Rate 16 Blood Pressure 121/63 Pulse Oximetry 97 Oxygen Delivery Room Air Intake/Output Intake/Output: Intake & Output 04/27/25 04/28/25 04/29/25 04/30/25 23:59 23:59 23:59 23:59 Intake Total 2100 Output Total 5 Balance 5 Meds/Results Medications: Active Medications Generic Name Dose Route Start Last Admin Trade Name Freq PRN Reason Stop Dose Admin Acetaminophen 650 mg 04/29/25 20:49 Acetaminophen 325 Mg Tablet PO Q4H PRN Mild Pain (1-3) or Fever Aspirin 81 mg 04/30/25 09:00 04/30/25 09:09 Aspirin 81 Mg Chewable Tablet PO 81 mg DAILY MAGGY Administration Docusate Sodium 100 mg 04/29/25 20:49 Docusate Sodium 100 Mg Capsule PO BID PRN Constipation Empagliflozin 10 mg 04/30/25 09:00 04/30/25 09:09 Empagliflozin 10 Mg Tablet PO 10 mg DAILY MAGGY Administration Enoxaparin Sodium 40 mg 04/30/25 09:00 04/30/25 09:09 Enoxaparin 40 Mg/0.4 Ml Syringe SUB-Q 40 mg DAILY MAGGY Administration Fenofibrate 145 mg 04/30/25 09:00 04/30/25 09:09 Fenofibrate 145 Mg Tablet PO 145 mg QAM MAGGY Administration Metoprolol Tartrate 100 mg 04/29/25 21:00 04/30/25 09:09 Metoprolol Tartrate 50 Mg Tab PO 100 mg Q12HR MAGGY Administration Nitroglycerin 0.4 mg 04/29/25 20:51 Nitroglycerin Sl 0.4 Mg Tablet SUBLINGUAL PRN PRN Chest Pain Pantoprazole Sodium 40 mg 04/30/25 09:00 04/30/25 09:10 Pantoprazole 40 Mg Tablet PO 40 mg QAM MAGGY Administration Perflutren Lipid Microsphere 0 ml 04/30/25 08:20 Perflutren Lipid Microspheres 1.5 Ml Vial Diluted To 10 Ml Total Volume IV PUSH 05/03/25 08:20 ONCE PRN adequate visualization Protocol Sacubitril/Valsartan 1 tab 04/29/25 21:00 04/30/25 09:09 Sacubitril/Valsartan 24-26 Mg Tablet BY MOUTH 1 tab Q12HR MAGGY Administration Spironolactone 25 mg 04/30/25 09:00 04/30/25 09:09 Spironolactone 25 Mg Tablet PO 25 mg DAILY MAGGY Administration Labs Labs: Laboratory Results - last 24 hr 04/29/25 04/29/25 04/29/25 21:10 21:22 21:25 WBC 10.0 RBC 5.37 Hgb 16.3 Hct 47.0 MCV 87.5 MCH 30.4 MCHC 34.7 RDW 12.4 Plt Count 236 MPV 10.6 H Immature Gran % (Auto) 0.4 Neut % (Auto) 63.2 Lymph % (Auto) 28.3 [place] % (Auto) 6.1 Eos % (Auto) 1.2 Baso % (Auto) 0.8 Lymph # (Auto) 2.82 [place] # (Auto) 0.6 Eos # (Auto) 0.1 Baso # (Auto) 0.1 Abs Immat Gran (auto) 0.04 H Absolute Neuts (auto) 6.3 Absolute Nucleated RBC 0.000 Nucleated RBC % 0.0 Sodium 136 L Potassium 4.2 Chloride 103 Carbon Dioxide 25 Anion Gap 8 BUN 17 Creatinine 1.07 Estim Creat Clear Calc 100 Estimated GFR > 60 Glucose 101 POC Capillary Glucose 107 H Calcium 9.2 Troponin I Triglycerides 284 H Cancelled Cholesterol 212 H Cancelled LDL Cholesterol Direct 118 Cancelled HDL Direct 36 Cancelled 04/29/25 04/30/25 04/30/25 23:54 03:58 06:44 WBC 10.7 H RBC 5.12 Hgb 15.5 Hct 45.5 MCV 88.9 MCH 30.3 MCHC 34.1 RDW 12.1 Plt Count 222 MPV 10.9 H Immature Gran % (Auto) 0.4 Neut % (Auto) 58.4 Lymph % (Auto) 32.8 [place] % (Auto) 6.3 Eos % (Auto) 1.5 Baso % (Auto) 0.6 Lymph # (Auto) 3.51 H [place] # (Auto) 0.7 H Eos # (Auto) 0.2 Baso # (Auto) 0.1 Abs Immat Gran (auto) 0.04 H Absolute Neuts (auto) 6.3 Absolute Nucleated RBC 0.000 Nucleated RBC % 0.0 Sodium Cancelled 137 Potassium Cancelled 3.8 Chloride Cancelled 102 Carbon Dioxide Cancelled 25 Anion Gap Cancelled 10 BUN Cancelled 18 Creatinine Cancelled 1.13 Estim Creat Clear Calc Cancelled 94 Estimated GFR Cancelled > 60 Glucose Cancelled 88 POC Capillary Glucose 91 Calcium Cancelled 8.9 Troponin I < 0.012 Triglycerides Cholesterol LDL Cholesterol Direct HDL Direct
[2025-04-30] MEDS: ACETAMINOPHEN 325 MG TABLET 650 MG PO (19:08)
[2025-05-01] VITALS (17 sets, daily range): BP systolic 110–132; BP diastolic 64–76; PULSE 50–85; RESP 14–20; TEMP 36.4–36.8; O2SAT 95–100
--- NOTE | 2025-05-01 | ECHO_ITS ---
Patient Info Name: Daniel Prince Age: 39 years : 1985 Gender: Male Ht: 71 in Wt: 231 lbs BSA: 2.32 m2 HR: 50 bpm BP: 125 / 72 mmHg Heart Rhythm: Bradycardia Technical Quality: Fair Exam Date: 05/01/2025 10:47 AM Patient Status: I Admit Date: 04/29/2025 Exam Type: CA echo dop color flow w con Complete two-dimensional, color flow and Doppler transthoracic echocardiogram is performed with contrast to opacify the left ventricle and to improve the deliniation of the left ventricle endocardial borders. Sales And Marketing Associate: Sherri Webster Attending Provider: Be Schmidt MD Contrast/Agitated Saline Contrast/Ag. Saline: Definity Amount: 2.00 ml Administered By: Sherri Webster Existing IV Access: Yes IV Access Condition: patent with no signs of infiltration Summary 1. Definity contrast administered improved wall motion interpretation. 2. Left ventricular chamber dimension is severely enlarged. 3. Left ventricular systolic function is severely globally reduced, estimated at 20-25. 4. The left ventricular diastolic function is normal. 5. E/e' 9 is minimally elevated. Left Ventricle Definity contrast administered improved wall motion interpretation. Left ventricular chamber dimension is severely enlarged. Left ventricular systolic function is severely globally reduced, estimated at 20-25. The left ventricular diastolic function is normal. E/e' 9 is minimally elevated. Right Ventricle Right ventricular chamber dimension is normal. Right ventricular systolic function is normal. Left Atria Left atrial chamber dimension is normal. Right Atria Right atrial chamber dimension is normal. Aortic Valve The aortic valve is trileaflet. There is no aortic valve stenosis. There is no aortic valve regurgitation. Pulmonic Valve There is no pulmonic regurgitation. Mitral Valve There is no mitral valve stenosis. There is no mitral valve regurgitation. Tricuspid Valve There is no tricuspid valve regurgitation. No pulmonary hypertension, estimated pulmonary arterial systolic pressure is 21 mmHg. Pericardium/Pleural There is no pericardial effusion. Inferior Vena Cava Normal inferior vena cava with >50% collapse upon inspiration consistent with normal right atrial pressure, 5 mmHg. Aorta The aortic root size at the sinus of Valsalva is normal. Left Ventricular Outflow Tract Name Value Normal LVOT 2D LVOT Diameter 2.2 cm LVOT Doppler LVOT Peak Velocity 82 cm/s LVOT Peak Gradient 3 mmHg LVOT Mean Gradient 1 mmHg LVOT VTI 16 cm LVOT VTI/AV VTI Ratio 0.7 LVOT Stroke Volume 61 ml LVOT CO 2.8 l/min LVOT CI 1.2 l/min/m2 Pulmonic Valve Name Value Normal RVOT Doppler RVOT Peak Velocity 79 cm/s RVOT Peak Gradient 2 mmHg PV Doppler PV Peak Velocity 138 cm/s PV Peak Gradient 8 mmHg Mitral Valve Name Value Normal MV Diastolic Function MV E Peak Velocity 77 cm/s MV A Peak Velocity 58 cm/s MV E/A 1.3 MV Decel Time (PW) 233 ms MV Annular TDI MV E/e' (Septal) 14.5 MV E/e' (Lateral) 7.3 MV E/e' (Average) 10.9 Tricuspid Valve Name Value Normal TV Regurgitation Doppler TR Peak Velocity 201 cm/s TR Peak Gradient 16 mmHg Estimated PAP/RSVP RA Pressure 5 mmHg <=5 PA Systolic Pressure 21 mmHg <36 RV Systolic Pressure 21 mmHg <36 TV Annular TDI TV Lateral Mary s' Velocity 10.6 cm/s >=9.5 Aortic Valve Name Value Normal AV Doppler AV Peak Velocity 114 cm/s AV Peak Gradient 5 mmHg AV Mean Gradient 3 mmHg AV VTI 23 cm AV Area (Cont Eq VTI) 2.7 cm2 >=3.0 AV Area (Cont Eq Romulo) 2.8 cm2 AV DI (Romulo) 0.72 AV Regurgitation 2D LVOT Area 3.9 cm2 Ventricles Name Value Normal LV Dimensions 2D/MM IVS Diastolic Thickness (2D) 0.9 cm 0.6-1.0 LVID Diastole (2D) 6.8 cm 4.2-5.8 LVIW Diastolic Thickness (2D) 0.9 cm 0.6-1.0 LVID Systole (2D) 5.5 cm 2.5-4.0 LVOT Diameter 2.2 cm LV Mass (2D Cubed) 257.03 g 88.00-224.00 LV Mass Index (2D Cubed) 111 g/m2 49-115 Relative Wall Thickness (2D) 0.26 <=0.42 LV Fractional Shortening/Ejection Fraction 2D/MM LV Fractional Shortening (2D) 18 % 25-43 LV EF (2D Teichholz) 36 % LV Diastolic Volume (4C MOD) 283 ml LV EF (4C MOD) 39 % LV Diastolic Volume (2C MOD) 254 ml LV EF (2C MOD) 36 % LV Diastolic Volume (BP MOD) 267 ml 62-150 LV Diastolic Volume Index (BP MOD) 115 ml/m2 34-74 LV Systolic Volume (BP MOD) 173 ml 21-61 LV Systolic Volume Index (BP MOD) 75 ml/m2 11-31 LV EF (BP MOD) 35 % 52-72 LV Diastolic Length (4C) 10.4 cm LV Systolic Length (4C) 9.0 cm LV Stroke Volume (4C MOD) 111 ml Atria Name Value Normal LA Dimensions LA Volume (4C A-L) 55 ml LA Volume (BP A-L) 61 ml RA Dimensions RA Area (4C) 16.6 cm2 <=18.0 Report Signatures
[2025-05-01 04:45] LABS: Hematocrit 45.3 % (42.0-52.0); Hemoglobin 15.3 g/dL (14.0-18.0); Mean Corpuscular HGB Conc 33.8 g/dl (32-36); Mean Corpuscular Hemoglobin 30.4 pg (26-34); Mean Corpuscular Volume 90.1 fl (80-100); Platelet Count Result 216 k/mm3 (150-375); Red Blood Count 5.03 M/mm3 (4.6-6.20); White Blood Count 8.4 K/mm3 (4.5-10.0)
[2025-05-01 05:22] LABS: Anion Gap 7 mmol/L (4-12); Blood Urea Nitrogen 22 mg/dL (9-20); Calcium 8.9 mg/dL (8.4-10.2); Carbon Dioxide 27 mmol/L (22-30); Chloride 103 mmol/L (98-107); Estimated CRCL calculation 91 ml/min; Estimated Glomerular Filt Rate > 60; Glucose 98 mg/dL (65-110); Magnesium 2.6 mg/dL (1.6-2.3); Potassium 4.0 mmol/L (3.4-5.0); Sodium 137 mmol/L (137-145)
--- NOTE | 2025-05-01 08:02 | P.PNCA_ITS ---
Progress Note: A&P Assessment and Plan (1) Chest pain: Qualifiers: Chest pain type: unspecified Qualified Code(s): R07.9 - Chest pain, unspecified Code(s): R07.9 - Chest pain, unspecified Status: Inactive Assessment and Plan: He has been r/o for AL by serial troponin. Discuss risks/benefits/alternative to LHC and he is agreeable to it. Consult HCG for it. Keep NPO for procedure. (2) Idiopathic cardiomyopathy: Code(s): I42.8 - Other cardiomyopathies Status: Acute Assessment and Plan: Euvolemic. On Jardiance, Metoprolol, Entresto, Spironolactone. Last Echo in [place], [place] in January 2025 EF 20% per patient. Obtain echo. (3) Presence of combination internal cardiac defibrillator (ICD) and pacemaker: Code(s): Z95.810 - Presence of automatic (implantable) cardiac defibrillator Status: Acute Assessment and Plan: With LBBB and low EF he is a candidate for upgrade of ICD to BiV-ICD. (4) Tobacco abuse: Code(s): Z72.0 - Tobacco use Status: Acute Assessment and Plan: Counseled regarding smoking cessation. (5) Dyslipidemia: Code(s): E78.5 - Hyperlipidemia, unspecified Status: Acute Assessment and Plan: On Fenofibrate. (6) PVT (paroxysmal ventricular tachycardia): Code(s): I47.20 - Ventricular tachycardia, unspecified Status: Acute Assessment and Plan: Not seen on our telemetry or on ICD interrogation today. Will hold off on Amiodarone unless he is having them here. Subjective Date/time seen: 05/01/25 08:02 Interval history: No chest pain now. Denies sob. Exam Const: General: cooperative, healthy appearing and comfortable Orientation/consciousness: oriented to person, oriented to place and oriented to time Resp: Auscultation: clear to auscultation bilaterally, no crackles, no rales, no rhonchi and no wheezes Cardio: Rate: regular rate Rhythm: regular rhythm Heart sounds: no murmurs Peripheral pulses: dorsalis pedis present Neuro: General: oriented to person, oriented to place and oriented to time Extrem: Right lower extremity: no edema Left lower extremity: no edema Objective Data Vital Signs Vital Signs: Vital Signs - 24 hr 04/30/25 10:00 04/30/25 11:51 04/30/25 12:00 Temperature 97.6 F Pulse Rate 82 55 L 63 Respiratory Rate 14 Blood Pressure 116/62 Pulse Oximetry 100 Oxygen Delivery 04/30/25 12:00 04/30/25 14:00 04/30/25 15:59 Temperature 97.8 F Pulse Rate 57 L 59 L Respiratory Rate 16 Blood Pressure 121/63 Pulse Oximetry 97 Oxygen Delivery Room Air 04/30/25 16:00 04/30/25 16:00 04/30/25 18:00 Temperature Pulse Rate 58 L 66 Respiratory Rate Blood Pressure Pulse Oximetry Oxygen Delivery Room Air 04/30/25 20:00 04/30/25 20:00 04/30/25 20:00 Temperature 98.2 F Pulse Rate 71 75 Respiratory Rate 18 Blood Pressure 117/77 Pulse Oximetry 97 Oxygen Delivery Room Air 04/30/25 21:29 04/30/25 22:00 04/30/25 23:53 Temperature 97.6 F Pulse Rate 70 61 60 Respiratory Rate 17 Blood Pressure 113/67 Pulse Oximetry 100 Oxygen Delivery 05/01/25 00:00 05/01/25 00:00 05/01/25 02:00 Temperature Pulse Rate 65 58 L Respiratory Rate Blood Pressure Pulse Oximetry Oxygen Delivery Room Air 05/01/25 04:00 05/01/25 04:00 05/01/25 04:00 Temperature 97.6 F Pulse Rate 85 50 L Respiratory Rate 17 Blood Pressure 125/72 Pulse Oximetry 98 Oxygen Delivery Room Air Intake/Output Intake/Output: Intake & Output 04/28/25 04/29/25 04/30/25 05/01/25 23:59 23:59 23:59 23:59 Intake Total 2100 0 Output Total 5 3 Balance 2095 -3 Meds/Results Medications: Active Medications Generic Name Dose Route Start Last Admin Trade Name Freq PRN Reason Stop Dose Admin Acetaminophen 650 mg 04/29/25 20:49 04/30/25 19:08 Acetaminophen 325 Mg Tablet PO 650 mg Q4H PRN Administration Mild Pain (1-3) or Fever Aspirin 81 mg 04/30/25 09:00 04/30/25 09:09 Aspirin 81 Mg Chewable Tablet PO 81 mg DAILY MAGGY Administration Docusate Sodium 100 mg 04/29/25 20:49 Docusate Sodium 100 Mg Capsule PO BID PRN Constipation Empagliflozin 10 mg 04/30/25 09:00 04/30/25 09:09 Empagliflozin 10 Mg Tablet PO 10 mg DAILY MAGGY Administration Enoxaparin Sodium 40 mg 04/30/25 09:00 04/30/25 09:09 Enoxaparin 40 Mg/0.4 Ml Syringe SUB-Q 40 mg On Hold: 04/30/25 18:20 DAILY MAGGY Administration Fenofibrate 145 mg 04/30/25 09:00 04/30/25 09:09 Fenofibrate 145 Mg Tablet PO 145 mg QAM MAGGY Administration Metoprolol Tartrate 100 mg 04/29/25 21:00 04/30/25 21:29 Metoprolol Tartrate 50 Mg Tab PO 100 mg Q12HR MAGGY Administration Nitroglycerin 0.4 mg 04/29/25 20:51 Nitroglycerin Sl 0.4 Mg Tablet SUBLINGUAL PRN PRN Chest Pain Pantoprazole Sodium 40 mg 04/30/25 09:00 04/30/25 09:10 Pantoprazole 40 Mg Tablet PO 40 mg QAM MAGGY Administration Perflutren Lipid Microsphere 0 ml 04/30/25 08:20 Perflutren Lipid Microspheres 1.5 Ml Vial Diluted To 10 Ml Total Volume IV PUSH 05/03/25 08:20 ONCE PRN adequate visualization Protocol Sacubitril/Valsartan 1 tab 04/29/25 21:00 04/30/25 21:30 Sacubitril/Valsartan 24-26 Mg Tablet BY MOUTH 1 tab Q12HR MAGGY Administration Spironolactone 25 mg 04/30/25 09:00 04/30/25 09:09 Spironolactone 25 Mg Tablet PO 25 mg DAILY MAGGY Administration Labs Labs: Laboratory Results - last 24 hr 05/01/25 04:18 WBC 8.4 RBC 5.03 Hgb 15.3 Hct 45.3 MCV 90.1 MCH 30.4 MCHC 33.8 RDW 12.2 Plt Count 216 MPV 10.9 H Sodium 137 Potassium 4.0 Chloride 103 Carbon Dioxide 27 Anion Gap 7 BUN 22 H Creatinine 1.17 Estim Creat Clear Calc 91 Estimated GFR > 60 Glucose 98 Calcium 8.9 Magnesium 2.6 H
[2025-05-01] MEDS: EMPAGLIFLOZIN 10 MG TABLET PO (09:19)
[2025-05-01] MEDS: SACUBITRIL/VALSARTAN 24-26 MG TABLET 1 TAB BY MOUTH (09:19)
[2025-05-01] MEDS: ASPIRIN 81 MG CHEWABLE TABLET PO (09:19)
[2025-05-01] MEDS: METOPROLOL TARTRATE 50 MG TAB 100 MG PO (09:19)
[2025-05-01] MEDS: SPIRONOLACTONE 25 MG TABLET PO (09:20)
[2025-05-01] MEDS: PANTOPRAZOLE 40 MG TABLET PO (09:20)
[2025-05-01] MEDS: FENOFIBRATE 145 MG TABLET PO (09:20)
[2025-05-01] MEDS: ACETAMINOPHEN 325 MG TABLET 650 MG PO (10:13)
[2025-05-01] MEDS: PERFLUTREN LIPID MICROSPHERES 1.5 ML VIAL DILUTED TO 10 ML TOTAL VOLUME IV PUSH (11:15)
--- NOTE | 2025-05-01 13:09 | IVDEFINITY ---
Prior to administration of IV Definity the patient was educated on the risks and benefits of the imaging enhancing agent including potential adverse side effects. The patient verbalized understanding. Allergies were verified. No exclusion criteria were identified and at least one of the following inclusion criteria were met: 1) physician request, 2) patient technically difficult to image (per the [place] [employer] guidelines of two or more segments not discernable within the apical view), or 3) questionable left ventricular function. ?
--- NOTE | 2025-05-01 14:50 | PM.IMPN ---
Progress Note: A&P Assessment and Plan (1) Idiopathic cardiomyopathy: Code(s): I42.8 - Other cardiomyopathies Status: Acute (2) Tobacco abuse: Code(s): Z72.0 - Tobacco use Status: Acute (3) Chest pain: Qualifiers: Chest pain type: unspecified Qualified Code(s): R07.9 - Chest pain, unspecified Code(s): R07.9 - Chest pain, unspecified Status: Inactive Plan A 39-year-old male, patient of Dr. Gupta cardiology with PMH tobacco abuse, idiopathic cardiomyopathy with [employer] ICD, hypertension, dyslipidemia, ADHD, COVID infection on 09/18/2023 presents to [facility] for chest pain, transferred to [facility] on 04/29/2025. At [facility] they noted NSVT 10-15 beats, that was not revealed on ICD interrogation. Last episode of VFib was on 01/31/2025 treated successfully with a shock. 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 Echo/MUGA:: 01/17/25 Echo: EF 35-40%, mod LVE, anteroseptum/septum/apex are severely hypokinetic, mod LAE, trace TR. 10/12/23 Echo: EF 25-30%, severe LVE, grade I diastolic dysfunction (E/e' 9), mild LAE, trace PI, trace pericardial effusion. 06/15/23 Echo: EF 20-25%, severe LVE, grade I diastolic dysfunction (E/e' 9), mod LAE, trace AI/MR/PI. 10/03/[address] Strickland office note: EF 30-35%, grade I diastolic dysfunction, mild LAE, trace MR/TR. Electrophysiology:: 12/25/22 EKG: Probably sinus rhythm (baseline artifact), frequent PVC's, LBBB. 11/18/19 EKG: Sinus rhythm, LBBB. 11/15/10 ICD implant, then a second ICD 2019. ----- Troponins negative. Pending left heart catheterization today. Euvolemic. Continue Jardiance metoprolol Entresto spironolactone. Update echocardiogram. Tobacco cessation counseling provided greater than 3 minutes. ---- Patient wishes to be full code. Saline lock IV. NPO for procedure. Time Spent With Patient Time with patient: Greater than 35 minutes Subjective Date/time seen: 05/01/25 14:50 Interval history: No acute overnight events. Patient denies any complaints other than the bed being uncomfortable Review of Systems Review of Systems: All systems reviewed & are unremarkable except as noted in HPI and below (Subjective) Exam Const: General: comfortable and no acute distress Other: A&O x3 HENMT: Mouth: Yes moist mucous membranes Eyes: Pupils: Equal, round and reactive pupils present Neck: Neck: supple Resp: Effort & Inspection: normal respiratory effort Auscultation: clear to auscultation bilaterally Cardio: Rate: regular rate Rhythm: regular rhythm GI: GI Palp: Yes Soft to palpation Neuro: Motor exam (neuro): 5/5 motor strength present throughout Extrem: General: no edema Objective Data Vital Signs Vital Signs: Vital Signs - 24 hr 04/30/25 15:59 04/30/25 16:00 04/30/25 16:00 Temperature 97.8 F Pulse Rate 59 L 58 L Respiratory Rate 16 Blood Pressure 121/63 Pulse Oximetry 97 Oxygen Delivery Room Air 04/30/25 18:00 04/30/25 20:00 04/30/25 20:00 Temperature 98.2 F Pulse Rate 66 71 Respiratory Rate 18 Blood Pressure 117/77 Pulse Oximetry 97 Oxygen Delivery Room Air 04/30/25 20:00 04/30/25 21:29 04/30/25 22:00 Temperature Pulse Rate 75 70 61 Respiratory Rate Blood Pressure Pulse Oximetry Oxygen Delivery 04/30/25 23:53 05/01/25 00:00 05/01/25 00:00 Temperature 97.6 F Pulse Rate 60 65 Respiratory Rate 17 Blood Pressure 113/67 Pulse Oximetry 100 Oxygen Delivery Room Air 05/01/25 02:00 05/01/25 04:00 05/01/25 04:00 Temperature 97.6 F Pulse Rate 58 L 85 Respiratory Rate 17 Blood Pressure 125/72 Pulse Oximetry 98 Oxygen Delivery Room Air 05/01/25 04:00 05/01/25 08:00 05/01/25 08:00 Temperature 97.8 F Pulse Rate 50 L 56 L 76 Respiratory Rate 16 Blood Pressure 114/64 Pulse Oximetry 99 Oxygen Delivery 05/01/25 08:00 05/01/25 09:19 05/01/25 10:00 Temperature Pulse Rate 76 68 62 Respiratory Rate 16 Blood Pressure Pulse Oximetry 99 Oxygen Delivery Room Air 05/01/25 12:00 05/01/25 14:00 Temperature 97.7 F 97.8 F Pulse Rate 54 L 59 L Respiratory Rate 14 14 Blood Pressure 110/64 111/64 Pulse Oximetry 100 98 Oxygen Delivery Intake/Output Intake/Output: Intake & Output 04/28/25 04/29/25 04/30/25 05/01/25 23:59 23:59 23:59 23:59 Intake Total 2100 0 Output Total 5 3 Balance 5 -3 Meds/Results Medications: Active Medications Generic Name Dose Route Start Last Admin Trade Name Freq PRN Reason Stop Dose Admin Acetaminophen 650 mg 04/29/25 20:49 05/01/25 10:13 Acetaminophen 325 Mg Tablet PO 650 mg Q4H PRN Administration Mild Pain (1-3) or Fever Aspirin 81 mg 04/30/25 09:00 05/01/25 09:19 Aspirin 81 Mg Chewable Tablet PO 81 mg DAILY MAGGY Administration Docusate Sodium 100 mg 04/29/25 20:49 Docusate Sodium 100 Mg Capsule PO BID PRN Constipation Empagliflozin 10 mg 04/30/25 09:00 05/01/25 09:19 Empagliflozin 10 Mg Tablet PO 10 mg DAILY MAGGY Administration Enoxaparin Sodium 40 mg 04/30/25 09:00 04/30/25 09:09 Enoxaparin 40 Mg/0.4 Ml Syringe SUB-Q 40 mg On Hold: 04/30/25 18:20 DAILY MAGGY Administration Fenofibrate 145 mg 04/30/25 09:00 05/01/25 09:20 Fenofibrate 145 Mg Tablet PO 145 mg QAM MAGGY Administration Metoprolol Tartrate 100 mg 04/29/25 21:00 05/01/25 09:19 Metoprolol Tartrate 50 Mg Tab PO 100 mg Q12HR MAGGY Administration Nitroglycerin 0.4 mg 04/29/25 20:51 Nitroglycerin Sl 0.4 Mg Tablet SUBLINGUAL PRN PRN Chest Pain Pantoprazole Sodium 40 mg 04/30/25 09:00 05/01/25 09:20 Pantoprazole 40 Mg Tablet PO 40 mg QAM MAGGY Administration Sacubitril/Valsartan 1 tab 04/29/25 21:00 05/01/25 09:19 Sacubitril/Valsartan 24-26 Mg Tablet BY MOUTH 1 tab Q12HR MAGGY Administration Spironolactone 25 mg 04/30/25 09:00 05/01/25 09:20 Spironolactone 25 Mg Tablet PO 25 mg DAILY MAGGY Administration Labs Labs: Laboratory Results - last 24 hr 05/01/25 04:18 WBC 8.4 RBC 5.03 Hgb 15.3 Hct 45.3 MCV 90.1 MCH 30.4 MCHC 33.8 RDW 12.2 Plt Count 216 MPV 10.9 H Sodium 137 Potassium 4.0 Chloride 103 Carbon Dioxide 27 Anion Gap 7 BUN 22 H Creatinine 1.17 Estim Creat Clear Calc 91 Estimated GFR > 60 Glucose 98 Calcium 8.9 Magnesium 2.6 H
--- NOTE | 2025-05-01 15:09 | WPDCARDPROC ---
Cardiac Cath Procedure Note Date of procedure:: 05/01/25 Performing physician:: Don Armenta MD Date of service May 01, 2025 Indication:: Chest pain Brief clinical history:: This is 39 patient with history of cardiomyopathy, AICD comes to the hospital chest pain. Negative troponins. Due to recurrent chest pains cardiac catheterization recommended. Procedure Procedure performed:: 1-Moderate sedation that started at 2:44 p.m. and ended at 3:01 p.m. a total duration 17 minutes using 3mg of Versed and 75mcg fentanyl. The registered nurse was ignacio flores 2-Selective left and right coronary angiogram. 3-Left heart catheterization with measurement of LVEDP and measurement of gradient across aortic valve. 4-Right common femoral arterial angiogram. 5-Deployment of 6 [place] Angio-Seal. Sedation/Medication given:: Moderate sedation. Access site:: Right common femoral artery. Estimated blood loss:: 10cc Procedure note:: After informed consent patient was brought in to labor arbitrator with the was draped and prepped in usual manner. Moderate sedation was given and the right groin was infiltrated using 1% lidocaine. Five [place] sheath was obtained using micropuncture needle and the modified Seldinger technique. Selective left coronary angiogram was done using JL4 catheter with the tip of the catheter placed in the left main coronary artery. Selective right coronary angiogram was done using JR4 catheter with the tip of the catheter placed to the right coronary artery. After that 5 [place] pigtail catheter was advanced across the aortic valve into the left ventricle with measurement of LVEDP and measurement of gradient across aortic valve. LV angiogram was done. Right common femoral arterial angiogram was done. Findings:: 1- left coronary artery is a large artery that divides into large LAD, large circumflex artery. Left main is free of disease. 2- left anterior descending artery is a large artery that runs and wraps around the apex. Proximal LAD after the ostium 20%. Two major diagonal branches without disease. 3- leftcircumflex artery is a large artery and codominant. Minimal irregularities. Large OM1 unremarkable. 4- right coronary artery is large artery and free of disease 5- LVEDP was7 mm Hg and no gradient across aortic valve. 6-LV angiogram ejection fraction in the 35%. Ascending aorta diameter is normal. 6- opening arterial pressure was 95/72 and closing pressure was 93/64 7- right femoral artery angiogram shows no significant disease in the right common femoral artery. Assessment and Plan Assessment and plan (1) Idiopathic cardiomyopathy: Code(s): I42.8 - Other cardiomyopathies Status: Acute Plan In regards to chest pain cardiomyopathy, cardiac catheterization ruled out CAD. Further management per Dr. velasquez
--- NOTE | 2025-05-01 15:13 | WPDMODSED ---
Moderate Sedation Note-Pt Data Patient Data Diagnosis: Chest pain Present Complaint: Pain Procedure to be performed/Plan: Coronary angiogram Allergies Allergy/AdvReac Type Severity Reaction Status Date / Time No Known Drug Allergies Allergy Unknown Unknown Verified 04/29/25 20:37 Home Medications ?Medication ?Instructions ?Recorded ?Confirmed ?Type levocetirizine 5 mg tablet (Xyzal) 5 mg PO DAILY 07/18/24 04/29/25 History omeprazole magnesium 20 mg 20 mg PO DAILY 07/18/24 04/29/25 History tablet,delayed release (Prilosec OTC) nitroglycerin 0.4 mg sublingual 0.4 mg sublingual PRN PRN Chest 08/22/24 04/29/25 Rx tablet Pain #30 tabs metoprolol tartrate 100 mg tablet 100 mg PO BID #180 tabs 02/21/25 04/29/25 Rx aspirin 81 mg tablet 81 mg PO DAILY #90 tabs 02/28/25 04/29/25 Rx spironolactone 25 mg tablet 25 mg PO DAILY #90 tabs 02/28/25 04/29/25 Rx dapagliflozin propanediol 10 mg See Rx Instructions .Route 04/18/25 04/29/25 Rx tablet (Farxiga) .COMPLEX #30 tabs fenofibrate 160 mg tablet See Rx Instructions .Route 04/18/25 04/29/25 Rx .COMPLEX #30 tabs sacubitril 24 mg-valsartan 26 mg See Rx Instructions .Route 04/18/25 04/29/25 Rx tablet (Entresto) .COMPLEX #60 tabs omega-3 fatty acids 1,000 mg PO BID 04/29/25 04/29/25 History Current Medications: Active Medications Acetaminophen (Acetaminophen 325 Mg Tablet) 650 mg PO Q4H PRN PRN Reason: Mild Pain (1-3) or Fever Last Admin: 05/01/25 10:13 Dose: 650 mg Aspirin (Aspirin 81 Mg Chewable Tablet) 81 mg PO DAILY [facility] Last Admin: 05/01/25 09:19 Dose: 81 mg Docusate Sodium (Docusate Sodium 100 Mg Capsule) 100 mg PO BID PRN PRN Reason: Constipation Empagliflozin (Empagliflozin 10 Mg Tablet) 10 mg PO DAILY [facility] Last Admin: 05/01/25 09:19 Dose: 10 mg Enoxaparin Sodium (Enoxaparin 40 Mg/0.4 Ml Syringe) 40 mg SUB-Q DAILY [facility] On Hold: 04/30/25 18:20 Last Admin: 04/30/25 09:09 Dose: 40 mg Fenofibrate (Fenofibrate 145 Mg Tablet) 145 mg PO QAM [facility] Last Admin: 05/01/25 09:20 Dose: 145 mg Metoprolol Tartrate (Metoprolol Tartrate 50 Mg Tab) 100 mg PO Q12HR [facility] Last Admin: 05/01/25 09:19 Dose: 100 mg Nitroglycerin (Nitroglycerin Sl 0.4 Mg Tablet) 0.4 mg SUBLINGUAL PRN PRN PRN Reason: Chest Pain Pantoprazole Sodium (Pantoprazole 40 Mg Tablet) 40 mg PO QAM [facility] Last Admin: 05/01/25 09:20 Dose: 40 mg Sacubitril/Valsartan (Sacubitril/Valsartan 24-26 Mg Tablet) 1 tab BY MOUTH Q12HR [facility] Last Admin: 05/01/25 09:19 Dose: 1 tab Spironolactone (Spironolactone 25 Mg Tablet) 25 mg PO DAILY [facility] Last Admin: 05/01/25 09:20 Dose: 25 mg Sedation/Anesthesia: No previous sedation/anesthesia problems (including family history). [facility] Past Medical History Medical History Presence of combination internal cardiac defibrillator (ICD) and pacemaker ADHD Hypertension Idiopathic cardiomyopathy Surgical History Surgical History H/O removal of cyst 07/25/24 Excision of midback ruptured sebaceous cyst with 5cm intermediate layered wound closure Dr. Coley Previous back surgery Family History Family History Mother Diabetes mellitus Cerebrovascular accident Father Diabetes mellitus Social History Social History Smoking packs per day: 0.5 Smoking cigarettes per day: 10.0 Years smoked: 21 Smoking pack-years: 10.50 Smoking status: Former smoker Tobacco type: cigarettes Second hand tobacco smoke exposure: No Alcohol intake: current Drinks per week: 3 Substance use: former Substance use type: marijuana Last use: march 03 2025 Do You Feel Safe in your Home?: Yes Lack of Transportation: No Lack of Food: Never True Current Housing: I Have Housing Concerned About Future Housing: No Difficulty Paying Gas/Electric Bills: No Difficulty Paying for Meds: No Currently Unemployed: No Education: High School Diploma/GED Difficulty w/ Childcare or Family Care: No Living arrangements: with family Gender identity (if verbalized by the patient): Male Spiritual care concerns: No Mod Sed Physical Exam Physical Exam Pre Procedural Exam: Normal: Appearance, Eyes, Ears, Nose, Neck, Throat, Airway, Lungs, Heart Size, Heart Rate, Heart Rhythm, Neuro Exam, Abdomen, Liver, Kidneys, Spleen, Breasts, Genitalia, Extremities and Skin Hours since solid foods: 8 Hours since liquid intake: 8 Mallampati Classification: class II Internal Medicine - PN: Obj Da Vital Signs Vital Signs: Vital Signs - 24 hr 04/30/25 15:59 04/30/25 16:00 04/30/25 16:00 Temperature 36.6 C Pulse Rate 59 L 58 L Respiratory Rate 16 Blood Pressure 121/63 Pulse Oximetry 97 Oxygen Delivery Room Air 04/30/25 18:00 04/30/25 20:00 04/30/25 20:00 Temperature 36.8 C Pulse Rate 66 71 Respiratory Rate 18 Blood Pressure 117/77 Pulse Oximetry 97 Oxygen Delivery Room Air 04/30/25 20:00 04/30/25 21:29 04/30/25 22:00 Temperature Pulse Rate 75 70 61 Respiratory Rate Blood Pressure Pulse Oximetry Oxygen Delivery 04/30/25 23:53 05/01/25 00:00 05/01/25 00:00 Temperature 36.4 C Pulse Rate 60 65 Respiratory Rate 17 Blood Pressure 113/67 Pulse Oximetry 100 Oxygen Delivery Room Air 05/01/25 02:00 05/01/25 04:00 05/01/25 04:00 Temperature 36.4 C Pulse Rate 58 L 85 Respiratory Rate 17 Blood Pressure 125/72 Pulse Oximetry 98 Oxygen Delivery Room Air 05/01/25 04:00 05/01/25 08:00 05/01/25 08:00 Temperature 36.6 C Pulse Rate 50 L 56 L 76 Respiratory Rate 16 Blood Pressure 114/64 Pulse Oximetry 99 Oxygen Delivery 05/01/25 08:00 05/01/25 09:19 05/01/25 10:00 Temperature Pulse Rate 76 68 62 Respiratory Rate 16 Blood Pressure Pulse Oximetry 99 Oxygen Delivery Room Air 05/01/25 12:00 05/01/25 12:00 05/01/25 12:00 Temperature 36.5 C Pulse Rate 54 L 54 L 54 L Respiratory Rate 14 14 Blood Pressure 110/64 Pulse Oximetry 100 98 Oxygen Delivery Room Air 05/01/25 14:00 Temperature 36.6 C Pulse Rate 59 L Respiratory Rate 14 Blood Pressure 111/64 Pulse Oximetry 98 Oxygen Delivery Intake/Output Intake/Output: Intake & Output 04/28/25 04/29/25 04/30/25 05/01/25 23:59 23:59 23:59 23:59 Intake Total 2100 0 Output Total 5 3 Balance 2095 -3 Meds/Results Medications: Active Medications Generic Name Dose Route Start Last Admin Trade Name Freq PRN Reason Stop Dose Admin Acetaminophen 650 mg 04/29/25 20:49 05/01/25 10:13 Acetaminophen 325 Mg Tablet PO 650 mg Q4H PRN Administration Mild Pain (1-3) or Fever Aspirin 81 mg 04/30/25 09:00 05/01/25 09:19 Aspirin 81 Mg Chewable Tablet PO 81 mg DAILY [facility] Administration Docusate Sodium 100 mg 04/29/25 20:49 Docusate Sodium 100 Mg Capsule PO BID PRN Constipation Empagliflozin 10 mg 04/30/25 09:00 05/01/25 09:19 Empagliflozin 10 Mg Tablet PO 10 mg DAILY [facility] Administration Enoxaparin Sodium 40 mg 04/30/25 09:00 04/30/25 09:09 Enoxaparin 40 Mg/0.4 Ml Syringe SUB-Q 40 mg On Hold: 04/30/25 18:20 DAILY [facility] Administration Fenofibrate 145 mg 04/30/25 09:00 05/01/25 09:20 Fenofibrate 145 Mg Tablet PO 145 mg QAM [facility] Administration Metoprolol Tartrate 100 mg 04/29/25 21:00 05/01/25 09:19 Metoprolol Tartrate 50 Mg Tab PO 100 mg Q12HR [facility] Administration Nitroglycerin 0.4 mg 04/29/25 20:51 Nitroglycerin Sl 0.4 Mg Tablet SUBLINGUAL PRN PRN Chest Pain Pantoprazole Sodium 40 mg 04/30/25 09:00 05/01/25 09:20 Pantoprazole 40 Mg Tablet PO 40 mg QAM [facility] Administration Sacubitril/Valsartan 1 tab 04/29/25 21:00 05/01/25 09:19 Sacubitril/Valsartan 24-26 Mg Tablet BY MOUTH 1 tab Q12HR [facility] Administration Spironolactone 25 mg 04/30/25 09:00 05/01/25 09:20 Spironolactone 25 Mg Tablet PO 25 mg DAILY [facility] Administration Labs 05/01/25 04:18 05/01/25 04:18 Labs: Laboratory Results - last 24 hr 05/01/25 04:18 WBC 8.4 RBC 5.03 Hgb 15.3 Hct 45.3 MCV 90.1 MCH 30.4 MCHC 33.8 RDW 12.2 Plt Count 216 MPV 10.9 H Sodium 137 Potassium 4.0 Chloride 103 Carbon Dioxide 27 Anion Gap 7 BUN 22 H Creatinine 1.17 Estim Creat Clear Calc 91 Estimated GFR > 60 Glucose 98 Calcium 8.9 Magnesium 2.6 H ASA Classification/Sedation ASA Classification/Sedation ASA Class: I Emergent: No Risks: Risks, benefits and alternatives explained and patient/family accepted plan for sedation. Patient re-evaluated immediately prior to sedation.
--- NOTE | 2025-05-01 15:14 | WPDHPUPDATE1 ---
History and Physical Update Update Date/Time: 05/01/25 15:14 History and Physical has been reviewed, including an updated exam of the patient. There are NO changes in the patient's condition. Risks, benefits, and alternatives have been discussed and questions answered. Patient agrees to proceed with procedure.
--- NOTE | 2025-05-01 15:14 | PM.CNCAR ---
Assessment and Plan Assessment and plan (1) Chest pain: Qualifiers: Chest pain type: unspecified Qualified Code(s): R07.9 - Chest pain, unspecified Code(s): R07.9 - Chest pain, unspecified Status: Inactive Assessment and Plan: Regards to chest pain, myocardial infarction ruled out. [facility] nonsustained [facility]. Due to recurrent chest pains risks and benefits of cardiac catheterization discussed with patient agrees to proceed. (2) Idiopathic cardiomyopathy: Code(s): I42.8 - Other cardiomyopathies Status: Acute Assessment and Plan: Ejection fraction reported at 20% in [facility]. Continue Entresto, spironolactone metoprolol. (3) Hypertension: Code(s): I10 - Essential (primary) hypertension Status: Acute Assessment and Plan: Blood pressure controlled. Continue Entresto, spironolactone metoprolol History of Present Illness History of Present Illness Consult date/time: Date of service 05/01/25 12:00 p.m. Requesting physician: Maico Gupta DO Consult reason: chest pain and Other (Patient needs cardiac catheterization) Reason For Visit: Non sustain VT Narrative: This is 39-year-old patient with past history of nonischemic cardiomyopathy, AICD, hypertension, ADHD, morbid obesity who presents to [facility] with chest pain. Reported at [facility] that he had also nonsustained VT. Central chest pain ongoing for few days. On and off. Troponin was negative. Device interrogation did not show significant arrhythmia. It reported that in January 2025 had 1 shock secondary to PMT. Denies extremity edema dizziness or syncope. Review of Systems Constitutional: Constitutional: Denies chills, Denies fever(s) and Denies poor appetite Eyes: Eyes: Denies eye discharge, Denies loss of vision and Denies eye pain ENT: Denies dizziness, Denies epistaxis, Denies nasal congestion and Denies sore throat Cardiovascular: Cardiovascular: Reports chest pain, Denies syncope, Denies pedal edema, Denies leg edema, Denies palpitations, Denies dyspnea, Denies dyspnea on exertion and Denies orthopnea Respiratory: Respiratory: Denies cough, Denies dyspnea, Denies dyspnea on exertion and Denies wheezing Gastrointestinal: Gastrointestinal: Denies abdominal pain, Denies diarrhea, Denies nausea and Denies vomiting Genitourinary: Genitourinary: Denies hematuria, Denies genital lesions and Denies dysuria Musculoskeletal: Musculoskeletal: Denies arthralgias, Denies joint swelling and Denies numbness Integumentary/Breasts: Skin/Breast: Denies pruritus and Denies rash Neurologic: Denies dizziness, Denies syncope, Denies loss of vision and Denies numbness Psychiatric: Psychiatric: Denies anxiety and Denies depression Endocrine: Endocrine: Denies cold intolerance, Denies heat intolerance and Denies palpitations Hematologic/Lymphatic: Hematologic/Lymphatic: Denies easy bleeding and Denies easy bruising Allergic/Immunologic: Allergic/Immunologic: Denies urticaria and Denies wheezing PMFSH Past Medical History Medical History Presence of combination internal cardiac defibrillator (ICD) and pacemaker ADHD Hypertension Idiopathic cardiomyopathy Surgical History Surgical History H/O removal of cyst 07/25/24 Excision of midback ruptured sebaceous cyst with 5cm intermediate layered wound closure Dr. Coley Previous back surgery Family History Family History Mother Diabetes mellitus Cerebrovascular accident Father Diabetes mellitus Social History Social History Smoking packs per day: 0.5 Smoking cigarettes per day: 10.0 Years smoked: 21 Smoking pack-years: 10.50 Smoking status: Former smoker Tobacco type: cigarettes Second hand tobacco smoke exposure: No Alcohol intake: current Drinks per week: 3 Substance use: former Substance use type: marijuana Last use: march 03 2025 Do You Feel Safe in your Home?: Yes Lack of Transportation: No Lack of Food: Never True Current Housing: I Have Housing Concerned About Future Housing: No Difficulty Paying Gas/Electric Bills: No Difficulty Paying for Meds: No Currently Unemployed: No Education: High School Diploma/GED Difficulty w/ Childcare or Family Care: No Living arrangements: with family Gender identity (if verbalized by the patient): Male Spiritual care concerns: No Meds Home Medications and Allergies Home Medications ?Medication ?Instructions ?Recorded ?Confirmed ?Type levocetirizine 5 mg tablet (Xyzal) 5 mg PO DAILY 07/18/24 04/29/25 History omeprazole magnesium 20 mg 20 mg PO DAILY 07/18/24 04/29/25 History tablet,delayed release (Prilosec OTC) nitroglycerin 0.4 mg sublingual 0.4 mg sublingual PRN PRN Chest 08/22/24 04/29/25 Rx tablet Pain #30 tabs metoprolol tartrate 100 mg tablet 100 mg PO BID #180 tabs 02/21/25 04/29/25 Rx aspirin 81 mg tablet 81 mg PO DAILY #90 tabs 02/28/25 04/29/25 Rx spironolactone 25 mg tablet 25 mg PO DAILY #90 tabs 02/28/25 04/29/25 Rx dapagliflozin propanediol 10 mg See Rx Instructions .Route 04/18/25 04/29/25 Rx tablet (Farxiga) .COMPLEX #30 tabs fenofibrate 160 mg tablet See Rx Instructions .Route 04/18/25 04/29/25 Rx .COMPLEX #30 tabs sacubitril 24 mg-valsartan 26 mg See Rx Instructions .Route 04/18/25 04/29/25 Rx tablet (Entresto) .COMPLEX #60 tabs omega-3 fatty acids 1,000 mg PO BID 04/29/25 04/29/25 History Allergies Allergy/AdvReac Type Severity Reaction Status Date / Time No Known Drug Allergies Allergy Unknown Unknown Verified 04/29/25 20:37 Vital Signs Vital Signs - 24 hr 04/30/25 15:59 04/30/25 16:00 04/30/25 16:00 Temperature 36.6 C Pulse Rate 59 L 58 L Respiratory Rate 16 Blood Pressure 121/63 Pulse Oximetry 97 Oxygen Delivery Room Air 04/30/25 18:00 04/30/25 20:00 04/30/25 20:00 Temperature 36.8 C Pulse Rate 66 71 Respiratory Rate 18 Blood Pressure 117/77 Pulse Oximetry 97 Oxygen Delivery Room Air 04/30/25 20:00 04/30/25 21:29 04/30/25 22:00 Temperature Pulse Rate 75 70 61 Respiratory Rate Blood Pressure Pulse Oximetry Oxygen Delivery 04/30/25 23:53 05/01/25 00:00 05/01/25 00:00 Temperature 36.4 C Pulse Rate 60 65 Respiratory Rate 17 Blood Pressure 113/67 Pulse Oximetry 100 Oxygen Delivery Room Air 05/01/25 02:00 05/01/25 04:00 05/01/25 04:00 Temperature 36.4 C Pulse Rate 58 L 85 Respiratory Rate 17 Blood Pressure 125/72 Pulse Oximetry 98 Oxygen Delivery Room Air 05/01/25 04:00 05/01/25 08:00 05/01/25 08:00 Temperature 36.6 C Pulse Rate 50 L 56 L 76 Respiratory Rate 16 Blood Pressure 114/64 Pulse Oximetry 99 Oxygen Delivery 05/01/25 08:00 05/01/25 09:19 05/01/25 10:00 Temperature Pulse Rate 76 68 62 Respiratory Rate 16 Blood Pressure Pulse Oximetry 99 Oxygen Delivery Room Air 05/01/25 12:00 05/01/25 12:00 05/01/25 12:00 Temperature 36.5 C Pulse Rate 54 L 54 L 54 L Respiratory Rate 14 14 Blood Pressure 110/64 Pulse Oximetry 100 98 Oxygen Delivery Room Air 05/01/25 14:00 Temperature 36.6 C Pulse Rate 59 L Respiratory Rate 14 Blood Pressure 111/64 Pulse Oximetry 98 Oxygen Delivery Exam Const: General: cooperative, comfortable, no acute distress, alert, awake and well nourished Nutritional Appearance: well nourished Orientation/consciousness: patient oriented x3 HENMT: Head: normal to inspection, normocephalic and atraumatic Ears: hearing grossly normal bilaterally Face/Nose/Sinus: Normal external nose present, Normal nares present, no nasal discharge noted, normal facial exam and No erythema Face and sinus: normal facial exam and no erythema Mouth: No drooling and No restricted motion Throat: uvula midline Eyes: General: appearance normal, both eyes and all related structures Alignment and Position: position normal Conjunctivae: conjunctivae normal Sclera: sclerae normal Direct Ophthalmoscopy: No photophobia Neck: Neck: normal visual inspection and no JVD Thyroid: thyroid normal Carotids: no bruits Lymphatic: lymphedema not noted Chest: Chest palpation & inspection: normal inspection of the chest and no tenderness Resp: Effort & Inspection: normal respiratory effort and no nasal flaring Auscultation: clear to auscultation bilaterally, no crackles, no rales and no wheezes Cardio: Jugular venous distension: no JVD Rate: regular rate Rhythm: regular rhythm Heart sounds: S1 normal heart sound present, S2 normal heart sound present, no gallops, no murmurs and no rubs GI: Inspection: non-distended GI Palp: No abdominal tenderness and No Soft to palpation Auscultation: normal bowel sounds Rectal Exam: deferred : General: No no CVA tenderness Back/Spine/Pelvis: Back: No no CVA tenderness Cervical Spine: cervical ROM normal Skin: General skin exam: normal color and rashes and/or lesions noted Neuro: General: patient oriented x3 Cranial nerves: No CN's II-XII intact bilaterally Speech: normal speech Motor exam (neuro): no tremors Extrem: General: normal to inspection and pedal edema present Psych: Appearance: grossly normal and well kempt Speech and movement: Normal speech and movement present Affect: normal affect Results Labs and Meds 05/01/25 04:18 05/01/25 04:18 Lab results: CBC 05/01/25 Range/Units 04:18 WBC 8.4 (4.5-10.0) K/mm3 RBC 5.03 (4.6-6.20) M/mm3 Hgb 15.3 (14.0-18.0) g/dL Hct 45.3 (42.0-52.0) % Plt Count 216 (150-375) k/mm3 Comprehensive Metabolic Panel 05/01/25 Range/Units 04:18 Sodium 137 (137-145) mmol/L Potassium 4.0 (3.4-5.0) mmol/L Chloride 103 (98-107) mmol/L Carbon Dioxide 27 (22-30) mmol/L BUN 22 H (9-20) mg/dL Creatinine 1.17 (0.7-1.3) mg/dL Glucose 98 (65-110) mg/dL Calcium 8.9 (8.4-10.2) mg/dL Intake and Output 04/30/25 05/01/25 05/01/25 23:59 07:59 15:59 Intake Total 1340 0 Output Total 3 Balance 1340 -3 Intake: Oral 1340 0 Output: Urine 3 Patient Weight 05/01/25 23:59 Weight 105 kg
--- NOTE | 2025-05-01 16:33 | PC.NURSE ---
On 05/01/25, the student, Jong Escudero, provided care and completed [facility] documentation on this patient. I have reviewed the student's documentation and agree with the findings.Toni, MSN, RN
--- NOTE | 2025-05-01 16:48 | PC.NURSE ---
Arrived back to the floor via stretcher from the cardiac warehouse laborer. Right femoral groin checked for bleeding/hematoma/signs of infections. Site noted to be dry, clean and intact with no signs of bleeding, hematoma or signs of infection. Pedal pulse on right foot is palpable and strong. Patient denies chest pain or discomfort. Vital signs obtained. Discussed with patient and family member discharge instructions, which include watching for signs of infection, bleeding or signs of a hematoma. Furthermore discussed showering status post cath, and activity. Patient and family verbalize understanding. Discussed also with the patient and family that this information would be in writing as a part of his discharge instructions, as well as noted in his angio-seal pamphlet which was given to him at this time and reviewed. Verbalize understanding at this time.
--- NOTE | 2025-05-01 16:53 | PC.NURSE ---
Dr Gupta contacted to determine if the patient is eligible for discharge post cardiac cath. Dr Gupta states that the patient can be discharged and should follow-up with me in one week. This information was provided to the hospitalist at this time.
--- NOTE | 2025-05-01 17:28 | P.DS_ITS ---
DS: Admitting Diagnosis Discharge Date 05/01/2025 Admitting Diagnosis Chest pain DS: Discharge Diagnosis Discharge Diagnosis (1) Idiopathic cardiomyopathy: Code(s): I42.8 - Other cardiomyopathies Status: Acute (2) Chest pain: Qualifiers: Chest pain type: unspecified Qualified Code(s): R07.9 - Chest pain, unspecified Code(s): R07.9 - Chest pain, unspecified Status: Inactive DS: Summary Hospital Course Hospital Course: A 39-year-old male, patient of Dr. Gupta cardiology with PMH tobacco abuse, idiopathic cardiomyopathy with [employer] ICD, hypertension, dyslipidemia, ADHD, COVID infection on 09/18/2023 presents to [facility] for chest pain, tra nsferred to [facility] on 04/29/2025. At [facility] they noted NSVT 10-15 beats, that was not revealed on ICD interrogation. Last episode of VFib was on 01/31/2025 treated successfully with a shock. Cardiovascular Procedures Radiologic Technologist Chief:: 2009 [facility]: [facility] with normal coronaries per patient. Echo/MUGA:: 01/17/25 Echo: EF 35-40%, mod LVE, anteroseptum/septum/apex are severely hypokinetic, mod LAE, trace TR. 10/12/23 Echo: EF 25-30%, severe LVE, grade I diastolic dysfunction (E/e' 9), mild LAE, trace PI, trace pericardial effusion. 06/15/23 Echo: EF 20-25%, severe LVE, grade I diastolic dysfunction (E/e' 9), mod LAE, trace AI/MR/PI. 10/03/[address] Strickland office note: EF 30-35%, grade I diastolic dysfunction, mild LAE, trace MR/TR. Electrophysiology:: 12/25/22 EKG: Probably sinus rhythm (baseline artifact), frequent PVC's, LBBB. 11/18/19 EKG: Sinus rhythm, LBBB. 11/15/10 ICD implant, then a second ICD 2019. ----- Tobacco cessation counseling provided. Troponins negative. Cardiac catheterization on 05/01/2025: 1- left coronary artery is a large artery that divides into large LAD, large circumflex artery. Left main is free of disease. 2- left anterior descending artery is a large artery that runs and wraps around the apex. Proximal LAD after the ostium 20%. Two major diagonal branches without disease. 3- left circumflex artery is a large artery and codominant. Minimal irregularities. Large OM1 unremarkable. 4- right coronary artery is large artery and free of disease 5- LVEDP was7 mm Hg and no gradient across aortic valve. 6-LV angiogram ejection fraction in the 35%. Ascending aorta diameter is normal. 6- opening arterial pressure was 95/72 and closing pressure was 93/64 7- right femoral artery angiogram shows no significant disease in the right common femoral artery. ----- Patient is chest pain-free. Cleared for discharge by Cardiology, no further recommendations.. He is to follow-up in [address] Gupta for further management. All the patient's questions and concerns were answered to satisfaction. He is discharged home in stable condition. The patient was full code during the admission. Time Spent with Patient Time attestation: Total time spent providing and/or coordinating discharge services: Time spent: Greater than 30 minutes Exam Const: General: comfortable and no acute distress Other: A&O x3 HENMT: Mouth: Yes moist mucous membranes Eyes: Pupils: Equal, round and reactive pupils present Neck: Neck: supple Resp: Effort & Inspection: normal respiratory effort Auscultation: clear to auscultation bilaterally Cardio: Rate: regular rate Rhythm: regular rhythm GI: GI Palp: Yes Soft to palpation Neuro: Motor exam (neuro): 5/5 motor strength present throughout Extrem: General: no edema DS: Data Data Completed and Pending Labs on day of discharge: Labs from last 24 hours 05/01/25 04:18 WBC 8.4 RBC 5.03 Hgb 15.3 Hct 45.3 MCV 90.1 MCH 30.4 MCHC 33.8 RDW 12.2 Plt Count 216 MPV 10.9 H Sodium 137 Potassium 4.0 Chloride 103 Carbon Dioxide 27 Anion Gap 7 BUN 22 H Creatinine 1.17 Estim Creat Clear Calc 91 Estimated GFR > 60 Glucose 98 Calcium 8.9 Magnesium 2.6 H Discharge Plan Discharge Attending physician on discharge: Christa Nolasco Consulting providers: Maico Gupta Elsayed Discharging Clinician: Christa Nolasco Patient Disposition: Home Activity: december shower Diet: as tolerated Patient Instructions: Antibiotic Form, Chest Pain (DC) Patient Language: Kiswahili Stand Alone Forms: General Discharge Information Follow-up/Referrals: Maico Gupta DO [Physician, Cardiology] Referral Note: in 1 week Jatinder Billingsley MD [Primary Care Provider, Internal Medicine] Discharge Medications: Continued omeprazole magnesium [Prilosec OTC] 20 mg tablet,delayed release (DR/EC) 20 mg PO DAILY levocetirizine [Xyzal] 5 mg tablet 5 mg PO DAILY Patient Comments: 5mg in the morning 2.5mg in the evening omega-3 fatty acids Capsule 1,000 mg PO BID nitroglycerin 0.4 mg tablet, sublingual 0.4 mg sublingual PRN PRN (Reason: Chest Pain) Qty: 30 0RF metoprolol tartrate 100 mg tablet 100 mg PO BID Qty: 180 2RF aspirin 81 mg tablet 81 mg PO DAILY Qty: 90 2RF spironolactone 25 mg tablet 25 mg PO DAILY Qty: 90 2RF fenofibrate 160 mg tablet See Rx Instructions .ROUTE .COMPLEX Qty: 30 5RF Dose Instruction: TAKE ONE TABLET BY MOUTH DAILY Rx Instructions: TAKE ONE TABLET BY MOUTH DAILY Farxiga 10 mg tablet See Rx Instructions .ROUTE .COMPLEX Qty: 30 5RF Dose Instruction: TAKE ONE TABLET BY MOUTH DAILY Rx Instructions: TAKE ONE TABLET BY MOUTH DAILY Entresto 24-26 mg tablet See Rx Instructions .ROUTE .COMPLEX Qty: 60 5RF Dose Instruction: TAKE ONE TABLET BY MOUTH TWICE A DAY Rx Instructions: TAKE ONE TABLET BY MOUTH TWICE A DAY Date of admission: 04/29/25 20:27 Primary Care Provider: Jatinder Billingsley Admitting Provider: Be Schmidt Attending physician on admission: Be Schmidt Condition: Improved Hospitalist MIPS Heart Failure (Exclusion) Patient has history of Heart Transplant or Left Ventricular Assistive Device?: No IF YES, STOP HERE Heart Failure (Qualifier) Patient has current or prior documentation of LVEF less than or equal to 40%, or mod/servere depressed LVSF?: Yes IF NO, STOP HERE If Yes, Heart Failure (Qualifier) Patient was prescribed or already taking an Angiotensin-Converting Enzyme (LUPIS) Inhibitor, or Antiotensin Receptor Alberto (ARB): Yes Patient was prescribed or already taking bisoprolol, carvedilol, or sustained release metoprolol succinate: Yes
--- NOTE | 2025-05-01 18:14 | PC.NURSE ---
Discussed all discharge instructions including medications. Verbalizes understanding at this time. Walked with patient to personal vehicle, family driving patient home.
== END 2025-05-01 18:05 | disposition home or self-care (01) ==
PROVIDERS: Internal Medicine; Internal Medicine Cardiovascular Disease; Nurse Practitioner Gerontology; Admitting Provider General Practice; PCP Family Medicine; Visit Provider General Practice
PROC: 4A023N7 Measurement of Cardiac Sampling and Pressure, Left Heart, Percutaneous Approach (ICD-10-PCS; CPT 93452; principal; 2025-05-01 15:30)
DX: R07.9 Chest pain, unspecified (principal); I47.20 Ventricular tachycardia, unspecified; I42.8 Other cardiomyopathies; F90.9 Attention-deficit hyperactivity disorder, unspecified type; E78.5 Hyperlipidemia, unspecified; I10 Essential (primary) hypertension; Z95.0 Presence of cardiac pacemaker; F17.210 Nicotine dependence, cigarettes, uncomplicated; Z79.82 Long term (current) use of aspirin
CPT/HCPCS: 36415; 80048; 80061; 82948; 83735; 84484; 85025; 85027; 93005; 93458; 96372; 96374; 99285; A9270; C1760; C1887; C1894; C8929; G0269; G0378; G0379; J1644; J1650; J2003; J2250; J2305; J3010; J7040; Q9957

== ENCOUNTER 2025-05-19 16:51 | Emergency (ER) | payer OTHER, SELFPAY ==
--- OUTSIDE RECORDS SUMMARY | 2024-01-19 09:15 | XMS_ITS ---
Author Organization [employer] Address [address] [place] [address] Care Team Providers Care Compensation Intern Name Role Phone PREETMELLOJP Unavailable [phone] Encounters Encounter Location Date Provider Diagnosis [facility] [address] [place] [address] 01/19/2024 JP HERNANDEZ Plan Of Treatment No Information Progress Notes * MATT MANSFIELD CDOB:[birth year] (39 yo M)Acc No.[id number]:01/19/2024 Progress Notes Patient: FREDDY MCELROYIP [place] Provider: Anand Hernandez DPM :1985 A ge:38 Y S ex:Male Date:01/19/2024 Address:[address] [place], [place] [id number] Subjective: * Chief Complaints: * * Medical History: Objective: * Vitals: Assessment: Plan: * Treatment: * Billing Information: * Visit Code: * Procedure Codes: * Electronic signature of DUSTIN HERNANDEZ DPM on 05/19/2025 at 08:27 PM CDT Sign off status: Pending * Provider: Anand Hernandez DPM Date: 0 01/19/2024 Generated for Cristopher flanagan/Tiffanie/Carlee on: 08:27 PM CDT
--- NOTE | ~2025-05-19 | XR_ITS ---
EXAMINATION: XR chest 2V, 05/19/2025 17:40 CDT HISTORY: cp PACEMAKER X 15-20 YRS COMPARISON: No comparisons available. Technique: 2 views obtained. Findings: The lungs are clear, no effusion. No pneumothorax. Heart is normal size. Mediastinal and hilar contours are within normal limits. Bony thorax no acute abnormality. Left pacemaker. Impression: No acute cardiopulmonary abnormality. Reviewed, dictated and finalized at location P. Impression: No acute cardiopulmonary abnormality.
--- NOTE | 2025-05-19 17:13 | ECG_ITS ---
Test Date: 2025-05-19 17:17:23 Measurements Intervals [place] Rate: 60 P: 24 VT: 186 QRS: -27 QRSD: 180 T: 95 QT: 430 QTc: 430 Interpretive Statements SINUS RHYTHM LEFT BUNDLE BRANCH BLOCK BASELINE ARTIFACT- I, II, AVR, AVL, AVF ABNORMAL ECG Compared to ECG 04/30/2025 07:45:17 NO SIGNIFICANT CHANGE Electronically Signed On 05-19-2025 19:25:20 CDT by Maico Gupta D.O.
[2025-05-19 17:14] VITALS: BP 122/77; PULSE 57; RESP 16; TEMP 36.8; O2SAT 100
--- NOTE | 2025-05-19 17:27 | ED_ITS ---
HPI - General Adult General Chief complaint: Chest Pain <Abimbola Davies APRN - Last Filed: 05/19/25 17:30> Stated complaint: chest pressure <Abimbola Fong December SALES ENABLEMENT SPECIALIST - Last Filed: 05/19/25 17:30> Time Seen by Provider: 05/19/25 17:27 <Abimbola Fong December SALES ENABLEMENT SPECIALIST - Last Filed: 05/19/25 17:30> Focused HPI: Daniel Prince is a 39-year-old male with reported history of cardiomyopathy has AICD 1 presents today with complaints of having chest pressure that started around midnight last night pain had continued so around 11:00 a.m. this morning he took a nitroglycerin which made his pain go away new took a nap and when he walked woke up he continued to have some intermittent chest tightness he had a sharp right chest pain and a sharp left-sided chest pain after getting here but currently says his pain is better. He was in contact with his government relations analyst who is Dr. Coats and basically leaving up to him if he felt like he needed to be seen in the ER. He states that he has an ejection fraction of 20-25%. He admits to feeling slightly short of breath earlier and he states exertion actually has made his pain improve. GENERAL: Well-appearing, well-nourished, and in no acute distress. HEAD: Normocephalic, atraumatic. CHEST: Clear to auscultation. ?No respiratory distress. HEART: Regular rate and rhythm.? NEURO: ?Alert and oriented x3. Patient screened in triage and initial orders placed.? ?Additional care and disposition to be based upon?diagnostic testing and treatment. <Abimbola Fong December, SALES ENABLEMENT SPECIALIST - Last Filed: 05/19/25 17:30> History of Present Illness HPI narrative: Agree with HPI. Sporadic chest pain on both sides the chest that is occurring intermittently. He thinks it is worse when he is thinking about his chronic heart disease. No fevers or chills or sweats. No productive cough. No history of ischemic heart disease. No new edema. <Mendoza Younger MD - Last Filed: 05/19/25 20:38> Related Data Home medications: Home Medications ?Medication ?Instructions ?Recorded ?Confirmed ?Last Taken ?Type levocetirizine 5 mg tablet (Xyzal) 5 mg PO DAILY 07/1805/08/25 04/28/25 History omeprazole magnesium 20 mg 20 mg PO DAILY 07/18/2401/2507/25/24 History tablet,delayed release (Prilosec OTC) omega-3 fatty acids 1,000 mg PO BID 04/29/2501/2504/28/25 History <Abimbola Davies, SALES ENABLEMENT SPECIALIST - Last Filed: 05/19/25 17:30> Allergies/adverse reactions: Allergies Allergy/AdvReac Type Severity Reaction Status Date / Time No Known Drug Allergies Allergy Unknown Unknown Verified 04/29/25 20:37 <Abimbola Fong December, SALES ENABLEMENT SPECIALIST - Last Filed: 05/19/25 17:30> Review of Systems 2 Review of Systems: All systems reviewed & are unremarkable except as noted in HPI and below <Mendoza Younger MD - Last Filed: 05/19/25 20:38> Constitutional: Constitutional: Reports no additional constitutional complaints <Mendoza Younger MD - Last Filed: 05/19/25 20:38> Cardiovascular: Cardiovascular: Reports no additional cardiovascular complaints <Mendoza Younger MD - Last Filed: 05/19/25 20:38> Respiratory: Respiratory: Reports no additional respiratory complaints < Mendoza Younger MD - Last Filed: 05/19/25 20:38> Gastrointestinal: Gastrointestinal: Reports no additional gastrointestinal complaints <Mendoza Younger MD - Last Filed: 05/19/25 20:38> [facility] Past Medical History Medical History: Medical History Presence of combination internal cardiac defibrillator (ICD) and pacemaker ADHD Hypertension Idiopathic cardiomyopathy <Abimbola Davies, SALES ENABLEMENT SPECIALIST - Last Filed: 05/19/25 17:30> Surgical History Surgical History: Surgical History H/O removal of cyst 07/25/24 Excision of midback ruptured sebaceous cyst with 5cm intermediate layered wound closure Dr. Coley Previous back surgery <Abimbola Davies, SALES ENABLEMENT SPECIALIST - Last Filed: 05/19/25 17:30> Family History Family History: Family History Mother Diabetes mellitus Cerebrovascular accident Father Diabetes mellitus <Abimbola SherUriah Davies, SALES ENABLEMENT SPECIALIST - Last Filed: 05/19/25 17:30> Social History Social History: Social History Smoking packs per day: 0.5 Smoking cigarettes per day: 10.0 Years smoked: 21 Smoking pack-years: 10.50 Smoking status: Former smoker Tobacco type: cigarettes Second hand tobacco smoke exposure: No Alcohol intake: current Drinks per week: 3 Substance use: former Substance use type: marijuana Last use: march 03 2025 Do You Feel Safe in your Home?: Yes Lack of Transportation: No Lack of Food: Never True Current Housing: I Have Housing Concerned About Future Housing: No Difficulty Paying Gas/Electric Bills: No Difficulty Paying for Meds: No Currently Unemployed: No Education: High School Diploma/GED Difficulty w/ Childcare or Family Care: No Living arrangements: with family Gender identity (if verbalized by the patient): Male Spiritual care concerns: No <Abimbola Davies, SALES ENABLEMENT SPECIALIST - Last Filed: 05/19/25 17:30> Exam 2 Narrative: GENERAL: Well-appearing, well-nourished, and in no acute distress. HEAD: Normocephalic, atraumatic. ENT: Mucous membranes moist. NECK: Supple. CHEST: Clear to auscultation. No respiratory distress. HEART: Regular rate and rhythm. Normal peripheral pulses. ABDOMEN: Soft, nontender, nondistended. EXTREMITIES: Normal range of motion. No edema. SKIN: Warm, dry, no rash. NEURO: Alert and oriented x3. PSYCH: Normal mood and affect. <Mendoza Younger MD - Last Filed: 05/19/25 20:38> Course Vital Signs Vital signs: Vital Signs Temperature 98.2 F 05/19/25 17:14 Pulse Rate 57 L 05/19/25 17:14 Respiratory Rate 16 05/19/25 17:14 Blood Pressure 122/77 05/19/25 17:14 Pulse Oximetry 100 05/19/25 17:14 Temperature 98.2 F 05/19/25 17:14 Pulse Rate 77 05/19/25 19:45 Respiratory Rate 16 05/19/25 17:14 Blood Pressure 122/77 05/19/25 17:14 Pulse Oximetry 100 05/19/25 17:14 <Abimbola Davies, SALES ENABLEMENT SPECIALIST - Last Filed: 05/19/25 17:30> Vital Signs Temperature 98.2 F 05/19/25 17:14 Pulse Rate 57 L 05/19/25 17:14 Respiratory Rate 16 05/19/25 17:14 Blood Pressure 122/77 05/19/25 17:14 Pulse Oximetry 100 05/19/25 17:14 Temperature 98.2 F 05/19/25 17:14 Pulse Rate 77 05/19/25 19:45 Respiratory Rate 16 05/19/25 17:14 Blood Pressure 122/77 05/19/25 17:14 Pulse Oximetry 100 05/19/25 17:14 <Mendoza Younger MD - Last Filed: 05/19/25 20:38> Medical Decision Making Vital Signs Vital Signs: Vital Signs Temperature 98.2 F 05/19/25 17:14 Pulse Rate 57 L 05/19/25 17:14 Respiratory Rate 16 05/19/25 17:14 Blood Pressure 122/77 05/19/25 17:14 Pulse Oximetry 100 05/19/25 17:14 Temperature 98.2 F 05/19/25 17:14 Pulse Rate 77 05/19/25 19:45 Respiratory Rate 16 05/19/25 17:14 Blood Pressure 122/77 05/19/25 17:14 Pulse Oximetry 100 05/19/25 17:14 <Abimbola Davies, SALES ENABLEMENT SPECIALIST - Last Filed: 05/19/25 17:30> Vital Signs Temperature 98.2 F 05/19/25 17:14 Pulse Rate 57 L 05/19/25 17:14 Respiratory Rate 16 05/19/25 17:14 Blood Pressure 122/77 05/19/25 17:14 Pulse Oximetry 100 05/19/25 17:14 Temperature 98.2 F 05/19/25 17:14 Pulse Rate 77 05/19/25 19:45 Respiratory Rate 16 05/19/25 17:14 Blood Pressure 122/77 05/19/25 17:14 Pulse Oximetry 100 05/19/25 17:14 <Mendoza Younger MD - Last Filed: 05/19/25 20:38> Lab Data Result diagrams: 05/19/25 17:25 05/19/25 17:25 <Abimbola Davies, SALES ENABLEMENT SPECIALIST - Last Filed: 05/19/25 17:30> Labs: Lab Results 05/19/25 05/19/25 Range/Units 17: 19:58 WBC 11.9 H (4.5-10.0) K/mm3 RBC 5.39 (4.6-6.20) M/mm3 Hgb 16.2 (14.0-18.0) g/dL Hct 48.0 (42.0-52.0) % MCV 89.1 (80-100) fl MCH 30.1 (26-34) pg MCHC 33.8 (32-36) g/dl RDW 12.2 (11.5-14.5) % Plt Count 256 (150-375) k/mm3 MPV 10.8 H (7.4-10.4) fl Immature Gran % (Auto) 0.5 (0-0.5) % Neut % (Auto) 57.7 (45.5-73.1) % Lymph % (Auto) 30.5 (18.3-44.2) % [place] % (Auto) 6.8 (2.6-8.5) % Eos % (Auto) 3.7 (0-4.4) % Baso % (Auto) 0.8 (0.2-1.2) % Lymph # (Auto) 3.62 H (0.9-3.2) K/mm3 [place] # (Auto) 0.8 H (0.1-0.6) K/mm3 Eos # (Auto) 0.4 H (0-0.3) K/mm3 Baso # (Auto) 0.1 (0.0-0.1) K/mm3 Abs Immat Gran (auto) 0.06 H (0.00-0.031) K/mm3 Absolute Neuts (auto) 6.8 H (1.3-6.7) K/mm3 Absolute Nucleated RBC 0.000 (0.0-0.012) K/mm3 Nucleated RBC % 0.0 (0.0-0.2) % PT 12.8 (11.1-14.7) Seconds INR 1.0 APTT 24.7 (22.3-36.8) Seconds Sodium 139 (137-145) mmol/L Potassium 4.4 (3.4-5.0) mmol/L Chloride 104 (98-107) mmol/L Carbon Dioxide 26 (22-30) mmol/L Anion Gap 9 (4-12) mmol/L BUN 18 (9-20) mg/dL Creatinine 1.20 (0.7-1.3) mg/dL Estim Creat Clear Calc 91 ml/min Estimated GFR > 60 (59 - ) Glucose 79 (65-110) mg/dL Calcium 9.5 (8.4-10.2) mg/dL Total Bilirubin 0.4 (0.2-1.3) mg/dL AST 46 (17-59) U/L ALT 68 H (6-50) U/L Alkaline Phosphatase 52 (38-126) U/L Troponin I < 0.012 < 0.012 (0.000-0.034) ng/mL NT-Pro-B Natriuret Pep 150 H (19.9-100) pg/mL Total Protein 7.8 (6.3-8.2) g/dL Albumin 4.5 (3.5-5.1) g/dL Lipase 79 (23-300) U/L <Abimbola Davies, SALES ENABLEMENT SPECIALIST - Last Filed: 05/19/25 17:30> Lab Results 05/19/25 05/19/25 Range/Units 17: 19:58 WBC 11.9 H (4.5-10.0) K/mm3 RBC 5.39 (4.6-6.20) M/mm3 Hgb 16.2 (14.0-18.0) g/dL Hct 48.0 (42.0-52.0) % MCV 89.1 (80-100) fl MCH 30.1 (26-34) pg MCHC 33.8 (32-36) g/dl RDW 12.2 (11.5-14.5) % Plt Count 256 (150-375) k/mm3 MPV 10.8 H (7.4-10.4) fl Immature Gran % (Auto) 0.5 (0-0.5) % Neut % (Auto) 57.7 (45.5-73.1) % Lymph % (Auto) 30.5 (18.3-44.2) % [place] % (Auto) 6.8 (2.6-8.5) % Eos % (Auto) 3.7 (0-4.4) % Baso % (Auto) 0.8 (0.2-1.2) % Lymph # (Auto) 3.62 H (0.9-3.2) K/mm3 [place] # (Auto) 0.8 H (0.1-0.6) K/mm3 Eos # (Auto) 0.4 H (0-0.3) K/mm3 Baso # (Auto) 0.1 (0.0-0.1) K/mm3 Abs Immat Gran (auto) 0.06 H (0.00-0.031) K/mm3 Absolute Neuts (auto) 6.8 H (1.3-6.7) K/mm3 Absolute Nucleated RBC 0.000 (0.0-0.012) K/mm3 Nucleated RBC % 0.0 (0.0-0.2) % PT 12.8 (11.1-14.7) Seconds INR 1.0 APTT 24.7 (22.3-36.8) Seconds Sodium 139 (137-145) mmol/L Potassium 4.4 (3.4-5.0) mmol/L Chloride 104 (98-107) mmol/L Carbon Dioxide 26 (22-30) mmol/L Anion Gap 9 (4-12) mmol/L BUN 18 (9-20) mg/dL Creatinine 1.20 (0.7-1.3) mg/dL Estim Creat Clear Calc 91 ml/min Estimated GFR > 60 (59 - ) Glucose 79 (65-110) mg/dL Calcium 9.5 (8.4-10.2) mg/dL Total Bilirubin 0.4 (0.2-1.3) mg/dL AST 46 (17-59) U/L ALT 68 H (6-50) U/L Alkaline Phosphatase 52 (38-126) U/L Troponin I < 0.012 < 0.012 (0.000-0.034) ng/mL NT-Pro-B Natriuret Pep 150 H (19.9-100) pg/mL Total Protein 7.8 (6.3-8.2) g/dL Albumin 4.5 (3.5-5.1) g/dL Lipase 79 (23-300) U/L <Mendoza Younger MD - Last Filed: 05/19/25 20:38> Imaging Data Radiologist's impression: ITS Impressions Chest X-Ray 05/19/25 17:49 Impression: No acute cardiopulmonary abnormality. <Mendoza Younger MD - Last Filed: 05/19/25 20:38> ECG Data EKG #1: ECG completion date: 05/19/25 <Mendoza Younger MD - Last Filed: 05/19/25 20:38> ECG completion time: 17:17 <Mendoza Younger MD - Last Filed: 05/19/25 20:38> EKG Interpretation: normal rate (60), sinus rhythm, widened QRS and LBBB <Mendoza Younger MD - Last Filed: 05/19/25 20:38> Discharge Plan Discharge Clinical Impression: Anxiety <Abimbola Davies APRN - Last Filed: 05/19/25 17:30> Patient Disposition: Home <Abimbola Davies APRN - Last Filed: 05/19/25 17:30> Condition: Stable <Abimbola Davies SALES ENABLEMENT SPECIALIST - Last Filed: 05/19/25 17:30> Instructions: Anxiety (ED) <Abimbola Davies APRN - Last Filed: 05/19/25 17:30> Additional Instructions: Please return to the emergency department if you develop severe and persistent chest pain, difficulty breathing, dizziness, leg swelling or if you are coughing up blood as these can be signs of a medical emergency. Please call your doctor for a follow up appointment to determine the need for further testing. <Abimbola Davies SALES ENABLEMENT SPECIALIST - Last Filed: 05/19/25 17:30> Patient Language: Armenian <Abimbola Davies SALES ENABLEMENT SPECIALIST - Last Filed: 05/19/25 17:30> Prescriptions: No Action omeprazole magnesium [Prilosec OTC] 20 mg tablet,delayed release (DR/EC) 20 mg PO DAILY levocetirizine [Xyzal] 5 mg tablet 5 mg PO DAILY Patient Comments: 5mg in the morning 2.5mg in the evening omega-3 fatty acids Capsule 1,000 mg PO BID nitroglycerin 0.4 mg tablet, sublingual 0.4 mg sublingual PRN PRN (Reason: Chest Pain) Qty: 30 0RF metoprolol tartrate 100 mg tablet 100 mg PO BID Qty: 180 2RF aspirin 81 mg tablet 81 mg PO DAILY Qty: 90 2RF spironolactone 25 mg tablet 25 mg PO DAILY Qty: 90 2RF fenofibrate 160 mg tablet See Rx Instructions .ROUTE .COMPLEX Qty: 30 5RF Dose Instruction: TAKE ONE TABLET BY MOUTH DAILY Rx Instructions: TAKE ONE TABLET BY MOUTH DAILY Farxiga 10 mg tablet See Rx Instructions .ROUTE .COMPLEX Qty: 30 5RF Dose Instruction: TAKE ONE TABLET BY MOUTH DAILY Rx Instructions: TAKE ONE TABLET BY MOUTH DAILY Entresto 24-26 mg tablet See Rx Instructions .ROUTE .COMPLEX Qty: 60 5RF Dose Instruction: TAKE ONE TABLET BY MOUTH TWICE A DAY Rx Instructions: TAKE ONE TABLET BY MOUTH TWICE A DAY <Abimbola Davies, SALES ENABLEMENT SPECIALIST - Last Filed: 05/19/25 17:30> Follow-up/Referrals: Maico Gupta DO [Physician, Cardiology] - 1 Week Jatinder Billingsley MD [Primary Care Provider, Internal Medicine] <Abimbola Davies, SALES ENABLEMENT SPECIALIST - Last Filed: 05/19/25 17:30> Quality HEART score for chest pain patients History: slightly suspicious <Mendoza Younger MD - Last Filed: 05/19/25 20:38> ECG: non specific repolarization disturbance/LBTB/PM <Mendoza Younger MD - Last Filed: 05/19/25 20:38> Age: < or = to 45 years <Mendoza Younger MD - Last Filed: 05/19/25 20:38> Risk factors: 1 or 2 risk factors <Mendoza Younger MD - Last Filed: 05/19/25 20:38> Troponin: < or = to 1x normal limit <Mendoza Younger MD - Last Filed: 05/19/25 20:38> Heart score: 2 <Mendoza Younger MD - Last Filed: 05/19/25 20:38>
[2025-05-19 17:34] LABS: Hematocrit 48.0 % (42.0-52.0); Hemoglobin 16.2 g/dL (14.0-18.0); Immature Granulocyte Percent A 0.5 % (0-0.5); Lymphocytes Absolute Auto 3.62 K/mm3 (0.9-3.2); Mean Corpuscular HGB Conc 33.8 g/dl (32-36); Mean Corpuscular Hemoglobin 30.1 pg (26-34); Mean Corpuscular Volume 89.1 fl (80-100); Nucleated Red Blood Cells Absolute Auto 0.000 K/mm3 (0.0-0.012); Nucleated Red Blood Cells Perc 0.0 % (0.0-0.2); Platelet Count Result 256 k/mm3 (150-375); Red Blood Count 5.39 M/mm3 (4.6-6.20); White Blood Count 11.9 K/mm3 (4.5-10.0)
[2025-05-19 17:43] LABS: Alanine Aminotransferase 68 U/L (6-50); Albumin Level 4.5 g/dL (3.5-5.1); Alkaline Phosphatase 52 U/L (38-126); Anion Gap 9 mmol/L (4-12); Aspartate Amino Transferase 46 U/L (17-59); Bilirubin,Total 0.4 mg/dL (0.2-1.3); Blood Urea Nitrogen 18 mg/dL (9-20); Calcium 9.5 mg/dL (8.4-10.2); Carbon Dioxide 26 mmol/L (22-30); Chloride 104 mmol/L (98-107); Estimated CRCL calculation 91 ml/min; Estimated Glomerular Filt Rate > 60; Glucose 79 mg/dL (65-110); Lipase 79 U/L (23-300); Potassium 4.4 mmol/L (3.4-5.0); Sodium 139 mmol/L (137-145); Total Protein 7.8 g/dL (6.3-8.2)
[2025-05-19 17:45] LABS: INR 1.0; Partial Thromboplastin Time 24.7 Seconds (22.3-36.8); Prothrombin Time 12.8 Seconds (11.1-14.7)
[2025-05-19 17:54] LABS: Troponin I < 0.012 ng/mL (0.000-0.034)
[2025-05-19 19:40] VITALS: BP 136/90; PULSE 63; RESP 17; O2SAT 96
[2025-05-19 19:45] VITALS: PULSE 77
--- NOTE | 2025-05-19 20:01 | ECG_ITS ---
Test Date: 2025-05-19 20:04:21 Measurements Intervals [place] Rate: 56 P: 10 UT: 182 QRS: -23 QRSD: 184 T: 97 QT: 457 QTc: 444 Interpretive Statements SINUS BRADYCARDIA LEFT BUNDLE BRANCH BLOCK BASELINE ARTIFACT- I, II, AVR ABNORMAL ECG Compared to ECG 05/19/2025 17:17:23 NO SIGNIFICANT CHANGE Electronically Signed On 05-19-2025 20:42:51 CDT by Maico Gupta D.O.
--- OUTSIDE RECORDS SUMMARY | 2025-05-19 20:27 | XMS_ITS | Clinical Summary ---
Author Organization [facility] Address [address] [place] [address] Care Team Providers Care Blast Furnace Keeper Helper Name Role Phone None, Provider MD Primary [...] total) by mouth daily. 90 tablet 02/08/2025 05/09/20 25 metoprolol succinate ER (TOPROL-XL) 25 MG 24 hr tablet Take 3 tablets (75 mg total) by mouth 2 (two) times daily. 540 tablet 02/07/2025 05/08/20 25 spironolactone (ALDACTONE) 25 MG tablet Take 1 tablet (25 mg total) by mouth daily. 90 tablet 02/08/2025 05/09/20 25 Active Problems Problem Noted Date Diagnosed Date ICD (implantable cardioverter-defibrillator) dis charge 02/04/2025 Cardiomyopathy Family History Medical History Relation Comments COPD Father Diabetes Father Cancer Mother Diabetes Mother Stroke Mother Relation Status Comments Father Mother Alive Sister Alive Social History Tobacco Use Types Packs/Day Years Used Date Smoking Tobacco: Every Day Cigarettes 0.5 22.8 Started: 2002 Smokeless Tobacco: Never Tobacco Cessation:Ready to Q uit: Not Asked; Counseling Given: Not Answered Alcohol Use Standard Drinks/Week Comments Yes 0 (1 standard drink = 0.6 oz pur e alcohol) 1 beer every 2-3 months [facility] [employer] Answer Date Recorded In the past 12 months has Fuze, oil, or water [employer] threatened to shut off services in your [...] any time in the past [address] [facility], were you homeless or living in a jail (including now)? No 02/04/2025 Sex and Gender [...] - 3-dose SCDM series) 2010 PHQ-2 (Physician [place]) 08/03/2024 Influenza Adult (#1) 2025 09/11/2024, 05/26/2023, 05/31/2022 COVID-19 Vaccine Completed 09/11/2024, , 07/17/2022, Additional history exists Meningococcal B Vaccine Aged Out No l onger eligible based on patient's age to complete this topic Meningococcal Vaccine Aged Out No livier lewis eligible based on patient's age to complete this topic RSV Immunizations Under 20 Months Aged Out No longer eligible based on patient's age to complete this topic Insurance Advance Directives * Full Code (Latest Code Status on File) Date Activated Date Inactivated Comments 02/04/2025 6:19 PM 02/07/2025 3:37 PM Care Teams Blast Furnace Keeper Helper Relationship Specialty Start Date End Date None, Provider, MD PCP - General UNKNOWN PHYSICIAN SPECIALTY 02/04/25
--- OUTSIDE RECORDS SUMMARY | 2025-05-19 20:28 | XMS_ITS | Encounter Summary ---
Author Organization [facility] Address [address] [place] [address] Phone Care Team Providers Care Infection Control Practitioner Name Role Phone Jatinder Billingsley MD Primary Care Provide r Encounter Details Date Type Department Care Team (Late st Contact Info) Description 04/21/2025 Results Follow-Up [facility] Cardiology [address] [facility] 8th [place] [address] [place] [id number] Stephon Fernando MD [address] [facility] [address] [place] [address] ECG 12 lead Social History Tobacco Use Types Packs/Day Years Used Date Smoking Tobacco: Never Smokeless Tobacco: Never Sex and Gender Information Value Date Recorded Sex Assigned at Not on file Legal Sex Male 7:56 PM [employer] SCI[employer] Gender Identity Not on file Sexual Orientation Not on file documented as of this encounter Plan of Treatment Upcoming Encounters Date Type Department Care Team (Latest Contact Info) Description 08/07/2025 8:30 AM DAIRY SCIENCE TEACHER Hospital Encounter [facility] Electrophysiology Lab [address] [place] [id number] Stephon Fernando MD [address] [facility] [address] [address] [place] [address] Left heart failure (HCC); NICM (nonischemic cardiomyopathy) (HCC) 08/07/2025 8:30 AM DAIRY SCIENCE TEACHER - 08/07/2025 2:00 PM DAIRY SCIENCE TEACHER Surgery [facility] Electrophysiology Lab [address] [facility] [place] [address] Stephon Fernando MD [address] [facility] [address] [place] [address] REMOVE/REPLACE IMPLANTABLE CARDIOVERTER-DEFIB RILLATOR (ICD) WITH MULTI LEAD SYSTEM 29[address] documented as of this encounter Goals Goal Patient Goal Type Associated Problems Recent Progress Patient-Stated? Author Autogenerat ed Goal Care Plan Autogenerated Problem No Brittany Martinez documented as of this encounter Visit Diagnoses Not on filedocumented in this encounter Additional Health Concerns Active Problems Noted Date Diagnosed Date Autogenerated Problem 04/20/2025 documented as of this encounter Care Teams Infection Control Practitioner Relationship Specialty Start Date End Date Jatinder Billingsley MD [address] [place] [address] PCP - General 09/30/19 documented as of this encounter
--- OUTSIDE RECORDS SUMMARY | 2025-05-19 20:28 | XMS_ITS | Data Portability ---
Author Organization [facility] OFFICE Address [address] [place] [address] Care Team Providers Care Quality Assurance Engineer Name Role Phone LITTLE TY Primary Care [...] in 0.4 mg sublingual tablet 2022 023 [facility] [address] [place], [address], 3 12:21:51 Coreg 12.5 mg tablet 2022 023 [facility] [address] [place], [address], 3 12:21:50 fenofibrate 160 mg tablet 2022 023 [facility] [address] [place], [address], 3 12:21:55 lisinopril 10 mg tablet 2022 023 [facility] [address] [place], [address], 3 12:21:52 aspirin 325 mg tablet 2022 023 [facility] [address] [place], [address], 3 12:40:18 Coreg 12.5 mg tablet 2021 022 [facility] [address] [place], [address], 12:52:00 lisinopril 10 mg tablet 2021 [facility] [address] [place], [address], 12:52:02 Coreg 12.5 mg tablet 2021 [facility] [address] [place], [address], 22:53:02 Coreg 12.5 mg tablet 2021 [facility] [address] [place], [address], 22:53:08 Nitrostat 0.4 mg sublingual tablet 2021 [facility] [address] [place], [address], 22:52:58 fenofibrate 160 mg tablet 2021 [facility] [address] [facility], [address], 22:53:12 lisinopril 10 mg tablet 2021 [facility] [address] [place], [address], 22:53:04 Coreg 12.5 mg tablet 2021 [facility] [address] [place], [address], 10:30:52 Coreg 12.5 mg tablet 2021 [facility] [address] [place], [address], 10:30:48 Nitrostat 0.4 mg sublingual tablet 2021 [facility] [address] [place], [address], 10:30:44 fenofibrate 160 mg tablet 2021 [facility] [address] [place], [address], 10:30:46 lisinopril 10 mg tablet 2021 [facility] [address] [place], [address], 10:30:45 Patient TargetsNo targets recorded. Patient Instructions Encounter Date Encounter Id Patient Instructions Last Modified By Organization Details Last Modified Time 09/10/2021 [id number] Advised against smoking Exercise advised Low cholesterol diet advised Low sodium diet advised. [email or web address] Not available 09/10/2021 10:29:54 06/10/2022 [id number] Weight loss, 20 pounds Advised against smoking Exercise advised Low cholesterol diet advised Low sodium diet advised. [email or web address] Not available 06/10/2022 12:51:36 04/01/2023 [id number] Low cholesterol diet advised Low sodium diet [...] ation record ed. Kiran Strickland MD [address] [facility] [place] [address], [place], [address], 09/17/2021 11:23:50 09/11/19 22 09/10/2021 elect rocar [...] ation record ed. Kiran Strickland MD [address] [facility] [place] [address], [place], [address], 12/11/2021 13:42:09 12/25/19 22 12/10/2021 pacem alyssa [...] Address Organization Details Recorded Time Uday fox [id number] Completed 201509/09/2017 Norma mtz [place] [facility] 8 15:16:25 Congestiv e heart failure 38814597 Active 2015 Fernie mtz [place] [facility] 6 13:58:12 Left bundle branch block 93689421 Active 2015 Fernie Cuello [facility] 6 13:59:41 Gastroeso phageal reflux disease 409437580 Active 2015 Fernie Cuello [facility] 6 14:03:15 Bronchiti s 02087943 Active 2016 Jovany Sibley [facility] 7 14:25:08 Atypical chest pain 350832684 Active 2017 Anuja Crockettkatya [facility] 8 17:34:45 Dyslipide twyla 413629761 Active 2017: LDL 89 Ekta Lópezer [facility] 8 10:05:24 Nicotine dependenc e 08110649 Active 2017 Kiran Hanson i, MD [address] [place], [address] [place] [address] [facility] 8 15:43:27 Nonischem ic congestiv e cardiomyo jovany 797598243324 Active 2017 Ekta Carsonugher [facility] 8 14:52:52 Essential hypertens ion 02546886 Active 2018 Anuja Crockettkatya [facility] 9 08:23:34 Automatic implantab le cardiac defibrill ator in situ 323127343 Active 2019 Licea Bonkatya [facility] 0 13:08:35 Hyperchol esterolem ia 13284314 Active 2019 Licea [facility] 0 13:41:23 Problem Notes None recorded. Procedures Surgical History Date Name Laterality Status Provider Name and Address Organization Details Recorded Time Back Surgery completed Licea Meskatya [facility] 03/07/2016 05:01:30 Imaging Results None recorded. Procedure [...] e 50 mcg/actua tion nasal spray,radha [place] 2 sprays as needed by nasal route. [...] Updated DateTime 2 177.8 cm 31 kg/m2 97479.9 5 g 72 /min 97 % 97 % 120/90 mm[Hg] Nagi Mendes [facility] 2 10:02:20 Date Recorded Body height Body mass index (BMI) Body weight Heart rate Oxygen saturation Oxygen saturation in Arterial blood by Pulse oximetry Systolic And Diastolic Provider Name and Address Organization Details Last Updated DateTime 2 177.8 cm 30.4 kg/m2 04820.5 8 g 68 /min 98 % 98 % 120/68 mm[Hg] Kiran Hanson i, MD [address] [place], [address], [facility] 2 12:30:01 Date Recorded Body height Body mass index (BMI) Body weight Heart rate Respiratory rate Oxygen saturation Oxygen saturation in Arterial blood by Pulse oximetry Systolic And Diastolic Provider Name and Address Organization Details Last Updated DateTime 3 177.8 cm 32.9 kg/m2 129916. 65 g 72 /min 16 /min 98 % 98 % 116/82 mm[Hg] Kel Mejia [facility] 3 10:46:55 Date Recorded Body height Body mass index (BMI) Body weight Heart rate Oxygen saturation Oxygen saturation in Arterial blood by Pulse oximetry Systolic And Diastolic Provider Name and Address Organization Details Last Updated DateTime 3 177.8 cm 31.9 kg/m2 428039. 51 g 97 /min 99 % 99 % 132/97 mm[Hg] Leonela Ricky [facility] 3 11:50:59 Date Recorded Body height Body mass index (BMI) Body weight Heart rate Respiratory rate Oxygen saturation Oxygen saturation in Arterial blood by Pulse oximetry Systolic And Diastolic Provider Name and Address Organization Details Last Updated DateTime 2 177.8 cm 31.9 kg/m2 210365. 51 g 88 /min 16 /min 98 % 98 % 118/76 mm[Hg] Kel Mejia [facility] 2 12:24:34 Social History Question Answer Notes LastModified by Price Interactive Details LastModified Time Tobacco Smoking Status Current [facility] 05:02:52 What Was The Date Of [...] hmesto Not available 2015 05:03:22 Mother Malignant neoplasm of kidney at age 57. hmesto Not available 03/07/2016 05:04:17 Mother Diabetes mellitus hmesto Not available 2015 05:04:02 Notes:No known premature cor onary artery disease. Medical History Condition Response Arrhythmia Y Congestive Heart Failure (CHF) Y Hyperlipidemia Y GERD/Reflux Y Hypertension Y Past Encounters Encounter ID Performer Location Encounter Start Date Encounter Closed Date Diagnosis/Indication Diagnosis SNOMED-CT Code Diagnosis ICD10 Code Diagnosis IMO Codes Diagnosis Note [id number] MD Neftaly Guillaume Office [address] [place] [address] 03/10/2016 12:48:39 03/12/2016 11:15:15 Electrocardiogram abnormal 976805698 R94.31 Congestive heart failure 81395030 I50.9 LVEF increased to 30-35% on recent echo. Sx's stable. S/p ICD. Increase Coreg to 12.5 mg bid. Continue Lisinopril . 2gm Na/d diet and weight loss 20 lbs. Hyperlipidemia 11749962 E78.5 Obtain FLP. Continue fenofibrat e. [id number] MD Neftaly Guillaume Office [address] [place] [address] 09/17/2016 14:02:55 09/22/2016 11:30:15 Congestive heart failure 24977531 I50.9 Discussed patient s diagnosis of heart [...] for primary prevention of sudden cardiac . [id number] MD Neftaly Ramirez Office [address] [place] [address] 03/11/2017 14:11:32 03/12/2017 12:27:51 Congestive heart failure 57587907 I50.9 Discussed patient s diagnosis of heart [...] primary prevention of sudden cardiac . Hyperlipidemia 35527543 E78.5 Obtain FLP. Continue fenofibrat e. Atypical chest pain 1025 07299 R07.89 [id number] MD Neftaly Ramirez Office [address] [place] [address] 09/09/2017 14:43:37 09/09/2017 16:49:02 Congestive heart failure 30871814 I50.9 Discussed patient s diagnosis of heart [...] sudden cardiac . Atypical chest pain 1025 09956 R07.89 REsolved Dyslipidemia 354596296 E 78.5 Continue fenofibrat e.08/31/17 : LDL 89 Essential hypertension 32479591 I10 Nicotine dependence 5629 4008 F17.200 cessation recommende dPt smokes 1/2 PPD [id number] Kiran Strickland MD [facility] Office [address] [place] [address] 03/10/2018 13:50:38 03/10/2018 14:26:53 Congestive heart failure 59766890 I50.9 With known nonischemi c cardiomyop athy s/p ICD.Appear s euvolemic. Continue Coreg and lisinopril . Atypical chest pain 1025 32086 R07.89 Resolved. Would like to have SL nitro on hand. Dyslipidemia 104762606 E 78.5 Needs to keep LDL less than 70, and HDL more than 40 08/31/17: LDL 89Continue fenofibrat e. Essential hypertension 34959359 I10 Well controlled on current regimen. Continue. Nicotine dependence 5629 4008 F17.200 Cessation recommende dPt smokes less than 1/2 PPD QD Nonischemi c congestive cardiomyopathy 8196928826 04 I42.0 s/p ICD.Needs compliance with home monitoring . [id number] Kiran Strickland MD [facility] [address] [place] [address] 09/14/2018 17:28:32 09/14/2018 22:44:15 Congestive heart failure 33620501 I50.9 With known nonischemi c cardiomyop athy s/p ICD.Contin ue Coreg and lisinopril . Nonischemi c congestive cardiomyopathy 2648556232 04 I42.0 s/p ICD.Needs compliance with home monitoring . Atypical chest pain 1025 74170 R07.89 Had episode last week after using nasal spray. Dyslipidemia 423303309 E 78.5 Needs to keep LDL less than 70, and HDL more than 40 08/31/17: LDL 89Continue fenofibrat e. Essential hypertension 54500663 I10 Well controlled on current regimen. Nicotine dependence 5629 4008 F17.200 Cessation recommende dPt smokes less than 1/2 PPD QD [id number] Kiran Strickland MD [facility] [address] [place] [address] 03/15/2019 10:40:33 03/16/2019 11:20:39 Congestive heart failure 50652468 I50.9 With known nonischemi c cardiomyop athy s/p ICD.Contin ue Coreg and lisinopril . Nonischemi c congestive cardiomyopathy 3814945136 04 I42.0 s/p ICD.encour aged compliance with home monitoring . Atypical chest pain 1025 19549 R07.89 Had episode last week after using nasal spray. Dyslipidemia 256146673 E 78.5 Needs to keep LDL less than 70, and HDL more than 40 08/31/17: LDL 89Continue fenofibrat e. Essential hypertension 95354490 I10 Well controlled on current regimen. Nicotine dependence 5629 4008 F17.200 Continue to encourage cessationP t smokes less than 1/2 PPD QD Automatic implantable cardiac defibrillator in situ 971147081 Z95.810 follow up was done today, it seems to be functionin g well, no new events.Beltran [place] getting close to end of life will continue to monitor [id number] Kiran Strickland MD [facility] [address] [place] [address] 06/14/2019 12:30:30 06/19/2019 22:02:25 Congestive heart failure 40128113 I50.9 With known nonischemi c cardiomyop athy [...] Pacemaker -unknown pace Nonischemi c congestive cardiomyopathy 6266076092 04 I42.0 s/p ICD. Checked today. 8 episodes of NSVT, most recent on 06/12/2019 , 6 beats @ 207 bpm, lasting 1 second. Otherwise seems to be functionin g well. Dyslipidemia 618071356 E 78.5 Needs to keep LDL less than 70, and HDL more than 40 08/31/17: LDL 89Continue fenofibrat e. Essential hypertension 53179262 I10 Well controlled on current regimen. Nicotine dependence 5629 4008 F17.200 Trying to quit now, using nicorette gum. Automatic implantable cardiac defibrillator in situ 450758486 Z95.810 follow up was done today, it seems to be functionin g well, no new events.Beltran [place] getting close to end of life will continue to monitor [id number] Kiran Strickland MD [facility] [address] [place] [address] 09/13/2019 13:01:47 09/14/2019 12:29:56 Nonischemic congestive cardiomyopathy 8329365482 04 I42.0 s/p ICD. Euvolemic, asymptomat ic. [...] Normal sinus Rhythm Pacemaker -unknown pace Dyslipidemia 860159871 E 78.5 Needs to keep LDL less than 70, and HDL more than 40 08/31/17: LDL 89Continue fenofibrat e. Essential hypertension 78203480 I10 Blood pressure is elevated today, but this is only one reading, will keep close follow up, and consider medication change if blood pressure is still elevated next visit. Nicotine dependence 5629 4008 F17.200 Trying to quit now, using nicorette lozenges. Automatic implantable cardiac defibrillator in situ 329131964 Z95.810 s/p ICD. Device check today. Had 8 episodes of NSVT over past 2 months. 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 Will set up to replace device. Atypical chest pain 1025 83286 R07.89 Occasional . Needs Rx renewal for SL NTG. [id number] Kiran Strickland MD [facility] [address] [place] [address] 10/21/2019 11:30:28 10/21/2019 11:56:01 Nonischemic congestive cardiomyopathy 4227637162 04 I42.0 s/p ICD. Euvolemic, asymptomat ic. [...] Normal sinus Rhythm Pacemaker -unknown pace Dyslipidemia 045580076 E 78.5 Needs to keep LDL less than 70, and HDL more than 40 08/31/17: LDL 89Continue fenofibrat e. Essential hypertension 06374172 I10 Blood pressure is elevated today, but this is only one reading, will keep close follow up, and consider medication change if blood pressure is still elevated next visit. Nicotine dependence 5629 4008 F17.200 Trying to quit now, using nicorette lozenges. Automatic implantable cardiac defibrillator in situ 089536515 Z95.810 s/p ICD, now device is OK Atypical chest pain 1025 27326 R07.89 Occasional . Needs Rx renewal for SL NTG. [id number] Kiran Strickland MD [facility] [address] [place] [address] 11/18/2019 13:22:18 11/18/2019 13:44:16 Nonischemic congestive cardiomyopathy 8107643660 04 I42.0 s/p ICD. Euvolemic, asymptomat ic. [...] Normal sinus Rhythm Pacemaker -unknown pace Dyslipidemia 178761442 E 78.5 Needs to keep LDL less than 70, and HDL more than 40 08/31/17: LDL 89Continue fenofibrat e. Essential hypertension 93289134 I10 Blood pressure is elevated today, but this is only one reading, will keep close follow up, and consider medication change if blood pressure is still elevated next visit. Automatic implantable cardiac defibrillator in situ 293063621 Z95.810 s/p ICD, with recent generator change. Now with pain but no erythema or discharge and wound intact per pt (phone visit). Pt to follow up with Dr eBrman office. Nicotine dependence 5629 4008 F17.200 Trying to quit now, using nicorette lozenges. Atypical chest pain 1025 22667 R07.89 Occasional . Needs Rx renewal for SL NTG. [id number] Kiran Strickland MD [facility] [place] [address] 12/13/2019 11:39:32 12/13/2019 13:17:04 Automatic implantable cardiac defibrillator in situ 421301076 Z95.810 s/p ICD, with recent generator change. Now with pain but no erythema or discharge and wound intact, pain control and FU Nonischemi c congestive cardiomyopathy 3342470488 04 I42.0 s/p ICD. Euvolemic, asymptomat ic. [...] Normal sinus Rhythm Pacemaker -unknown pace Dyslipidemia 868887062 E 78.5 Needs to keep LDL less than 70, and HDL more than 40 08/31/17: LDL 89Continue fenofibrat e. Essential hypertension 65148444 I10 Blood pressure is elevated today, but this is only one reading, will keep close follow up, and consider medication change if blood pressure is still elevated next visit. Nicotine dependence 5629 4008 F17.200 Trying to quit now, using nicorette lozenges. Atypical chest pain 1025 03876 R07.89 Occasional . Needs Rx renewal for SL NTG. [id number] Kiran Strickland MD [facility] [address] [place] [address] 03/06/2020 11:58:06 03/06/2020 12:42:07 Automatic implantable cardiac defibrillator in situ 735632108 Z95.810 03/06/2020No shocks. s/p ICD, with recent generator change. Now with pain but no erythema or discharge and wound intact, pain control and FU Nonischemi c congestive cardiomyopathy 2509196237 04 I42.0 03/06/2020 s/p ICD. Euvolemic, asymptomat [...] Normal sinus Rhythm Pacemaker -unknown pace Dyslipidemia 859269932 E 78.5 03/06/2020 Will get fasting lipids for F/u Needs to keep LDL less than 70, and HDL more than 40 08/31/17: LDL 89Continue fenofibrat e. Essential hypertension 28706194 I10 03/06/2020BP high today. Second high BP in a row. Lifestyle changes encouraged . Blood pressure is elevated today, but this is only one reading, will keep close follow up, and consider medication change if blood pressure is still elevated next visit. Nicotine dependence 5629 4008 F17.200 Trying to quit now, using nicorette lozenges. Atypical chest pain 1025 45384 R07.89 03/06/2020Oc casional. Stable [id number] Kiran Strickland MD [facility] [address] [place] [address] 09/04/2020 11:46:03 02/05/2021 12:07:35 Automatic implantable cardiac defibrillator in situ 425475099 Z95.810 Last check 06/12/2020 with no new events Nonischemi c congestive cardiomyopathy 6946462399 04 I42.0 s/p ICD ( 0) Seems [...] estimated RV systolic pressure is normal. Dyslipidemia 633033298 E 78.5 Needs to keep LDL less than 70, and HDL more than 40. 08/31/2017 LDL 89Continue fenofibrat e, not on statin therapy.Wi ll get fasting lipids for follow-up Essential hypertension 45719324 I10 well controlled on current regimen Nicotine dependence 5629 4008 F17.200 Cessation highly advised Atypical chest pain 1025 27123 R07.89 Resolved [id number] Justino Dunlap MD [facility] [address] [place] [address] 03/05/2021 09:47:53 03/05/2021 13:16:22 Congestive heart failure 98211829 I50.9 With known nonischemi c cardiomyop athy [...] ICD Treadmill Myoview Stress test, has high [place] Risk score. Has Known CAD, or CAD [...] Normal sinus Rhythm Pacemaker -unknown pace Dyslipidemia 051955295 E 78.5 Needs to keep LDL less than 70, and HDL more than 40. 08/31/2017 LDL 89Continue fenofibrat e, not on statin therapy.Wi ll get fasting lipids for follow-up has not gotten labs yet. Essential hypertension 05525995 I10 well controlled on current regimen no new changes Left bundl e branch block 55217342 I44.7 Nonischemi c congestive cardiomyopathy 9055816258 04 I42.0 s/p ICD ( 0) Seems to be well compensate d, appears euvolemic. Continue Coreg and lisinopril Yes winded XIONG, Pacer showed ectopy, Consider 3rd lead BI Ventricula r pacing. Treadmill Myoview Stress test, has high [place] Risk score. Has Known CAD, or CAD [...] normal. 35-40% EKG: left bundle branch block 820437493 I44.7 Consider biventricu lar pacing will perfom stress test see cardiomyop athy Treadmill Myoview Stress test, has high [place] Risk score. Has Known CAD, or CAD risk equivalent . To look for any ischemia. [id number] Kiran Strickland MD [facility] [address] [place] [address] 09/10/2021 09:42:58 09/10/2021 10:42:34 Congestive heart failure 41141241 I50.9 We will do stress ECho With [...] ICD Treadmill Myoview Stress test, has high [place] Risk score. Has Known CAD, or CAD [...] Normal sinus Rhythm Pacemaker -unknown pace Dyslipidemia 078948377 E 78.5 Needs to keep LDL less than 70, and HDL more than 40. 08/31/2017 LDL 89Continue fenofibrat e, not on statin therapy.Wi ll get fasting lipids for follow-up has not gotten labs yet. Essential hypertension 75230420 I10 well controlled on current regimen no new changes Left bundl e branch block 00740543 I44.7 Nonischemi c congestive cardiomyopathy 7220393435 04 I42.0 s/p ICD ( 0) Seems to be well compensate d, appears euvolemic. Continue Coreg and lisinopril Yes winded XIONG, Pacer showed ectopy, Consider 3rd lead BI Ventricula r pacing. Treadmill Myoview Stress test, has high [place] Risk score. Has Known CAD, or CAD [...] normal. 35-40% EKG: left bundle branch block 879834682 I44.7 Consider biventricu lar pacing will perfom stress test see cardiomyop athy Treadmill Myoview Stress test, has high [place] Risk score. Has Known CAD, or CAD risk equivalent . To look for any ischemia. Atypical chest pain 1025 55647 R07.89 Resolved [id number] Kiran Strickland MD [facility] [place] [address] 12/10/2021 11:42:16 12/10/2021 12:58:35 Congestive heart failure 02506050 I50.9 We will do stress ECho With [...] ICD Treadmill Myoview Stress test, has high [place] Risk score. Has Known CAD, or CAD [...] Normal sinus Rhythm Pacemaker -unknown pace Dyslipidemia 901924087 E 78.5 Needs to keep LDL less than 70, and HDL more than 40. 08/31/2017 LDL 89Continue fenofibrat e, not on statin therapy.Wi ll get fasting lipids for follow-up has not gotten labs yet. Essential hypertension 31469191 I10 well controlled on current regimen no new changes Left bundl e branch block 63886804 I44.7 Nonischemi c congestive cardiomyopathy 8478491938 04 I42.0 s/p ICD ( 0) Seems to be well compensate d, appears euvolemic. Continue Coreg and lisinopril Yes winded XIONG, Pacer showed ectopy, Consider 3rd lead BI Ventricula r pacing. Treadmill Myoview Stress test, has high [place] Risk score. Has Known CAD, or CAD [...] normal. 35-40% EKG: left bundle branch block 880723261 I44.7 Consider biventricu lar pacing will perfom stress test see cardiomyop athy Treadmill Myoview Stress test, has high [place] Risk score. Has Known CAD, or CAD risk equivalent . To look for any ischemia. Atypical chest pain 1025 32544 R07.89 Resolved [id number] Kiran Strickland MD [facility] [address] [place] [address] 06/10/2022 10:44:30 06/10/2022 12:58:16 Congestive heart failure 78492296 I50.9 ( 2) Exercise Stress Echo.Negat ok [...] ICD Treadmill Myoview Stress test, has high [place] Risk score. Has Known CAD, or CAD [...] Normal sinus Rhythm Pacemaker -unknown pace Dyslipidemia 673159288 E 78.5 Needs to keep LDL less than 70, and HDL more than 40. 09/2021 LDL 116Continu e fenofibrat e, not on statin therapy.Wi ll get fasting lipids for follow-up has not gotten labs yet. Essential hypertension 32275372 I10 well controlled on current regimen no new changes Left bundl e branch block 53269100 I44.7 Nonischemi c congestive cardiomyopathy 1478012925 04 I42.0 s/p ICD ( 0)devise interrogat ed today no change ( he has one episode of NSVT last lasted for 1 sec) Seems to be well compensate d, appears euvolemic. Continue Coreg and lisinopril Yes winded XIONG, Pacer showed ectopy, Consider 3rd lead BI Ventricula r pacing. Treadmill Myoview Stress test, has high [place] Risk score. Has Known CAD, or CAD [...] normal. 35-40% EKG: left bundle branch block 962479401 I44.7 Consider biventricu lar pacing will perfom stress test see cardiomyop athy Treadmill Myoview Stress test, has high [place] Risk score. Has Known CAD, or CAD risk equivalent . To look for any ischemia. Atypical chest pain 1025 59807 R07.89 Resolved 13824 Kiran Strickland MD [facility] [place] [address] 12/16/2022 10:35:39 12/16/2022 11:29:29 Congestive heart failure 48679439 I50.9 ( 2) Exercise Stress Echo.Negat ok [...] ICD Treadmill Myoview Stress test, has high [place] Risk score. Has Known CAD, or CAD [...] Normal sinus Rhythm Pacemaker -unknown pace Dyslipidemia 462912614 E 78.5 Needs to keep LDL less than 70, and HDL more than 40. 09/2021 LDL 116Continu e fenofibrat e, not on statin therapy.Wi ll get fasting lipids for follow-up has not gotten labs yet. Essential hypertension 09275045 I10 well controlled on current regimen no new changes Left bundl e branch block 04034229 I44.7 Nonischemi c congestive cardiomyopathy [id number] 04 I42.0 s/p ICD ( 0)devise interrogat ed today no change ( he has few episode of NSVT) Seems to be well compensate d, appears euvolemic. Continue Coreg and lisinopril Yes winded XIONG, Pacer showed ectopy, Consider 3rd lead BI Ventricula r pacing. Treadmill Myoview Stress test, has high [place] Risk score. Has Known CAD, or CAD [...] normal. 35-40% EKG: left bundle branch block 672365027 I44.7 Consider biventricu lar pacing will perfom stress test see cardiomyop athy Treadmill Myoview Stress test, has high [place] Risk score. Has Known CAD, or CAD risk equivalent . To look for any ischemia. Atypical chest pain 1025 63246 R07.89 Resolved Paroxysmal atrial fibrillation 883643873 I48.0 few events of a fibhe is on full aspirincon tinue with coreg and consider changing to toprol Obstructiv e sleep apnea syndrome 01304053 G47.33 he need sleep study [id number] Kiran Strickland MD [facility] [address] [place] [address] 04/01/2023 11:38:31 04/01/2023 12:23:50 Congestive heart failure 05422036 I50.9 ( 2) Exercise Stress Echo.Negat ok [...] ICD Treadmill Myoview Stress test, has high [place] Risk score. Has Known CAD, or CAD [...] Normal sinus Rhythm Pacemaker -unknown pace Dyslipidemia 656459678 E 78.5 Needs to keep LDL less than 70, and HDL more than 40. 09/2021 LDL 116Continu e fenofibrat e, not on statin therapy.Wi ll get fasting lipids for follow-up has not gotten labs yet. Essential hypertension 13517305 I10 well controlled on current regimen no new changes Left bundl e branch block 94419833 I44.7 Nonischemi c congestive cardiomyopathy 1685461736 04 I42.0 s/p ICD ( 0)devise interrogat ed today no change ( he has few episode of NSVT) Seems to be well compensate d, appears euvolemic. Continue Coreg and lisinopril Yes winded XIONG, Pacer showed ectopy, Consider 3rd lead BI Ventricula r pacing. Treadmill Myoview Stress test, has high [place] Risk score. Has Known CAD, or CAD [...] normal. 35-40% EKG: left bundle branch block 043319913 I44.7 On ICD Atypical chest pain 1025 26305 R07.89 Resolved Paroxysmal atrial fibrillation 807099712 I48.0 few events of a fibhe is on full aspirincon tinue with coreg Obstructiv e sleep apnea syndrome 94073186 G47.33 he need sleep study Chest pain 46955322 R07. 9 Health Concerns Section Related Observation LastModified by Organization Detai ls LastModified Time None Recorded Concern Status LastModified by Organization Details LastModified Time None Recorded Advance Directives Directive None Recorded Payers Insurance Date Sequence Insurance Name Policy Number Policy Ray Covered Member ID Ray Member ID Guarantor Name 02/16/2024 1 [facility] - DOS ON OR AFTER 21 (MEDICAID REPLACEMENT - HMO) Daniel Prince [id number] Daniel Prince 04/06/2021 1 [facility] - DOS PRIOR TO 2021 (MEDICAID REPLACEMENT - HMO) Daniel Prince [id number] Daniel Prince Notes Date Note Type Note Provider Name and Address Organization Details Recorded Time 09/10/2021 text/html 09/10/21CC : Cardiac follow up dyspnoea on exertion and -twycy-g ld white man with a past medical [...] 9lbs. [facility] battery [...] TR 386, LDL 88, AST 21, ALT 7543-84-5984 SOD 140, K 4.4, CL 102, CO2 [...] is consistent with conduction abnormality. Edith mtz [place] - [facility] 03/26/2022 17:52:22 12/10/2021 text/html 12/10/21CC : Cardiac follow [id number]-kztir-mqy white man with a past medical history [...] 9lbs. He continues to [facility] AICD generator battery [...] TR 386, LDL 88, AST 21, ALT 8194-36-8955 SOD 140, K 4.4, CL 102, CO2 [...] conduction abnormality. Kiran Strickland MD [address] [place], [address], [facility] 04/24/2022 22:52:51 06/10/2022 text/html 06/10/22CC : Cardiac follow up chest pain and dyspnea on xbopqbqs82-crqkl-cve white man with a past medical history [...] 9lbs. He continues [facility] AICD generator battery [...] TR 386, LDL 88, AST 21, ALT 0037-43-3636 SOD 140, K 4.4, CL 102, CO2 [...] consistent with conduction abnormality. Kiran Strickland MD [address] [place], [address], [facility] - [facility] 06/10/2022 12:51:50 12/16/2022 text/html 12/16/22CC : Cardiac follow up dyspnea on lwhagkco97-tarqi-lbl white man with a past medical history [...] 9lbs. He continues to [facility] AICD generator battery [...] TR 386, LDL 88, AST 21, ALT 6386-27-2640 SOD 140, K 4.4, CL 102, CO2 [...] conduction abnormality. Kiran Strickland MD [address] [place], [address], [facility] - [facility] 12/16/2022 11:25:25 04/01/2023 text/html 04/01/23CC : Cardiac follow up dyspnea on oradursh37-vybcd-qbc white man with a past medical history [...] 9lbs. He continues to [facility] AICD generator battery [...] TR 386, LDL 88, AST 21, ALT 7580-98-5611 SOD 140, K 4.4, CL 102, CO2 [...]
--- OUTSIDE RECORDS SUMMARY | 2025-05-19 20:28 | XMS_ITS | Patient Health Record ---
Author Organization [facility] Address [address] [place] [address] Support Name Relationship Address Phone MATT MANSFIELD Guarantor Unknown [phone] Allergies No Known Allergies Reason For Referral [...] Insured Coverage Start Date Coverage End Date [facility] [address] [place] [address] [id number] MATT SPENCE Self - patient is the insured Medical (General) History Medical History History ICD Code cardiomyopathy plantar fasciitis heart disease
--- OUTSIDE RECORDS SUMMARY | 2025-05-19 20:28 | XMS_ITS | Clinical Summary ---
Author Organization [facility] Address [address] [place] [address] Care Team Providers Care Innovation Analyst Name Role Phone Jatinder Billingsley MD Primary [...] (25 mg total) by mouth daily 02/08/2025 Active metoprolol (LOPRESSOR) 100 mg tablet 03/07/2025 Active aspirin 81 mg enteric coated tablet Take 1 tablet (81 mg total) by mouth daily 02/08/2025 Active levocetirizine (XYZAL) 5 mg tablet Take 1 tablet (5 mg total) by mouth daily 07/18/2024 Active Active Problems Problem Noted Date Diagnosed Date Left heart failure 04/20/2025 NICM (nonischemic cardiomyopathy) 04/20/2025 Encounters Date Type Department Care Team Description 05/11/[address] [facility] Medicine Cardiology [address] [facility] 8th [place] [address] [place] [address] Stephon Fernando MD 05/02/2025 Orders Only [facility] Cardiology [address] [place] [address] Don Armenta MD 04/25/2025 Orders Only [facility] Cardiology [address] [place] [address] [place] [address] [place] [address] Stephon Fernando MD NICM (nonischemic cardiomyopathy) (HCC) (Primary Dx) 04/21/2025 Results Follow-Up [facility] Cardiology [address] [place] [address] [address] [place] [address] Stephon Fernando MD ECG 12 lead 04/20/2025 Telephone [facility] Cardiology [address] [place] [address] [address] [place] [address] Stephon Fernando MD 04/19/2025 Telephone [facility] Cardiology [address] [place] [address] [address] [place] [address] Stephon Fernando MD 04/18/2025 10:34 AM CDT - 04/18/2025 11:59 PM CDT Hospital Encounter [facility] Rad[facility] for [facility] ([facility]) [address] [place] [address] Left heart failure (HCC) Discharge Disposition: Discharge to home or self care 04/18/2025 9:15 AM CDT Office Visit [facility] Cardiology [address] [place] [address] [address] [place] [address] Stephon Fernando MD Atrial fibrillation, unspecified type (HCC) (Primary Dx); Left heart failure (HCC) 04/18/2025 8:45 AM CDT Ancillary Procedure [facility] Cardiology [address] [place] [address] [address] [place] [address] NICM (nonischemic cardiomyopathy) (HCC) (Primary Dx); Pacemaker; Fitting and adjustment of automatic implantable cardioverter-defibr illator from Last 3 Months Social History Tobacco Use Types Packs/Day Years Used Date Smoking Tobacco: Never Smokeless Tobacco: Never Tobacco Cessation:Counseling Given: Not Answered Sex and Gender Information Value Date Recorded Sex Assigned at Not on file Legal Sex Male 7:56 PM BUSINESS MANAGER Gender Identity Not on file Sexual Orientation Not on file Obstetrics History Last Filed Vital Signs Vital Sign Reading Time Taken Comments Blood Pressure 125/82 04/18/2025 8:54 AM CDT Pulse 65 04/18/2025 8:54 AM CDT Temperature 36.7 C (98 F) 10/03/2019 8:57 AM BUSINESS MANAGER Respiratory Rate - - Oxygen Saturation 96% 04/18/2025 8:54 AM CDT Inhaled Oxygen Concentration - - Weight 109.8 kg (242 lb) 04/18/2025 8:54 AM CDT Height 177.8 cm (5' 10) 04/18/2025 8:54 AM CDT Body Mass Index 34.72 04/18/2025 8:54 AM CDT Plan of Treatment Upcoming Encounters Date Type Department Care Team (Latest Contact Info) Description 08/07/2025 8:30 AM BUSINESS MANAGER Hospital Encounter [facility] Electrophysiology Lab [address] [place] [address] Stephon Fernando MD [address] [address] Left heart failure (HCC); NICM (nonischemic cardiomyopathy) (HCC) 08/07/2025 8:30 AM BUSINESS MANAGER - 08/07/2025 2:00 PM BUSINESS MANAGER Surgery [facility] Electrophysiology Lab [address] [place] [address] Stephon Fernando MD [address] [address] REMOVE/REPLACE IMPLANTABLE CARDIOVERTER-DEFIB RILLATOR (ICD) WITH MULTI LEAD SYSTEM [address] Health Maintenance Due Date Last Done Comments [...] ed Goal Care Plan Autogenerated Problem No Juan Brittany Procedures Procedure Name Priority Date/Time Associated Diagnosis Comments CARDIOLOGY DOCUMENT SCAN Routine 05/01/2025 11:43 AM CDT XR CHEST PA LATERAL 2 VIEWS Schedule Routine, Read Routine (OP Routine) 04/18/2025 10:38 AM CDT Left heart failure (HCC) ECG 12-LEAD Routine 04/18/2025 8:57 AM CDT Atrial fibrillation, unspecified type (HCC) DEVICE CHECK - IN OFFICE Routine 04/18/2025 8:28 AM CDT Pacemaker from Last 3 Months Results * Cardiology Document Scan (05/01/2025 11:43 AM CDT) Anatomical Region Laterality Modality Other Don Armenta MD [facility] PROCEDURES Final Result * XR Chest PA Lateral 2 Views [...] effusion. Electronically signed by: Otis Munguia M.D. us Stephon Fernando MD IMG XR PROCEDURE S Final Result * ECG 12 lead (04/18/2025 8:57 AM CDT) Stephon Fernando MD ECG ORDERABLES Edited Result - Final * DEVICE CHECK - IN OFFICE (04/18/2025 8:28 AM CDT) Anatomical Region Laterality Modality Other 04/18/2025 2:00 AM CDT Narrative 05/01/2025 8:35 AM CDT Interpretation Summary: Battery and Leads (BL) Normal parameters noted on battery and lead(s) --- battery longevity estimate: 5.7 years, 3.00 V Presenting Rhythm (NC) Ventricular Sensing (VS) --- Underlying rhythm: SR 63 bpm Arrhythmic events (AE) Ventricular fibrillation Nonsustained VT event(s) identified Procedure Note Stephon Fernando MD - 05/01/2025 Interpretation Summary: Battery and Leads (BL) Normal parameters noted on battery and lead(s) --- battery longevityestimate: 5.7 years, 3.00 V Presenting Rhythm (NC) Ventricular Sensing (VS) --- Underlying rhythm: SR 63 bpm Arrhythmic events (AE) Ventricular fibrillation Nonsustained VT event(s) identified us Mandeep Hunter MD PhD [facility] [place] OCEDURES Final Result from Last 3 Months Additional Health Concerns Active Problems Noted Date Diagnosed Date Autogenerated Problem 04/20/2025 Insurance Care Teams Innovation Analyst Relationship Specialty Start Date End Date Jatinder Billingsley MD [address] [place], [place] [id number] PCP - General 09/30/19
--- OUTSIDE RECORDS SUMMARY | 2025-05-19 20:28 | XMS_ITS | Encounter Summary ---
Author Organization [facility] Address [address] [place] [address] Phone Care Team Providers Care Make Ready Worker Name Role Phone Jatinder Billingsley MD Primary Care Provide r Encounter Details Date Type Department Care Team (Late st Contact Info) Description 04/19/2025 Telephone [facility] Medicine Cardiology [address] [facility] Advanced [facility] 8th [place] [address] [place] [address] Stephon Fernando MD [address] [facility] [address] [place], [place] [id number] Social History Tobacco Use Types Packs/Day Years Used Date Smoking Tobacco: Never Smokeless Tobacco: Never Sex and Gender Information Value Date Recorded Sex Assigned at Not on file Legal Sex Male 7:56 PM BROOMMAKING SUPERVISOR Gender Identity Not on file Sexual Orientation Not on file documented as of this encounter Miscellaneous Notes * Telephone Encounter - Karen Cai - 05/08/2025 10:36 AM CDT KASSIE PT STATES CURRENTLY AT DR CHAUDHARY'S OFFICE(LOCAL SMOG TECHNICIAN). PLEASE SEND 05/02 AND 05/[address] CHAUDHARY * Telephone Encounter - Norma Thapa RN - 04/19/2025 9:41 AM CDT LMOR anju Kellogg that pt requested to be followed by our office and I asked that she release his device from [employer] to us. * Telephone Encounter - Marita Alvarado - 04/19/2025 9:34 AM CDT Kassie Kellogg with Dr. Chaudhary's office called to transfer device care/checks to their office. She can be reached at [phone] opt 2. documented in this encounter Plan of Treatment Upcoming Encounters Date Type Department Care Team (Latest Contact Info) Description 08/07/2025 8:30 AM BROOMMAKING SUPERVISOR Hospital Encounter [facility] Electrophysiology Lab [address] [place] [address] Stephon Fernando MD [address] [address] Left heart failure (HCC); NICM (nonischemic cardiomyopathy) (HCC) 08/07/2025 8:30 AM BROOMMAKING SUPERVISOR - 08/07/2025 2:00 PM BROOMMAKING SUPERVISOR Surgery [facility] Electrophysiology Lab [address] [place] [address] Stephon Fernando MD [address] [address] REMOVE/REPLACE IMPLANTABLE CARDIOVERTER-DEFIB RILLATOR (ICD) WITH MULTI LEAD SYSTEM [address] documented as of this encounter Visit Diagnoses Not on filedocumented in this encounter Care Teams Make Ready Worker Relationship Specialty Start Date End Date Jatinder Billingsley MD [address] [place] [address] PCP - General 09/30/19 documented as of this encounter
[2025-05-19 20:29] LABS: NT Pro B Type Natriuretic Pept 150 pg/mL (19.9-100); Troponin I < 0.012 ng/mL (0.000-0.034)
[2025-05-19 21:00] VITALS: BP 137/74; PULSE 70; RESP 15; O2SAT 98
== END 2025-05-19 21:22 | disposition home or self-care (01) ==
PROVIDERS: Emergency Provider Emergency Medicine; PCP Family Medicine
DX: F41.9 Anxiety disorder, unspecified (principal); R07.9 Chest pain, unspecified; R06.02 Shortness of breath; I25.5 Ischemic cardiomyopathy; Z95.810 Presence of automatic (implantable) cardiac defibrillator; Z87.891 Personal history of nicotine dependence
CPT/HCPCS: 36415; 71046; 80053; 83690; 83880; 84484; 85025; 85610; 85730; 93005; 99284

== ENCOUNTER 2025-07-24 12:20 | Outpatient (CLI) | payer OTHER, SELFPAY ==
--- NOTE | ~2025-07-24 | XR_ITS ---
Examination: XR chest 2V Clinical History: CHEST PAIN Comparison: 05/19/2025 Technique: PA and Lateral Findings: Left ICD. Cardiomediastinal silhouette normal size and configuration. Lungs clear. No acute bony abnormality. IMPRESSION: 1. No acute cardiopulmonary findings. Reviewed, dictated and finalized at location R. E OPERATIONS ASSOCIATE
--- OUTSIDE RECORDS SUMMARY | 2025-07-24 13:54 | XMS_ITS | Encounter Summary ---
Author Organization [facility] Address [address] [place] [address] Care Team Providers Care Commissioner Public Works Name Role Phone None, Provider Primary Care Provider Michelle leonard Encounter Details Date Type Department Care Team (Late st Contact Info) Description 02/09/2025 Hospital Follow-up Call [facility] Cardiovascular Care Unit [address] [place] [address] Letha Michel, RN Social History Tobacco Use Types Packs/Day Years Used Date Smoking Tobacco: Every Day Cigarettes 0.5 23 Started: 2002 Smokeless Tobacco: Never Alcohol Use Standard Drinks/Week Comments Yes 0 (1 standard drink = 0.6 oz pur e alcohol) 1 beer every 2-3 months [facility] Utilities Answer Date Recorded In the past 12 months has e [employer], gas, oil, or water [employer] threatened to shut off services in your [...] were you homeless or living in a penitentiary (including now)? No 02/04/2025 Sex and Gender [...] on filedocumented in this encounter Care Teams Commissioner Public Works Relationship Specialty Start Date End Date None, Provider, PCP - General UNKNOWN PHYSICIAN SPECIALTY 02/04/25 documented as of this encounter
--- OUTSIDE RECORDS SUMMARY | 2025-07-24 13:55 | XMS_ITS | Data Portability ---
Author Organization 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 [address] [place], [address], 3 12:21:51 Coreg 12.5 mg tablet [address] [facility] [address] [place], [address], 3 12:21:50 fenofibrate 160 mg tablet [address] [facility] [address] [place], [address], 3 12:21:55 lisinopril 10 mg tablet 2022 023 [facility] [address] [place], [address], 3 12:21:52 aspirin 325 mg tablet [address] [facility] [address] [place], [address], 3 12:40:18 Coreg 12.5 mg tablet [address] [facility] [address] [place], [address], 12:52:00 lisinopril 10 mg tablet 2021 [facility] [address] [place], [address], 12:52:02 Coreg 12.5 mg tablet 2021 [facility] [address] [place], [address], 22:53:02 Coreg 12.5 mg tablet [address] [facility] [address] [place], [address], 22:53:08 Nitrostat 0.4 mg sublingual tablet 2021 [facility] [address] [place], [address], 22:52:58 fenofibrate 160 mg tablet 2021 [facility] [address] [place], [address], 22:53:12 lisinopril 10 mg tablet 2021 [facility] [address] [place], [address], 22:53:04 Coreg 12.5 mg tablet 2021 [facility] [address] [place], [address], 10:30:52 Coreg 12.5 mg tablet [address] [facility] [address] [place], [address], 10:30:48 Nitrostat 0.4 mg sublingual tablet 2021 [facility] [address] [place], [address], 10:30:44 fenofibrate 160 mg tablet 2021 [facility] [address] [place], [address], 10:30:46 lisinopril 10 mg tablet 2021 [facility] [address] [place], [address], 10:30:45 Patient TargetsNo targets recorded. Patient Instructions Encounter Date Encounter Id Patient Instructions Last Modified By Organization Details Last Modified Time 09/10/2021 [id number] Advised against smoking Exercise advised Low cholesterol diet advised Low sodium diet advised. [email or web address] Not available 09/10/2021 10:29:54 06/10/2022 [id number] Weight loss, 20 pounds Advised against smoking Exercise advised Low cholesterol diet advised Low sodium diet advised. [email or web address] Not available 06/10/2022 12:51:36 04/01/2023 [id number] Low cholesterol diet advised Low sodium diet [...] ation record ed. Kiran Strickland MD [address], [place], [address], 09/17/2021 11:23:50 09/11/19 22 09/10/2021 elect rocar [...] ation record ed. Kiran Strickland MD [address], [place], [address], 12/11/2021 13:42:09 12/25/19 22 12/10/2021 pacem alyssa [...] Address Organization Details Recorded Time Uday fox [id number] Completed 201509/09/2017 Norma mtz [place] [facility] 8 15:16:25 Congestiv e heart failure 74560511 Active 2015 Fernie mtz [place] - [facility] 6 13:58:12 Left bundle branch block 96828408 Active 2015 Fernie Cuello [facility] 6 13:59:41 Gastroeso phageal reflux disease 280808162 Active 2015 Fernie Cuello [facility] 6 14:03:15 Bronchiti s 90427929 Active 2016 Jovany Sibley [facility] 7 14:25:08 Atypical chest pain 447999626 Active 2017 Anuja Crockettkatya [facility] 8 17:34:45 Dyslipide twyla 347069721 Active 2017: LDL 89 Ekta Lópezer [facility] 8 10:05:24 Nicotine dependenc e 23927301 Active 2017 Kiran Hanson i, MD [address] [place], [address] [place] [address] [facility] 8 15:43:27 Nonischem ic congestiv e cardiomyo jovany 476500938776 Active 2017 Ekta Carsonugher [facility] 8 14:52:52 Essential hypertens ion 00426785 Active 2018 Anuja Crockettkatya [facility] 9 08:23:34 Automatic implantab le cardiac defibrill ator in situ 954509549 Active 2019 Licea Bonkatya [facility] 0 13:08:35 Hyperchol esterolem ia 43135530 Active 2019 Licea [facility] 0 13:41:23 Problem Notes None recorded. Procedures Surgical History Date Name Laterality Status Provider Name and Address Organization Details Recorded Time Back Surgery completed Licea Meskatya [facility] 03/07/2016 05:01:30 Imaging Results None recorded. Procedure [...] e 50 mcg/actua tion nasal spray,radha pension [place] 2 sprays as needed by nasal route. [...] (BMI) Body weight Heart rate Oxygen saturation Systolic And Diastolic Provider Name and Address Organization Details Last Updated DateTime 2 177.8 cm 31 kg/m2 51294.9 5 g 72 /min 97 % 120/90 mm[Hg] Nagi Mendes [facility] 2 10:02:20 Date Recorded Body height Body mass index (BMI) Body weight Heart rate Oxygen saturation Systolic And Diastolic Provider Name and Address Organization Details Last Updated DateTime 2 177.8 cm 30.4 kg/m2 33502.5 8 g 68 /min 98 % 120/68 mm[Hg] Kiran Hanson i, MD [address] [place], [address], [facility] 2 12:30:01 Date Recorded Body height Body mass index (BMI) Body weight Heart rate Respiratory rate Oxygen saturation Systolic And Diastolic Provider Name and Address Organization Details Last Updated DateTime 3 177.8 cm 32.9 kg/m2 435424. 65 g 72 /min 16 /min 98 % 116/82 mm[Hg] Kel Mejia [facility] 3 10:46:55 Date Recorded Body height Body mass index (BMI) Body weight Heart rate Oxygen saturation Systolic And Diastolic Provider Name and Address Organization Details Last Updated DateTime 3 177.8 cm 31.9 kg/m2 742309. 51 g 97 /min 99 % 132/97 mm[Hg] Leonela Hernandezuse [facility] 3 11:50:59 Date Recorded Body height Body mass index (BMI) Body weight Heart rate Respiratory rate Oxygen saturation Systolic And Diastolic Provider Name and Address Organization Details Last Updated DateTime 2 177.8 cm 31.9 kg/m2 526564. 51 g 88 /min 16 /min 98 % 118/76 mm[Hg] Kel Mejia [facility] 2 12:24:34 Social History Question Answer Notes LastModified by [facility] Details LastModified Time Tobacco Smoking Status [facility] 05:02:52 What Was The Date Of Your Most Recent Tobacco Screening? 09/13/2019 [email or web address] Information not available 10/19/2019 Sex: Unknown Functional Status Question Answer Note LastModified by [employer] Details LastModified Time Do you or have you ever used smokeless tobacco? Never used smokeless tobacco Information not available 03/05/2020 Do you or have you ever used e-cigarettes or vape? Never used electronic cigarettes Information not available 10/19/2019 Mental Status None recorded. Family History Relationship Description Onset Age of this Age Resolved Age Notes LastModified by Organization Details LastModified Time Mother Hypertensive disorder esto Not available 2015 05:03:11 Mother Hyperlipidem ia [...] Note [id number] MD Neftaly Guillaume Office [address] [place] [address] 03/10/2016 12:48:39 03/12/2016 11:15:15 Electrocardiogram abnormal 425776709 R94.31 Congestive heart failure 78432928 I50.9 LVEF increased to 30-35% on recent echo. Sx's stable. S/p ICD. Increase Coreg to 12.5 mg bid. Continue Lisinopril . 2gm Na/d diet and weight loss 20 lbs. Hyperlipidemia 29488424 E78.5 Obtain FLP. Continue fenofibrat e. [id number] MD Neftaly Guillaume Office [address] [place] [address] 09/17/2016 14:02:55 09/22/2016 11:30:15 Congestive heart failure 96298369 I50.9 Discussed patient s diagnosis of heart [...] for primary prevention of sudden cardiac . [id number] MD Neftaly Ramirez Office [address] [place] [address] 03/11/2017 14:11:32 03/12/2017 12:27:51 Congestive heart failure 64340736 I50.9 Discussed patient s diagnosis of heart [...] primary prevention of sudden cardiac . Hyperlipidemia 19917177 E78.5 Obtain FLP. Continue fenofibrat e. Atypical chest pain 1025 28841 R07.89 [id number] MD Neftaly Ramirez Office [address] [facility] [address] [facility] [place] [address] 09/09/2017 14:43:37 09/09/2017 16:49:02 Congestive heart failure 70944721 I50.9 Discussed patient s diagnosis of heart [...] sudden cardiac . Atypical chest pain 1025 44868 R07.89 REsolved Dyslipidemia 501289226 E 78.5 Continue fenofibrat e.08/31/17 : LDL 89 Essential hypertension 92985578 I10 Nicotine dependence 5629 4008 F17.200 cessation recommende dPt smokes 1/2 PPD [id number] Kiran Strickland MD [facility] Office [address] [facility] [address] [place] [address] 03/10/2018 13:50:38 03/10/2018 14:26:53 Congestive heart failure 66507334 I50.9 With known nonischemi c cardiomyop athy s/p ICD.Appear s euvolemic. Continue Coreg and lisinopril . Atypical chest pain 1025 23076 R07.89 Resolved. Would like to have SL nitro on hand. Dyslipidemia 932194817 E 78.5 Needs to keep LDL less than 70, and HDL more than 40 08/31/17: LDL 89Continue fenofibrat e. Essential hypertension 92946468 I10 Well controlled on current regimen. Continue. Nicotine dependence 5629 4008 F17.200 Cessation recommende dPt smokes less than 1/2 PPD QD Nonischemi c congestive cardiomyopathy 3756502979 04 I42.0 s/p ICD.Needs compliance with home monitoring . [id number] Kiran Strickland MD [place] OFFICE [address] [place] [address] 09/14/2018 17:28:32 09/14/2018 22:44:15 Congestive heart failure 53048320 I50.9 With known nonischemi c cardiomyop athy s/p ICD.Contin ue Coreg and lisinopril . Nonischemi c congestive cardiomyopathy 5559104761 04 I42.0 s/p ICD.Needs compliance with home monitoring . Atypical chest pain 1025 22349 R07.89 Had episode last week after using nasal spray. Dyslipidemia 686823246 E 78.5 Needs to keep LDL less than 70, and HDL more than 40 08/31/17: LDL 89Continue fenofibrat e. Essential hypertension 34100262 I10 Well controlled on current regimen. Nicotine dependence 5629 4008 F17.200 Cessation recommende dPt smokes less than 1/2 PPD QD 40125 Kiran Strickland MD [place] OFFICE [address] [place] [address] 03/15/2019 10:40:33 03/16/2019 11:20:39 Congestive heart failure 13345314 I50.9 With known nonischemi c cardiomyop athy s/p ICD.Contin ue Coreg and lisinopril . Nonischemi c congestive cardiomyopathy 0372469460 04 I42.0 s/p ICD.encour aged compliance with home monitoring . Atypical chest pain 1025 45172 R07.89 Had episode last week after using nasal spray. Dyslipidemia 586464522 E 78.5 Needs to keep LDL less than 70, and HDL more than 40 08/31/17: LDL 89Continue fenofibrat e. Essential hypertension 62677535 I10 Well controlled on current regimen. Nicotine dependence 5629 4008 F17.200 Continue to encourage cessationP t smokes less than 1/2 PPD QD Automatic implantable cardiac defibrillator in situ 721559868 Z95.810 follow up was done today, it seems to be functionin g well, no new events.Beltran [place] getting close to end of life will continue to monitor [id number] Kiran Strickland MD [place] OFF[facility] [place] [address] 06/14/2019 12:30:30 06/19/2019 22:02:25 Congestive heart failure 68614194 I50.9 With known nonischemi c cardiomyop athy [...] Pacemaker -unknown pace Nonischemi c congestive cardiomyopathy 1807359467 04 I42.0 s/p ICD. Checked today. 8 episodes of NSVT, most recent on 06/12/2019 , 6 beats @ 207 bpm, lasting 1 second. Otherwise seems to be functionin g well. Dyslipidemia 977494067 E 78.5 Needs to keep LDL less than 70, and HDL more than 40 08/31/17: LDL 89Continue fenofibrat e. Essential hypertension 55834321 I10 Well controlled on current regimen. Nicotine dependence 5629 4008 F17.200 Trying to quit now, using nicorette gum. Automatic implantable cardiac defibrillator in situ 671791962 Z95.810 follow up was done today, it seems to be functionin g well, no new events.Beltran [place] getting close to end of life will continue to monitor [id number] Kiran Strickland MD [place] OFF[facility] [place] [address] 09/13/2019 13:01:47 09/14/2019 12:29:56 Nonischemic congestive cardiomyopathy 7199915486 04 I42.0 s/p ICD. Euvolemic, asymptomat ic. [...] Normal sinus Rhythm Pacemaker -unknown pace Dyslipidemia 107069371 E 78.5 Needs to keep LDL less than 70, and HDL more than 40 08/31/17: LDL 89Continue fenofibrat e. Essential hypertension 77051798 I10 Blood pressure is elevated today, but this is only one reading, will keep close follow up, and consider medication change if blood pressure is still elevated next visit. Nicotine dependence 5629 4008 F17.200 Trying to quit now, using nicorette lozenges. Automatic implantable cardiac defibrillator in situ 338189400 Z95.810 s/p ICD. Device check today. Had 8 episodes of NSVT over past 2 months. 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 Will set up to replace device. Atypical chest pain 1025 19484 R07.89 Occasional . Needs Rx renewal for SL NTG. [id number] Kiran Strickland MD [place] OFFICE [address] [place] [address] 10/21/2019 11:30:28 10/21/2019 11:56:01 Nonischemic congestive cardiomyopathy 0212996931 04 I42.0 s/p ICD. Euvolemic, asymptomat ic. [...] Normal sinus Rhythm Pacemaker -unknown pace Dyslipidemia 815962485 E 78.5 Needs to keep LDL less than 70, and HDL more than 40 08/31/17: LDL 89Continue fenofibrat e. Essential hypertension 75350256 I10 Blood pressure is elevated today, but this is only one reading, will keep close follow up, and consider medication change if blood pressure is still elevated next visit. Nicotine dependence 5629 4008 F17.200 Trying to quit now, using nicorette lozenges. Automatic implantable cardiac defibrillator in situ 440448176 Z95.810 s/p ICD, now device is OK Atypical chest pain 1025 17189 R07.89 Occasional . Needs Rx renewal for SL NTG. [id number] Kiran Strickland MD [place] OFF[facility] [address] [place] [address] 11/18/2019 13:22:18 11/18/2019 13:44:16 Nonischemic congestive cardiomyopathy 7837606632 04 I42.0 s/p ICD. Euvolemic, asymptomat ic. [...] Normal sinus Rhythm Pacemaker -unknown pace Dyslipidemia 091222863 E 78.5 Needs to keep LDL less than 70, and HDL more than 40 08/31/17: LDL 89Continue fenofibrat e. Essential hypertension 46129747 I10 Blood pressure is elevated today, but this is only one reading, will keep close follow up, and consider medication change if blood pressure is still elevated next visit. Automatic implantable cardiac defibrillator in situ 609735235 Z95.810 s/p ICD, with recent generator change. Now with pain but no erythema or discharge and wound intact per pt (phone visit). Pt to follow up with Dr Berman office. Nicotine dependence 5629 4008 F17.200 Trying to quit now, using nicorette lozenges. Atypical chest pain 1025 62103 R07.89 Occasional . Needs Rx renewal for SL NTG. [id number] Kiran Strickland MD [place] OFFICE [address] [place] [address] 12/13/2019 11:39:32 12/13/2019 13:17:04 Automatic implantable cardiac defibrillator in situ 323358250 Z95.810 s/p ICD, with recent generator change. Now with pain but no erythema or discharge and wound intact, pain control and FU Nonischemi c congestive cardiomyopathy 5577383908 04 I42.0 s/p ICD. Euvolemic, asymptomat ic. [...] Normal sinus Rhythm Pacemaker -unknown pace Dyslipidemia 858607814 E 78.5 Needs to keep LDL less than 70, and HDL more than 40 08/31/17: LDL 89Continue fenofibrat e. Essential hypertension 87631082 I10 Blood pressure is elevated today, but this is only one reading, will keep close follow up, and consider medication change if blood pressure is still elevated next visit. Nicotine dependence 5629 4008 F17.200 Trying to quit now, using nicorette lozenges. Atypical chest pain 1025 87602 R07.89 Occasional . Needs Rx renewal for SL NTG. [id number] Kiran Strickland MD [place] [facility] [address] [place] [address] 03/06/2020 11:58:06 03/06/2020 12:42:07 Automatic implantable cardiac defibrillator in situ 673516349 Z95.810 03/06/2020No shocks. s/p ICD, with recent generator change. Now with pain but no erythema or discharge and wound intact, pain control and FU Nonischemi c congestive cardiomyopathy 5006744472 04 I42.0 03/06/2020 s/p ICD. Euvolemic, asymptomat [...] Normal sinus Rhythm Pacemaker -unknown pace Dyslipidemia 703504347 E 78.5 03/06/2020 Will get fasting lipids for F/u Needs to keep LDL less than 70, and HDL more than 40 08/31/17: LDL 89Continue fenofibrat e. Essential hypertension 94749039 I10 03/06/2020BP high today. Second high BP in a row. Lifestyle changes encouraged . Blood pressure is elevated today, but this is only one reading, will keep close follow up, and consider medication change if blood pressure is still elevated next visit. Nicotine dependence 5629 4008 F17.200 Trying to quit now, using nicorette lozenges. Atypical chest pain 1025 60268 R07.89 03/06/2020Oc casional. Stable 50422 Kiran Strickland MD [place] [facility] [address] [place] [address] 09/04/2020 11:46:03 02/05/2021 12:07:35 Automatic implantable cardiac defibrillator in situ 479464933 Z95.810 Last check 06/12/2020 with no new events Nonischemi c congestive cardiomyopathy 8194423766 04 I42.0 s/p ICD ( 0) Seems [...] estimated RV systolic pressure is normal. Dyslipidemia 136263744 E 78.5 Needs to keep LDL less than 70, and HDL more than 40. 08/31/2017 LDL 89Continue fenofibrat e, not on statin therapy.Wi ll get fasting lipids for follow-up Essential hypertension 99060303 I10 well controlled on current regimen Nicotine dependence 5629 4008 F17.200 Cessation highly advised Atypical chest pain 1025 41587 R07.89 Resolved 54482 Justino Dunlap MD [place] [facility]ICE [address] [place] [address] 03/05/2021 09:47:53 03/05/2021 13:16:22 Congestive heart failure 75338583 I50.9 With known nonischemi c cardiomyop athy [...] ICD Treadmill Myoview Stress test, has high Fowler Risk score. Has Known CAD, or CAD [...] Normal sinus Rhythm Pacemaker -unknown pace Dyslipidemia 570868201 E 78.5 Needs to keep LDL less than 70, and HDL more than 40. 08/31/2017 LDL 89Continue fenofibrat e, not on statin therapy.Wi ll get fasting lipids for follow-up has not gotten labs yet. Essential hypertension 69797314 I10 well controlled on current regimen no new changes Left bundl e branch block 88244165 I44.7 Nonischemi c congestive cardiomyopathy 6250679755 04 I42.0 s/p ICD ( 0) Seems to be well compensate d, appears euvolemic. Continue Coreg and lisinopril Yes winded XIONG, Pacer showed ectopy, Consider 3rd lead BI Ventricula r pacing. Treadmill Myoview Stress test, has high Fowler Risk score. Has Known CAD, or CAD [...] normal. 35-40% EKG: left bundle branch block 926398678 I44.7 Consider biventricu lar pacing will perfom stress test see cardiomyop athy Treadmill Myoview Stress test, has high Fowler Risk score. Has Known CAD, or CAD risk equivalent . To look for any ischemia. [id number] Kiran Strickland MD [place] OFF[facility] [place] [address] 09/10/2021 09:42:58 09/10/2021 10:42:34 Congestive heart failure 47038969 I50.9 We will do stress ECho With [...] ICD Treadmill Myoview Stress test, has high Fowler Risk score. Has Known CAD, or CAD [...] Normal sinus Rhythm Pacemaker -unknown pace Dyslipidemia 419006122 E 78.5 Needs to keep LDL less than 70, and HDL more than 40. 08/31/2017 LDL 89Continue fenofibrat e, not on statin therapy.Wi ll get fasting lipids for follow-up has not gotten labs yet. Essential hypertension 90384315 I10 well controlled on current regimen no new changes Left bundl e branch block 54457371 I44.7 Nonischemi c congestive cardiomyopathy 5513075197 04 I42.0 s/p ICD ( 0) Seems to be well compensate d, appears euvolemic. Continue Coreg and lisinopril Yes winded XIONG, Pacer showed ectopy, Consider 3rd lead BI Ventricula r pacing. Treadmill Myoview Stress test, has high Fowler Risk score. Has Known CAD, or CAD [...] normal. 35-40% EKG: left bundle branch block 694610286 I44.7 Consider biventricu lar pacing will perfom stress test see cardiomyop athy Treadmill Myoview Stress test, has high Fowler Risk score. Has Known CAD, or CAD risk equivalent . To look for any ischemia. Atypical chest pain 1025 65721 R07.89 Resolved 38699 Kiran Strickland MD [place] [facility] [place] [address] 12/10/2021 11:42:16 12/10/2021 12:58:35 Congestive heart failure 02628890 I50.9 We will do stress ECho With [...] ICD Treadmill Myoview Stress test, has high Fowler Risk score. Has Known CAD, or CAD [...] Normal sinus Rhythm Pacemaker -unknown pace Dyslipidemia 017570589 E 78.5 Needs to keep LDL less than 70, and HDL more than 40. 08/31/2017 LDL 89Continue fenofibrat e, not on statin therapy.Wi ll get fasting lipids for follow-up has not gotten labs yet. Essential hypertension 04295235 I10 well controlled on current regimen no new changes Left bundl e branch block 26192176 I44.7 Nonischemi c congestive cardiomyopathy 2694185283 04 I42.0 s/p ICD ( 0) Seems to be well compensate d, appears euvolemic. Continue Coreg and lisinopril Yes winded XIONG, Pacer showed ectopy, Consider 3rd lead BI Ventricula r pacing. Treadmill Myoview Stress test, has high Fowler Risk score. Has Known CAD, or CAD [...] normal. 35-40% EKG: left bundle branch block 980677163 I44.7 Consider biventricu lar pacing will perfom stress test see cardiomyop athy Treadmill Myoview Stress test, has high Fowler Risk score. Has Known CAD, or CAD risk equivalent . To look for any ischemia. Atypical chest pain 1025 21663 R07.89 Resolved 50937 Kiran Strickland MD [place] [facility] [address] [place] [address] 06/10/2022 10:44:30 06/10/2022 12:58:16 Congestive heart failure 37900191 I50.9 ( 2) Exercise Stress Echo.Negat ok [...] ICD Treadmill Myoview Stress test, has high Fowler Risk score. Has Known CAD, or CAD [...] Normal sinus Rhythm Pacemaker -unknown pace Dyslipidemia 569503634 E 78.5 Needs to keep LDL less than 70, and HDL more than 40. 09/2021 LDL 116Continu e fenofibrat e, not on statin therapy.Wi ll get fasting lipids for follow-up has not gotten labs yet. Essential hypertension 93057875 I10 well controlled on current regimen no new changes Left bundl e branch block 92757141 I44.7 Nonischemi c congestive cardiomyopathy 3678524296 04 I42.0 s/p ICD ( 0)devise interrogat ed today no change ( he has one episode of NSVT last lasted for 1 sec) Seems to be well compensate d, appears euvolemic. Continue Coreg and lisinopril Yes winded XIONG, Pacer showed ectopy, Consider 3rd lead BI Ventricula r pacing. Treadmill Myoview Stress test, has high Fowler Risk score. Has Known CAD, or CAD [...] normal. 35-40% EKG: left bundle branch block 805028984 I44.7 Consider biventricu lar pacing will perfom stress test see cardiomyop athy Treadmill Myoview Stress test, has high Fowler Risk score. Has Known CAD, or CAD risk equivalent . To look for any ischemia. Atypical chest pain 1025 44542 R07.89 Resolved [id number] Kiran Strickland MD [place] [facility] [address] [place] [address] 12/16/2022 10:35:39 12/16/2022 11:29:29 Congestive heart failure [id number] I50.9 ( 2) Exercise Stress Echo.Negat ok [...] ICD Treadmill Myoview Stress test, has high Fowler Risk score. Has Known CAD, or CAD [...] Normal sinus Rhythm Pacemaker -unknown pace Dyslipidemia 136941732 E 78.5 Needs to keep LDL less than 70, and HDL more than 40. 09/2021 LDL 116Continu e fenofibrat e, not on statin therapy.Wi ll get fasting lipids for follow-up has not gotten labs yet. Essential hypertension 32441608 I10 well controlled on current regimen no new changes Left bundl e branch block 89038078 I44.7 Nonischemi c congestive cardiomyopathy [id number] 04 I42.0 s/p ICD ( 0)devise interrogat ed today no change ( he has few episode of NSVT) Seems to be well compensate d, appears euvolemic. Continue Coreg and lisinopril Yes winded XIONG, Pacer showed ectopy, Consider 3rd lead BI Ventricula r pacing. Treadmill Myoview Stress test, has high Fowler Risk score. Has Known CAD, or CAD [...] normal. 35-40% EKG: left bundle branch block 630192859 I44.7 Consider biventricu lar pacing will perfom stress test see cardiomyop athy Treadmill Myoview Stress test, has high Fowler Risk score. Has Known CAD, or CAD risk equivalent . To look for any ischemia. Atypical chest pain 1025 00843 R07.89 Resolved Paroxysmal atrial fibrillation 643908772 I48.0 few events of a fibhe is on full aspirincon tinue with coreg and consider changing to toprol Obstructiv e sleep apnea syndrome 44371374 G47.33 he need sleep study 51786 Kiran Strickland MD [facility] [address] [place] [address] 04/01/2023 11:38:31 04/01/2023 12:23:50 Congestive heart failure 50593464 I50.9 ( 2) Exercise Stress Echo.Negat ok [...] ICD Treadmill Myoview Stress test, has high Fowler Risk score. Has Known CAD, or CAD [...] Normal sinus Rhythm Pacemaker -unknown pace Dyslipidemia 516226799 E 78.5 Needs to keep LDL less than 70, and HDL more than 40. 09/2021 LDL 116Continu e fenofibrat e, not on statin therapy.Wi ll get fasting lipids for follow-up has not gotten labs yet. Essential hypertension 60678108 I10 well controlled on current regimen no new changes Left bundl e branch block 81746001 I44.7 Nonischemi c congestive cardiomyopathy 4090936118 04 I42.0 s/p ICD ( 0)devise interrogat ed today no change ( he has few episode of NSVT) Seems to be well compensate d, appears euvolemic. Continue Coreg and lisinopril Yes winded XIONG, Pacer showed ectopy, Consider 3rd lead BI Ventricula r pacing. Treadmill Myoview Stress test, has high Fowler Risk score. Has Known CAD, or CAD [...] normal. 35-40% EKG: left bundle branch block 473898741 I44.7 On ICD Atypical chest pain 1025 67042 R07.89 Resolved Paroxysmal atrial fibrillation 212009296 I48.0 few events of a fibhe is on full aspirincon tinue with coreg Obstructiv e sleep apnea syndrome 55219781 G47.33 he need sleep study Chest pain 49262078 R07. 9 Health Concerns Section Related Observation LastModified by Organization Detai ls LastModified Time None Recorded Concern Status LastModified by Organization Details LastModified Time None Recorded Advance Directives Directive None Recorded Payers Insurance Date Sequence Insurance Name Policy Number Policy Ray Covered Member ID Ray Member ID Guarantor Name 02/16/2024 1 [facility] ON OR AFTER 01/31/21 (MEDICAID REPLACEMENT - HMO) Daniel Prince [id number] Daniel Prince 04/06/2021 1 [facility] PRIOR TO 01/31/2021 (MEDICAID REPLACEMENT - HMO) Daniel Prince [id number] Daniel Prince Notes Date Note Type Note Provider Name and Address Organization Details Recorded Time 09/10/2021 text/html 09/10/21CC : Cardiac follow up dyspnoea on exertion and gqflsglzujml23-utliz-u ld white man with a past medical [...] 9lbs. He continues to [facility] because of AICD generator battery [...] TR 386, LDL 88, AST 21, ALT 5715-55-2128 SOD 140, K 4.4, CL 102, CO2 [...] motion is consistent with conduction abnormality. Edith mtz, [place] - [facility] 03/26/2022 17:52:22 12/10/2021 text/html 12/10/21CC : Cardiac follow lo01-sddek-fla white man with a past medical history [...] 9lbs. He continues to smokeHe [facility] because of AICD generator battery [...] 178 ,TG 292 ,HDL 31 ,LDL 89 ,08/22/16 SOD 140, K 4.4, CL 102, CO2 30, GL 99, BUN 12, CR 1.02 TC 196, HDL 31, TR 386, LDL 88, AST 21, ALT 3565-90-0515 SOD 140, K 4.4, CL 102, CO2 [...] with conduction abnormality. Kiran Strickland MD [address] [place], [address], [facility] 04/24/2022 22:52:51 06/10/2022 text/html 06/10/22CC : Cardiac follow up chest pain and dyspnea on -zlvxx-jhp white man with a past medical history [...] 9lbs. He continues to smokeHe [facility] because of AICD generator battery [...] TR 386, LDL 88, AST 21, ALT 2144-55-1676 SOD 140, K 4.4, CL 102, CO2 [...] with conduction abnormality. Kiran Strickland MD [address] [place], [address], [facility] - [facility] 06/10/2022 12:51:50 12/16/2022 text/html 12/16/22CC : Cardiac follow up dyspnea on cmexbrjk88-atpnc-vdh white man with a past medical history [...] 9lbs. He continues to smokeHe [facility] because of AICD generator battery [...] TR 386, LDL 88, AST 21, ALT 6732-15-8182 SOD 140, K 4.4, CL 102, CO2 [...] with conduction abnormality. Kiran Strickland MD [address] [place], [address], [facility] 12/16/2022 11:25:25 04/01/2023 text/html 04/01/23CC : Cardiac follow up dyspnea on yzshkxmj34-prnqv-swg white man with a past medical history [...] 9lbs. He continues to smokeHe [facility] because of AICD generator battery [...] TR 386, LDL 88, AST 21, ALT 0816-20-5573 SOD 140, K 4.4, CL 102, CO2 [...]
--- OUTSIDE RECORDS SUMMARY | 2025-07-24 13:55 | XMS_ITS | Patient Health Record ---
Author Organization [facility] Address [address] [place] [address] Support Name Relationship Address Phone MATT MANSFIELD Guarantor Unknown [phone] Allergies No Known Allergies Reason For [...] Insured Coverage Start Date Coverage End Date [facility] [address] [place] [address] [phone] [id number] MATT SPENCE Self - patient is the insured Medical (General) History Medical History History ICD Code cardiomyopathy plantar fasciitis heart disease
--- OUTSIDE RECORDS SUMMARY | 2025-07-24 13:55 | XMS_ITS | Clinical Summary ---
Author Organization [facility] Address [address] [place] [address] Care Team Providers Care Barrel Header Name Role Phone None, Provider MD Primary [...] total) by mouth nightly at bedtime. Active Active Problems Problem Noted Date Diagnosed Date ICD (implantable cardioverter-defibrillator) dis charge 02/04/2025 Cardiomyopathy Family History Medical History Relation Comments COPD Father Diabetes Father Cancer Mother Diabetes Mother Stroke Mother Relation Status Comments Father Mother Alive Sister Alive Social History Tobacco Use Types Packs/Day Years Used Date Smoking Tobacco: Every Day Cigarettes 0.5 23 Started: 2002 Smokeless Tobacco: Never Tobacco Cessation:Ready to Q uit: Not Asked; Counseling Given: Not Answered Alcohol Use Standard Drinks/Week Comments Yes 0 (1 standard drink = 0.6 oz pur e alcohol) 1 beer every 2-3 months [facility] Utilities Answer Date Recorded In the past 12 months has e [employer], oil, or water [employer] threatened to shut off services in your [...] any time in the past 12 [facility], were you homeless or living in a alf (including now)? No 02/04/2025 Sex and Gender [...] Vaccines (1 - 3-dose SCDM series) 2010 COVID-19 Vaccine ( season) 2025 09/11/2024, 05/26/2023, 07/17/2022, Additional history exists Influenza Adult (#1) 2025 09/11/2024, 05/26/2023, 05/31/2022 Hepatitis A Vaccines Aged Out No long er eligible based on patient's age to complete this topic Meningococcal B Vaccine Aged Out No l onger eligible based on patient's age to complete this topic Meningococcal Vaccine Aged Out No livier lewis eligible based on patient's age to complete this topic RSV Immunizations Under 20 Months Aged Out No longer eligible based on patient's age to complete this topic Insurance [place] Advance Directives * Full Code (Latest Code Status on File) Date Activated Date Inactivated Comments 02/04/2025 6:19 PM 02/07/2025 3:37 PM Care Teams Barrel Header Relationship Specialty Start Date End Date None, Provider, PCP - General UNKNOWN PHYSICIAN SPECIALTY 02/04/25
--- OUTSIDE RECORDS SUMMARY | 2025-07-24 13:55 | XMS_ITS | Clinical Summary ---
Author Organization [facility] Address [address] [place] [address] Care Team Providers Care Senior Clinical Project Manager Name Role Phone Jatinder Billingsley MD Primary Care Provide r Allergies No known active allergies Medications Entresto 24-26 mg tabletIndicatio ns:chronic heart failure Take 1 tablet by mouth 2 (two) times a day 5 Active Farxiga 10 mg tabletIndicatio ns:Heart Failure Take 1 tablet (10 mg total) by mouth director of early childhood education before breakfast 5 Active fenofibrate (TRIGLIDE) 160 mg tabletIndicatio ns:hyperlipidem ia Take 1 tablet (160 mg total) by mouth nightly 5 Active spironolactone (ALDACTONE) 25 mg tabletIndicatio ns:chronic heart failure,hyperte nsion Take 1 tablet (25 mg total) by mouth director of early childhood education before breakfast 5 Active metoprolol (LOPRESSOR) 100 mg tablet 5 Active aspirin 81 mg enteric coated tabletIndicatio ns:prevention of thrombosis Take 1 tablet (81 mg total) by mouth director of early childhood education before breakfast 5 Active levocetirizine (XYZAL) 5 mg tabletIndicatio ns:Allergic Conjunctivitis, Allergic Rhinitis Take 1 tablet (5 mg total) by mouth director of early childhood education before breakfast 4 Active omega-3 fatty acids 1,000 mg capsuleIndicati ons:hypertrigly ceridemia Take 1,000 mg by mouth director of early childhood education before breakfast Active omeprazole OTC (PriLOSEC OTC) 20 mg EC tabletIndicatio ns:Treatment of Non-Bleeding Gastric Disorder Take 1 tablet (20 mg total) by mouth director of early childhood education before breakfast Active nitroglycerin (NITROSTAT) 0.4 mg SL tabletIndicatio ns:acute episode of anginal pain Place 1 tablet (0.4 mg total) under the tongue every 5 (five) minutes as needed for chest pain Hasn't taken in many months Active chlorpheniramin e-phenylephrine 4-10 mg per tabletIndicatio ns:Allergic Conjunctivitis, Allergic Rhinitis Take 1 tablet by mouth every 4 (four) hours as needed for congestion Active Active Problems Problem Noted Date Diagnosed Date Left heart failure 04/20/2025 NICM (nonischemic cardiomyopathy) 04/20/2025 Encounters Date Type Department Care Team Description 06/09/2025 Telephone [facility] Cardiology [address] [place] [address] [place] [address] Stephon Fernando MD 06/09/2025 Telephone [facility] Cardiology [address] [place] [address] Stephon Fernando MD 05/27/2025 Remote Device Check [facility] Cardiology [address] [address] Stephon Fernando MD 05/11/2025 Telephone [facility] Cardiology [address] [place] [address] Stephon Fernando MD 05/02/2025 Orders Only [facility] Cardiology [address] [place] [address] Don Armenta MD 04/25/2025 Orders Only [facility] Medicine Cardiology [address] [place] [address] [place] [address] Stephon Fernando MD NICM (nonischemic cardiomyopathy) (HCC) (Primary Dx) from Last 3 Months Surgical History Surgery Date Site/Laterality Comments CARDIAC DEFIBRILLATOR PLACEMENT 08/03/2019 - 08/02/2020 removal & replacement/battery change CARDIAC DEFIBRILLATOR PLACEMENT 08/03/2007 - 08/02/2008 SPINE SURGERY 08/03/2005 - 08/02/2006 L5-S1 herniation Social History Tobacco Use Types Packs/Day Years Used Date Smoking Tobacco: Former Cigarettes 1 23.5 S tarted: 2001 Smokeless Tobacco: Never Tobacco Cessation:Counseling Given: Not Answered Alcohol Use Standard Drinks/Week Comments Yes 0 (1 standard drink = 0.6 oz pur e alcohol) AUDIT-C Answer Date Recorded Q1: How often do you have a drink containing alc ohol? Monthly or less 07/24/2025 Q2: How many drinks containi ng alcohol do you have on a typical day when you are drinking? 1 or 2 07/24/2025 Q3: How often do you have si x or more drinks on one occasion? Never 07/24/2025 Sex and Gender Information Value Date Recorded Sex Assigned at Not on file Legal Sex Male 7:56 PM SHOT CORE DRILL OPERATOR Gender Identity Not on file Sexual Orientation Not on file Last Filed Vital Signs Vital Sign Reading Time Taken Comments Blood Pressure 125/82 04/18/2025 8:54 AM CDT Pulse 65 04/18/2025 8:54 AM CDT Temperature 36.7 C (98 F) 10/03/2019 8:57 AM SHOT CORE DRILL OPERATOR Respiratory Rate - - Oxygen Saturation 96% 04/18/2025 8:54 AM CDT Inhaled Oxygen Concentration - - Weight 110 kg (242 lb 8.1 oz) 07/24/2025 1:04 PM SHOT CORE DRILL OPERATOR Height 177.8 cm (5' 10) 07/24/2025 1:04 PM SHOT CORE DRILL OPERATOR Body Mass Index 34.8 07/24/2025 1:04 PM SHOT CORE DRILL OPERATOR Plan of Treatment Upcoming Encounters Date Type Department Care Team (Latest Contact Info) Description 08/07/2025 8:30 AM SHOT CORE DRILL OPERATOR Hospital Encounter [facility] Electrophysiology Lab [address] [place] [address] Stephon Fernando MD [address] [address] Left heart failure (HCC); NICM (nonischemic cardiomyopathy) (HCC) 08/07/2025 8:30 AM SHOT CORE DRILL OPERATOR - 08/07/2025 2:00 PM SHOT CORE DRILL OPERATOR Surgery [facility] Electrophysiology Lab 1 [facility] [place] [address] Stephon Fernando MD [address] [facility] [address] [place] [address] REMOVE/REPLACE IMPLANTABLE CARDIOVERTER-DEFIB RILLATOR (ICD) WITH MULTI LEAD SYSTEM 99953 Health Maintenance Due Date Last Done Comments Depression Screening 1983 Hepatitis C Screening 1983 DTaP/Tdap/Td Vaccine (1 - Tdap) 1994 Varicella Vaccines (1 of 2 - 13+ 2-dose series) 1996 Hepatitis B Screening 2001 Regular Well Visit/Exam 18-64 2001 HPV Vaccines (1 - 3-dose SCDM series) 2010 Covid-19 Vaccine ( season) 2025 09/11/2024, 05/26/2023, 07/17/2022, Additional history exists Influenza Vaccine (#1) 2025 , 05/26/2023, 05/31/2022 Pneumococcal vaccine <65 Aged Out No longer eligible based on patient's age to complete this topic Medical Devices Implanted Type Area Brim [employer] Crown Presser Device Identifier Shelf Expiration Date Model / Serial / Lot Icd ICD Left: Chest Wall Medtronic Procedures Procedure Name Priority Date/Time Associated Diagnosis Comments DEVICE CHECK - REMOTE Routine 05/27/2025 CARDIOLOGY DOCUMENT SCAN Routine 05/01/2025 11:43 AM CDT from Last 3 Months Results * DEVICE CHECK - REMOTE (05/27/2025) Anatomical Region Laterality Modality Other 05/27/2025 05/27/2025 Narrative 05/29/2025 9:27 AM CDT Device Summary Remote interrogation of Medtronic Single Chamber ICD Scheduled transmission Date of Implant: Oct 06, 2019 Programmed Mode: VVI Lower Rate: 30 bpm Device Functionality Presenting rhythm: SB 50s Device: Normal function Estimated Battery Longevity: 5 years 5 months Leads: Appear stable RV pacin.01 % Episodes Since 05/08/25: No tachy episodes Pt is scheduled for device upgrade procedure with Dr. Fernando on 08/07/25. Angelia Montanez RN BSN Procedure Note Stephon Fernando MD - 05/29/2025 Device Summary Remote interrogation of Medtronic Single Chamber ICD Scheduled transmission Date of Implant: Oct 06, 2019 Programmed Mode: VVI Lower Rate: 30 bpm Device Functionality Presenting rhythm: SB 50s Device: Normal function Estimated Battery Longevity: 5 years 5 months Leads: Appear stable RV pacin.01 % Episodes Since 05/08/25: No tachy episodes Pt is scheduled for device upgrade procedure with Dr. Fernando on 08/07/25. Angelia Montanez RN BSN us Stephon Fernando MD CV CARDIAC SERVI ELIZA PROCEDURES Final Result * Cardiology Document Scan (05/01/2025 11:43 AM CDT) Anatomical Region Laterality Modality Other us Don Armenta MD CV CARDIAC SERVICES PROCEDURES Final Result from Last 3 Months Insurance Care Teams Senior Clinical Project Manager Relationship Specialty Start Date End Date Jatinder Billingsley MD [address] [place] [address] PCP - General 09/30/19
--- OUTSIDE RECORDS SUMMARY | 2025-07-24 13:55 | XMS_ITS ---
Author Organization Unknown Address [address] [place] [phone] Phone Care Team Providers Care Lead Manufacturing Technician Name Role Phone FRANCINE Louis Attending Unavailable LITTLE CRAWFORD Primary Unavailable Social History Type Status Start Date End Date Code Code Syst em Sex Male Hospital Discharge Instructions Should you have any questions prior to discharge, please contact a member of your healthcare team. If you have left the hospital and have any questions, please contact your primary care physician. 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
== END 2025-07-24 12:21 | disposition home or self-care (01) ==
LOC: CHSIMG 12:22
PROVIDERS: PCP Family Medicine; Visit Provider Family Medicine
DX: R07.89 Other chest pain (principal)
CPT/HCPCS: 71046

== ENCOUNTER 2025-07-31 14:20 | Outpatient (CLI) | payer OTHER, SELFPAY ==
--- OUTSIDE RECORDS SUMMARY | 2025-07-31 14:35 | XMS_ITS | Clinical Summary ---
Author Organization [facility] Address [address] [place] [address] Care Team Providers Care Home Mortgage Disclosure Act Specialist Name Role Phone None, Provider MD [...] e alcohol) 1 beer every 2-3 months [facility] Utilities Answer Date Recorded In the past 12 months has e [employer], oil, or water [employer] threatened to shut off services in your [...] any time in the past 12 m [facility], were you homeless or living in a usp (including now)? No 02/04/2025 Sex and Gender [...] patient's age to complete this topic Insurance [employer] Advance Directives * Full Code (Latest Code Status on File) Date Activated Date Inactivated Comments 02/04/2025 6:19 PM 02/07/2025 3:37 PM Care Teams Home Mortgage Disclosure Act Specialist Relationship Specialty Start Date End Date None, Provider, PCP - General UNKNOWN PHYSICIAN SPECIALTY 02/04/25
--- OUTSIDE RECORDS SUMMARY | 2025-07-31 14:35 | XMS_ITS | Clinical Summary ---
Author Organization [facility] Address [address] [place] [address] Care Team Providers Care Head Of Human Resources Name Role Phone Jatinder Billingsley MD Primary Care Provide r Allergies No known active allergies Medications Entresto 24-26 mg tabletIndicatio ns:chronic heart failure Take 1 tablet by mouth 2 (two) times a day 5 Active Farxiga 10 mg tabletIndicatio ns:Heart Failure Take 1 tablet (10 mg total) by mouth nail feeder before breakfast 5 Active fenofibrate (TRIGLIDE) 160 mg tabletIndicatio ns:hyperlipidem ia Take 1 tablet (160 mg total) by mouth nightly 5 Active spironolactone (ALDACTONE) 25 mg tabletIndicatio ns:chronic heart failure,hyperte nsion Take 1 tablet (25 mg total) by mouth nail feeder before breakfast 5 Active metoprolol (LOPRESSOR) 100 mg tablet 5 Active aspirin 81 mg enteric coated tabletIndicatio ns:prevention of thrombosis Take 1 tablet (81 mg total) by mouth nail feeder before breakfast 5 Active levocetirizine (XYZAL) 5 mg tabletIndicatio ns:Allergic Conjunctivitis, Allergic Rhinitis Take 1 tablet (5 mg total) by mouth nail feeder before breakfast 4 Active omega-3 fatty acids 1,000 mg capsuleIndicati ons:hypertrigly ceridemia Take 1,000 mg by mouth nail feeder before breakfast Active omeprazole OTC (PriLOSEC OTC) 20 mg EC tabletIndicatio ns:Treatment of Non-Bleeding Gastric Disorder Take 1 tablet (20 mg total) by mouth nail feeder before breakfast Active nitroglycerin (NITROSTAT) 0.4 mg [...] Type Department Care Team Description 06/09/2025 Telephone [facility] Cardiology [address] [facility] [address] [place] [address] [place] [address] Stephon Fernando MD 06/09/2025 Telephone [facility] Cardiology [address] [facility] [address] [place] [address] [place] [address] Stephon Fernando MD 05/27/2025 Remote Device Check [facility] Cardiology [address] [address] Stephon Fernando MD 05/11/2025 Telephone [facility] Cardiology [address] [facility] [address] [place] [address] [place] [address] Stephon Fernando MD 05/02/2025 Orders Only [facility] Cardiology [address] [place] [address] Don Armenta MD from Last 3 Months Surgical History Surgery [...] on file Legal Sex Male 7:56 PM SPEED BELT SANDER Gender Identity Not on file Sexual Orientation Not on file Last Filed Vital Signs Vital Sign Reading Time Taken Comments Blood Pressure 125/82 04/18/2025 8:54 AM CDT Pulse 65 04/18/2025 8:54 AM CDT Temperature 36.7 C (98 F) 10/03/2019 8:57 AM SPEED BELT SANDER Respiratory Rate - - Oxygen Saturation 96% 04/18/2025 8:54 AM CDT Inhaled Oxygen Concentration - - Weight 110 kg (242 lb 8.1 oz) 07/24/2025 1:04 PM SPEED BELT SANDER Height 177.8 cm (5' 10) 07/24/2025 1:04 PM SPEED BELT SANDER Body Mass Index 34.8 07/24/2025 1:04 PM SPEED BELT SANDER Plan of Treatment Upcoming Encounters Date Type Department Care Team (Latest Contact Info) Description 08/07/2025 8:30 AM SPEED BELT SANDER Hospital Encounter [facility] Electrophysiology Lab [address] [place] [address] Stephon Fernando MD [address] [address] Left heart failure (HCC); NICM (nonischemic cardiomyopathy) (HCC) 08/07/2025 8:30 AM SPEED BELT SANDER Anesthesia Event [facility] Electrophysiology Lab [address] [place] [address] Marilin Jaramillo NP [id number] [place] [address] 08/07/2025 8:30 AM SPEED BELT SANDER - 08/07/2025 2:00 PM SPEED BELT SANDER Surgery [facility] Electrophysiology Lab 1 [facility] [place] [address] Stephon Fernando MD [address] [place] [address] REMOVE/REPLACE IMPLANTABLE CARDIOVERTER-DEFI BRILLATOR (ICD) WITH MULTI LEAD SYSTEM [id number] Health Maintenance Due Date Last Done Comments [...] this topic Medical Devices Implanted Type Area [employer] Device Identifier Shelf Expiration Date Model / [...] Final Result from Last 3 Months Insurance [facility] Care Teams Head Of Human Resources Relationship Specialty Start Date End Date Jatinder Billingsley MD [address] [place] [address] PCP - General 09/30/19
--- OUTSIDE RECORDS SUMMARY | 2025-07-31 14:35 | XMS_ITS | Encounter Summary ---
Author Organization [facility] Address [address] [place] [address] Care Team Providers Care [employer] Name Role Phone None, Provider Primary Care Provider Michelle leonard Encounter Details Date Type Department Care Team (Late st Contact Info) Description 02/09/2025 Hospital Follow-up Call [facility] [address] [place] [address] Letha Michel, RN Social History Tobacco Use Types Packs/Day Years Used Date Smoking Tobacco: Every Day Cigarettes 0.5 23 Started: 2002 Smokeless Tobacco: Never Alcohol Use Standard Drinks/Week Comments Yes 0 (1 standard drink = 0.6 oz pur e alcohol) 1 beer every 2-3 months [facility] Utilities Answer Date Recorded In the past 12 months has e [employer], gas, oil, or water Social Reality threatened to shut off services in your [...] time in the past 12 m [facility], were you homeless or living in a snf (including now)? No 02/04/2025 Sex and Gender [...] on filedocumented in this encounter Care Teams [employer] Relationship Specialty Start Date End Date None, Provider, PCP - General UNKNOWN PHYSICIAN SPECIALTY 02/04/25 documented as of this encounter
--- OUTSIDE RECORDS SUMMARY | 2025-07-31 14:35 | XMS_ITS | Patient Health Record ---
Author Organization [facility] Address [address] [place] [address] Support Name Relationship Address Phone MATT MANSFIELD [...] Insured Coverage Start Date Coverage End Date [facility] [address] [place] [address] [id number] MATT SPENCE Self - patient is the insured Medical (General) History Medical History History ICD Code cardiomyopathy plantar fasciitis heart disease
--- NOTE | 2025-07-31 18:40 | P.PCNPFT_ITS ---
PFT Procedure Performed PFT Procedure Performed Spirometry with Pre/Post Bronchodilator Plethysmography (Lung Vol) Diffusing Cap (DLCO) Flow Vol Loop PFT Interpretation DOS: 07/31/2025 REQUESTING: Jatinder Billingsley MD REASON FOR TESTING: dyspnea PULMONARY FUNCTION TESTS Results are reliable and reproducible. Repeatability of spirometry FEV1 maneuver pre and post bronchodilator is Grade A. [place]: GLI 2012 reference equations were used. Spirometry: The pre-bronchodilator FEV1 is 3.37 L, 78%, decreased. The pre- bronchodilator FVC is 4.32 L, 80%, normal. The FEV1/FVC ratio is 78%, normal. After bronchodilator, the FEV1 is 3.64 L, 85%, +8. After bronchodilator, the FVC is 4.51 L, 84%, +4. The FEV1/FVC ratio is 81%. This is a non statistically significant increase after bronchodilator. Lung volumes: The total lung capacity is 6.77 L, 95%, normal. The residual volume is 2.45 L, 129%, normal. The RV/TLC is 36%, increased. Airway resistance is increased. Diffusion: DLCO is 25.6, 77%, normal. The DLCO/VA is 4.62, 97%, normal. Flow volume loop: The flow volume loop shows a normal pattern. IMPRESSION: There is a mild decrease in FEV1 with normal FVC, no airflow obstruction, insignificant increase in flows after bronchodilator administration, mild air trapping, and normal diffusion. This is a nonspecific pattern. There are no prior studies for comparison. Teresita Hamilton MD
== END 2025-07-31 14:21 | disposition home or self-care (01) ==
LOC: ANHPFT 14:20
PROVIDERS: PCP Family Medicine; Visit Provider Family Medicine
DX: R06.00 Dyspnea, unspecified (principal); R94.2 Abnormal results of pulmonary function studies
CPT/HCPCS: 94060; 94726; 94729